=== PATIENT | male | born 1955 | race African-American/Black ===

== ENCOUNTER 2016-04-29 20:50 | Inpatient (IN) | payer OTHER ==
[2016-04-29] MEDS ORDERED: SODIUM CHLORIDE 0.9% 1,000 ML IV STA (21:40)
[2016-04-29] MEDS ORDERED: DEXAMETHASONE SOD PHOSPHATE 10 MG/ML 1 ML VIAL IV STA (21:40)
[2016-04-29] MEDS ORDERED: SODIUM CHLORIDE 0.9% 500 ML IV STA (21:40)
[2016-04-29] MEDS ORDERED: KETOROLAC 30 MG/ML 1 ML VIAL IVP STA (21:40)
[2016-04-29] MEDS ORDERED: METOCLOPRAMIDE 5 MG/ML 2 ML VIAL IVP STA (21:41)
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
[2016-04-29] MEDS ORDERED: LORazepam 2 MG/ML SYRINGE IV STA (22:17)
--- NOTE | 2016-04-29 22:39 | CT ---
EXAMINATION TYPE: CT brain wo con DATE OF EXAM: 04/29/2016 10:30 PM COMPARISON: 09/09/2014 HISTORY: Seizure and headaches. Hx of seizures. CT DLP: 959.7 mGycm Automated exposure control for dose reduction was used. FINDINGS: There is patchy hypodensity in the periventricular white matter. There is no mass effect or midline s hift. There is no sign of intracranial hemorrhage. The calvarium is intact. IMPRESSION: Chronic small vessel ischemia with cerebral atrophy. This has progressed compared to the old exam. No acute intracranial abnormality.
[2016-04-29 23:00] LABS: Anisocytosis Slight; CH 23.9; CHCM 28.9; HCT 44.6 % (39.0-53.0); HGB 12.7 gm/dL (13.0-17.5); Hypochromasia Marked; MCH 23.8 pg (25.0-35.0); MCHC 28.4 g/dL (31.0-37.0); MCV 83.6 fL (80.0-100.0); Mean Platelet Volume 8.8; RBC 5.33 m/uL (4.30-5.90); RDW 17.5 % (11.5-15.5); WBC (Perox) 10.56
[2016-04-29 23:03] LABS: Anion Gap 21 mmol/L; Blood Urea Nitrogen 16 mg/dL (9-20); Calcium 8.8 mg/dL (8.4-10.2); Carbon Dioxide 16 mmol/L (22-30); Chloride 106 mmol/L (98-107); Glucose 130 mg/dL (74-99); Non-African American GFR(MDRD) >60 (>60 ml/min/1.73 sqM); Potassium 4.1 mmol/L (3.5-5.1); Sodium 143 mmol/L (137-145)
[2016-04-29 23:31] LABS: Add Differential Manual Differential
[2016-04-29] MEDS ORDERED: NALOXONE 0.4 MG/ML 1 ML VIAL IV STA (23:42)
[2016-04-29 23:44] LABS: Manual Review Performed; Nucleated Red Blood Cells 2 /100 WBC (0-0); Target Cells Present; Total Cells Counted 200; WBC 10.7 k/uL (3.8-10.6)
[2016-04-29] MEDS ORDERED: IPRATROPIUM-ALBUTEROL 3 ML NEB INHALATION STA (23:45)
[2016-04-30 00:09] LABS: Creatine Kinase 186 U/L (55-170)
[2016-04-30] MEDS ORDERED: levETIRAcetam IV 1,000 MG in SALINE 1 100ML.BAG IVPB STA (00:19)
[2016-04-30] MEDS ORDERED: LORazepam 2 MG/ML SYRINGE IV STA (00:20)
[2016-04-30 00:22] LABS: Creatine Kinase MB 2.2 ng/mL (0.0-2.4); Troponin I <0.012 ng/mL (0.000-0.034)
[2016-04-30] MEDS ORDERED: SUCCINYLCHOLINE CHLORIDE VIAL 200 MG/10 ML VIAL IV STA (00:35)
[2016-04-30] MEDS ORDERED: ETOMIDATE 2 MG/ML 10 ML VIAL IVP STA (00:36)
[2016-04-30 00:40] LABS: ABG Base Excess -3.4 mmol/L; ABG HCO3 26 mmol/L (21-25); ABG PCO2 92 mmHg (35-45); ABG PH 7.08 (7.35-7.45); ABG PO2 126 mmHg (83-108); ABG TCO2 29 mmol/L (19-24)
[2016-04-30] MEDS ORDERED: PROPOFOL 500 MG in EMPTY BAG 1 BAG IV ONE (00:50)
[2016-04-30 01:21] LABS: ABG Base Excess -2.2 mmol/L; ABG HCO3 24 mmol/L (21-25); ABG PCO2 56 mmHg (35-45); ABG PH 7.25 (7.35-7.45); ABG PO2 100 mmHg (83-108); ABG TCO2 26 mmol/L (19-24)
--- NOTE | 2016-04-30 01:21 | XR ---
EXAMINATION TYPE: XR chest 1V portable DATE OF EXAM: 04/30/2016 12:59 AM COMPARISON: 09/11/2014 HISTORY: Check tube placement TECHNIQUE: Single frontal view of the chest is obtained. FINDINGS: Endotracheal tube appears in good position. There is blunting of left costophrenic angle a nd infiltrate and consolidation at the left lung base. There is pulmonary vascular congestion. Heart appears enlarged. There are chest leads. There is slight blunting of right costophrenic angle. IMPRESSION: Endotracheal tube is in good position. There is evidence of mild congestive heart failur e that is new compared to old exam. Left lower lobe pneumonia and pleural fluid.
[2016-04-30] MEDS ORDERED: PIPERACILLIN-TAZOBACTAM 3.375 GM in DEXTROSE/WATER 1 50ML.BAG IVPB STA (01:52)
[2016-04-30] MEDS ORDERED: IV VANCOMYCIN PER PHARMACY 1 EACH MISC MISCELLANE PRN (01:52)
[2016-04-30] MEDS ORDERED: VANCOMYCIN 1,000 MG in SODIUM CHLORIDE 0.9% 250 ML IVPB STA (01:52)
[2016-04-30] MEDS ORDERED: FUROSEMIDE 10 MG/ML 10 ML VIAL IV STA (01:53)
[2016-04-30] MEDS ORDERED: ACETAMINOPHEN IV (For NPO) 1,000 MG in SALINE 1 100ML.BAG IVPB PRN (01:55)
[2016-04-30] MEDS ORDERED: NALOXONE 0.4 MG/ML 1 ML VIAL IV PRN (01:55)
[2016-04-30] MEDS ORDERED: BISACODYL 10 MG SUPP RECTAL PRN (01:55)
[2016-04-30] MEDS ORDERED: LORazepam 2 MG/ML SYRINGE IV PRN (02:03)
[2016-04-30 03:51] LABS: Glucose,Whole Blood 96 mg/dL (75-99)
[2016-04-30 04:26] LABS: Appearance,Urine Clear (Clear); Bilirubin,Urine Negative (Negative); Glucose,Urine (UA) 2+ (Negative); Ketones,Urine Negative (Negative); Leukocyte Esterase,Urine Negative (Negative); Nitrite,Urine Negative (Negative); Protein,Urine Negative (Negative); Specific Gravity,Urine 1.005 (1.001-1.035); UA Billing (MACRO vs. MICRO) CHEM; Urobilinogen,Urine <2.0 mg/dL (<2.0)
[2016-04-30 04:52] LABS: ABG Base Excess -0.5 mmol/L; ABG HCO3 24 mmol/L (21-25); ABG PCO2 43 mmHg (35-45); ABG PH 7.37 (7.35-7.45); ABG PO2 223 mmHg (83-108); ABG TCO2 25 mmol/L (19-24)
[2016-04-30 04:53] LABS: ABG Oxygen Saturation 99.8 % (94-97)
[2016-04-30] MEDS: SODIUM CHLORIDE 0.9% 1,000 ML IV SCH (05:07)
[2016-04-30] MEDS: PROPOFOL 500 MG in EMPTY BAG 1 BAG IV SCH ×10 (05:07→22:27)
[2016-04-30 05:14] LABS: Anisocytosis Slight; Basophils # (A) 0.1 k/uL (0-0.2); Basophils % (A) 1 %; CH 23.6; Eosinophils # (A) 0.1 k/uL (0-0.7); Eosinophils % (A) 1 %; HDW 2.74; HGB 12.7 gm/dL (13.0-17.5); Hypochromasia Marked; Luc # (Auto) 0.16; Luc % (Auto) 1; Lymphocytes # (A) 0.9 k/uL (1.0-4.8); Lymphocytes % (A) 8 %; MCV 85.1 fL (80.0-100.0); Mean Platelet Volume 8.3; Monocytes # (A) 0.6 k/uL (0-1.0); Monocytes % (A) 5 %; Neutrophils # (A) 10.2 k/uL (1.3-7.7); Neutrophils % (A) 84 %; RBC 5.52 m/uL (4.30-5.90); RDW 17.5 % (11.5-15.5); WBC 12.1 k/uL (3.8-10.6); WBC (Perox) 11.52
[2016-04-30 05:22] LABS: Anion Gap 16 mmol/L; Blood Urea Nitrogen 18 mg/dL (9-20); Calcium 9.2 mg/dL (8.4-10.2); Carbon Dioxide 25 mmol/L (22-30); Chloride 104 mmol/L (98-107); Glucose 116 mg/dL (74-99); Magnesium 2.2 mg/dL (1.6-2.3); Non-African American GFR(MDRD) >60 (>60 ml/min/1.73 sqM); Phosphorous 4.3 mg/dL (2.5-4.5); Potassium 4.8 mmol/L (3.5-5.1); Sodium 145 mmol/L (137-145)
[2016-04-30 06:01] LABS: Large Platelets Present; Manual Review Performed; Polychromasia Present; Tear Drop Cells Present
--- NOTE | 2016-04-30 08:39 | XR ---
EXAMINATION TYPE: XR chest 1V portable DATE OF EXAM: 04/30/2016 6:39 AM Comparison: 04/30/2016 Clinical History: 60-year-old male CHF/Pneumonia Findings: Heart remains upper limits of normal in size. ET tube is satisfactory. NG tube courses below the diap hragm. Mild interstitial densities are similar with continued focal left basilar and retrocardiac opa city. Impression: 1. There may be similar mild CHF. 2. Continued small left pleural effusion with prominent adjacent left basilar and retrocardiac infilt rate.
[2016-04-30] MEDS: PIPERACILLIN-TAZOBACTAM 3.375 GM in DEXTROSE/WATER 1 50ML.BAG IVPB SCH ×3 (09:51→23:55)
[2016-04-30] MEDS: PANTOPRAZOLE 40 MG/10 ML VIAL IV SCH (09:51)
[2016-04-30] MEDS: FUROSEMIDE 10 MG/ML 4 ML VIAL IV SCH ×2 (09:51→20:26)
[2016-04-30] MEDS: CHLORHEXIDINE GLUCONATE 15 ML CUP MUCOUS MEM SCH ×2 (09:51→20:26)
[2016-04-30] MEDS: ENOXAPARIN 40 MG/0.4 ML SYRINGE SQ SCH (09:51)
[2016-04-30] MEDS: levETIRAcetam IV 1,000 MG in SALINE 1 100ML.BAG IVPB SCH ×2 (10:03→22:17)
[2016-04-30] MEDS: VANCOMYCIN 1,500 MG in SODIUM CHLORIDE 0.9% 250 ML IVPB SCH ×2 (14:13→23:55)
--- NOTE | 2016-04-30 14:47 | CONS ---
DATE OF CONSULTATION: 04/30/2016 REASON FOR CONSULTATION: Acute respiratory failure and left-sided pneumonia. HISTORY OF PRESENTING ILLNESS: Mr. Nitin oY is a 60-year-old male who was seen, evaluated and examined in the ICU earlier this morning. Data predominantly has been obtained from the chart as patient presented into the emergency department with issues associated with severe headache. It started one day prior to coming to the hospital. Patient has been having nausea and vomiting as well. With those problems, he was seen, evaluated, and examined in the hospital. Patient had a history of dizziness as well with history of seizures. Patient has been intermittently having seizures as well. Reportedly patient had multiple seizures in the last few days, in fact one in the hospital and then subsequently afterwards he was intubated. Review of the data revealed that patient was rehydrated in the ED and was placed on Toradol and Reglan. CT scan of the brain was performed. No acute changes were identified. Due to seizures, he did receive 2 mg of Ativan. It appears his seizure lasted about 3 minutes and then another seizure occurred, followed by a third seizure. Patient was given Ativan and Keppra. He did drop down his oxygen saturation and developed oral secretions. At that point, he was intubated for airway protection by the ED. Past medical history is significant for CVA, TIA, GERD, hypertension, degenerative joint disease and osteoarthritis, seizure disorder, history of chronic back pain, peptic ulcer disease, history of pneumonia, and syncope. PAST SURGICAL HISTORY: Significant for colonoscopy, right ankle open reduction internal fixation surgery, right shoulder surgery. FAMILY HISTORY AND SOCIAL HISTORY: Smokes 1-1/2 packs per day for about 24 years. No history of substance use or alcohol consumption, unable to obtain a better detail. Family with a strong history of diabetes on maternal side though. Medications at home include [place], Lexapro, Norvasc and Depakote, Norflex. Current medications while in the hospital include Tylenol as needed, Dulcolax, Peridex, Lovenox 40 mg daily, Lasix 40 mg IV q.12, levetiracetam 1 gm q.12, Ativan 1 mg q.30 minutes as needed, vanco and Zosyn, Narcan, Protonix 40 mg daily. Also on propofol drip as per protocol, IV fluids KVO. REVIEW OF SYSTEMS: Unable to obtain at length. On examination, most recent vitals include blood pressure is 140/90, respiratory rate in mid 20s, heart rate is 108, temperature is 99, saturation of 92%. Current vent setting includes assist control rate of 16, breathing 16, tidal volume of 600, 5 of PEEP and 50% oxygen. HEENT: Otherwise unremarkable. NECK: Supple without any lymphadenopathy, jugular venous distention or carotid bruit. LUNGS: Bilateral good air entry with some bronchial breath sound, especially on the left base. HEART: Regular rate and rhythm. S1 and S2 audible. Abdomen is soft. No rebound or rigidity. EXTREMITIES: +1 pedal pulses. NEUROLOGICAL EXAMINATION: Sedated with propofol drip. Laboratory data reviewed. The chest x-ray revealed left lower lobe infiltrate and small effusion cannot be excluded. White cell count is 12,100, hemoglobin of 12, hematocrit 47, platelet count of 441,000. Arterial blood gases pH 7.3, pCO2 of 43, pO2 of 223 on 80% oxygen, ( ) chemistry within normal limits. CO2 was 16, initially improved to 25. Urinalysis unremarkable, marijuana was positive in the drug screen. IMPRESSION: 1. Acute hypoxic respiratory failure related to aspiration pneumonia, likely mixed bacterial pneumonia. 2. Seizure disorder with recurrent seizure and status epilepticus, which is now stable and improved. Patient is on antiseizure medicine and appears to be well-controlled, Neuro has been consulted. 3. Hypertension, hypertensive cardiovascular disease PLAN AND RECOMMENDATIONS: As above. Continue supportive care. Follow clinical course closely. Broad-spectrum has been given. Will send the sputum for culture as well. Repeat labs and x-ray tomorrow, hold on any weaning at this point in time until patient is relatively more stable.
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
[2016-04-30] MEDS: MORPHINE SULFATE 4 MG/ML SYRINGE IV PRN ×2 (17:28→20:53)
[2016-04-30] MEDS: hydrALAZINE HCL 20 MG/ML 1 ML VIAL IVP PRN (17:57)
[2016-04-30] MEDS: VALPROATE SODIUM 250 MG in SODIUM CHLORIDE 0.9% 50 ML IVPB SCH (20:26)
[2016-05-01] MEDS: PROPOFOL 500 MG in EMPTY BAG 1 BAG IV SCH ×5 (02:31→09:33)
[2016-05-01] MEDS: VALPROATE SODIUM 250 MG in SODIUM CHLORIDE 0.9% 50 ML IVPB SCH ×2 (04:40→11:17)
[2016-05-01] MEDS: SODIUM CHLORIDE 0.9% 1,000 ML IV SCH (04:40)
[2016-05-01 05:02] LABS: ABG HCO3 25 mmol/L (21-25); ABG PCO2 38 mmHg (35-45); ABG PH 7.43 (7.35-7.45); ABG PO2 128 mmHg (83-108)
[2016-05-01 05:03] LABS: ABG Base Excess 0.7 mmol/L; ABG TCO2 26 mmol/L (19-24)
[2016-05-01 05:06] LABS: Anisocytosis Slight; Basophils # (A) 0.1 k/uL (0-0.2); Basophils % (A) 1 %; CH 23.8; CHCM 30.1; Eosinophils # (A) 0.2 k/uL (0-0.7); Eosinophils % (A) 2 %; HCT 39.6 % (39.0-53.0); HDW 2.68; HGB 11.9 gm/dL (13.0-17.5); Hypochromasia Moderate; Luc # (Auto) 0.32; Luc % (Auto) 3; Lymphocytes # (A) 1.6 k/uL (1.0-4.8); Lymphocytes % (A) 17 %; MCH 23.9 pg (25.0-35.0); MCHC 30.1 g/dL (31.0-37.0); Mean Platelet Volume 8.1; Microcytosis Slight; Monocytes # (A) 1.2 k/uL (0-1.0); Monocytes % (A) 12 %; Neutrophils # (A) 6.2 k/uL (1.3-7.7); Neutrophils % (A) 65 %; RBC 4.98 m/uL (4.30-5.90); RDW 17.5 % (11.5-15.5); WBC 9.4 k/uL (3.8-10.6); WBC (Perox) 10.03
[2016-05-01 05:19] LABS: MCV 79.5 fL (80.0-100.0)
[2016-05-01 05:22] LABS: Anion Gap 11 mmol/L; Calcium 8.4 mg/dL (8.4-10.2); Carbon Dioxide 27 mmol/L (22-30); Chloride 105 mmol/L (98-107); Glucose 92 mg/dL (74-99); Non-African American GFR(MDRD) 53 (>60 ml/min/1.73 sqM); Sodium 143 mmol/L (137-145)
[2016-05-01 05:25] LABS: Blood Urea Nitrogen 28 mg/dL (9-20); Magnesium 2.2 mg/dL (1.6-2.3); Potassium 4.2 mmol/L (3.5-5.1)
[2016-05-01] MEDS: levETIRAcetam IV 1,000 MG in SALINE 1 100ML.BAG IVPB SCH (07:56)
[2016-05-01] MEDS: PIPERACILLIN-TAZOBACTAM 3.375 GM in DEXTROSE/WATER 1 50ML.BAG IVPB SCH ×3 (07:56→23:09)
--- NOTE | 2016-05-01 08:58 | XR ---
EXAMINATION TYPE: XR chest 1V portable DATE OF EXAM: 05/01/2016 6:54 AM COMPARISON: Prior chest x-ray 30 April 2016 HISTORY: Intubated, pneumonia TECHNIQUE: Single frontal view of the chest is obtained. FINDINGS: Endotracheal tube, NG tube are overlying appropriate positions. No pneumothorax evident. P atchy basilar density somewhat improved on the right, persistent obscuration of the left hemidiaphrag m. Cardiac mediastinal silhouette, pulmonary vascularity and jesús not significantly changed. No evide nt pneumothorax. IMPRESSION: There is some improvement in aeration, persistent retrocardiac density, correlate for le ft lower lobe atelectasis versus pneumonia or edema. Additional follow-up recommended.
[2016-05-01] MEDS: FUROSEMIDE 10 MG/ML 4 ML VIAL IV SCH (09:08)
[2016-05-01] MEDS: CHLORHEXIDINE GLUCONATE 15 ML CUP MUCOUS MEM SCH (09:08)
[2016-05-01] MEDS: ENOXAPARIN 40 MG/0.4 ML SYRINGE SQ SCH (09:08)
[2016-05-01] MEDS: PANTOPRAZOLE 40 MG/10 ML VIAL IV SCH (09:08)
--- NOTE | 2016-05-01 09:33 | CONS ---
DATE OF CONSULTATION: 04/30/2016 CHIEF COMPLAINT: Seizure. HISTORY OF PRESENT ILLNESS: Mr. oY is a 60-year-old male who is being evaluated today on 04/30/16 by the neurology service per the request of Dr. Barbour for uncontrolled seizures. The patient was brought into [facility] Emergency Room after EMS was called because of his complaints of generalized weakness and a headache. While EMS was evaluating the patient, he had 3 generalized tonic-clonic seizures. The patient had respiratory distress and was intubated. He was started on IV Keppra. In the emergency room, he was felt to be having fluid overload and was started on IV Lasix. The patient was still restless and had to be sedated with propofol fall and he was admitted to the intensive care unit for further workup and management. A stat CT scan of the brain was done, which showed no acute abnormalities. There was generalized atrophy and small vessel ischemic changes. His chest x-ray showed evidence of left pleural effusion and left-sided infiltrate. He has been started on antibiotics. The patient remained sedated and intubated at the time of my evaluation. In reviewing the chart, he appears to have history of seizure disorder and is on Depakote 250 mg 3 times daily at home. It appears that the patient had not been compliant with his therapy and his Depakote level was undetectable according to the chart. His CBC showed mild leukocytosis at 12.1 and was otherwise normal. His urinalysis and basic metabolic profile was normal. His urine drug screen was positive for marijuana. He remains on Keppra IV at this time and no further seizure-like activities have been witnessed by the nursing staff. PAST MEDICAL HISTORY: Generalized tonic-clonic seizure disorder, arthritis, hypertension, peptic ulcer disease, gastroesophageal reflux disease, history of orthopedic surgeries. SOCIAL HISTORY: The patient smokes 1/2 pack of cigarettes daily. His alcohol and drug history is unknown. FAMILY HISTORY: Unknown. HOME MEDICATIONS: Reviewed in the chart. ALLERGIES: No known drug allergies. REVIEW OF SYSTEMS: Unable to obtain as the patient is intubated and sedated. PHYSICAL EXAM: Vital signs show a temperature of 98.5, pulse 69, respirations 15, blood pressure 158/85. GENERAL APPEARANCE: The patient is a well-developed male who is intubated and sedated and appears to be comfortable. HEENT: Normocephalic, atraumatic. No obvious facial asymmetry is seen. Endotracheal tube is intact. Neck is supple with no masses felt. CARDIOVASCULAR: Regular rate and rhythm. ABDOMEN: Nontender, nondistended. Extremities showed no edema or clubbing. NEUROLOGICAL EXAM: The patient is sedated but he is slightly arousable with sternal rub. He does move all 4 extremities spontaneously. He is not following commands at this time. No obvious facial asymmetry is seen. Plantar reflex showed downgoing toes bilaterally. Deep tendon reflexes were 2 to 3+ and symmetrical. No seizure-like activity is seen. IMPRESSION: 1. Uncontrolled seizures, generalized tonic-clonic type. 2. Altered mental status. 3. Respiratory failure. 4. Subtherapeutic Depakote levels. 5. Medication noncompliance. 6. Possible pneumonia and pleural effusion. RECOMMENDATIONS: The patient did have multiple witnessed seizures and he is currently on IV Keppra. He has not had any further seizures, but he remains intubated and sedated. Pulmonology is following the patient and their plan is to wean him off of the ventilator tomorrow. I will restart his home dose of Depakote 250 mg 3 times daily and I will give him this IV route. An EEG has been ordered. Continue seizure precautions and continue neuro checks. Continue antibiotic therapy for his infection. Prognosis is guarded. I will continue to follow with you. Further recommendations to follow. Thank you for allowing me to participate in the care of your patient. If you have any questions, please feel free to contact me.
[2016-05-01] MEDS ORDERED: VANCOMYCIN TROUGH DUE 1 EACH MISC MISCELLANE ONE (11:00)
[2016-05-01] MEDS: VANCOMYCIN 1,500 MG in SODIUM CHLORIDE 0.9% 250 ML IVPB SCH ×2 (11:17→23:09)
--- NOTE | 2016-05-01 12:27 | PN ---
Nitin Yo who is a 60-year-old male, was seen, evaluated, and examined. Patient has a large aspiration pneumonia, recurrent seizure for which he is kept on respirator. Patient remains intubated on full respirator support along with sedation with propofol. Patient had a seizure and seizure-like activity. Neurology is following this patient as well. Care plan discussed with the Primary Service as well. The last set of vitals include blood pressure is 100/60, respirations 16, pulse 60, temperature 98, saturation of 99% on current vent setting. HEENT: Unremarkable. NECK: Supple. LUNGS: Good air entry, a few bronchial breath sounds are present in the bases. HEART: Regular rate and rhythm, S1 and S2 audible. ABDOMEN: Soft. No rebound or rigidity. EXTREMITIES: +1 peripheral pulses. NEUROLOGICAL EXAMINATION: Otherwise, awake and alert. Medications reviewed as well. The sputum culture preliminary gram-positive cocci are seen. The blood cultures are no growth. Urine culture performed also pending at this point in time. Laboratory data reviewed. The arterial blood gas revealed pH of 7.43, pCO2 of 38, pO2 of 128, BUN and creatinine are 28 and 1.38, which is slightly up. The rest of the chemistry is within normal limits. White cell count is down to 9000, hemoglobin 11, hematocrit 39, platelet count 424,000. The last chest x-ray performed earlier today reviewed and compared with the prior x-ray, revealed improvement in aeration and retrocardiac density and left lower lobe pneumonia seen, which is overall stable. IMPRESSION: 1. Mixed bacterial gram-negative pneumonia, likely aspiration pneumonia. Patient remains on broad-spectrum antibiotics. Follow up on culture results and report. 2. Recurrent seizure. Patient is sedated with propofol drip. The rectum is being infused as well. No evidence of recurrent seizure; however, has been seen though. 3. Congestive heart failure, fluid overload. Patient is developing early renal failure stage II to III. Would recommend to discontinue the Lasix. Further recommendations pending. Plan of care as per clinical response of the patient. If he remains stable, possible initiating weaning in the next 24 to 48 hours.
[2016-05-01] MEDS: MORPHINE SULFATE 4 MG/ML SYRINGE IV PRN ×3 (13:07→22:30)
--- NOTE | 2016-05-01 17:32 | PN ---
DATE OF SERVICE: 05/01/2016 PRESENTING COMPLAINT: Seizures. INTERVAL HISTORY: This patient was admitted with uncontrolled seizure. Patient was extubated earlier today. Patient is awake but a little bit tired. The patient did state that he was out of his seizure medications at home. Patient is on nasal cannula. No further seizures. Review of systems done for constitutional, cardiovascular, GI, pulmonary; relevant findings as above. Current medications are reviewed that include IV Keppra, IV Zosyn, valproic acid. On examination, temperature 98.7, pulse 52, respiration 16, blood pressure 97/63, pulse ox 98%. GENERAL APPEARANCE: Lying in bed. Awake. Tired-appearing. EYES: Pupils equal. Conjunctivae normal. NECK: JVD not raised. Mass not palpable. RESPIRATORY: Effort normal. LUNGS: Slightly decreased breath sounds. CARDIOVASCULAR: First and second sounds normal. No edema. ABDOMEN: Soft, nontender. Liver and spleen not palpable. PSYCHIATRY: Alert and oriented x3. Mood and affect slightly tired-appearing, lethargic. INVESTIGATIONS: White count 9.4, hemoglobin 11.9. Potassium 4.2. BUN 28, creatinine 1.38. ASSESSMENT: 1. Status epilepticus in a patient with known tonic-clonic seizures who ran out of his Depakote. 2. Essential hypertension, uncontrolled on presentation. 3. Peptic ulcer disease. 4. Gastroesophageal reflux disease. 5. Possible aspiration pneumonia. Patient does have a congested cough. PLAN: Continue current medication and treatment plan. If patient is more awake, he can be moved out of the ICU. Continue antibiotics and follow.
[2016-05-01 19:28] LABS: Glucose,Whole Blood 106 mg/dL (75-99)
[2016-05-01] MEDS: levETIRAcetam 500 MG TAB PO SCH (20:24)
--- NOTE | 2016-05-01 22:10 | EEG ---
DATE OF SERVICE: 05/01/2016 REASON FOR TESTING: Seizures. CURRENT ANTIEPILEPTIC MEDICATIONS: Depakote and Keppra. DESCRIPTION OF THE PROCEDURE: This EEG was performed using a 21-channel digital electroencephalograph, following international 10-20 system. DESCRIPTION OF THE RECORDING: From the beginning of the tracing, and with the patient's eyes closed, the background rhythm was mostly consisting of 7 Hz theta frequency in the posterior occipital leads. No obvious asymmetry is seen. Photic stimulation was performed with a minimal driving response seen. No pathological waves were elicited. Frequent movement and muscle artifacts are seen. Hyperventilation was not performed. The patient remains awake throughout the tracing. No epileptiform discharges were seen. His EKG lead showed a regular rate and rhythm. INTERPRETATION: This awake EEG is abnormal due to the presence of generalized slowing of the background rhythm, mostly in the theta range. This is consistent with mild encephalopathy. No epileptiform discharges were seen. The absence of epileptiform discharges does not rule out the diagnosis of epilepsy; therefore clinical correlation is recommended.
[2016-05-01] MEDS: DIVALPROEX 250 MG TABLET.DR PO SCH (22:29)
[2016-05-02 02:40] LABS: Glucose,Whole Blood 91 mg/dL (75-99)
[2016-05-02 05:50] LABS: Anisocytosis Slight; CH 23.7; CHCM 29.4; HCT 42.8 % (39.0-53.0); HDW 2.58; HGB 12.6 gm/dL (13.0-17.5); Hypochromasia Marked; MCH 23.9 pg (25.0-35.0); MCHC 29.4 g/dL (31.0-37.0); MCV 81.2 fL (80.0-100.0); RBC 5.27 m/uL (4.30-5.90); RDW 17.1 % (11.5-15.5); WBC 10.8 k/uL (3.8-10.6); WBC (Perox) 10.96
[2016-05-02] MEDS: ACETAMINOPHEN TAB 325 MG TAB PO PRN ×2 (06:16→15:23)
[2016-05-02] MEDS: SODIUM CHLORIDE 0.9% 1,000 ML IV SCH (06:17)
[2016-05-02 06:27] LABS: Add Differential Manual Differential; Anion Gap 13 mmol/L; Blood Urea Nitrogen 27 mg/dL (9-20); Calcium 9.1 mg/dL (8.4-10.2); Carbon Dioxide 23 mmol/L (22-30); Chloride 106 mmol/L (98-107); Glucose 91 mg/dL (74-99); Magnesium 2.4 mg/dL (1.6-2.3); Non-African American GFR(MDRD) >60 (>60 ml/min/1.73 sqM); Phosphorous 4.2 mg/dL (2.5-4.5); Potassium 4.5 mmol/L (3.5-5.1); Sodium 142 mmol/L (137-145)
[2016-05-02 06:30] LABS: Manual Review Performed; Nucleated Red Blood Cells 0 /100 WBC (0-0); Total Cells Counted 100
[2016-05-02] MEDS: PIPERACILLIN-TAZOBACTAM 3.375 GM in DEXTROSE/WATER 1 50ML.BAG IVPB SCH ×2 (07:59→15:25)
--- NOTE | 2016-05-02 07:59 | XR ---
EXAMINATION TYPE: XR chest 1V portable DATE OF EXAM: 05/02/2016 6:21 AM COMPARISON: 05/01/2016 INDICATION: Pneumonia TECHNIQUE: Single frontal view of the chest is obtained. FINDINGS: The heart size is normal. The pulmonary vasculature is normal. Minimal resolving atelectasis is at the left base. 2 screws are within the right humeral head. EKG leads overlie the chest. IMPRESSION: 1. Resolving left basilar atelectasis.
[2016-05-02] MEDS: PANTOPRAZOLE 40 MG/10 ML VIAL IV SCH (08:19)
[2016-05-02] MEDS: ENOXAPARIN 40 MG/0.4 ML SYRINGE SQ SCH (08:20)
[2016-05-02] MEDS: DIVALPROEX 250 MG TABLET.DR PO SCH ×3 (08:20→21:02)
[2016-05-02] MEDS: levETIRAcetam 500 MG TAB PO SCH ×2 (08:20→21:02)
[2016-05-02] MEDS: MORPHINE SULFATE 4 MG/ML SYRINGE IV PRN ×3 (08:33→21:06)
--- NOTE | 2016-05-02 10:00 | PN ---
Nitin Yo who is a 60-year-old male admitted to hospital with aspiration pneumonia, recurrent seizures and respiratory failure, has been successfully weaned and extubated. Clinically doing well, awake and alert, breathing comfortably. No obvious distress present. Hemodynamic status is stable. Blood pressure 144/95, respiratory rate 20, heart rate 66, temperature 99, saturation 95% to 96%. HEENT: Unremarkable. NECK: Supple without any lymphadenopathy, jugular venous distention or carotid bruit. LUNGS: Bilateral good air entry is present with some bronchial breath sound at the left base. HEART: Regular rate and rhythm. ABDOMEN: Soft. NEUROLOGICAL EXAMINATION: Awake and alert. Last chest x-ray performed revealed left lower lobe infiltrate, continues to improve. IMPRESSION: 1. Left-sided pneumonia. 2. Acute hypoxic respiratory failure. 3. Recurrent seizures. 4. Severe chronic obstructive pulmonary disease. Plan and recommendation is as above. Continue supportive care, antibiotics, breathing treatments. Increase activity as tolerated.
[2016-05-02] MEDS: VANCOMYCIN 1,500 MG in SODIUM CHLORIDE 0.9% 250 ML IVPB SCH (13:19)
--- NOTE | 2016-05-02 17:18 | PN ---
DATE OF SERVICE: 05/01/2016 SUBJECTIVE: Mr. Yo is a 60-year-old -[place] male who is being evaluated today on 05/01/2016 for seizure disorder. As you recall, the patient had uncontrolled seizures and his Depakote level was found to be subtherapeutic on admission. The patient was sedated and intubated yesterday and he was started on IV Keppra and his home dose of Depakote was restarted. Today, the patient has been weaned off of sedation and he was extubated. At the time of my evaluation, he is sitting up in his bed and appears to be in no acute distress. He has not had any further breakthrough seizures. I did discuss with him his serum Depakote level and the patient does admit that he ran out of Depakote and did not refill the medication. He is not sure exactly when he discontinued Depakote. I did review his EEG, which showed no epileptiform discharges, but there was evidence of mild encephalopathy. He denies any headache at this time. He is still on antibiotics for his pneumonia. PAST MEDICAL HISTORY: Seizure disorder, arthritis, hypertension, peptic ulcer disease, gastroesophageal reflux disease. OBJECTIVE: Vital signs show a temperature of 98.7, pulse 73, respirations 23, blood pressure 117/80. GENERAL APPEARANCE: The patient is a well-developed -[place] male who appears to be in no acute distress. HEENT: Normocephalic, atraumatic. No facial asymmetry is seen. Neck is supple with no masses felt. CARDIOVASCULAR: Regular rate and rhythm. ABDOMEN: Nontender, nondistended. Extremities showed no edema or clubbing. NEUROLOGICAL: The patient is awake and oriented x3. Speech and language testing are normal. No lateralizing weakness is seen. Sensory exam was normal to light touch in all 4 extremities. No seizure-like activity is noticed. No facial asymmetry is noticed on cranial nerve testing. IMPRESSION: 1. Generalized tonic-clonic seizures. 2. Encephalopathy, likely infectious. 3. Subtherapeutic Depakote level. 4. Medication noncompliance. 5. Pneumonia. RECOMMENDATIONS: The patient has been weaned off of sedation and he was extubated early this morning. He is doing well from a pulmonary standpoint. He has not had any further seizures. I will keep him on Keppra 1000 mg b.i.d. and I will keep him on his home dose of Depakote at 250 mg t.i.d. I will switch his dosing to oral, since he is able to swallow. I did review his EEG, which showed evidence of mild encephalopathy, likely secondary to an infectious etiology. He will continue on antibiotic therapy and Pulmonology is following the patient. The patient was told that he is not to drive or operate any heavy machinery until he is seizure free for 6 months. The importance of medication compliance, especially with seizure medications, was discussed with the patient. Continue the rest of your current workup and management. I will continue to follow with you. Further recommendations to follow.
--- NOTE | 2016-05-02 17:49 | P.PN ---
Subjective Principal diagnosis: Patient is a 60-year-old -[place] male who is being followed by the neurology service for seizure disorder. As you recall, patient had uncontrolled seizures and was brought to [facility] for further evaluation. On admission, patient's Depakote level was found to be subtherapeutic. Patient states he had run out of his medication approximately 1 -2 weeks ago. Patient was started on IV Keppra in his home dose of Depakote was restarted as well. Patient is complaining of and dizziness. This is most likely related to him being on both Keppra and Depakote. Patient has not had any breakthrough seizures since admission. At the time of my evaluation, he is resting comfortably in bed and appears to be in no acute distress. As you recall, his EEG did not show any epileptiform discharges but there was evidence of mild encephalopathy. Objective - Vital Signs Vital signs: Vital Signs Temp 98.2 F 05/02/16 15:59 Pulse 88 05/02/16 15:59 Resp 14 05/02/16 15:59 BP 144/95 05/02/16 07:00 Pulse Ox 97 05/02/16 15:59 Intake & Output 05/01/16 05/02/16 05/02/16 18:59 06:59 18:59 Intake Total 498.515 520 300 Output Total 1970 1050 500 Balance -1471.485 -530 -200 Weight 81.3 kg 80.3 kg Intake: IV 140 280 300 Piperacillin-Tazobactam 3 50 .375 gm In Dextrose/Water 1 50ml.bag @ 12.5 mls/hr IVPB Q8HR KELLY Rx#: [id number] Sodium Chloride 0.9% 1, 140 280 000 ml @ 20 mls/hr IV . Q24H KELLY Rx#:[id number] Vancomycin 1,500 mg In 250 Sodium Chloride 0.9% 250 ml @ 125 mls/hr IVPB Q12H KELLY Rx#:[id number] Intake, IV Titration 238.515 Amount Piperacillin-Tazobactam 3 50 .375 gm In Dextrose/Water 1 50ml.bag @ 12.5 mls/hr IVPB Q8HR KELLY Rx#: [id number] Propofol 500 mg In Empty 88.515 Bag 1 bag @ Titrate IV . Q0M KELLY Rx#:[id number] levETIRAcetam IV 1,000 mg 100 In Saline 1 100ml.bag @ 400 mls/hr IVPB Q12HR KELLY Rx#:[id number] Oral 240 Tube Feeding 120 Output: Urine 1970 1050 500 Other: Voiding Method Indwelling Catheter Indwelling Catheter Toilet - Exam PHYSICAL EXAM: GENERAL APPEARANCE: Patient is a well-developed, -[place] male who appears to be in no acute distress. HEENT: Normocephalic, atraumatic, no facial asymmetry is seen. Neck is supple with no masses felt. CARDIOVASCULAR: Regular rate and rhythm. ABDOMEN: Nontender, nondistended. EXTREMITIES: Show no edema or clubbing. NEUROLOGICAL EXAM: Patient is awake, alert, and oriented 3. Speech and language are normal. Strength is full in all 4 extremities. No lateralizing weakness is noted. Sensory exam is normal to light touch in all 4 extremities. No tremors or seizure-like activity is seen. No facial asymmetry is noted on cranial nerve testing. - Labs CBC & Chem 7: 05/02/16 04:44 05/02/16 04:44 Labs: Abnormal Lab Results - Last 24 Hours (Table) 05/01/16 05/02/16 05/02/16 Range/Units 19:26 04:44 04:44 WBC 10.8 H (3.8-10.6) k/uL Hgb 12.6 L (13.0-17.5) gm/dL MCH 23.9 L (25.0-35.0) pg MCHC 29.4 L (31.0-37.0) g/dL RDW 17.1 H (11.5-15.5) % Plt Count 509 H (150-450) k/uL Neutrophils # (Manual) 8.1 H (1.3-7.7) k/uL Monocytes # (Manual) 1.1 H (0-1.0) k/uL BUN 27 H (9-20) mg/dL POC Glucose (mg/dL) 106 H (75-99) mg/dL Magnesium 2.4 H (1.6-2.3) mg/dL Microbiology - Last 24 Hours (Table) 04/30/16 11:29 Gram Stain - Final Sputum Sputum Culture - Final 04/30/16 04:46 Blood Culture - Preliminary Blood No Growth after 48 hours 04/30/16 04:15 Urine Culture - Final Urine,Catheterized Assessment and Plan Plan: Impression: 1. Generalized tonic-clonic seizures 2. Encephalopathy 3. Subtherapeutic Depakote level 4. Medication noncompliance 5. Pneumonia Recommendations: Patient has not had any further seizures. He does complain of headache and dizziness. This is likely related to being on both antiepileptic medications of Keppra and Depakote. I agree with weaning off Keppra and continuing him on his home dose of Depakote at 250 mg 3 times a day. Continue to wean Keppra. He may need to continue small dose of Keppra in the home setting for a week or so. Continue medical management for pneumonia. The patient was told that he is not to drive or operate any heavy machinery until he is seizure-free for 6 months. I did discuss with the patient and importance of compliance with his medication. Patient verbalized understanding. I will continue to follow with you on an as-needed basis. Patient is stable for discharge from a neurological standpoint. Feel free to call with any questions or concerns. I performed an examination of the patient and discussed the management with the CITY CONTROLLER. I have reviewed the CITY CONTROLLER notes and agree with the findings and plan of care.
--- NOTE | 2016-05-02 19:38 | PN ---
DATE OF SERVICE: 05/02/2016 PRESENTING COMPLAINT: Uncontrolled seizures. INTERVAL HISTORY: This is a patient who presented with status epilepticus, was extubated yesterday. Patient moved out to the medical floor. Patient states that he had gone to see his mother out of town and out of his Depakote at least for 7 days, otherwise was well controlled. Patient has been on Keppra. Patient states when he gets Keppra, he really feels dizzy, lightheaded, a little bit drowsy, but able to carry on a conversation. Minimal cough. Review of systems done for constitutional, cardiovascular, GI, pulmonary; relevant findings as above. Current medications are reviewed that include: 1. IV Keppra. 2. IV Zosyn and 3. Vancomycin. On examination, temperature 98.2, pulse 88, respirations 14, blood pressure 144/95, pulse ox 97% on room air. GENERAL: Lying in bed, tired-appearing, but more awake. EYES: Pupils equal. Conjunctivae normal. NECK: JVD not raised. Mass not palpable. RESPIRATORY: Effort normal. Lungs are slightly decreased breath sounds. CARDIOVASCULAR: First and second sounds normal. No edema. ABDOMEN: Soft, nontender. Liver and spleen and spleen not palpable. PSYCHIATRY: Alert and oriented x3. Mood and affect very tired-appearing. INVESTIGATIONS: White count 10.8, hemoglobin 12.6. Urine drug screen was positive for marijuana. ASSESSMENT: 1. Status epilepticus in a patient who has had known tonic-clonic seizures, having withdrawal from Depakote. 2. Dizziness, some metabolic encephalopathy from Keppra being added on. 3. Essential hypertension. 4. Peptic ulcer disease. 5. Gastroesophageal reflux disease. 6. Probably aspiration pneumonia responding to current antibiotics. PLAN: The patient is afebrile, chest x-ray looking better. Will discontinue the vancomycin, switch to oral Augmentin. Discussed with Dr. Anderson. Will cut back the dose of Keppra for now, may be able to taper it off down the road and as the patient already cut down on the Depakote, keeping the same dose. Patient's EEG did not show any seizure activity.
[2016-05-02] MEDS: AMOXIC-POT CLAV 875-125MG 1 EACH TAB PO SCH (21:02)
[2016-05-03] MEDS: hydrALAZINE HCL 20 MG/ML 1 ML VIAL IVP PRN (07:55)
[2016-05-03] MEDS: ENOXAPARIN 40 MG/0.4 ML SYRINGE SQ SCH (07:55)
[2016-05-03] MEDS: PANTOPRAZOLE 40 MG TABLET PO SCH (07:55)
[2016-05-03] MEDS: AMOXIC-POT CLAV 875-125MG 1 EACH TAB PO SCH ×2 (07:56→21:29)
[2016-05-03] MEDS: levETIRAcetam 500 MG TAB PO SCH (07:56)
[2016-05-03] MEDS: DIVALPROEX 250 MG TABLET.DR PO SCH ×3 (07:56→21:30)
[2016-05-03 08:47] LABS: Anion Gap 12 mmol/L; Blood Urea Nitrogen 19 mg/dL (9-20); Calcium 9.1 mg/dL (8.4-10.2); Carbon Dioxide 25 mmol/L (22-30); Chloride 105 mmol/L (98-107); Glucose 91 mg/dL (74-99); Magnesium 2.3 mg/dL (1.6-2.3); Non-African American GFR(MDRD) >60 (>60 ml/min/1.73 sqM); Phosphorous 3.1 mg/dL (2.5-4.5); Potassium 4.4 mmol/L (3.5-5.1); Sodium 142 mmol/L (137-145)
[2016-05-03 09:40] LABS: Anisocytosis Slight; Basophils # (A) 0.1 k/uL (0-0.2); Basophils % (A) 1 %; CH 23.8; Eosinophils # (A) 0.1 k/uL (0-0.7); Eosinophils % (A) 1 %; HDW 2.47; HGB 12.3 gm/dL (13.0-17.5); Hypochromasia Marked; Luc # (Auto) 0.33; Luc % (Auto) 4; Lymphocytes # (A) 1.9 k/uL (1.0-4.8); Lymphocytes % (A) 20 %; MCH 23.6 pg (25.0-35.0); MCHC 28.7 g/dL (31.0-37.0); MCV 82.5 fL (80.0-100.0); Mean Platelet Volume 7.4; Monocytes # (A) 0.9 k/uL (0-1.0); Monocytes % (A) 10 %; Neutrophils % (A) 64 %; RBC 5.22 m/uL (4.30-5.90); RDW 16.7 % (11.5-15.5); WBC 9.3 k/uL (3.8-10.6); WBC (Perox) 10.29
[2016-05-03] MEDS: MORPHINE SULFATE 4 MG/ML SYRINGE IV PRN ×2 (10:02→16:38)
[2016-05-03] MEDS: SODIUM CHLORIDE 0.9% 1,000 ML IV SCH (11:26)
[2016-05-03] MEDS: ACETAMINOPHEN TAB 325 MG TAB PO PRN ×2 (11:26→21:17)
[2016-05-03 12:17] VITALS: BMI 20.9
--- NOTE | 2016-05-03 17:31 | PN ---
DATE OF SERVICE: 05/03/2016 Mr. Nitin Yo is seen, evaluated, examined. Came into hospital with left-sided pneumonia and recurrent seizure. The patient has been doing well, awake, alert, breathing comfortably. No obvious distress present. Hemodynamically stable. Last set of vitals include blood pressure is 140/90, respirations 14, pulse 88, temperature 98, saturation 97%. HEENT: Unremarkable. NECK: Supple. LUNGS: Good air entry bilaterally. HEART: Regular rate and rhythm. S1 and S2 audible. ABDOMEN: Soft. No rebound or rigidity. EXTREMITIES: +1. NEUROLOGICAL EXAMINATION: Slightly somewhat somnolent, but arousable, opens eyes, follows simple commands. No obvious distress present. IMPRESSION: 1. Left lower lobe pneumonia, clinically and radiographically has improved. 2. Seizure disorder with status epilepticus. The patient has been medications being adjusted. 3. Altered mental encephalopathy, has improved significantly. 4. Uncontrolled hypertension relatively stable. 5. Prerenal azotemia. The patient is being monitored off of Lasix. Plan and recommendation: Continue antibiotics. Agree with switching to oral antibiotics. Continue Keppra. Will follow. Continue deep breathing and incentive spirometry.
[2016-05-03] MEDS: amLODIPine 10 MG TAB PO SCH (21:28)
[2016-05-03] MEDS: levETIRAcetam 250 MG TAB PO SCH (21:29)
--- NOTE | 2016-05-03 22:46 | PN ---
PRESENTING COMPLAINT: 05/03/2016 INTERVAL HISTORY: This patient was admitted with status epilepticus who was not taking his Depakote, doing much better. Earlier today when I saw the patient, he had been up to the bathroom. Nurse said he had no trouble walking. I did tell the patient to get up and walk in the hallway and subsequently he did well, doing better than that, tolerating his meals. Review of systems done for constitutional, cardiovascular, GI, pulmonary; relevant findings as above. Current medications are reviewed. The patient is on a cut-back dose of Depakote 500 mg twice a day. On examination, temperature 97.8, pulse 60, respirations 16, blood pressure 159/102, pulse ox 98% on room air. GENERAL APPEARANCE: Sitting up, comfortable. EYES: Pupils equal. Conjunctivae normal. NECK: JVD not raised. Mass not palpable. RESPIRATORY: Effort normal. LUNGS: Slightly decreased breath sounds. CARDIOVASCULAR: First and second sounds normal. No edema. ABDOMEN: Soft, nontender. Liver and spleen not palpable. PSYCHIATRY: Alert and oriented x3. Mood and affect normal. INVESTIGATIONS: White count 9.3, hemoglobin 12.3. Potassium 4.4. ASSESSMENT: 1. Status epilepticus in a patient who had known tonic-clonic seizures, presented with probably withdrawal from Depakote, doing better. 2. Dizziness and some metabolic encephalopathy from being on Keppra. 3. Essential hypertension. 4. Peptic ulcer disease. 5. Gastroesophageal reflux disease. 6. Probable aspiration pneumonia, responding to antibiotics. PLAN: Will cut back on the dose of Keppra to 15 mg twice a day. Patient already up and about in the hallway. Will adjust the blood pressure medication. There is no indication for Dilaudid right now. Will start the patient's amlodipine, discontinue the IV fluids.
[2016-05-04] MEDS: hydrALAZINE HCL 20 MG/ML 1 ML VIAL IVP PRN (07:33)
[2016-05-04] MEDS: PANTOPRAZOLE 40 MG TABLET PO SCH (07:33)
[2016-05-04 08:01] VITALS: BP 192/90; PULSE 66; RESP 17; TEMP 98.2
[2016-05-04] MEDS ORDERED: hydrALAZINE HCL 50 MG TAB PO SCH (09:00)
[2016-05-04] MEDS: ACETAMINOPHEN TAB 325 MG TAB PO PRN (09:33)
[2016-05-04] MEDS: AMOXIC-POT CLAV 875-125MG 1 EACH TAB PO SCH (09:35)
[2016-05-04] MEDS: amLODIPine 10 MG TAB PO SCH (09:35)
[2016-05-04] MEDS: levETIRAcetam 250 MG TAB PO SCH (09:38)
[2016-05-04] MEDS: ENOXAPARIN 40 MG/0.4 ML SYRINGE SQ SCH (09:38)
[2016-05-04] MEDS: DIVALPROEX 250 MG TABLET.DR PO SCH (09:38)
--- NOTE | 2016-05-04 09:54 | PN ---
Nitin Yo is a 60-year-old with respiratory failure. Clinically patient is doing well, awake and alert, breathing comfortably. No obvious distress is present. Has some intermittent confusion and agitation. Hemodynamic status is stable. Last set of vitals shows blood pressure is ( ), however, the blood pressure continued to have somewhat paroxysmal pattern. Last set of blood pressure was 151/108, respiratory rate 16, pulse 90, temperature 97. HEENT EXAMINATION: Otherwise unremarkable. NECK: Supple. LUNGS: Good air entry bilaterally. HEART: Regular rate and rhythm. ABDOMEN: Soft. NEUROLOGICAL EXAMINATION: Not much change. Current medicines include amlodipine 10 mg daily, Augmentin 875 two times a day, Dulcolax, Depakote, Lovenox, hydralazine 10 mg q.4 hourly; also on Keppra, Ativan, naloxone, Protonix. IMPRESSION: 1. Uncontrolled hypertension, hypertensive urgency. Patient has been on Norvasc and IV hydralazine. Will recommend to start p.o. hydralazine. 2. Other issues include seizures. Continue current medications. 3. Aspiration pneumonia left lower lobe. Clinically and radiographically improving. PLAN AND RECOMMENDATIONS: As above. Continue supportive care. Follow clinical course closely.
[2016-05-04 10:18] LABS: Anisocytosis Slight; Basophils # (A) 0.1 k/uL (0-0.2); Basophils % (A) 1 %; CH 23.8; CHCM 29.1; Eosinophils # (A) 0.3 k/uL (0-0.7); Eosinophils % (A) 3 %; HCT 49.4 % (39.0-53.0); HDW 2.52; HGB 14.1 gm/dL (13.0-17.5); Hypochromasia Marked; Luc # (Auto) 0.35; Luc % (Auto) 4; Lymphocytes # (A) 1.9 k/uL (1.0-4.8); Lymphocytes % (A) 19 %; MCH 23.4 pg (25.0-35.0); MCHC 28.5 g/dL (31.0-37.0); MCV 82.2 fL (80.0-100.0); Mean Platelet Volume 6.7; Monocytes # (A) 0.8 k/uL (0-1.0); Monocytes % (A) 9 %; Neutrophils # (A) 6.4 k/uL (1.3-7.7); Neutrophils % (A) 65 %; RBC 6.01 m/uL (4.30-5.90); RDW 16.8 % (11.5-15.5); WBC 9.9 k/uL (3.8-10.6); WBC (Perox) 10.49
[2016-05-04 10:27] LABS: Anion Gap 16 mmol/L; Carbon Dioxide 21 mmol/L (22-30); Chloride 107 mmol/L (98-107); Glucose 92 mg/dL (74-99); Non-African American GFR(MDRD) >60 (>60 ml/min/1.73 sqM); Sodium 144 mmol/L (137-145)
[2016-05-04 10:31] LABS: Blood Urea Nitrogen 15 mg/dL (9-20); Magnesium 2.1 mg/dL (1.6-2.3); Phosphorous 2.8 mg/dL (2.5-4.5); Potassium 4.8 mmol/L (3.5-5.1)
--- NOTE | 2016-05-05 14:00 | DS ---
DATE OF ADMISSION: 04/30/2016 DATE OF DISCHARGE: 05/04/2016 DATE LEFT AGAINST MEDICAL ADVICE: 05/04/2016 FINAL DIAGNOSIS(ES): 1. Status epilepticus from tonic-clonic seizures, patient not taking his Depakote. 2. Essential hypertension. 3. Peptic ulcer disease. 4. Gastroesophageal reflux disease. 5. Probably aspiration pneumonia. CONSULTATION: 1. Dr. Francisco Davies from pulmonary. 2. Dr. Anderson from neurology. HOSPITAL COURSE: This patient stopped taking his Depakote as he ran out of the same. Presented with tonic-clonic seizures and pneumonia. Patient is getting better. Patient ( ) was keeping scaled back. Plan was stop as an outpatient within a week of leaving. Early today, I saw the patient. The patient is doing better. On exam, lungs improved air entry. CARDIOVASCULAR: First and second seconds normal. I told the patient. I will with let the patient go. Patient was extreme hurry, hurry. Called the nurse. I did call the nurse back to say I would be down in half hour to discharge him. In the meantime patient left AGAINST MEDICAL ADVICE. I could not complete his paperwork.
== END 2016-05-04 15:39 | disposition left against medical advice (07) | DRG 100 ==
LOC: EC 20:50 → 6ICU 04-30 01:55 → 5MS5E 05-02 08:09
PROVIDERS: ADMIT Hospitalist; ATTEND Hospitalist
PROC: 0BH17EZ Insertion of Endotracheal Airway into Trachea, Via Natural or Artificial Opening (ICD-10-PCS; principal; 2016-04-30)
PROC: 5A1945Z Respiratory Ventilation, 24-96 Consecutive Hours (ICD-10-PCS; principal; 2016-04-30)
DX: G40.409 Other generalized epilepsy and epileptic syndromes, not intractable, without status epilepticus (principal); G93.41 Metabolic encephalopathy; J96.01 Acute respiratory failure with hypoxia; J69.0 Pneumonitis due to inhalation of food and vomit; I13.0 Hypertensive heart and chronic kidney disease with heart failure and stage 1 through stage 4 chronic kidney disease, or unspecified chronic kidney disease; J15.6 Pneumonia due to other Gram-negative bacteria; I50.9 Heart failure, unspecified; E87.2 Acidosis; J44.0 Chronic obstructive pulmonary disease with (acute) lower respiratory infection; Z91.128 Patient's intentional underdosing of medication regimen for other reason; T42.6X6A Underdosing of other antiepileptic and sedative-hypnotic drugs, initial encounter; F17.210 Nicotine dependence, cigarettes, uncomplicated; I16.0 Hypertensive urgency; K21.9 Gastro-esophageal reflux disease without esophagitis; K27.9 Peptic ulcer, site unspecified, unspecified as acute or chronic, without hemorrhage or perforation; M19.90 Unspecified osteoarthritis, unspecified site; N18.2 Chronic kidney disease, stage 2 (mild); Z79.899 Other long term (current) drug therapy; Z86.73 Personal history of transient ischemic attack (TIA), and cerebral infarction without residual deficits; Z87.01 Personal history of pneumonia (recurrent); Z91.14 Patient's other noncompliance with medication regimen
CPT/HCPCS: 31500; 36415; 36600; 51702; 70450; 71010; 80048; 80164; 80202; 80306; 81003; 82550; 82553; 82805; 83735; 83880; 84100; 84484; 85025; 87040; 87070; 87086; 87205; 93005; 94002; 94003; 94640; 95816; 96361; 96365; 96366; 96367; 96375; 96376; 99291

== ENCOUNTER 2016-05-10 19:50 | Observation (INO) | payer OTHER ==
[2016-05-10] MEDS ORDERED: SODIUM CHLORIDE 0.9% 1,000 ML IV ONE (20:00)
[2016-05-10] MEDS ORDERED: LORazepam 2 MG/ML SYRINGE IV STA (20:00)
[2016-05-10] MEDS ORDERED: VALPROATE SODIUM 1,500 MG in SODIUM CHLORIDE 0.9% 50 ML IVPB STA (20:00)
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
[2016-05-10 20:19] LABS: Appearance,Urine Clear (Clear); Bilirubin,Urine Negative (Negative); Glucose,Urine (UA) Negative (Negative); Ketones,Urine Negative (Negative); Leukocyte Esterase,Urine Negative (Negative); Nitrite,Urine Negative (Negative); Protein,Urine Negative (Negative); Specific Gravity,Urine 1.001 (1.001-1.035); UA Billing (MACRO vs. MICRO) CHEM; Urobilinogen,Urine <2.0 mg/dL (<2.0)
[2016-05-10 20:25] LABS: Anisocytosis Slight; Aty Lym Flag Slight; CH 23.9; Hypochromasia Marked
[2016-05-10 20:30] LABS: ALT 48 U/L (21-72); AST 29 U/L (17-59); Acetaminophen <10.0 ug/mL; Alkaline Phosphatase 97 U/L (38-126); Amylase 109 U/L (30-110); Anion Gap 14 mmol/L; Blood Urea Nitrogen 16 mg/dL (9-20); Calcium 8.8 mg/dL (8.4-10.2); Carbon Dioxide 24 mmol/L (22-30); Chloride 109 mmol/L (98-107); Glucose 96 mg/dL (74-99); Non-African American GFR(MDRD) >60 (>60 ml/min/1.73 sqM); Potassium 4.5 mmol/L (3.5-5.1); Sodium 147 mmol/L (137-145); Total Bilirubin 0.4 mg/dL (0.2-1.3); Total Protein 7.1 g/dL (6.3-8.2)
[2016-05-10 20:35] LABS: CHCM 29.9; HGB 12.3 gm/dL (13.0-17.5); MCH 23.1 pg (25.0-35.0); MCHC 28.7 g/dL (31.0-37.0); MCV 80.6 fL (80.0-100.0); Mean Platelet Volume 7.5; RBC 5.34 m/uL (4.30-5.90); RDW 17.2 % (11.5-15.5); WBC (Perox) 7.21
[2016-05-10 20:39] LABS: Alcohol 346 mg/dL
[2016-05-10 20:48] LABS: Add Differential Manual Differential
[2016-05-10 21:07] LABS: Nucleated Red Blood Cells 1 /100 WBC (0-0); Total Cells Counted 200
[2016-05-10 21:08] LABS: Manual Review Performed; WBC 7.3 k/uL (3.8-10.6)
[2016-05-10 21:09] LABS: Polychromasia Present; Target Cells Present
[2016-05-10 21:10] LABS: Ovalocytes Present
[2016-05-10 21:11] LABS: Howell-Jolly Bodies Present; Large Platelets Present
--- NOTE | 2016-05-10 21:15 | CT ---
EXAMINATION TYPE: CT brain wo con DATE OF EXAM: 05/10/2016 8:57 PM COMPARISON: April 29, 2016 HISTORY: Seizure today. CT DLP: 1153.00 mGycm Automated exposure control for dose reduction was used. FINDINGS: There is no acute intracranial hemorrhage, mass effect, or midline shift identified. The ventricles and sulci are within normal limits in size. The globes are intact and the visualized sinuses are gold ar. IMPRESSION: Stable appearance. No acute intracranial hemorrhage, mass effect, or midline shift is seen.
[2016-05-10] MEDS ORDERED: ONDANSETRON 4 MG/2 ML VIAL IVP PRN (22:33)
[2016-05-10] MEDS ORDERED: LORazepam 2 MG/ML SYRINGE IV PRN (22:33)
[2016-05-10] MEDS ORDERED: NALOXONE 0.4 MG/ML 1 ML VIAL IV PRN (22:33)
[2016-05-10 23:17] VITALS: RESP 20
[2016-05-11 08:15] VITALS: BP 173/99; PULSE 94; TEMP 98.6
[2016-05-11 08:43] LABS: Glucose,Whole Blood 83 mg/dL (75-99)
[2016-05-11] MEDS ORDERED: PANTOPRAZOLE 40 MG TABLET PO SCH (09:00)
[2016-05-11] MEDS ORDERED: MAGNESIUM OXIDE 400 MG TAB PO SCH (09:00)
[2016-05-11] MEDS ORDERED: DIVALPROEX 250 MG TABLET.DR PO SCH (09:00)
[2016-05-11] MEDS ORDERED: PREGABALIN 75 MG CAP PO SCH (09:00)
[2016-05-11] MEDS ORDERED: DULoxetine HCL 60 MG CAPSULE.DR PO SCH (09:00)
[2016-05-11] MEDS ORDERED: LISINOPRIL 10 MG TAB PO SCH (09:00)
--- NOTE | 2016-05-11 17:13 | HP ---
DATE OF ADMISSION: CHIEF COMPLAINT: Seizure disorder. HISTORY OF PRESENT ILLNESS: This 60-year-old gentleman with a past medical history of CVA/TIA, GERD, history of seizure disorder, syncope, history of EtOH, being followed by Dr. Dylon Garcia in the outpatient setting was admitted with complaints of multiple seizures. The patient apparently had a witnessed seizure. The patient also had significant history of EtOH, alcohol before and patient admitted for further evaluation and treatment. There is no history of fever, chills, rigors. No history of any chest pain, palpitation, hematochezia, melena. PAST MEDICAL HISTORY: History of CVA, GERD, hypertension, DJD, history of syncope, history of seizure. Medications prior to admission include: 1. Norvasc 10 mg q.h.s. 2. Lyrica 75 mg b.i.d. 3. Omeprazole 20 mg daily. 4. Magnesium oxide 400 mg daily. 5. Zestril 10 mg p.o. daily. 6. Motrin 800 mg q.8 p.r.n. 7. Depakote 250 mg t.i.d. 8. Cymbalta 60 mg b.i.d. 9. Ativan 1 mg daily p.r.n. ALLERGIES: None. FAMILY HISTORY: Unable to obtain. SOCIAL HISTORY: History of smoking on a regular basis. History of alcohol. REVIEW OF SYSTEMS: ENT: No diminished vision. No diminished hearing. CARDIOVASCULAR: No angina. RESPIRATORY: As mentioned earlier. GI: No nausea. : No dysuria. NERVOUS SYSTEM: No numbness or weakness. ALLERGY/IMMUNOLOGY: No asthma or hayfever. MUSCULOSKELETAL: As mentioned earlier. HEMATOLOGY/ONCOLOGY: No history of anemia. ENDOCRINE: No history of diabetes mellitus or hypothyroidism. CONSTITUTIONAL: As mentioned earlier.. DERMATOLOGY: Negative. RHEUMATOLOGY: Negative. PSYCHIATRY: As mentioned earlier. PHYSICAL EXAMINATION: The patient is alert and oriented x3. Pulse 94, blood pressure 173/99, respirations 20, temperature 98.6, pulse ox 95% on room air. HEENT: Conjunctivae normal. NECK: No jugular venous distention. CARDIOVASCULAR: S1 and S2, muffled. RESPIRATORY: Breath sounds diminished at the bases. A few scattered rhonchi and crackles. ABDOMEN: Soft, nontender. No mass palpable. LEGS: No edema, no swelling. NERVOUS SYSTEM: Higher functions as mentioned. Moves all 4 limbs. No focal motor or sensory deficits. LYMPHATICS: No lymphadenopathy of neck, axillae or groin. SKIN: No ulcer, rash or bleeding. Labs are at this time: WBC 7.3, hemoglobin 12.3. Sodium 147. Alcohol is 346. ASSESSMENT: 1. Generalized seizure disorder, tonic-clonic seizures. 2. History of EtOH and alcohol intoxication. 3. Hypertension. 4. Peptic ulcer disease. 5. Gastroesophageal reflux disease. 6. Increased lipase. 7. Anemia. 8. Increased platelets. 9. History of cerebrovascular accident, transient ischemic attack. 10. History of gastroesophageal reflux disease. 11. Hypertension. 12. History of degenerative joint disease. 13. History of syncope. 14. History of depression, not otherwise specified 15. History of continued nicotine dependence. RECOMMENDATIONS AND DISCUSSION: This 60-year-old gentleman presented with multiple complex medical issues, will monitor the patient closely. Continue the current medications, continue symptomatic treatment. I recommend neurology consultation and I would recommend continue the current medications, Ativan p.r.n. Resume the rest of the home medications. The importance of compliance was stressed and the exact level of compliance unknown at this time. 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 Further recommendations to follow. MTDD
[2016-05-11] MEDS ORDERED: amLODIPine 5 MG TAB PO SCH (21:00)
--- NOTE | 2016-05-21 21:56 | DS ---
DATE OF ADMISSION: 05/10/2016 DATE OF DISCHARGE: 05/11/2016 FINAL DIAGNOSES: 1. Generalized seizure disorder, possibly tonic-clonic seizures. 2. History of ethanol and alcoholic intoxication. 3. Hypertension. 4. Peptic ulcer disease. 5. Gastroesophageal reflux disease. 6. Increased lipase. 7. Anemia. 8. Increased platelets. 9. History of cerebrovascular accident, transient ischemic attack. 10. History of gastroesophageal reflux disease. 11. Hypertension. 12. History of degenerative joint disease. 13. History of syncope. 14. History of depression not otherwise specified. 15. History of continued ongoing nicotine dependence. DISCHARGE DISPOSITION: The patient left the hospital AGAINST MEDICAL ADVICE. HISTORY OF PRESENT ILLNESS: This 60-year-old gentleman with a past medical history of multiple medical problems, being followed by Dr. Dylon Garcia in the outpatient setting, was admitted with seizure disorder. The patient was monitored closely. Recommended neurology evaluation; however, the patient left the hospital AGAINST MEDICAL ADVICE. The prognosis remained extremely guarded throughout the hospitalization. Please refer to the previous consultations, dictations, progress notes and staff notes for further information.
== END 2016-05-11 14:45 | disposition left against medical advice (07) ==
LOC: EC 19:50 → SUPCPDRO 19:50 → 5MS5E 22:33
PROVIDERS: ADMIT Hospitalist; ATTEND Hospitalist
DX: G40.409 Other generalized epilepsy and epileptic syndromes, not intractable, without status epilepticus (principal); I10 Essential (primary) hypertension; F32.9 Major depressive disorder, single episode, unspecified; K21.9 Gastro-esophageal reflux disease without esophagitis; M19.90 Unspecified osteoarthritis, unspecified site; F10.129 Alcohol abuse with intoxication, unspecified; K27.9 Peptic ulcer, site unspecified, unspecified as acute or chronic, without hemorrhage or perforation; D64.9 Anemia, unspecified; Z86.73 Personal history of transient ischemic attack (TIA), and cerebral infarction without residual deficits; F17.200 Nicotine dependence, unspecified, uncomplicated; Z79.899 Other long term (current) drug therapy; Y90.8 Blood alcohol level of 240 mg/100 ml or more; D47.3 Essential (hemorrhagic) thrombocythemia
CPT/HCPCS: 96365; 96375; 99285; 36415; 80164; 80053; 82150; 83605; 83690; 83735; 85025; 81003; 80306; 83520; 80320; 70450; G0378 ×2; J2060; 93005

== ENCOUNTER 2016-05-16 01:19 | Inpatient (IN) | payer OTHER ==
[2016-05-16] MEDS ORDERED: LORazepam 2 MG/ML SYRINGE IV STA (01:26)
[2016-05-16] MEDS ORDERED: SODIUM CHLORIDE 0.9% 1,000 ML IV STA ×2 (01:26)
[2016-05-16 01:29] LABS: Glucose,Whole Blood 85 mg/dL (75-99)
[2016-05-16 01:36] LABS: Anisocytosis Slight; Basophils # (A) 0.1 k/uL (0-0.2); Basophils % (A) 1 %; CH 24.5; CHCM 31.1; Eosinophils # (A) 0.1 k/uL (0-0.7); Eosinophils % (A) 3 %; HCT 43.5 % (39.0-53.0); HDW 2.81; Hypochromasia Slight; Luc # (Auto) 0.15; Luc % (Auto) 3; Lymphocytes # (A) 1.8 k/uL (1.0-4.8); Lymphocytes % (A) 32 %; MCH 23.8 pg (25.0-35.0); MCHC 29.9 g/dL (31.0-37.0); MCV 79.5 fL (80.0-100.0); Mean Platelet Volume 7.8; Microcytosis Slight; Monocytes # (A) 0.3 k/uL (0-1.0); Monocytes % (A) 5 %; Neutrophils # (A) 3.1 k/uL (1.3-7.7); Neutrophils % (A) 56 %; RBC 5.47 m/uL (4.30-5.90); RDW 18.3 % (11.5-15.5); WBC 5.5 k/uL (3.8-10.6)
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
[2016-05-16 01:46] LABS: ALT 49 U/L (21-72); AST 52 U/L (17-59); Alkaline Phosphatase 103 U/L (38-126); Anion Gap 13 mmol/L; Blood Urea Nitrogen 10 mg/dL (9-20); Calcium 8.3 mg/dL (8.4-10.2); Carbon Dioxide 25 mmol/L (22-30); Chloride 112 mmol/L (98-107); Glucose 87 mg/dL (74-99); Non-African American GFR(MDRD) >60 (>60 ml/min/1.73 sqM); Potassium 4.1 mmol/L (3.5-5.1); Sodium 150 mmol/L (137-145); Total Bilirubin 0.6 mg/dL (0.2-1.3)
[2016-05-16 01:56] LABS: Alcohol 410 mg/dL
[2016-05-16] MEDS ORDERED: DIVALPROEX 500 MG TABLET.DR PO STA (02:40)
[2016-05-16] MEDS ORDERED: NALOXONE 0.4 MG/ML 1 ML VIAL IV PRN (02:41)
[2016-05-16] MEDS ORDERED: SODIUM CHLORIDE 0.9% 1,000 ML IV ONE (02:41)
[2016-05-16] MEDS ORDERED: LORazepam 2 MG/ML SYRINGE IV PRN ×2 (02:42)
[2016-05-16] MEDS ORDERED: SODIUM CHLORIDE 0.9% 1,000 ML with MVI, ADULT NO.4 WITH VIT K 10 ML, THIAMINE 100 MG, F... IV ONE ×4 (02:43)
[2016-05-16 03:26] VITALS: BMI 27.8
[2016-05-16] MEDS ORDERED: IPRATROPIUM-ALBUTEROL 3 ML NEB INHALATION PRN (08:23)
[2016-05-16] MEDS ORDERED: SODIUM CHLORIDE 0.9% 1,000 ML IV SCH (08:30)
--- NOTE | 2016-05-16 09:56 | HP ---
DATE OF ADMISSION: The patient is a 60-year-old with history of seizures, has not been taking his Depakote, came in with multiple seizures 7 to 8, witnessed by his roommate, tonic-clonic activity with loss of bladder incontinence with loss of consciousness and postictal confusion. Patient is an alcoholic, does drink every day. As per the patient, he drinks only 4 to 6 shots of vodka. Patient denied any fever oropharynx chills. Patient denied any abdominal pain. Patient denied any nausea or vomiting. Patient's blood alcohol level was 410 and patient is admitted for alcohol withdrawal and also seizures due to noncompliance of medications. Patient was given a loading dose of valproic acid. He is started back on valproic acid as he was already given valproic acid and will obtain a sleep and awake EEG, which valproic acid may interfere with the results of this testing and Neurology will be consulted and CT head of the head was not available unfortunately, will obtain a CT of the head without contrast. CT of the head was not obtained probable reason being that he already had a CT of the head that was done on May this month, which did not show any significant abnormality. At this time, the patient did not have a stroke, the suspicion of intracranial bleed is low. Patient's seizures are basically because noncompliance with his medications. I will leave the decision of CT of the head to Neurology. The other issues, the patient's breath sounds are rhonchus . Patient is complaining of cough, sore throat and sputum production. Patient probably has bronchitis for which I started him on doxycycline. I will obtain a chest x-ray. Patient is a smoker. REVIEW OF SYSTEMS: CONSTITUTIONAL: No fever, no malaise, no fatigue. HEENT: No recent visual problems or hearing problems. Denied any sore throat. CARDIOVASCULAR: No chest pain, orthopnea, PND, no palpitations, no syncope. RESPIRATORY: As described in HPI. GASTROINTESTINAL: No diarrhea, no nausea, no vomiting, no abdominal pain. Normoactive bowel sounds. NEUROLOGICAL: As described in HPI. HEMATOLOGICAL: Denies any bleeding or petechiae. GENITOURINARY: Denies any burning micturition, frequency, or urgency. MUSCULOSKELETAL/RHEUMATOLOGICAL: Denies any joint pain, swelling, or any muscle pain. ENDOCRINE: Denies any polyuria or polydipsia. The rest of the 14 point review of systems is negative. Home medications include: 1. Amlodipine. 2. Duloxetine. 3. Ibuprofen. 4. Lisinopril. 5. Magnesium oxide. 6. Omeprazole. 7. Pregabalin. 8. Depakote. 9. Lorazepam. ALLERGIES: No known drug allergies. PAST MEDICAL HISTORY: CVA/TIA, gastroesophageal reflux disease, hypertension, osteoarthritis, seizure disorder, orthopedic surgeries in the past and depression. SOCIAL HISTORY: The patient does smoke a half a pack per day. Alcohol abuse as mentioned above. Denied any drug. FAMILY HISTORY: Mother had cancer and diabetes mellitus. PHYSICAL EXAMINATION: VITAL SIGNS: Temperature 97.5, pulse of 91, respiratory rate 20, blood pressure 154/96, saturating at 98% on 2 L of O2 by nasal cannula. GENERAL: The patient is drowsy, easily arousable. Oriented times around . HEENT: Pupils are round and equally reacting to light. EOMI. No scleral icterus. No conjunctival pallor. Normocephalic, atraumatic. No pharyngeal erythema. No thyromegaly. CARDIOVASCULAR: S1 and S2 present. No murmurs, rubs, or gallops. LUNG EXAMINATION: Rhonchus breath sounds. No wheezing was appreciated. No crackles were appreciated. Fairly good air entry into bilateral lung estrella. ABDOMEN: Soft, nontender, nondistended, normoactive bowel sounds. No palpable organomegaly. MUSCULOSKELETAL: No joint swelling or deformity. EXTREMITIES: No cyanosis, clubbing, or pedal edema. NEUROLOGICAL: Gross neurological examination did not reveal any focal deficits. SKIN: No rashes. LABORATORY DATA: CBC and CMP are abnormal for elevated sodium of 150, because of which I will change his fluids to half normal saline. Patient's blood alcohol level is 410. Valproic acid level is less than 10. ASSESSMENT AND PLAN: 1. Seizures secondary to noncompliance of medication. Patient does have known history of seizures. Neurology will be consulted and patient will be on seizure precautions along with p.r.n. Ativan. Valproic acid at home dose will be started. 2. Alcohol abuse. Counseling was provided. 3. Alcohol withdrawal. Patient will be an Ativan, CIWA protocol, thiamine, multivitamin supplementation. 4. Gastroesophageal reflux disease. 5. Cerebrovascular accident and transient ischemic attacks in the past. 6. Osteoarthritis. 7. Hypertension. Regarding hypertension, I will hold off antihypertensives because his blood pressure is within normal limits in spite of not taking these medications. I am not sure whether patient is actually compliant with these medications or not. We will watch his vitals including blood pressure and decide on antihypertensive medications.
--- NOTE | 2016-05-16 10:49 | XR ---
EXAMINATION TYPE: XR chest 2V DATE OF EXAM: 05/16/2016 10:42 AM COMPARISON: 05/02/2016 INDICATION: Rule out pneumonia. Previous abnormal chest. No other history is provided TECHNIQUE: Frontal and lateral views of the chest are obtained. FINDINGS: The heart size is normal. The pulmonary vasculature is normal. The lungs are clear. Previous left basilar infiltrate has resolved. IMPRESSION: 1. No acute pulmonary process.
[2016-05-16] MEDS: DIVALPROEX 250 MG TABLET.DR PO SCH ×3 (11:13→20:05)
[2016-05-16] MEDS: DOXYCYCLINE 50 MG CAP PO SCH ×2 (11:14→20:07)
[2016-05-16] MEDS: MAGNESIUM OXIDE 400 MG TAB PO SCH (11:14)
[2016-05-16] MEDS: DULoxetine HCL 60 MG CAPSULE.DR PO SCH ×2 (11:14→20:06)
[2016-05-16] MEDS: PREGABALIN 75 MG CAP PO SCH ×2 (11:15→20:06)
[2016-05-16] MEDS: PANTOPRAZOLE 40 MG TABLET PO SCH (11:15)
[2016-05-16] MEDS: SODIUM CHLORIDE 0.45% 1,000 ML IV SCH (11:58)
[2016-05-16 14:34] LABS: Appearance,Urine Clear (Clear); Bilirubin,Urine Negative (Negative); Glucose,Urine (UA) Negative (Negative); Ketones,Urine 2+ (Negative); Leukocyte Esterase,Urine Negative (Negative); Nitrite,Urine Negative (Negative); Protein,Urine Negative (Negative); Specific Gravity,Urine 1.012 (1.001-1.035); UA Billing (MACRO vs. MICRO) CHEM; Urobilinogen,Urine <2.0 mg/dL (<2.0)
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
[2016-05-16] MEDS: THIAMINE 100 MG TAB PO SCH (18:39)
[2016-05-16] MEDS: LORazepam 2 MG/ML SYRINGE IV PRN (19:20)
--- NOTE | 2016-05-16 21:26 | EEG ---
DATE OF SERVICE: 05/16/2016 INDICATION FOR EXAMINATION: This patient is a 60-year-old male being evaluated for alcohol withdrawal seizures. AGE: 60 years. EEG FINDINGS: A routine 21-channel awake digital EEG recording was accomplished utilizing the 10-20 international system with bipolar and referential montages. The background activity in the most alert resting state consists of a low to medium amplitude, fairly well developed and well sustained 7-8 Hz activity over the posterior head regions. This posterior rhythm attenuates to eye opening. There is a small amount of low amplitude 18-20 Hz beta activity seen maximally over the anterior head regions. Muscle and movement artifact was observed on a few occasions during the tracing. Hyperventilation was not performed. Photic stimulation at flash frequencies of 2-30 Hz produced a good symmetrical occipital driving response. No epileptiform discharges were seen. IMPRESSION: This EEG is normal for the patient's age. The EEG failed to reveal any focal, lateralized or epileptiform abnormalities. Clinical correlation is recommended.
--- NOTE | 2016-05-16 22:25 | XR ---
EXAMINATION TYPE: XR Hip Limited RT DATE OF EXAM: 05/16/2016 6:04 PM COMPARISON: May 23, 2010 HISTORY: Right hip pain TECHNIQUE: Right hip AP portable view FINDINGS: There are degenerative hip changes seen, [id number] in degree and only mildly advance d since the prior study. These consist of subchondral sclerosis, marginal osteophytosis, and chondroc alcinosis. The bones and joints and soft tissues are otherwise unremarkable. IMPRESSION: MILD-MODERATE OSTEOARTHRITIS.
--- NOTE | 2016-05-16 22:28 | CT ---
EXAMINATION TYPE: CT brain wo con DATE OF EXAM: 05/16/2016 8:39 PM COMPARISON: May 10, 2016 CT head HISTORY: weakness CT DLP: 1054.2 mGycm Automated exposure control for dose reduction was used. FINDINGS: There is no acute intracranial hemorrhage, mass effect, or midline shift identified. The v entricles and sulci are within normal limits in size. The globes are intact and the visualized sinus es are clear. IMPRESSION: NO ACUTE PROCESS.
[2016-05-17] MEDS: LORazepam 2 MG/ML SYRINGE IV PRN ×4 (00:06→20:16)
[2016-05-17] MEDS: SODIUM CHLORIDE 0.45% 1,000 ML IV SCH ×3 (00:08→09:30)
[2016-05-17 07:42] LABS: ALT 50 U/L (21-72); AST 41 U/L (17-59); Alkaline Phosphatase 109 U/L (38-126); Anion Gap 11 mmol/L; Blood Urea Nitrogen 12 mg/dL (9-20); Calcium 8.7 mg/dL (8.4-10.2); Carbon Dioxide 23 mmol/L (22-30); Chloride 102 mmol/L (98-107); Glucose 88 mg/dL (74-99); Non-African American GFR(MDRD) >60 (>60 ml/min/1.73 sqM); Sodium 136 mmol/L (137-145); Total Bilirubin 1.2 mg/dL (0.2-1.3); Total Protein 6.8 g/dL (6.3-8.2)
[2016-05-17] MEDS: DOXYCYCLINE 50 MG CAP PO SCH ×2 (07:56→20:20)
[2016-05-17] MEDS: PREGABALIN 75 MG CAP PO SCH ×2 (07:56→20:20)
[2016-05-17] MEDS: THIAMINE 100 MG TAB PO SCH ×2 (07:56→16:34)
[2016-05-17] MEDS: DULoxetine HCL 60 MG CAPSULE.DR PO SCH ×2 (07:56→20:20)
[2016-05-17] MEDS: DIVALPROEX 250 MG TABLET.DR PO SCH (07:56)
[2016-05-17] MEDS: PANTOPRAZOLE 40 MG TABLET PO SCH (07:57)
[2016-05-17] MEDS: MAGNESIUM OXIDE 400 MG TAB PO SCH (07:57)
[2016-05-17 08:08] LABS: Anisocytosis Slight; CH 24.1; CHCM 29.8; HCT 41.8 % (39.0-53.0); HDW 2.52; HGB 12.2 gm/dL (13.0-17.5); Hypochromasia Marked; MCH 23.9 pg (25.0-35.0); MCHC 29.3 g/dL (31.0-37.0); MCV 81.6 fL (80.0-100.0); Mean Platelet Volume 7.2; RBC 5.12 m/uL (4.30-5.90); RDW 17.8 % (11.5-15.5); WBC 4.8 k/uL (3.8-10.6); WBC (Perox) 5.39
[2016-05-17] MEDS ORDERED: levETIRAcetam IV 1,000 MG in SALINE 1 100ML.BAG IVPB STA (09:51)
[2016-05-17] MEDS ORDERED: VALPROATE SODIUM 1,000 MG in SODIUM CHLORIDE 0.9% 50 ML IVPB STA (10:24)
[2016-05-17 10:47] LABS: Add Differential Manual Differential
[2016-05-17 10:49] LABS: Nucleated Red Blood Cells 0 /100 WBC (0-0); Target Cells Present; Total Cells Counted 100
[2016-05-17] MEDS: SODIUM CHLORIDE 0.9% 1,000 ML IV SCH (11:02)
--- NOTE | 2016-05-17 14:12 | PN ---
Patient is 60-year-old admitted for seizure secondary to noncompliance with medication that is Depakote. Patient's Depakote levels are still low. Patient does drink alcohol every day. He does not have any significant withdrawals but he is expected to have withdrawals because of that reason. I discussed with the patient. Patient is willing to quit alcohol. Because of that reason, I will go ahead and watch him one more day. Patient's Depakote levels are still low. Because of that reason, I am going to go ahead and give him another bolus dose of Depakote. I also increased the dose of Depakote 500 b.i.d. and if cleared by Neurology, patient will be discharged tomorrow. Patient's EEG was done, which is essentially within time, but by that time patient already received Depakote and Ativan at that time. REVIEW OF SYSTEMS: CARDIOVASCULAR: No chest pain, no orthopnea, no PND, no palpitations. PULMONARY: Denied any shortness of breath. No cough or hemoptysis. GASTROINTESTINAL: No diarrhea, nausea or vomiting. No abdominal pain. Normoactive bowel sounds. NEUROLOGIC: No headaches, no weakness, no numbness. Patient does not have many withdrawal symptoms. The patient has a low CIWA score. Please refer to nursing documentation for that. Medications were reviewed. PHYSICAL EXAMINATION: VITAL SIGNS: Temperature 97.1, pulse of 83, respiratory rate of 16, blood pressure is 176/116, saturating at 98% on room. GENERAL: The patient is alert and oriented x3, not in any acute distress. Well developed, well nourished. HEENT: Pupils are round and equally reacting to light. EOMI. No scleral icterus. No conjunctival pallor. Normocephalic, atraumatic. No pharyngeal erythema. No thyromegaly. CARDIOVASCULAR: S1 and S2 present. No murmurs, rubs, or gallops. PULMONARY: Chest is clear to auscultation, no wheezing or crackles. ABDOMEN: Soft, nontender, nondistended, normoactive bowel sounds. No palpable organomegaly. MUSCULOSKELETAL: No joint swelling or deformity. EXTREMITIES: No cyanosis, clubbing, or pedal edema. NEUROLOGICAL: Gross neurological examination did not reveal any focal deficits. SKIN: No rashes. LABORATORY DATA: CBC and CMP essentially within normal limits. ASSESSMENT AND PLAN: 1. Seizures secondary to noncompliance with medications. Patient will be re-started on medications and the rest of the management as mentioned above. The patient is receiving half normal saline, which will be switched. 2. Hyponatremia secondary to half normal saline he is receiving, which will be changed to normal saline. 3. Alcohol abuse. 4. Alcohol withdrawal. 5. Gastroesophageal reflux disease. 6. Cerebrovascular accident. 7. Osteoarthritis. 8. Hypertension. Regarding hypertension I will continue to hold off antihypertensives. PLAN: The rest of the plan as mentioned in the interval history.
[2016-05-17] MEDS: DIVALPROEX 500 MG TABLET.DR PO SCH (20:20)
[2016-05-17] MEDS ORDERED: levETIRAcetam 500 MG TAB PO SCH (21:00)
[2016-05-18] MEDS: SODIUM CHLORIDE 0.9% 1,000 ML IV SCH ×2 (00:40→08:02)
[2016-05-18 07:00] LABS: Mean Platelet Volume 7.3
[2016-05-18 07:21] VITALS: BP 171/113; PULSE 86; RESP 16; TEMP 97.9
[2016-05-18] MEDS: DIVALPROEX 500 MG TABLET.DR PO SCH (08:03)
[2016-05-18] MEDS: DOXYCYCLINE 50 MG CAP PO SCH (08:03)
[2016-05-18] MEDS: PREGABALIN 75 MG CAP PO SCH (08:04)
[2016-05-18] MEDS: PANTOPRAZOLE 40 MG TABLET PO SCH (08:04)
[2016-05-18] MEDS: MAGNESIUM OXIDE 400 MG TAB PO SCH (08:04)
[2016-05-18] MEDS: DULoxetine HCL 60 MG CAPSULE.DR PO SCH (08:04)
--- NOTE | 2016-05-18 21:56 | DS ---
DATE OF ADMISSION: 05/16/2016 DATE OF DISCHARGE: 05/18/2016 Patient is a 60-year-old admitted with alcohol intoxication for possible alcohol withdrawals and patient also had seizures secondary to noncompliance with Depakote. The patient's Depakote levels were therapeutic at this point of time. Patient will be discharged on 50 b.i.d. of Depakote. Patient did not have any significant withdrawals, only required Ativan last night for withdrawals because of which we will go ahead and discharge the patient on a few days of p.o. Ativan and patient agreed to quit alcohol. The patient was seen and examined on the day of discharge. Vital signs stable. PHYSICAL EXAMINATION: GENERAL: The patient is alert and oriented x3, not in any acute distress. Well developed, well nourished. HEENT: Pupils are round and equally reacting to light. EOMI. No scleral icterus. No conjunctival pallor. Normocephalic, atraumatic. No pharyngeal erythema. No thyromegaly. CARDIOVASCULAR: S1 and S2 present. No murmurs, rubs, or gallops. PULMONARY: Chest is clear to auscultation, no wheezing or crackles. ABDOMEN: Soft, nontender, nondistended, normoactive bowel sounds. No palpable organomegaly. MUSCULOSKELETAL: No joint swelling or deformity. EXTREMITIES: No cyanosis, clubbing, or pedal edema. NEUROLOGICAL: Gross neurological examination did not reveal any focal deficits. SKIN: No rashes. FINAL DIAGNOSIS(ES): 1. Seizures secondary to noncompliance with medications. 2. Hyponatremia resolved at this point of time secondary to IV fluids which were changed yesterday. 3. Alcohol abuse. 4. Alcohol withdrawal. 5. Gastroesophageal reflux disease. 6. Cerebrovascular accident. 7. Osteoarthritis. 8. Hypertension. Please refer to my depart summary for further details of discharge medication. Patient does not have any of his medications at home because of which I did fill in all the medications. Patient will follow with Dr. Jazzmine Garcia in 3 to 7 days. Patient has minimal bronchitis for which I am giving three more days of antibiotic. Spent greater than 35 minutes in total discharge process. DISCHARGE DIET: Cardiac. Activity as tolerated. Nicotine cessation and alcohol cessation counseling was provided.
== END 2016-05-18 10:55 | disposition home health service (06) | DRG 101 ==
LOC: EC 01:19 → 5ONC 02:40 → 5MS5E 17:35
PROVIDERS: ADMIT Hospitalist; ATTEND Hospitalist
DX: G40.909 Epilepsy, unspecified, not intractable, without status epilepticus (principal); E87.1 Hypo-osmolality and hyponatremia; I10 Essential (primary) hypertension; F10.239 Alcohol dependence with withdrawal, unspecified; J40 Bronchitis, not specified as acute or chronic; F32.9 Major depressive disorder, single episode, unspecified; J02.9 Acute pharyngitis, unspecified; K21.9 Gastro-esophageal reflux disease without esophagitis; Z91.14 Patient's other noncompliance with medication regimen; Y90.8 Blood alcohol level of 240 mg/100 ml or more; Z86.73 Personal history of transient ischemic attack (TIA), and cerebral infarction without residual deficits; M19.90 Unspecified osteoarthritis, unspecified site; F17.200 Nicotine dependence, unspecified, uncomplicated; Z87.11 Personal history of peptic ulcer disease; Z79.899 Other long term (current) drug therapy
CPT/HCPCS: 36415; 70450; 71020; 73501; 80053; 80164; 80177; 80306; 80320; 81003; 83735; 84450; 84460; 85025; 85049; 95819; 96361; 96374; 99285

== ENCOUNTER 2016-06-20 00:37 | Inpatient (IN) | payer OTHER ==
[2016-06-20] MEDS ORDERED: SODIUM CHLORIDE 0.9% 500 ML IV ONE (00:51)
[2016-06-20] MEDS ORDERED: METOCLOPRAMIDE 5 MG/ML 2 ML VIAL IVP STA (00:54)
[2016-06-20] MEDS ORDERED: SODIUM CHLORIDE 0.9% 1,000 ML IV STA (00:54)
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
[2016-06-20 01:21] LABS: Anisocytosis Slight; Basophils # (A) 0.1 k/uL (0-0.2); Basophils % (A) 1 %; CH 25.8; CHCM 31.4; Eosinophils # (A) 0.1 k/uL (0-0.7); Eosinophils % (A) 2 %; HDW 2.71; HGB 14.8 gm/dL (13.0-17.5); Hypochromasia Slight; Luc # (Auto) 0.25; Luc % (Auto) 4; Lymphocytes # (A) 1.1 k/uL (1.0-4.8); Lymphocytes % (A) 19 %; MCHC 30.2 g/dL (31.0-37.0); MCV 82.8 fL (80.0-100.0); Mean Platelet Volume 8.2; Microcytosis Slight; Monocytes # (A) 0.3 k/uL (0-1.0); Monocytes % (A) 5 %; Neutrophils # (A) 4.1 k/uL (1.3-7.7); Neutrophils % (A) 69 %; RBC 5.91 m/uL (4.30-5.90); RDW 18.2 % (11.5-15.5); WBC 5.8 k/uL (3.8-10.6); WBC (Perox) 5.66
[2016-06-20 01:32] LABS: ALT 188 U/L (21-72); AST 243 U/L (17-59); Alkaline Phosphatase 105 U/L (38-126); Amylase 161 U/L (30-110); Anion Gap 16 mmol/L; Blood Urea Nitrogen 15 mg/dL (9-20); Calcium 8.1 mg/dL (8.4-10.2); Carbon Dioxide 27 mmol/L (22-30); Chloride 103 mmol/L (98-107); Glucose 107 mg/dL (74-99); Non-African American GFR(MDRD) >60 (>60 ml/min/1.73 sqM); Sodium 146 mmol/L (137-145); Total Bilirubin 0.7 mg/dL (0.2-1.3); Total Protein 6.6 g/dL (6.3-8.2)
[2016-06-20 01:45] LABS: Potassium 3.1 mmol/L (3.5-5.1)
[2016-06-20 01:46] LABS: Alcohol 334 mg/dL
[2016-06-20] MEDS ORDERED: DIAZEPAM 5 MG/ML 2 ML SYRINGE IVP STA (01:54)
[2016-06-20] MEDS ORDERED: NALOXONE 0.4 MG/ML 1 ML VIAL IV PRN (02:30)
[2016-06-20] MEDS ORDERED: ONDANSETRON 4 MG/2 ML VIAL IVP PRN (02:30)
[2016-06-20] MEDS ORDERED: DIVALPROEX 500 MG TABLET.DR PO STA (02:32)
[2016-06-20] MEDS ORDERED: LORazepam 2 MG/ML SYRINGE IV PRN (02:38)
[2016-06-20] MEDS ORDERED: THIAMINE 100 MG/ML 2 ML VIAL IM STA (02:38)
--- NOTE | 2016-06-20 02:46 | XR ---
EXAM: XR Chest, 2 Views. CLINICAL HISTORY: Pain. TECHNIQUE: Frontal and lateral views of the chest. COMPARISON: CXR dated 05/16/2016. FINDINGS: Lungs: No focal consolidation. No evidence of pulmonary edema. Pleural space: No pleural effusion. No pneumothorax. Heart: Unremarkable. No cardiomegaly. Mediastinum: Unremarkable. Bones/joints: Unremarkable. IMPRESSION: No radiographic evidence of acute cardiopulmonary process.
--- NOTE | 2016-06-20 02:50 | XR ---
EXAM: XR KUB. CLINICAL HISTORY: Pain. TECHNIQUE: Frontal view of the lower chest, abdomen and pelvis. COMPARISON: No relevant prior studies available. FINDINGS: Lungs: Visualized lung bases appear unremarkable. Heart: Unremarkable. No cardiomegaly. Gastrointestinal tract: Nonspecific bowel gas pattern. No evidence of bowel obstruction. Bones/joints: Unremarkable. IMPRESSION: No evidence of bowel obstruction.
[2016-06-20] MEDS ORDERED: DIPH,PERTUS(ACELL)TETVAC-LF 0.5 ML VIAL IM ONE (02:57)
[2016-06-20] MEDS ORDERED: SODIUM CHLORIDE 0.9% 1,000 ML BAG ONE (03:12)
[2016-06-20] MEDS: 1: MVI, ADULT NO.4 WITH VIT K 10 ML, THIAMINE 100 MG, FOLIC ACID 1 MG in SODIUM CHLORIDE IV SCH ×12 (03:12→21:47)
[2016-06-20 03:45] LABS: Manual Review Performed
[2016-06-20 03:46] LABS: Target Cells Present
[2016-06-20 05:23] VITALS: BMI 28.1
[2016-06-20] MEDS ORDERED: DIAZEPAM 5 MG TAB PO PRN (07:59)
[2016-06-20] MEDS ORDERED: PANTOPRAZOLE 40 MG/10 ML VIAL IV SCH (09:00)
[2016-06-20] MEDS: DIVALPROEX 500 MG TABLET.DR PO SCH ×2 (09:15→21:58)
[2016-06-20] MEDS: METOPROLOL TARTRATE 25 MG TAB PO SCH ×2 (09:15→21:58)
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
[2016-06-20 12:50] LABS: Prothrombin Time 10.5 sec (9.0-12.0)
[2016-06-20 13:04] LABS: Hepatitis B Surface Ag Index 0.07
[2016-06-20 13:10] LABS: Hepatitis B Core IgM Index 0.05
[2016-06-20 13:21] LABS: Hepatitis C Virus IgG Index 0.02
[2016-06-20 13:24] LABS: Hepatitis C Virus IgG Ab Negative (Negative)
[2016-06-20] MEDS ORDERED: DIVALPROEX 500 MG TABLET.DR PO SCH (15:15)
[2016-06-20 15:51] LABS: Anisocytosis Slight; Basophils % (A) 1 %; CH 25.7; CHCM 30.7; Eosinophils # (A) 0.1 k/uL (0-0.7); Eosinophils % (A) 1 %; HCT 44.5 % (39.0-53.0); HDW 2.73; HGB 13.2 gm/dL (13.0-17.5); Hypochromasia Moderate; Luc # (Auto) 0.18; Luc % (Auto) 2; Lymphocytes # (A) 0.9 k/uL (1.0-4.8); Lymphocytes % (A) 12 %; MCH 24.9 pg (25.0-35.0); MCHC 29.5 g/dL (31.0-37.0); MCV 84.5 fL (80.0-100.0); Mean Platelet Volume 8.8; Monocytes # (A) 0.5 k/uL (0-1.0); Monocytes % (A) 6 %; Neutrophils # (A) 6.2 k/uL (1.3-7.7); Neutrophils % (A) 79 %; RBC 5.27 m/uL (4.30-5.90); RDW 18.1 % (11.5-15.5); WBC 7.9 k/uL (3.8-10.6); WBC (Perox) 7.83
[2016-06-20] MEDS: THIAMINE 100 MG TAB PO SCH (15:59)
[2016-06-20] MEDS: DIAZEPAM 5 MG TAB PO SCH ×2 (15:59→21:59)
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
[2016-06-20] MEDS: DULoxetine HCL 60 MG CAPSULE.DR PO SCH (21:58)
[2016-06-20] MEDS: PREGABALIN 75 MG CAP PO SCH (21:59)
[2016-06-20] MEDS: PANTOPRAZOLE 40 MG/10 ML VIAL IV SCH (21:59)
[2016-06-21 07:20] LABS: Anisocytosis Slight; Basophils % (A) 1 %; CH 25.1; Eosinophils % (A) 1 %; HCT 45.8 % (39.0-53.0); HDW 2.55; HGB 13.4 gm/dL (13.0-17.5); Hypochromasia Marked; Luc # (Auto) 0.21; Luc % (Auto) 3; Lymphocytes % (A) 13 %; MCH 24.5 pg (25.0-35.0); MCHC 29.1 g/dL (31.0-37.0); Mean Platelet Volume 7.8; Monocytes # (A) 0.4 k/uL (0-1.0); Monocytes % (A) 6 %; Neutrophils % (A) 78 %; RBC 5.46 m/uL (4.30-5.90); RDW 17.6 % (11.5-15.5); WBC 7.7 k/uL (3.8-10.6); WBC (Perox) 7.64
[2016-06-21] MEDS: LISINOPRIL 10 MG TAB PO SCH (07:34)
[2016-06-21] MEDS: DULoxetine HCL 60 MG CAPSULE.DR PO SCH ×2 (07:34→20:46)
[2016-06-21] MEDS: DIVALPROEX 500 MG TABLET.DR PO SCH ×2 (07:34→20:46)
[2016-06-21] MEDS: DIAZEPAM 5 MG TAB PO SCH ×3 (07:34→20:47)
[2016-06-21] MEDS: METOPROLOL TARTRATE 25 MG TAB PO SCH ×2 (07:34→20:46)
[2016-06-21] MEDS: PANTOPRAZOLE 40 MG/10 ML VIAL IV SCH ×2 (07:34→20:47)
[2016-06-21] MEDS: PREGABALIN 75 MG CAP PO SCH ×2 (07:39→20:47)
[2016-06-21] MEDS: ACETAMINOPHEN TAB 500 MG TAB PO PRN (07:40)
[2016-06-21] MEDS: THIAMINE 100 MG TAB PO SCH ×2 (11:45→14:55)
[2016-06-21] MEDS: 1: MVI, ADULT NO.4 WITH VIT K 10 ML, THIAMINE 100 MG, FOLIC ACID 1 MG in SODIUM CHLORIDE IV SCH ×12 (11:45→20:52)
[2016-06-21] MEDS ORDERED: SODIUM CHLORIDE 0.9% 1,000 ML BAG ONE (11:45)
[2016-06-21] MEDS: MAGNESIUM OXIDE 400 MG TAB PO SCH (11:45)
--- NOTE | 2016-06-21 14:14 | P.PN ---
Subjective Principal diagnosis: Hematemesis 60-year-old male EtOH abuse admitted with reports of hematemesis 1 week prior to admission with acute alcohol intoxication and alcohol hepatitis. No recurrence of hematemesis. He will been stable. Denies abdominal pain. Tolerating light diet. Objective - Vital Signs Vital signs: Vital Signs Temp 97.8 F 06/21/16 07:21 Pulse 67 06/21/16 11:01 Resp 16 06/21/16 08:00 BP 155/98 06/21/16 11:01 Pulse Ox 97 06/21/16 07:21 Intake & Output 06/20/16 06/21/16 06/21/16 18:59 06:59 18:59 Intake Total 1261.2 1258.333 300 Output Total 1000 1000 Balance 1261.2 258.333 -700 Weight 83.915 kg 83.915 kg Intake: IV 200 Sodium Chloride 0.9% 1, 200 000 ml @ 100 mls/hr IV . BY DURATION KELLY Rx#: [id number] Intake, IV Titration 1011.2 578.333 Amount Mvi, Adult No.4 with Vit 1011.2 K 10 ml Thiamine 100 mg Folic Acid 1 mg In Sodium Chloride 0.9% 1,000 ml @ 100 mls/hr IV .BY DURATION KELLY Rx#: [id number] Sodium Chloride 0.9% 1, 578.333 000 ml @ 100 mls/hr IV . BY DURATION KELLY Rx#: [id number] Oral 250 480 300 Output: Urine 1000 1000 Other: Voiding Method Urinal Urinal # Bowel Movements 1 1 - Exam General appearance: The patient is alert, oriented, in no acute distress. HET: Head is normocephalic and atraumatic. Pupils are equal and reactive. Oropharynx is clear without lesions. Neck: Supple without lymphadenopathy. Trachea midline. Heart: S1 S2. Regular rate and rhythm. Lungs: No crackles or wheezes are heard. Abdomen: Soft, nontender, nondistended with bowel sounds. No peritoneal signs. No palpable organomegaly or masses. Extremities: Normal skin color and turgor. No cyanosis, rash, ulceration, clubbing, or edema. Radial and pedal pulses are 2/4 bilaterally. Neurological: No focal deficits. Strength and sensation are grossly intact. - Labs CBC & Chem 7: 06/21/16 06:48 06/20/16 01:15 Labs: Abnormal Lab Results - Last 24 Hours (Table) 06/20/16 06/21/16 Range/Units 15:17 06:48 MCH 24.9 L 24.5 L (25.0-35.0) pg MCHC 29.5 L 29.1 L (31.0-37.0) g/dL RDW 18.1 H 17.6 H (11.5-15.5) % Lymphocytes # 0.9 L (1.0-4.8) k/uL Assessment and Plan (1) Hematemesis Narrative/Plan: Also peptic ulcer disease possible alcohol gastropathy gastritis esophagitis. Status: Acute (2) Acute alcoholic hepatitis Status: Acute (3) ETOH abuse Status: Acute (4) Acute alcohol intoxication Status: Acute Plan: 1. IV Protonix 40 mg every 12 hours. Hemoccult been stable. No further episodes of hematemesis. 2. Light diet as tolerated. 3. Alcohol abstinence strongly advised. 4. EGD contingent on clinical course, not planned at this time. Assessment and plan a care discussed with Dr. Ambrocio.
--- NOTE | 2016-06-21 18:54 | PN ---
DATE OF SERVICE: 06/21/2016 PRESENTING COMPLAINT: Seizure and vomiting blood. INTERVAL HISTORY: This patient has a history of tonic-clonic seizure and is not entirely compliant with medications. He did present with seizures. Also patient has significant amount of vomiting blood. Still having a lot of epigastric pain, which is clear liquid. GI is on the case. Does feel weak and tired. Patient is drinking vodka and beer and up until coming in. Review of systems done for constitutional, cardiovascular, GI, pulmonary; relevant findings as above. Current medications are reviewed that include Lyrica, Depakote and Valium. On examination, temperature 97.8, pulse 88, respirations 16, blood pressure 159/106, pulse ox 97% on room air. GENERAL APPEARANCE: Sitting at head of bed, tired appearing. EYES: Pupils equal. Conjunctivae pale. NECK: JVD not raised. Mass not palpable. RESPIRATORY: Effort normal. LUNGS: Diminished breath sounds. CARDIOVASCULAR: First and second sounds normal. No edema. ABDOMEN: Significant epigastric tenderness. No guarding or rigidity. Liver and spleen not palpable. PSYCHIATRY: Alert and oriented x3. Mood and affect tired appearing. INVESTIGATIONS: Hemoglobin 13.4. ASSESSMENT: 1. Acute gastrointestinal bleed in a patient who continues to drink vodka and beer, strongly suggestive of peptic ulcer disease/severe gastritis and esophagitis. 2. Acute alcohol intoxication on presentation. 3. Chronic alcohol dependence. 4. Breakthrough tonic-clonic seizure. The patient was not very compliant with his seizure medication. 5. Essential hypertension. 6. Gastroesophageal reflux disease. 7. Alcoholic hepatitis. 8. Mild pancreatitis present on admission secondary to alcoholism. PLAN: Continue current medication and treatment plan. Will follow with GI. GI is still contemplating EGD if abdominal pain persists or hemoglobin drops. It will be prudent to proceed with EGD.
[2016-06-22] MEDS: DIVALPROEX 500 MG TABLET.DR PO SCH ×2 (07:31→21:48)
[2016-06-22] MEDS: PANTOPRAZOLE 40 MG/10 ML VIAL IV SCH ×2 (07:31→21:48)
[2016-06-22] MEDS: DULoxetine HCL 60 MG CAPSULE.DR PO SCH ×2 (07:32→21:48)
[2016-06-22] MEDS: PREGABALIN 75 MG CAP PO SCH ×2 (07:32→21:48)
[2016-06-22] MEDS: METOPROLOL TARTRATE 25 MG TAB PO SCH ×2 (07:32→21:48)
[2016-06-22] MEDS: LISINOPRIL 10 MG TAB PO SCH (07:32)
[2016-06-22] MEDS: LORazepam 2 MG/ML SYRINGE IV PRN ×2 (07:36→09:42)
[2016-06-22] MEDS: DIAZEPAM 5 MG TAB PO SCH ×3 (07:37→21:48)
[2016-06-22 08:02] LABS: ALT 105 U/L (21-72); AST 85 U/L (17-59); Alkaline Phosphatase 84 U/L (38-126); Anion Gap 10 mmol/L; Blood Urea Nitrogen 5 mg/dL (9-20); Calcium 9.3 mg/dL (8.4-10.2); Carbon Dioxide 27 mmol/L (22-30); Chloride 99 mmol/L (98-107); Glucose 89 mg/dL (74-99); Non-African American GFR(MDRD) >60 (>60 ml/min/1.73 sqM); Potassium 3.7 mmol/L (3.5-5.1); Sodium 136 mmol/L (137-145); Total Bilirubin 1.4 mg/dL (0.2-1.3); Total Protein 6.5 g/dL (6.3-8.2)
[2016-06-22] MEDS: THIAMINE 100 MG TAB PO SCH ×2 (13:27→16:33)
[2016-06-22] MEDS: MAGNESIUM OXIDE 400 MG TAB PO SCH (13:27)
[2016-06-22] MEDS ORDERED: SODIUM CHLORIDE 0.9% 1,000 ML BAG ONE (13:28)
[2016-06-22] MEDS: 1: MVI, ADULT NO.4 WITH VIT K 10 ML, THIAMINE 100 MG, FOLIC ACID 1 MG in SODIUM CHLORIDE IV SCH ×8 (13:28→23:12)
[2016-06-23] MEDS: LORazepam 2 MG/ML SYRINGE IV PRN ×4 (00:38→10:32)
[2016-06-23 07:24] LABS: Anisocytosis Slight; Aty Lym Flag Slight; CH 24.9; CHCM 29.7; HCT 42.9 % (39.0-53.0); HDW 2.52; HGB 12.5 gm/dL (13.0-17.5); Hypochromasia Marked; MCH 24.7 pg (25.0-35.0); MCHC 29.2 g/dL (31.0-37.0); MCV 84.4 fL (80.0-100.0); Mean Platelet Volume 8.5; RBC 5.08 m/uL (4.30-5.90); RDW 17.4 % (11.5-15.5); WBC (Perox) 5.84
[2016-06-23 07:26] LABS: ALT 96 U/L (21-72); AST 91 U/L (17-59); Alkaline Phosphatase 82 U/L (38-126); Anion Gap 11 mmol/L; Blood Urea Nitrogen 4 mg/dL (9-20); Calcium 9.5 mg/dL (8.4-10.2); Carbon Dioxide 26 mmol/L (22-30); Chloride 104 mmol/L (98-107); Glucose 85 mg/dL (74-99); Non-African American GFR(MDRD) >60 (>60 ml/min/1.73 sqM); Potassium 3.3 mmol/L (3.5-5.1); Sodium 141 mmol/L (137-145); Total Protein 6.3 g/dL (6.3-8.2)
[2016-06-23] MEDS: METOPROLOL TARTRATE 25 MG TAB PO SCH ×2 (08:02→20:42)
[2016-06-23] MEDS: DIVALPROEX 500 MG TABLET.DR PO SCH ×2 (08:02→20:41)
[2016-06-23] MEDS: DULoxetine HCL 60 MG CAPSULE.DR PO SCH ×2 (08:02→20:41)
[2016-06-23] MEDS: LISINOPRIL 10 MG TAB PO SCH (08:02)
[2016-06-23] MEDS: PANTOPRAZOLE 40 MG/10 ML VIAL IV SCH ×2 (08:02→20:41)
[2016-06-23] MEDS: MAGNESIUM OXIDE 400 MG TAB PO SCH (08:02)
[2016-06-23] MEDS: DIAZEPAM 5 MG TAB PO SCH ×3 (08:02→20:41)
[2016-06-23] MEDS: PREGABALIN 75 MG CAP PO SCH ×2 (08:02→20:42)
[2016-06-23] MEDS: THIAMINE 100 MG TAB PO SCH ×2 (08:02→17:56)
[2016-06-23 08:51] LABS: Add Differential Manual Differential
[2016-06-23 08:52] LABS: Nucleated Red Blood Cells 1 /100 WBC (0-0); Total Cells Counted 100
[2016-06-23 08:53] LABS: Polychromasia Present; WBC 5.5 k/uL (3.8-10.6)
[2016-06-23] MEDS: 1: MVI, ADULT NO.4 WITH VIT K 10 ML, THIAMINE 100 MG, FOLIC ACID 1 MG in SODIUM CHLORIDE IV SCH ×8 (10:45→18:34)
[2016-06-23] MEDS ORDERED: SODIUM CHLORIDE 0.9% 1,000 ML BAG ONE (10:45)
--- NOTE | 2016-06-23 14:38 | PN ---
DATE OF SERVICE: 06/22/2016 INTERVAL HISTORY: Mr. Yo is a 60-year-old year-old male with a past medical history of alcohol abuse, hypertension, GERD, seizure disorder, coming into the hospital with a chief complaint of hematemesis and he also had a seizure. Patient had been drinking vodka and beer until he came into the hospital. Patient's hemoglobin has been stable and she has been consulted and following the patient. Patient's epigastric pain is improving currently and he is having delirium tremors and he is on Ativan. REVIEW OF SYSTEMS: CONSTITUTIONAL: Denies having any fevers, chills or rigors. CARDIOVASCULAR: No chest pain or palpitations. GI: Epigastric pain is resolving and nausea is still present, but he is able to tolerate p.o. with Zofran. : No dysuria or hematuria. LEAD SYSTEMS ENGINEER: Patient is having DTs as per nursing staff report. Patient's medications have been reviewed. He is on: 1. Tylenol. 2. Valium. 3. Depakote. 4. Cymbalta. 5. Zestril. 6. Ativan. 7. Magnesium oxide. 8. Metoprolol. 9. Narcan. 10. Zofran. 11. Protonix. 12. Thiamine. 13. Folic acid supplements. 14. Lyrica. On examination, patient's vital signs: Temperature is 97.8, heart rate of 63, respiratory rate 16, blood pressure 147/93, saturating 99% on room air. GENERAL: he is sitting up in the bed, appears to be no acute distress. EYES: Equal and reactive to light. Conjunctivae: No pallor. NECK: No JVD. Bilateral breath sounds positive. CARDIOVASCULAR: S1, S2 heard. ABDOMEN: Soft. Positive for tenderness in the epigastric region. No guarding or rigidity. LEAD SYSTEMS ENGINEER: Alert, awake, oriented x3. No focal deficits. Patient's labs: White count of 7.7, hemoglobin 13.4, platelets of 169. Sodium 136, potassium 3.7, chloride 99, bicarb 27, BUN 5, creatinine 0.68. ASSESSMENT: 1. Acute gastrointestinal bleed most likely secondary to alcohol abuse, can be suggestive of peptic ulcer disease, severe gastritis or esophagitis. Will continue with Protonix. 2. Acute alcoholic intoxication on presentation. 3. Chronic alcohol dependence. 4. Breakthrough tonic-clonic seizures, as he is noncompliant with his seizure medications. 5. Alcoholic hepatitis. 6. Hypertension. 7. Gastroesophageal reflux disease. 8. Mild pancreatitis at the time of admission. 9. Delirium tremens. PLAN: The plan is to continue the patient on current medication regimen and hemoglobin has been stable. Anticipate discharge in the next 24 to 48 hours. MTDD
[2016-06-24] MEDS: NICOTINE 21MG/24HR PATCH TRANSDERM SCH ×2 (01:04→08:53)
--- NOTE | 2016-06-24 08:29 | PN ---
DATE OF SERVICE: 06/23/2016 CHIEF COMPLAINT: Hematemesis. INTERVAL HISTORY: Mr. Yo is a 60-year-old male with a past medical history of alcohol abuse hypertension. GERD, seizure disorder, coming into the hospital with a chief complaint of hematemesis and also he had an episode of seizure. Patient had been drinking vodka and beer until he came into the hospital. The patient's hemoglobin has been stable since he has been here around 12. Patient had also alcoholic and alcohol intoxication when he was admitted to the hospital. He is having delirium tremens. As per the nursing staff report, patient was very agitated. This morning they had to give him 4 doses of Ativan to calm him down. Patient has a sitter at the bedside currently. He is aware that he is in the hospital, but clearly not oriented to time. REVIEW OF SYSTEMS: Review of systems could not be done as the patient is very confused and he keeps asking that he wants to go out and smoke and he keeps asking me that he wants to go home. Patient's medications have been reviewed. He is on Tylenol, Valium, Depakote, Cymbalta, Zestril, Ativan and Magnesium oxide, ( ) Narcan, nicotine patches, Zofran, Protonix, thiamine, folic acid supplements, Pregabalin, Vitamin B1. Patient's vitals: Temperature 97.2, heart rate 69, respiratory rate 16, blood pressure 133/72, saturating at 100% on room air. The patient is sitting up in a chair by his bed. He is drowsy. He just received a dose of Ativan. EYES: Pupils round and reactive to light. Conjunctivae no pallor. NECK: No JVD. LUNGS: Bilateral breath sounds are positive. CARDIOVASCULAR: S1, S2 heard. ABDOMEN: Soft. No tenderness in the epigastric region. No guarding or rigidity. 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 No focal deficits. Patient's labs: White count of 5.1, hemoglobin is 12.5, platelets of 241, sodium 141, potassium 3.3, chloride 104, bicarb 26, BUN 4, creatinine 0.80. AST 91, ALT is 96. ASSESSMENT AND PLAN: 1. Acute bleed, most likely secondary to alcohol abuse can be secondary to severe gastritis or esophagitis. We will continue with Protonix. GI on board and no plan of scoping currently as his hemoglobin has been stable. 2. Alcoholic acute alcohol intoxication at presentation. 3. Chronic alcohol dependence. 4. Seizure as he has been noncompliant with his seizure medications. 5. Acute delirium tremens. 6. Alcoholic hepatitis. 7. Hypertension. 8. Gastroesophageal reflux disease. 9. Mild pancreatitis. PLAN: The plan is to continue the patient on Ativan. We will put him on DT precautions and seizure precautions. Patient's hemoglobin has been stable. He is not bleeding actively. As the patient has active delirium tremens, he has a sitter at the bedside. Overall prognosis is guarded. Further recommendations to follow depending on the progress of the patient. MTDD
[2016-06-24] MEDS: DIVALPROEX 500 MG TABLET.DR PO SCH ×2 (08:53→20:24)
[2016-06-24] MEDS: PREGABALIN 75 MG CAP PO SCH ×2 (08:53→20:25)
[2016-06-24] MEDS: DULoxetine HCL 60 MG CAPSULE.DR PO SCH ×2 (08:53→20:24)
[2016-06-24] MEDS: DIAZEPAM 5 MG TAB PO SCH ×3 (08:53→20:25)
[2016-06-24] MEDS: LISINOPRIL 10 MG TAB PO SCH (08:54)
[2016-06-24] MEDS: THIAMINE 100 MG TAB PO SCH ×2 (08:54→18:21)
[2016-06-24] MEDS: MAGNESIUM OXIDE 400 MG TAB PO SCH (08:54)
[2016-06-24] MEDS: METOPROLOL TARTRATE 25 MG TAB PO SCH ×2 (08:54→20:25)
[2016-06-24] MEDS: LORazepam 2 MG/ML SYRINGE IV PRN (09:01)
[2016-06-24] MEDS: PANTOPRAZOLE 40 MG/10 ML VIAL IV SCH ×2 (10:38→20:25)
[2016-06-24] MEDS: 1: MVI, ADULT NO.4 WITH VIT K 10 ML, THIAMINE 100 MG, FOLIC ACID 1 MG in SODIUM CHLORIDE IV SCH ×4 (11:12)
[2016-06-24] MEDS ORDERED: SODIUM CHLORIDE 0.9% 1,000 ML BAG ONE (11:12)
[2016-06-25] MEDS: 1: MVI, ADULT NO.4 WITH VIT K 10 ML, THIAMINE 100 MG, FOLIC ACID 1 MG in SODIUM CHLORIDE IV SCH ×8 (03:54→08:12)
--- NOTE | 2016-06-25 07:01 | PN ---
DATE OF SERVICE: 06/24/2016 INTERVAL HISTORY: Mr. Yo is a 60-year-old male with a past medical history of alcohol abuse, hypertension, GERD, seizure disorder, admitted to the hospital with a chief complaint of hematemesis. He also had an episode of seizure. Patient has been drinking vodka and beer until he came into the hospital and was found to have alcohol intoxication. Later on, patient developed delirium tremens and so currently has a sitter at the bedside and he is on CIWA scale. As per the nursing staff report, patient is 7 to 8 on a CIWA scale and has been getting Ativan every 3 to 4 hours. REVIEW OF SYSTEMS: The review of systems could not be done as the patient just received a dose of Ativan and has been knocked out. Patient's medications have been reviewed. On examination, patient's vital signs; Temperature 97.7, heart rate is 61, respiratory rate 17, blood pressure 164/78, saturating at 97% on room air. Patient's physical exam, patient is drowsy, difficult to arouse as he just received a dose of Ativan. EYES: Pupils are round and reactive to light. HEAD: Atraumatic, normocephalic. CARDIOVASCULAR: S1 and S2 heard. Slightly tachycardic. LUNGS: Bilateral breath sounds are positive. GI: Abdomen is soft, nontender. Bowel sounds positive. No epigastric tenderness. 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 SKIN: No rashes. PATIENT'S LABS: White count of 5.5, hemoglobin 12.5, platelets 241. Sodium 141, potassium 3.3, chloride 104, bicarb 26, BUN 11, creatinine 0.80. ASSESSMENT AND PLAN: 1. Acute gastrointestinal bleed, most likely secondary to alcohol abuse can be secondary to severe gastritis or esophagitis. Continue with Protonix. GI on board and no plan of endoscopy as the patient's hemoglobin has been stable. 2. Delirium tremors. 3. Acute alcohol intoxication at the time of presentation. 4. Tonic clonic seizures. 5. Alcoholic hepatitis. 6. Hypertension. 7. Mild pancreatitis. 8. Gastroesophageal reflux disease. PLAN: The plan is to continue the patient on DT precautions. Hemoglobin has been stable. No signs of active bleeding. The patient has a sitter at the bedside. Further recommendations to follow depending on the progress of the patient.
[2016-06-25] MEDS: ACETAMINOPHEN TAB 500 MG TAB PO PRN (08:09)
[2016-06-25] MEDS: PANTOPRAZOLE 40 MG/10 ML VIAL IV SCH (08:10)
[2016-06-25] MEDS: NICOTINE 21MG/24HR PATCH TRANSDERM SCH (08:10)
[2016-06-25] MEDS: PREGABALIN 75 MG CAP PO SCH (08:10)
[2016-06-25] MEDS: METOPROLOL TARTRATE 25 MG TAB PO SCH (08:11)
[2016-06-25] MEDS: THIAMINE 100 MG TAB PO SCH (08:11)
[2016-06-25] MEDS: MAGNESIUM OXIDE 400 MG TAB PO SCH (08:11)
[2016-06-25] MEDS: DIVALPROEX 500 MG TABLET.DR PO SCH (08:11)
[2016-06-25] MEDS: LISINOPRIL 10 MG TAB PO SCH (08:11)
[2016-06-25] MEDS: DULoxetine HCL 60 MG CAPSULE.DR PO SCH (08:11)
[2016-06-25] MEDS ORDERED: SODIUM CHLORIDE 0.9% 1,000 ML BAG ONE (08:12)
[2016-06-25] MEDS: DIAZEPAM 5 MG TAB PO SCH (08:14)
[2016-06-25 14:20] VITALS: BP 159/92; PULSE 78; RESP 16; TEMP 98.5
--- NOTE | 2016-06-27 12:39 | DS ---
DATE OF ADMISSION: 06/20/2016 DATE OF DISCHARGE: 06/25/2016 FINAL DIAGNOSES: 1. Acute gastrointestinal bleed secondary to alcoholism likely causing severe gastritis and esophagitis, present on admission. 2. Acute alcohol intoxication, present on admission. 3. Chronic alcohol dependence. 4. Breakthrough tonic-clonic seizures, tonic-clonic type, as patient has not been very compliant with his medication. 5. Essential hypertension. 6. Gastroesophageal reflux disease. 7. Alcoholic hepatitis. 8. Mild pancreatitis, present on admission secondary to alcoholism. Consultation with Dr. Ambrocio from GI. HOSPITAL COURSE: This patient is drinking alcohol off and on presented with vomiting some blood, pain in the epigastrium. Also having some withdrawal for which he was given beta blockers, Valium to which he responded. Also given PPIs and seen by Dr. Adriel Vidales/Dr. Ambrocio from GI. ( ) not to do any intervention and follow clinically. By the time of discharge the patient is tolerating a diet, abdominal pain had resolved. Hemoglobin was 12.5%. Patient is counseled extensively against smoking and alcohol. DISCHARGE MEDICATIONS: 1. Cymbalta 60 mg p.o. b.i.d. 2. Depakote 500 mg p.o. b.i.d. 3. Zestril 10 mg p.o. daily. 4. Magnesium 400 mg p.o. daily. 5. Lyrica 75 mg p.o. b.i.d. 6. Valium short taper. 7. Depakote 500 mg p.o. b.i.d. 8. Nicotine patch. 9. Prilosec 20 mg a.c. b.i.d. 10. Thiamin 100 mg p.o. daily. Follow with Dr. Adriel Vidales on 07/03/2016. Follow with Dr. Jazzmine Garcia on 06/28/2016. On exam, LUNGS: Fair air entry. ABDOMEN: Soft, nontender. PSYCH: Alert and oriented x3. Mood and affect normal.
== END 2016-06-25 14:40 | disposition home or self-care (01) | DRG 377 ==
LOC: EC 00:37 → 3SUR 03:19
PROVIDERS: ADMIT Hospitalist; ATTEND Hospitalist
DX: K29.21 Alcoholic gastritis with bleeding (principal); K85.20 Alcohol induced acute pancreatitis without necrosis or infection; F10.221 Alcohol dependence with intoxication delirium; K70.10 Alcoholic hepatitis without ascites; K22.8 Other specified diseases of esophagus; K21.0 Gastro-esophageal reflux disease with esophagitis; G40.409 Other generalized epilepsy and epileptic syndromes, not intractable, without status epilepticus; I10 Essential (primary) hypertension; F17.210 Nicotine dependence, cigarettes, uncomplicated; M19.90 Unspecified osteoarthritis, unspecified site; F12.90 Cannabis use, unspecified, uncomplicated; F32.9 Major depressive disorder, single episode, unspecified; R06.6 Hiccough; Z79.899 Other long term (current) drug therapy; Z91.14 Patient's other noncompliance with medication regimen; Z87.11 Personal history of peptic ulcer disease; Y90.8 Blood alcohol level of 240 mg/100 ml or more
CPT/HCPCS: 36415; 71020; 74000; 80053; 80074; 80164; 80320; 82140; 82150; 83690; 85025; 85610; 93005; 94760; 96361; 96374; 96375; 99285

== ENCOUNTER 2016-11-27 11:50 | Emergency (ER) | payer OTHER ==
[2016-11-27] MEDS ORDERED: SODIUM CHLORIDE 0.9% 1,000 ML IV STA ×2 (12:02)
[2016-11-27] MEDS ORDERED: SODIUM CHLORIDE 0.9% 500 ML IV STA (12:02)
[2016-11-27] MEDS ORDERED: LORazepam 2 MG/ML SYRINGE IV STA (12:02)
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
[2016-11-27 12:47] LABS: Anisocytosis Slight; Basophils # (A) 0.1 k/uL (0-0.2); Basophils % (A) 1 %; CH 24.9; CHCM 30.4; Eosinophils # (A) 0.2 k/uL (0-0.7); Eosinophils % (A) 2 %; HCT 45.8 % (39.0-53.0); HGB 13.2 gm/dL (13.0-17.5); Hypochromasia Moderate; Luc # (Auto) 0.34; Luc % (Auto) 4; Lymphocytes # (A) 1.7 k/uL (1.0-4.8); Lymphocytes % (A) 19 %; MCH 23.8 pg (25.0-35.0); MCHC 28.9 g/dL (31.0-37.0); MCV 82.5 fL (80.0-100.0); Mean Platelet Volume 8.8; Monocytes # (A) 1.1 k/uL (0-1.0); Monocytes % (A) 12 %; Neutrophils # (A) 5.5 k/uL (1.3-7.7); Neutrophils % (A) 62 %; RBC 5.55 m/uL (4.30-5.90); RDW 16.9 % (11.5-15.5); WBC 8.9 k/uL (3.8-10.6); WBC (Perox) 8.77
[2016-11-27 13:08] LABS: ALT 36 U/L (21-72); AST 40 U/L (17-59); Alkaline Phosphatase 105 U/L (38-126); Anion Gap 13 mmol/L; Blood Urea Nitrogen 11 mg/dL (9-20); Calcium 10.1 mg/dL (8.4-10.2); Carbon Dioxide 23 mmol/L (22-30); Chloride 105 mmol/L (98-107); Glucose 96 mg/dL (74-99); Magnesium 1.6 mg/dL (1.6-2.3); Non-African American GFR(MDRD) >60 (>60 ml/min/1.73 sqM); Phosphorous 3.7 mg/dL (2.5-4.5); Potassium 4.6 mmol/L (3.5-5.1); Salicylate <1.0 mg/dL; Sodium 141 mmol/L (137-145); Total Bilirubin 0.6 mg/dL (0.2-1.3); Total Protein 7.6 g/dL (6.3-8.2)
[2016-11-27 13:09] LABS: Acetaminophen <10.0 ug/mL; Alcohol <10 mg/dL
[2016-11-27 15:17] VITALS: BP 178/101; PULSE 85; RESP 18; TEMP 98
== END 2016-11-27 15:17 | disposition home or self-care (01) ==
LOC: EC 11:50
DX: R56.9 Unspecified convulsions (principal); I10 Essential (primary) hypertension; F17.200 Nicotine dependence, unspecified, uncomplicated; Z79.899 Other long term (current) drug therapy
CPT/HCPCS: 36415; 93005; 80164; 80053; 83690; 83735; 84100; 85025; 83520 ×2; 80320; 99284; 96374; 96361 ×2; J2060

== ENCOUNTER 2017-02-05 13:41 | Observation (INO) | payer OTHER ==
[2017-02-05] MEDS ORDERED: SODIUM CHLORIDE 0.9% 1,000 ML IV ONE (14:21)
[2017-02-05] MEDS ORDERED: LORazepam 2 MG/ML INJ IV STA (14:21)
[2017-02-05] MEDS ORDERED: SODIUM CHLORIDE 0.9% 1,000 ML with MVI, ADULT NO.4 WITH VIT K 10 ML, THIAMINE 100 MG, F... IV ONE ×4 (14:23)
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
[2017-02-05 14:35] LABS: Anisocytosis Slight; Basophils # (A) 0.1 k/uL (0-0.2); Basophils % (A) 1 %; CH 22.3; CHCM 29.3; Eosinophils # (A) 0.2 k/uL (0-0.7); Eosinophils % (A) 2 %; HCT 47.5 % (39.0-53.0); HDW 3.01; HGB 13.6 gm/dL (13.0-17.5); Hypochromasia Marked; Luc # (Auto) 0.15; Luc % (Auto) 2; Lymphocytes # (A) 1.5 k/uL (1.0-4.8); Lymphocytes % (A) 19 %; MCH 21.9 pg (25.0-35.0); MCHC 28.6 g/dL (31.0-37.0); MCV 76.7 fL (80.0-100.0); Mean Platelet Volume 8.2; Microcytosis Slight; Monocytes # (A) 0.5 k/uL (0-1.0); Monocytes % (A) 7 %; Neutrophils # (A) 5.5 k/uL (1.3-7.7); Neutrophils % (A) 70 %; RBC 6.19 m/uL (4.30-5.90); RDW 19.2 % (11.5-15.5); WBC 7.9 k/uL (3.8-10.6); WBC (Perox) 7.69
[2017-02-05 14:45] LABS: Anion Gap 15 mmol/L; Calcium 10.1 mg/dL (8.4-10.2); Carbon Dioxide 23 mmol/L (22-30); Chloride 103 mmol/L (98-107); Glucose 112 mg/dL (74-99); Non-African American GFR(MDRD) >60 (>60 ml/min/1.73 sqM); Sodium 141 mmol/L (137-145); Total Bilirubin 1.4 mg/dL (0.2-1.3); Total Protein 8.7 g/dL (6.3-8.2)
[2017-02-05 14:46] LABS: AST 64 U/L (17-59); Blood Urea Nitrogen 11 mg/dL (9-20); Potassium 4.5 mmol/L (3.5-5.1)
[2017-02-05 14:47] LABS: ALT 50 U/L (21-72); Alkaline Phosphatase 120 U/L (38-126)
[2017-02-05 14:48] LABS: INR 1.1 (<1.2); Partial Thromboplastin Time 24.2 sec (22.0-30.0); Prothrombin Time 10.7 sec (9.0-12.0)
--- NOTE | 2017-02-05 15:59 | XR ---
EXAMINATION TYPE: XR chest 2V DATE OF EXAM: 02/05/2017 COMPARISON: Chest x-ray June 20, 2016. HISTORY: Altered mental status per order. History of hypertension. TECHNIQUE: Frontal and lateral views of the chest are obtained. FINDINGS: There is eventration anterior aspect right hemidiaphragm There is no focal air space opacit y, pleural effusion, or pneumothorax seen. The cardiac silhouette size is within normal limits. Bila teral hilar prominence could reflect product of underlying pulmonary artery hypertension. Surgical ch anges right humeral head level with 2 fixating screws is redemonstrated. IMPRESSION: No acute cardiopulmonary process. No significant change from prior.
[2017-02-05] MEDS ORDERED: 1: MVI, ADULT NO.4 WITH VIT K 10 ML, THIAMINE 100 MG, FOLIC ACID 1 MG in SODIUM CHLORIDE IV SCH ×4 (16:00)
[2017-02-05] MEDS ORDERED: THIAMINE 100 MG/ML 2 ML VIAL IM STA (16:11)
[2017-02-05] MEDS ORDERED: LORazepam 2 MG/ML INJ IV PRN ×2 (16:11)
[2017-02-05] MEDS ORDERED: hydrALAZINE HCL 20 MG/ML 1 ML VIAL IVP STA (16:24)
[2017-02-05] MEDS ORDERED: MAGNESIUM SULFATE-D5W PMX 1 GM in DEXTROSE/WATER 1 100ML.BAG IVPB ONE (17:13)
[2017-02-05] MEDS ORDERED: ONDANSETRON 4 MG/2 ML VIAL IVP PRN (18:33)
[2017-02-05] MEDS: LISINOPRIL 20 MG TAB PO SCH (20:24)
[2017-02-05] MEDS: DIVALPROEX 500 MG TABLET.DR PO SCH (20:24)
[2017-02-05] MEDS: 1: MVI, ADULT NO.4 WITH VIT K 10 ML, THIAMINE 100 MG, FOLIC ACID 1 MG in SODIUM CHLORIDE IV SCH ×4 (20:24)
[2017-02-05] MEDS: THIAMINE 100 MG TAB PO SCH (20:24)
[2017-02-05] MEDS: ACETAMINOPHEN TAB 325 MG TAB PO PRN (20:25)
[2017-02-05] MEDS: LORazepam 2 MG/ML INJ IV PRN (23:19)
[2017-02-06] MEDS: 1: MVI, ADULT NO.4 WITH VIT K 10 ML, THIAMINE 100 MG, FOLIC ACID 1 MG in SODIUM CHLORIDE IV SCH ×8 (06:06→16:28)
[2017-02-06] MEDS: LISINOPRIL 20 MG TAB PO SCH ×2 (07:52→21:10)
[2017-02-06] MEDS: ACETAMINOPHEN TAB 325 MG TAB PO PRN (07:53)
[2017-02-06] MEDS: DIVALPROEX 500 MG TABLET.DR PO SCH ×2 (07:53→21:10)
[2017-02-06] MEDS: LORazepam 2 MG/ML INJ IV PRN ×3 (08:35→22:52)
[2017-02-06] MEDS: THIAMINE 100 MG TAB PO SCH ×2 (12:38→16:28)
[2017-02-06 15:42] LABS: ALT 42 U/L (21-72); AST 36 U/L (17-59); Alkaline Phosphatase 90 U/L (38-126); Anion Gap 10 mmol/L; Blood Urea Nitrogen 13 mg/dL (9-20); Calcium 9.2 mg/dL (8.4-10.2); Carbon Dioxide 22 mmol/L (22-30); Chloride 108 mmol/L (98-107); Glucose 87 mg/dL (74-99); Magnesium 1.7 mg/dL (1.6-2.3); Non-African American GFR(MDRD) >60 (>60 ml/min/1.73 sqM); Phosphorus 3.7 mg/dL (2.5-4.5); Sodium 140 mmol/L (137-145); Total Protein 6.7 g/dL (6.3-8.2)
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
[2017-02-07] MEDS: 1: MVI, ADULT NO.4 WITH VIT K 10 ML, THIAMINE 100 MG, FOLIC ACID 1 MG in SODIUM CHLORIDE IV SCH ×12 (04:28→22:26)
[2017-02-07] MEDS: LISINOPRIL 20 MG TAB PO SCH ×2 (07:45→20:05)
[2017-02-07] MEDS: DIVALPROEX 500 MG TABLET.DR PO SCH ×2 (07:45→20:05)
[2017-02-07] MEDS: PANTOPRAZOLE 40 MG TABLET PO SCH (07:45)
[2017-02-07 08:57] LABS: Anion Gap 10 mmol/L; Blood Urea Nitrogen 10 mg/dL (9-20); Calcium 9.6 mg/dL (8.4-10.2); Carbon Dioxide 23 mmol/L (22-30); Chloride 109 mmol/L (98-107); Glucose 87 mg/dL (74-99); Magnesium 1.7 mg/dL (1.6-2.3); Non-African American GFR(MDRD) >60 (>60 ml/min/1.73 sqM); Phosphorus 4.5 mg/dL (2.5-4.5); Sodium 142 mmol/L (137-145)
[2017-02-07] MEDS ORDERED: cloNIDine HCL 0.1 MG TAB PO STA (10:50)
[2017-02-07] MEDS: ACETAMINOPHEN TAB 325 MG TAB PO PRN (11:02)
--- NOTE | 2017-02-07 11:15 | PN ---
PROGRESS NOTE DATE OF ADMISSION: 02/07/2017. HISTORY: The patient is a 61-year-old male who is seen lying in bed. He is awake and alert. Continues to complain of lightheadedness and feeling off balance with ambulation. The patient is afebrile. Blood pressure is elevated. Will contact the floor to address that immediately. PHYSICAL EXAM: VITAL SIGNS: Temp 97.6, heart rate 98, respiratory rate 16, blood pressure is documented at 166/120, room air O2 saturation is 97%. HEENT. Head is normocephalic, atraumatic. NECK: Supple. Trachea is midline. LUNGS: Decreased breath sounds. Prolonged expiratory phase. No rales or wheezes. HEART: S1, S2 heard. Slightly tachycardic. ABDOMEN: Soft. Bowel sounds are heard. EXTREMITIES: No edema. NEUROLOGIC: The patient is awake, alert, is feeling off balance and lightheaded. LABS: Sodium is 142, potassium 4.0, chloride 109, CO2 is 23, anion gap is 10, BUN is 10, creatinine is 1.0, glucose of 87, calcium is 9.6, phosphorus is 4.5, magnesium is 1.7. No new imaging to review. IMPRESSION: 1. Alcohol withdrawal with possible seizure. 2. Uncontrolled hypertension. 3. History of seizure disorder. 4. EtOH abuse. 5. Gastroesophageal reflux disease. 6. Osteoarthritis. 7. Possible obstructive sleep apnea syndrome. PLAN: Continue current medications which have been reviewed. Will adjust blood pressure medications. Neurology has been consulted. Await further recommendations per Neurology. Continue GI and DVT prophylaxis. Continue seizure precautions. We will follow patient closely, making further changes as necessary. MMODL / IJN: [id number] /
[2017-02-07] MEDS ORDERED: hydrALAZINE HCL 20 MG/ML 1 ML VIAL IVP STA (11:27)
[2017-02-07] MEDS: THIAMINE 100 MG TAB PO SCH ×2 (12:59→16:15)
[2017-02-07] MEDS: cloNIDine HCL 0.1 MG TAB PO SCH ×2 (15:18→21:55)
[2017-02-07] MEDS: hydrALAZINE HCL 20 MG/ML 1 ML VIAL IVP PRN (17:06)
[2017-02-07] MEDS: IBUPROFEN 600 MG TAB PO PRN (17:09)
[2017-02-07] MEDS: LORazepam 2 MG/ML INJ IV PRN (18:27)
[2017-02-07] MEDS ORDERED: cloNIDine HCL 0.1 MG TAB PO SCH (21:00)
[2017-02-08] MEDS: 1: MVI, ADULT NO.4 WITH VIT K 10 ML, THIAMINE 100 MG, FOLIC ACID 1 MG in SODIUM CHLORIDE IV SCH ×8 (08:00→17:40)
[2017-02-08] MEDS: MULTIVITAMINS, THERA 1 EACH TAB PO SCH (08:04)
[2017-02-08] MEDS: DIVALPROEX 500 MG TABLET.DR PO SCH ×2 (08:04→20:53)
[2017-02-08] MEDS: LORazepam 2 MG/ML INJ IV PRN (08:04)
[2017-02-08] MEDS: THIAMINE 100 MG TAB PO SCH ×2 (08:04→15:35)
[2017-02-08] MEDS: LISINOPRIL 20 MG TAB PO SCH ×2 (08:04→20:53)
[2017-02-08] MEDS: FOLIC ACID 1 MG TAB PO SCH (08:05)
[2017-02-08] MEDS: PANTOPRAZOLE 40 MG TABLET PO SCH (08:05)
[2017-02-08] MEDS: cloNIDine HCL 0.1 MG TAB PO SCH ×3 (08:05→20:53)
--- NOTE | 2017-02-08 13:49 | P.PN ---
Subjective Progress Note Date: 02/08/17 Principal diagnosis: Seizure Patient seen and examined. Patient states he is still having headaches. He occasionally gets dizzy. He remains hypertensive. He is aware we will adjust medications to improve his blood pressure. He denies seizures overnight. He states he is "a little shaky." Objective - Vital Signs Vital signs: Vital Signs Temp 96.9 F L 02/08/17 07:00 Pulse 73 02/08/17 07:00 Resp 16 02/08/17 07:00 BP 144/77 02/08/17 09:00 Pulse Ox 98 02/08/17 07:00 Intake & Output 02/07/17 02/08/17 02/08/17 18:59 06:59 18:59 Intake Total 300 Balance 300 Intake: Oral 300 Other: Voiding Method Urinal # Voids 2 1 - Exam Gen.: Patient is alert and oriented 3, no acute distress Cardiovascular: Regular rate and rhythm, S1/S2 Lungs: Clear to auscultation bilaterally no wheezes rales or rhonchi Abdomen: Soft nontender nondistended positive bowel sounds Extremities: No edema - Labs CBC & Chem 7: 02/05/17 14:16 02/07/17 07:21 Assessment and Plan Assessment: Alcohol withdrawal, possible seizure Uncontrolled hypertension History of seizure disorder Cephalgia Alcohol abuse GERD Osteoarthritis Suspected obstructive sleep apnea Hypomagnesemia Mild hyperammonemia Polysubstance abuse Maintain saturation greater than or equal to 90% Seizure precautions [facility] protocol Neurology evaluation Alcohol abstinence GI and DVT prophylaxis Antihypertensives - Catapres, Lisinopril, add Norvasc, Hydralazine IVP PRN Antiepileptics MV, thiamine, folate Continue to monitor Covering Dr. Scott
[2017-02-08] MEDS: amLODIPine 5 MG TAB PO SCH (15:35)
[2017-02-08] MEDS: HEPARIN SODIUM,PORCINE 5,000 UNIT/ML 1 ML VIAL SQ SCH ×2 (15:35→23:34)
[2017-02-08] MEDS: IBUPROFEN 600 MG TAB PO PRN (19:17)
[2017-02-08] MEDS: hydrALAZINE HCL 20 MG/ML 1 ML VIAL IVP PRN (23:34)
[2017-02-09] MEDS: 1: MVI, ADULT NO.4 WITH VIT K 10 ML, THIAMINE 100 MG, FOLIC ACID 1 MG in SODIUM CHLORIDE IV SCH ×8 (04:50→14:36)
[2017-02-09] MEDS: HEPARIN SODIUM,PORCINE 5,000 UNIT/ML 1 ML VIAL SQ SCH ×3 (07:58→23:43)
[2017-02-09] MEDS: amLODIPine 5 MG TAB PO SCH (07:58)
[2017-02-09] MEDS: MULTIVITAMINS, THERA 1 EACH TAB PO SCH (07:58)
[2017-02-09] MEDS: FOLIC ACID 1 MG TAB PO SCH (07:58)
[2017-02-09] MEDS: PANTOPRAZOLE 40 MG TABLET PO SCH (07:58)
[2017-02-09] MEDS: THIAMINE 100 MG TAB PO SCH ×2 (07:58→16:47)
[2017-02-09] MEDS: cloNIDine HCL 0.1 MG TAB PO SCH ×3 (07:59→21:42)
[2017-02-09] MEDS: DIVALPROEX 500 MG TABLET.DR PO SCH ×2 (07:59→21:43)
[2017-02-09] MEDS: LISINOPRIL 20 MG TAB PO SCH ×2 (07:59→21:42)
[2017-02-09 08:51] LABS: Anisocytosis Slight; CH 22.8; CHCM 28.7; HCT 41.7 % (39.0-53.0); HDW 2.77; Hypochromasia Marked; MCH 23.1 pg (25.0-35.0); MCHC 28.8 g/dL (31.0-37.0); Microcytosis Slight; RBC 5.22 m/uL (4.30-5.90); RDW 18.1 % (11.5-15.5); WBC 6.4 k/uL (3.8-10.6)
[2017-02-09 09:37] LABS: ALT 35 U/L (21-72); AST 24 U/L (17-59); Alkaline Phosphatase 77 U/L (38-126); Anion Gap 8 mmol/L; Blood Urea Nitrogen 13 mg/dL (9-20); Calcium 9.7 mg/dL (8.4-10.2); Carbon Dioxide 25 mmol/L (22-30); Chloride 108 mmol/L (98-107); Glucose 77 mg/dL (74-99); Magnesium 1.7 mg/dL (1.6-2.3); Non-African American GFR(MDRD) >60 (>60 ml/min/1.73 sqM); Phosphorus 3.9 mg/dL (2.5-4.5); Sodium 141 mmol/L (137-145); Total Bilirubin 0.6 mg/dL (0.2-1.3); Total Protein 6.7 g/dL (6.3-8.2)
[2017-02-09] MEDS: IBUPROFEN 600 MG TAB PO PRN ×2 (14:21→21:43)
--- NOTE | 2017-02-09 15:07 | P.PN ---
Subjective Progress Note Date: 02/09/17 Principal diagnosis: Alcohol withdrawal seizure Patient seen and examined. Patient has not had a seizure since admission. He is complaining of continued headaches. He is planning to be discharged to [place] soon. Objective - Vital Signs Vital signs: Vital Signs Temp 98.0 F 02/09/17 14:22 Pulse 72 02/09/17 14:22 Resp 18 02/09/17 14:22 BP 137/79 02/09/17 14:22 Pulse Ox 96 02/09/17 14:22 Intake & Output 02/08/17 02/09/17 02/09/17 19:59 06:59 18:59 Intake Total 800 Output Total Balance 800 Intake: Oral 800 Output: Urine Other: Voiding Method # Voids 1 # Bowel Movements - Exam Gen.: Patient is alert and oriented 3, no acute distress Cardiovascular: Regular rate and rhythm, S1/S2 Lungs: Clear to auscultation bilaterally no wheezes rales or rhonchi Abdomen: Soft nontender nondistended positive bowel sounds Extremities: No edema - Labs CBC & Chem 7: 02/09/17 08:34 02/09/17 08:34 Labs: Abnormal Lab Results - Last 24 Hours (Table) 02/09/17 02/09/17 Range/Units 08:34 08:34 Hgb 12.0 L (13.0-17.5) gm/dL MCH 23.1 L (25.0-35.0) pg MCHC 28.8 L (31.0-37.0) g/dL RDW 18.1 H (11.5-15.5) % Chloride 108 H (98-107) mmol/L Assessment and Plan Assessment: Alcohol withdrawal, possible seizure Uncontrolled hypertension History of seizure disorder Cephalgia Alcohol abuse GERD Osteoarthritis Suspected obstructive sleep apnea Hypomagnesemia Mild hyperammonemia Polysubstance abuse Maintain saturation greater than or equal to 90% Seizure precautions CIWA protocol Neurology evaluation pending Alcohol abstinence GI and DVT prophylaxis Antihypertensives - Catapres, Lisinopril, Increase Norvasc, Hydralazine IVP PRN Antiepileptics MV, thiamine, folate Continue to monitor Plan for discharge to [place] Covering Dr. Scott
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
[2017-02-09] MEDS: LORazepam 2 MG/ML INJ IV PRN (21:55)
[2017-02-10] MEDS: 1: MVI, ADULT NO.4 WITH VIT K 10 ML, THIAMINE 100 MG, FOLIC ACID 1 MG in SODIUM CHLORIDE IV SCH ×8 (06:34→10:39)
[2017-02-10] MEDS: HEPARIN SODIUM,PORCINE 5,000 UNIT/ML 1 ML VIAL SQ SCH (08:01)
[2017-02-10] MEDS: DIVALPROEX 500 MG TABLET.DR PO SCH (08:01)
[2017-02-10] MEDS: PANTOPRAZOLE 40 MG TABLET PO SCH (08:01)
[2017-02-10] MEDS: cloNIDine HCL 0.1 MG TAB PO SCH (08:01)
[2017-02-10] MEDS: LISINOPRIL 20 MG TAB PO SCH (08:01)
[2017-02-10] MEDS: IBUPROFEN 600 MG TAB PO PRN (08:04)
[2017-02-10 08:32] VITALS: PULSE 70; RESP 16; TEMP 96.6
[2017-02-10] MEDS ORDERED: amLODIPine 10 MG TAB PO SCH (09:00)
[2017-02-10] MEDS: hydrALAZINE HCL 20 MG/ML 1 ML VIAL IVP PRN (11:29)
[2017-02-10 12:09] VITALS: BP 172/91
[2017-02-10] MEDS: MULTIVITAMINS, THERA 1 EACH TAB PO SCH (12:10)
[2017-02-10] MEDS: FOLIC ACID 1 MG TAB PO SCH (12:10)
[2017-02-10] MEDS: THIAMINE 100 MG TAB PO SCH (12:10)
--- NOTE | 2017-02-10 17:00 | P.PN ---
Subjective Progress Note Date: 02/10/17 Patient is a pleasant 60-year-old -[place] male who is being followed by the neurology service for seizure disorder. Patient states he has history of alcohol abuse. He states he stopped drinking for 3 days and developed seizures. Patient states he was having seizures and tremors due to his alcohol withdrawal. Patient states this has happened to him before. Patient wishes to science often to [facility] for rehabilitation. Patient has not had any seizures since admission. Patient does admit he was not taking his Depakote as prescribed in the outpatient setting. Patient did have computed tomography scan of the brain within the last year which showed generalized atrophy and small vessel ischemic changes. At the time of my evaluation, patient's resting comfortably in bed and appears to be in no acute distress. Objective - Vital Signs Vital signs: Vital Signs Temp 96.6 F L 02/10/17 07:00 Pulse 70 02/10/17 07:00 Resp 16 02/10/17 07:00 BP 172/91 02/10/17 12:08 Pulse Ox 98 02/10/17 07:00 Intake & Output 02/09/17 02/10/17 02/10/17 18:59 06:59 18:59 Intake Total 800 Balance 800 Intake: Oral 800 Other: Voiding Method Urinal # Voids 3 2 - Exam PHYSICAL EXAM: GENERAL APPEARANCE: Patient is a well-developed, -[place] male who appears to be in no acute distress. HEENT: Normocephalic, atraumatic, no facial asymmetry is seen. Neck is supple with no masses felt. CARDIOVASCULAR: Regular rate and rhythm. ABDOMEN: Nontender, nondistended. EXTREMITIES: Show no edema or clubbing. NEUROLOGICAL EXAM: Patient is awake, alert, and oriented 3. Speech and then which are normal. Strength is full in all 4 extremities. Sensory exam is normal to light touch in all 4 extremities. No facial asymmetry is seen on cranial nerve testing. No tremors or seizure-like activity is noted. - Labs CBC & Chem 7: 02/09/17 08:34 02/09/17 08:34 Assessment and Plan Plan: Impression: 1. Alcohol withdrawal 2. Seizure disorder, generalized tonic-clonic type 3. Medication noncompliance 4. Alcohol dependence 5. Uncontrolled hypertension Recommendations: Patient admits he is not compliant with antiepileptic medication in the outpatient setting. Patient did have a witnessed seizure prior to coming in. He has not had any further seizures since admission. Continue home dose of Depakote 500 mg twice a day. Continue medical management for alcohol withdrawal. EEG was done and results are pending. Continue neurological checks. Continue seizure precautions. I recommend medication adjustment for improved blood pressure control. Patient is to follow up in our office following discharge. I did alcohol and drug counselor patient regarding alcohol cessation. Patient wishes to check into [facility] for inpatient rehabilitation for alcohol abuse. Barring any abnormality on the EEG, I will continue to follow with you on an as needed basis. Feel free to call with any questions or concerns. I performed an examination of the patient and discussed the management with the DESKTOP TECHNICIAN. I have reviewed the DESKTOP TECHNICIAN notes and agree with the findings and plan of care.
--- NOTE | 2017-02-10 18:24 | EEG ---
ELECTROENCEPHALOGRAM REPORT DATE OF SERVICE: 02/10/2017. REASON FOR TESTING: Seizure. CURRENT ANTIEPILEPTIC MEDICATIONS: Depakote and Trileptal. DESCRIPTION OF THE PROCEDURE: This EEG was performed using a 21 channel digital electroencephalograph, following international 10-20 system. DESCRIPTION OF THE RECORDING: From the beginning of the tracing, and with patient's eyes closed, the background rhythm was mostly consisting of 9 Hz alpha frequency in the posterior occipital leads. No obvious asymmetry was seen. Photic stimulation was performed with a good driving response seen. No pathological waves were elicited. Rare movement and muscle artifacts are seen. Hyperventilation was not performed. The patient remains awake throughout the tracing. No epileptiform discharges were seen. His EKG lead showed a regular rate and rhythm. INTERPRETATION: This awake EEG can be considered within normal limits. There is no asymmetry seen. No epileptiform discharges were noticed. The absence of epileptiform discharges does not rule out the diagnosis of epilepsy, therefore clinical correlation is recommended. MMMIKALL / IJN: [id number] /
--- NOTE | 2017-02-11 07:46 | DS ---
DISCHARGE SUMMARY DATE OF ADMISSION: 02/05/2017. DATE OF DISCHARGE: 02/10/2017. DISCHARGE DIAGNOSES: 1. Alcoholism. 2. Seizure disorder. 3. Noncompliance. 4. Chronic alcoholism. 5. Hypertension acceleration. HOME MEDICINES: Include: 1. Clonidine 0.1 mg t.i.d. 2. Norvasc 10 mg daily. 3. Depakote 500 t.i.d. Follow up in office in a couple of days. CONDITION: Stable. PROGNOSIS: Guarded. He has polysubstance abuse issues also, need to be followed up at [place] for alcohol rehab which he is given the number to call. The patient was stabilized to follow up on an outpatient basis. MMODL / IJN: [id number] /
== END 2017-02-10 17:38 | disposition home or self-care (01) ==
LOC: EC 13:41 → INTOOBSV 16:12 → 4MS4W 16:12
PROVIDERS: ADMIT Family Medicine; ATTEND Family Medicine
DX: F10.239 Alcohol dependence with withdrawal, unspecified (principal); M19.90 Unspecified osteoarthritis, unspecified site; K21.9 Gastro-esophageal reflux disease without esophagitis; I10 Essential (primary) hypertension; F32.9 Major depressive disorder, single episode, unspecified; G40.909 Epilepsy, unspecified, not intractable, without status epilepticus; F17.210 Nicotine dependence, cigarettes, uncomplicated; E83.42 Hypomagnesemia; E72.20 Disorder of urea cycle metabolism, unspecified; Z91.14 Patient's other noncompliance with medication regimen; Z86.73 Personal history of transient ischemic attack (TIA), and cerebral infarction without residual deficits; Z79.899 Other long term (current) drug therapy; Z87.11 Personal history of peptic ulcer disease
CPT/HCPCS: 96376 ×6; 96361 ×2; 96366 ×4; 96372 ×4; 96375 ×2; 82075; 96365; 96367; 99285; 36415; 94760; 95819; 97162; 97535; 97166; 80164; 80053 ×3; 80048; 82140; 83735 ×4; 84100 ×3; 85025; 85027; 85610; 85730; 80306; 71020; G0378 ×6; J2060 ×5; J0360 ×4; J1644 ×3; J3411 ×3; J2405; J3475

== ENCOUNTER 2017-04-15 10:27 | Emergency (ER) | payer OTHER ==
[2017-04-15 10:38] VITALS: BP 114/95; PULSE 72; RESP 16; TEMP 97.7
[2017-04-15] MEDS ORDERED: ORPHENADRINE 30 MG/ML 2 ML VIAL IM STA (12:13)
[2017-04-15] MEDS ORDERED: KETOROLAC 60 MG/2 ML VIAL IM STA (12:13)
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
== END 2017-04-15 12:45 | disposition home or self-care (01) ==
LOC: EC 10:27
DX: M62.830 Muscle spasm of back (principal); I10 Essential (primary) hypertension; F17.200 Nicotine dependence, unspecified, uncomplicated; Z86.73 Personal history of transient ischemic attack (TIA), and cerebral infarction without residual deficits; X50.0XXA Overexertion from strenuous movement or load, initial encounter
CPT/HCPCS: 99283; 96372 ×2; J2360; J1885

== ENCOUNTER 2017-05-17 17:33 | Inpatient (IN) | payer OTHER ==
[2017-05-17] MEDS ORDERED: RX INFO: IV CONTRAST WAS GIVEN 1 EACH MISC MISCELLANE PRN ×2 (17:41→19:14)
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
[2017-05-17 18:09] LABS: Glucose,Whole Blood 79 mg/dL (75-99)
--- NOTE | 2017-05-17 18:15 | CT ---
EXAMINATION TYPE: CT brain wo con for TPA DATE OF EXAM: 05/17/2017 COMPARISON: March 29, 2017. HISTORY: Left sided weakness CT DLP: 1280.7 mGycm Automated exposure control for dose reduction was used. FINDINGS: No acute hemorrhage or major vessel territorial infarct. No mass mass effect or midline shift. Mild c ortical atrophy and mild chronic white matter ischemic changes are noted. There is a cavum septum davis idum et [place]. IMPRESSION: NO ACUTE ABNORMALITY IS SEEN. Findings discussed over the phone with Dr. May by Dr. Alexandra at [id number] 05/17/2017
[2017-05-17 18:28] LABS: Anisocytosis Slight; Basophils # (A) 0.1 k/uL (0-0.2); Basophils % (A) 1 %; Eosinophils # (A) 0.3 k/uL (0-0.7); Eosinophils % (A) 4 %; HCT 45.3 % (39.0-53.0); HGB 12.6 gm/dL (13.0-17.5); Hypochromasia Marked; Lymphocytes # (A) 2.6 k/uL (1.0-4.8); Lymphocytes % (A) 30 %; MCH 20.4 pg (25.0-35.0); MCHC 27.8 g/dL (31.0-37.0); MCV 73.5 fL (80.0-100.0); Mean Platelet Volume 7.2; Microcytosis Moderate; Monocytes # (A) 0.6 k/uL (0-1.0); Monocytes % (A) 7 %; Neutrophils # (A) 4.7 k/uL (1.3-7.7); Neutrophils % (A) 55 %; Platelet Count 576 k/uL (150-450); RBC 6.17 m/uL (4.30-5.90); RDW 18.1 % (11.5-15.5); WBC 8.5 k/uL (3.8-10.6)
[2017-05-17 18:40] LABS: ALT 21 U/L (21-72); AST 42 U/L (17-59); Albumin 2.6 g/dL (3.5-5.0); Alcohol <10 mg/dL; Alkaline Phosphatase 39 U/L (38-126); Anion Gap 7 mmol/L; Blood Urea Nitrogen 13 mg/dL (9-20); Carbon Dioxide 22 mmol/L (22-30); Chloride 114 mmol/L (98-107); Glucose 57 mg/dL (74-99); Sodium 143 mmol/L (137-145); Total Bilirubin 0.9 mg/dL (0.2-1.3)
[2017-05-17 18:41] LABS: Potassium 4.4 mmol/L (3.5-5.1)
[2017-05-17 18:42] LABS: INR 1.2 (<1.2); Prothrombin Time 11.5 sec (9.0-12.0)
--- NOTE | 2017-05-17 18:43 | XR ---
EXAMINATION TYPE: XR chest 1V DATE OF EXAM: 05/17/2017 COMPARISON: March 31, 2017. HISTORY: Chest pain TECHNIQUE: Single frontal view of the chest is obtained. FINDINGS: Lung bases are not well evaluated. No focal airspace disease or pneumothorax is identified . The cardiac silhouette is within normal limits. IMPRESSION: No acute process.
--- NOTE | 2017-05-17 18:51 | CT ---
EXAMINATION TYPE: CT angio head neck DATE OF EXAM: 05/17/2017 HISTORY: Left sided weakness. COMPARISON: NONE CT DLP: 1280.7 mGycm. Automated Exposure Control for Dose Reduction was Utilized. TECHNIQUE: CTA scan of the neck is performed with IV Contrast, patient injected with 65 mL of Omnipa que 350, axial images are obtained, coronal and sagittal reformatted images are reviewed. Three-D rec onstructed images are created on an independent workstation and reviewed. Examination is suboptimal due to patient's condition. His head is tilted forward making evaluation of this examination difficult. FINDINGS: There is a common origin of the innominate artery and left common carotid artery. There is no signifi cant stenosis in either internal carotid artery. There is no definite occlusion dissection or aneurys mal dilatation identified. Intracranial venous structures are unremarkable as visualized. There is an anterior commuting artery. No definite hemorrhage evidence of hemorrhage or major vessel territorial infarct is identified. Visualized structures of the cervical spine demonstrate mild spondylosis. The lung apices are unremarkable. IMPRESSION: Suboptimal examination. No significant findings are identified.
[2017-05-17 18:54] LABS: Creatine Kinase 75 U/L (55-170)
[2017-05-17 18:54] LABS: Glucose,Whole Blood 83 mg/dL (75-99)
[2017-05-17 19:06] LABS: Creatine Kinase MB 0.9 ng/mL (0.0-2.4); Troponin I <0.012 ng/mL (0.000-0.034)
[2017-05-17] MEDS ORDERED: ASPIRIN 325 MG TAB PO STA (19:12)
--- NOTE | 2017-05-17 21:09 | CT ---
EXAMINATION TYPE: CT angio head neck DATE OF EXAM: 05/17/2017 HISTORY: Seizure, left sided weakness. COMPARISON: CT angiography obtained earlier on the same day. CT DLP: 394.9 mGycm. Automated Exposure Control for Dose Reduction was Utilized. TECHNIQUE: CTA scan of the neck is performed with IV Contrast, patient injected with 65 mL of Omnipa que 350, axial images are obtained, coronal and sagittal reformatted images are reviewed. Three-D rec onstructed images are created on an independent workstation and reviewed. FINDINGS: There is common origin of the innominate and left common carotid artery. There is no narrowing identi fied in the internal carotid artery. There is no significant stenosis aneurysmal formation dissection or occlusion identified. [place] appears unremarkable. Intracranial venous structures are unremarkable. No definite hemorrhage is identified on this subopti mal examination. Visualized structures of cervical spine demonstrate mild spondylosis which is unchanged. Lung apices are unremarkable. There is minimal mucosal thickening noted in the right maxillary sinus. Impression: No significant findings.
[2017-05-17] MEDS ORDERED: LORazepam 2 MG/ML INJ IV STA (21:33)
[2017-05-17 22:44] VITALS: BMI 26.6
[2017-05-17] MEDS: SODIUM CHLORIDE 0.9% 1,000 ML IV SCH (23:46)
[2017-05-17] MEDS: LISINOPRIL 20 MG TAB PO SCH (23:47)
[2017-05-17] MEDS: DIVALPROEX 500 MG TABLET.DR PO SCH (23:47)
[2017-05-17] MEDS: OLANZapine 10 MG TAB PO SCH (23:47)
[2017-05-17] MEDS: ACETAMINOPHEN TAB 325 MG TAB PO PRN (23:47)
[2017-05-18 03:14] LABS: Cholesterol 90 mg/dL (<200); HDL Cholesterol 20 mg/dL (40-60); LDL Cholesterol,Calculated 46 mg/dL (0-99); Triglycerides 118 mg/dL (<150)
[2017-05-18] MEDS: SODIUM CHLORIDE 0.9% 1,000 ML IV SCH ×2 (06:35→08:45)
[2017-05-18] MEDS: LISINOPRIL 20 MG TAB PO SCH ×2 (08:44→22:27)
[2017-05-18] MEDS: ASPIRIN 325 MG TAB PO SCH (08:44)
[2017-05-18] MEDS: OLANZapine 10 MG TAB PO SCH ×2 (08:44→22:27)
[2017-05-18] MEDS: DIVALPROEX 500 MG TABLET.DR PO SCH ×2 (08:44→22:27)
[2017-05-18] MEDS: CYCLOBENZAPRINE 10 MG TAB PO SCH ×3 (08:44→22:27)
[2017-05-18] MEDS: HYDROCHLOROTHIAZIDE 12.5 MG CAP PO SCH (08:44)
[2017-05-18 12:03] LABS: Glucose,Whole Blood 75 mg/dL (75-99)
[2017-05-18] MEDS ORDERED: VALPROATE SODIUM 1,000 MG in SODIUM CHLORIDE 0.9% 50 ML IVPB ONE (12:59)
[2017-05-18] MEDS: ACETAMINOPHEN TAB 325 MG TAB PO PRN (15:22)
--- NOTE | 2017-05-18 15:30 | HP ---
HISTORY AND PHYSICAL Nitin Yo is the 61-year-old male who presented to the ED at [facility]. He became quite shaky while he was shoveling. He had a mild right-sided headache. He did not notice any weakness and subsequently he thought he had a seizure. He does have a history of drinking, but has not been drinking alcohol for the last 4 or 5 months. He has a known history of seizure disorder. PAST MEDICAL HISTORY: Positive for CVA, seizure disorder, hypertension, gastroesophageal reflux disease, back pain, TIA, peptic ulcer, right ankle ORIF. SOCIAL HISTORY: Patient is a current everyday smoker. He used to drink alcohol quite heavily. Quit about 5 months ago. Smokes marijuana. FAMILY HISTORY: Positive for diabetes mellitus in his mother. MEDICATIONS: Prior to admission were: Zyprexa, Prinivil, HydroDIURIL, Depakote, and Flexeril. PHYSICAL EXAMINATION: He was lying in bed. His blood pressure is 148/94, respiratory rate 16, pulse rate 60, temperature 98.7, O2 saturation on room is 98%. He was sleepy but arousable. HEENT is unremarkable. Chest is clear. Cardiovascular system reveals an S1, S2. Abdomen is soft. There is no pedal edema. CT angiogram of the head showed no evidence of any CVA. Neurological examination: The patient had good cough and gag. No focal deficits by my exam; however, in the ER, he had weakness of his left upper extremity at 3/5. LABS: Reveal a white count 8.5, hemoglobin of 12.6, PT/INR of 1.2. Sodium 143, potassium 4.4, chloride 114, bicarb 22, LDL of 46, HDL of 20, glucose of 57. IMPRESSION: At this time, 1. Possible cerebrovascular accident. 2. Metabolic encephalopathy. 3. Hypoglycemia. 4. Possible cerebrovascular accident versus transient ischemic attack. The patient apparently had refused tPA in the ER. Would keep him on GI and DVT prophylaxis. Treat his seizures with Ativan. Continue him on his antiseizure medications. Continue aspirin which had been started in the ER. Keep his blood pressure under control. Have him seen by Neurology. His prognosis at this time is fair. MMODL / IJN: [id number] /
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
[2017-05-18] MEDS: FAMOTIDINE 20 MG TAB PO SCH (22:28)
[2017-05-18] MEDS: HEPARIN SODIUM,PORCINE 5,000 UNIT/ML 1 ML VIAL SQ SCH (22:28)
[2017-05-19] MEDS: SODIUM CHLORIDE 0.9% 1,000 ML IV SCH ×3 (05:20→21:57)
[2017-05-19 08:47] LABS: Glucose,Whole Blood 100 mg/dL (75-99)
[2017-05-19] MEDS: DIVALPROEX 500 MG TABLET.DR PO SCH ×3 (08:54→20:50)
[2017-05-19] MEDS: HYDROCHLOROTHIAZIDE 12.5 MG CAP PO SCH (08:54)
[2017-05-19] MEDS: CYCLOBENZAPRINE 10 MG TAB PO SCH ×3 (08:54→20:50)
[2017-05-19] MEDS: ASPIRIN 325 MG TAB PO SCH (08:54)
[2017-05-19] MEDS: LISINOPRIL 20 MG TAB PO SCH ×2 (08:54→20:50)
[2017-05-19] MEDS: FAMOTIDINE 20 MG TAB PO SCH ×2 (08:54→20:50)
[2017-05-19] MEDS: OLANZapine 10 MG TAB PO SCH ×2 (08:55→20:50)
[2017-05-19] MEDS: HEPARIN SODIUM,PORCINE 5,000 UNIT/ML 1 ML VIAL SQ SCH ×2 (08:55→20:49)
[2017-05-19] MEDS ORDERED: VALPROATE SODIUM 1,000 MG in SODIUM CHLORIDE 0.9% 50 ML IVPB ONE (09:18)
--- NOTE | 2017-05-19 10:28 | ECHOF ---
Referral Reason:Thrombus MEASUREMENTS -------- HEIGHT: 175.3 cm WEIGHT: 78.9 kg BP: RVIDd: 3.3 cm (< 3.3) IVSd: 1.5 cm (0.6 - 1.1) LVIDd: 5.3 cm (3.9 - 5.3) LVPWd: 1.1 cm (0.6 - 1.1) IVSs: 1.9 cm LVIDs: 3.5 cm LVPWs: 1.5 cm LA Diam: 4.3 cm (2.7 - 3.8) LAESV Index (A-L): 55.08 ml/m Ao Diam: 3.4 cm (2.0 - 3.7) AV Cusp: 2.1 cm (1.5 - 2.6) LA Diam: 4.4 cm (2.7 - 3.8) MV EXCURSION: 18.395 mm (> 18.000) MV EF SLOPE: 135 mm/s (70 - 150) EPSS: 0.5 cm RAP: 5.00 mmHg RVSP: 33.57 mmHg FINDINGS -------- Sinus rhythm. This was a technically adequate study. The left ventricular size is normal. There is moderate concentric left ventricular hypertrophy. O verall left ventricular systolic function is normal with, an EF between 55 - 60 %. The right ventricle is normal in size. LA is severely dilated >40 ml/m2 The right atrial size is normal. The aortic valve is trileaflet, and appears structurally normal. No aortic stenosis or regurgitation. The mitral valve is normal. Mild mitral regurgitation is present. Mild tricuspid regurgitation present. There is no evidence of pulmonary hypertension. The right v entricular systolic pressure, as measured by Doppler, is 33.57mmHg. Trace/mild (physiologic) pulmonic regurgitation. The aortic root size is normal. There is no pericardial effusion. CONCLUSIONS -------- 1. Sinus rhythm. 2. This was a technically adequate study. 3. The left ventricular size is normal. 4. There is moderate concentric left ventricular hypertrophy. 5. Overall left ventricular systolic function is normal with, an EF between 55 - 60 %. 6. LA is severely dilated >40 ml/m2 7. The aortic valve is trileaflet, and appears structurally normal. No aortic stenosis or regurgitati on. 8. Mild mitral regurgitation is present. 9. Mild tricuspid regurgitation present. 10. There is no evidence of pulmonary hypertension. 11. Trace/mild (physiologic) pulmonic regurgitation. 12. The aortic root size is normal. 13. There is no pericardial effusion. MOTEL CLERK: Adri Harris RDCS
--- NOTE | 2017-05-19 12:44 | MR ---
EXAMINATION TYPE: MR brain wo con DATE OF EXAM: 05/19/2017 7:36 AM COMPARISON: NONE HISTORY: Patient with seizure disorder and weakness FINDINGS: The ventricles, basal cisterns and sulci overlying the cerebral convexities are moderately enlarged. There is evidence of moderate confluence periventricular white matter ischemic demyelination. Remote deep white matter insults are also noted. No acute edema is seen on diffusion weighted imaging. There is no evidence for midline shift or mass effect. Acute intracranial hemorrhage or extra-axial collection is not evident. The paranasal sinuses and mastoid air cells are well-aerated. IMPRESSION: Age-related atrophic and chronic small vessel ischemic change. No acute intracranial process at this time.
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
--- NOTE | 2017-05-19 16:51 | EEG ---
ELECTROENCEPHALOGRAM REPORT DATE OF EE05/19/2017. REFERRING PHYSICIAN: Dr. Scott. CONSULTING INTERPRETING PHYSICIAN: Dr. Karen Brice ELECTROENCEPHALOGRAPHIC EXAMINATION REPORT: INDICATION FOR EXAMINATION: This patient is a 61-year-old male, admitted with breakthrough seizures. Patient with subtherapeutic Depakote level on admission. AGE: 61. EEG FINDINGS: A routine 21 channel awake digital EEG recording was accomplished utilizing the 10-20 international system with bipolar and referential montages. The background activity in the most alert resting state consists of a low to medium amplitude, poorly developed and poorly sustained 6 Hz activity over the posterior head regions. This posterior rhythm attenuates to eye opening. There was an excessive amount of muscle and movement artifacts seen throughout the tracing. Hyperventilation was not performed. Photic stimulation at flash frequencies of 2-30 Hz produced a minimal occipital driving response. The main finding on this tracing is occasional sharp wave localized over the right temporal lobe. No other epileptiform discharges were seen. IMPRESSION: This EEG is moderately abnormal in a diffuse fashion due to slowing of the EEG background. The EEG failed to reveal any focal, lateralized, or epileptiform abnormalities. Clinical correlation is recommended. MMODL / IJN: [id number] /
--- NOTE | 2017-05-19 17:41 | P.PN ---
Subjective Progress Note Date: 05/19/17 This patient is a 61-year-old male who was admitted to hospital with possible seizure versus stroke. Patient admitted with weakness on his left side and known history of underlying seizure disorder. He has been taking Depakote on a regular basis for management of his underlying seizure disorder. Apparently he ran out of several pills and came into the hospital after having a possible seizure at home after shoveling some snow. He was seen in the ER and was recommended to be treated with TPA but he refuses. He was admitted to hospital for further evaluation. His Depakote level on admission was subtherapeutic. His repeat Depakote level this morning is still subtherapeutic at 32.1. We have given him another bolus of IV Depacon and have increase his maintenance dose of Depakote to 1000 mg twice a day. Patient was sent for MRI of the brain this morning which came back with age-related atrophy and chronic small vessel ischemic changes. No acute intracranial process was noted. We've gone over the results of the MRI with the patient. No evidence to indicate stroke. His left-sided weakness was possibly a mild Sundeep's paralysis following a seizure. Patient underwent routine EEG today which was reviewed and is moderately slow. Occasional sharp wave noted over the right temporal region. We are recommending the patient will need to continue on Depakote for long-term seizure management. We have ordered a repeat Depakote level tomorrow morning. If his Depakote level is therapeutic he may be considered for discharge home. Patient otherwise seems to be coming along fairly well. Patient was seen by Dr. Mccarthy today and we will await his further recommendations. He has had no further seizure events since hospitalization. His overall prognosis at this time remains guarded. Objective - Vital Signs Vital signs: Vital Signs Temp 97.8 F 05/19/17 08:00 Pulse 92 05/19/17 12:00 Resp 17 05/19/17 12:00 BP 165/98 05/19/17 12:00 Pulse Ox 98 05/19/17 12:00 Intake & Output 05/18/17 05/19/17 05/19/17 18:59 06:59 18:59 Intake Total 480 480 360 Output Total 700 400 Balance -220 480 -40 Weight 88.7 kg Intake: Oral 480 480 360 Output: Urine 700 400 Other: Voiding Method Toilet Toilet Diaper Diaper Incontinent Incontinent # Voids 1 1 - Exam Physical examination: PHYSICAL EXAMINATION: Patient is resting comfortably in bed. VITAL SIGNS: Blood pressure is [165/98]. Heart rate is [92]. Respiration is [17] . Temperature is [97.8]. HEENT: Head is atraumatic, neck is supple, there were no carotid bruits. CHEST: Lungs are clear to auscultation and percussion. CARDIAC: S1, S2 normal rate and rhythm. There is no murmur. ABDOMEN: Soft and nontender. Bowel sounds are present. EXTREMITIES: There is no pedal edema. Peripheral pulses are present. Neurological examination: Patient has a nonfocal neurological examination today. Patient does not demonstrate any focal weakness on examination today. - Labs CBC & Chem 7: 05/17/17 18:15 05/17/17 18:15 Labs: Abnormal Lab Results - Last 24 Hours (Table) 05/19/17 Range/Units 08:45 POC Glucose (mg/dL) 100 H (75-99) mg/dL Assessment and Plan (1) Generalized tonic-clonic seizure Current Visit: Yes Status: Acute Code(s): G40.409 - OTH GENERALIZED EPILEPSY , NOT INTRACTABLE, W/O STAT EPI SNOMED Code(s): 92258399 (2) Seizure secondary to subtherapeutic anticonvulsant medication Current Visit: Yes Status: Acute Code(s): R56.9 - UNSPECIFIED CONVULSIONS; Z79.899 - OTHER [facility] (CURRENT) DRUG THERAPY SNOMED Code(s): 96160817 (3) CVA (cerebral vascular accident) Current Visit: Yes Status: Acute Code(s): I63.9 - CEREBRAL INFARCTION, UNSPECIFIED SNOMED Code(s): 465915772 (4) Alcohol withdrawal Current Visit: No Status: Acute Code(s): F10.239 - ALCOHOL DEPENDENCE WITH WITHDRAWAL, UNSPECIFIED SNOMED Code(s): 995399716 Plan: This patient is a 61-year-old male who was initially admitted to hospital with possible seizure versus stroke. He was brought into the emergency room where he was evaluated for possible TPA. Patient had some mild left-sided weakness. Patient refused TPA due to possible side effects. He was admitted to Hospital. Patient was sent for MRI of the brain today for further evaluation of stroke. MRI failed to reveal any evidence of acute stroke. There was age-related atrophy and chronic small vessel ischemic changes noted. Patient underwent routine EEG today which is reviewed and reveals moderate slowing. His Depakote level was subtherapeutic today at 32.1. We have given an IV bolus Depacon and have increased his maintenance dose of Depakote 2000 mg by mouth twice a day. We will get a repeat Depakote level tomorrow morning. He is being evaluated by Dr. Hooks for possible inpatient rehab. We will await his further recommendations. This patient's overall prognosis at this time remains guarded.
[2017-05-19] MEDS: LORazepam 2 MG/ML INJ IV PRN (18:22)
[2017-05-19] MEDS ORDERED: HALOPERIDOL LACTATE 5 MG/ML 1 ML VIAL IM ONE (21:37)
[2017-05-20] MEDS: SODIUM CHLORIDE 0.9% 1,000 ML IV SCH ×3 (04:50→22:22)
--- NOTE | 2017-05-20 06:46 | PN ---
PROGRESS NOTE SUBJECTIVE: This is a white male who was admitted with seizure disorder, possible CVA. The patient has continued to do well, walking up and down the aguirre. Peeing on the floor, says he is looking for the emergency exit. He will be restrained and get psychiatric consult. Haldol shot will be given. CARDIOVASCULAR: S1, S2. Lungs clear. Psych appears confused. Given strange comments. ASSESSMENT: Seizure disorder, postictal state. Possible psychotic break. Haldol will be given and restraints were given. Psych consult will be given. Please see further orders. MMODL / IJN: [id number] /
[2017-05-20] MEDS: ACETAMINOPHEN TAB 325 MG TAB PO PRN (08:36)
[2017-05-20] MEDS: LISINOPRIL 20 MG TAB PO SCH ×2 (08:38→20:16)
[2017-05-20] MEDS: FAMOTIDINE 20 MG TAB PO SCH ×2 (08:38→20:16)
[2017-05-20] MEDS: HEPARIN SODIUM,PORCINE 5,000 UNIT/ML 1 ML VIAL SQ SCH ×2 (08:38→20:16)
[2017-05-20] MEDS: OLANZapine 10 MG TAB PO SCH ×2 (08:38→20:16)
[2017-05-20] MEDS: HYDROCHLOROTHIAZIDE 12.5 MG CAP PO SCH (08:38)
[2017-05-20] MEDS: CYCLOBENZAPRINE 10 MG TAB PO SCH ×3 (08:38→20:16)
[2017-05-20] MEDS: DIVALPROEX 500 MG TABLET.DR PO SCH ×2 (08:38→20:46)
[2017-05-20] MEDS: ASPIRIN 325 MG TAB PO SCH (08:38)
--- NOTE | 2017-05-20 16:41 | P.PN ---
Subjective Progress Note Date: 05/20/17 This patient is a 61-year-old male who was admitted to hospital with possible seizure versus stroke. Patient admitted with weakness on his left side and known history of underlying seizure disorder. He has been taking Depakote on a regular basis for management of his underlying seizure disorder. Apparently he ran out of several pills and came into the hospital after having a possible seizure at home after shoveling some snow. He was seen in the ER and was recommended to be treated with TPA but he refuses. He was admitted to hospital for further evaluation. His Depakote level on admission was subtherapeutic. We have given him another bolus of IV Depacon and have increase his maintenance dose of Depakote to 1000 mg twice a day. Patient was sent for MRI of the brain this morning which came back with age-related atrophy and chronic small vessel ischemic changes. No acute intracranial process was noted. We've gone over the results of the MRI with the patient. No evidence to indicate stroke. His left-sided weakness was possibly a mild Sundeep's paralysis following a seizure. Patient underwent routine EEG today which was reviewed and is moderately slow. Occasional sharp wave noted over the right temporal region. We are recommending the patient will need to continue on Depakote for long-term seizure management. We have ordered a repeat Depakote level which was done this morning. His Depakote level did come back therapeutic today at 63.5. Patient otherwise seems to be coming along fairly well. Patient was seen by Dr. Mccarthy and we will await his further recommendations. The patient apparently was agitated yesterday evening and was given Haldol due to the excessive agitation. Psychiatry is now been consulted. We will await their further recommendations. Patient is also pending consideration for subacute rehab once he is medically stable. We will continue his current dose of Depakote. He has had no further seizure events since hospitalization. His overall prognosis at this time remains guarded. Objective - Vital Signs Vital signs: Vital Signs Temp 97.3 F L 05/20/17 08:00 Pulse 59 L 05/20/17 11:40 Resp 14 05/20/17 11:40 BP 144/85 05/20/17 11:40 Pulse Ox 100 05/20/17 11:40 Intake & Output 05/19/17 05/20/17 05/20/17 18:59 06:59 18:59 Intake Total 540 240 Output Total 400 Balance 140 240 Weight 88.7 kg 82.5 kg Intake: Intake, IV Titration 0 Amount Sodium Chloride 0.9% 1, 0 000 ml @ 100 mls/hr IV . Q10H [facility] Rx#:[id number] Oral 540 240 Output: Urine 400 Other: Voiding Method Toilet # Voids 1 1 2 - Exam Physical examination: PHYSICAL EXAMINATION: Patient is resting comfortably in bed. VITAL SIGNS: Blood pressure is [144/85]. Heart rate is [59]. Respiration is [14] . Temperature is [97.3]. HEENT: Head is atraumatic, neck is supple, there were no carotid bruits. CHEST: Lungs are clear to auscultation and percussion. CARDIAC: S1, S2 normal rate and rhythm. There is no murmur. ABDOMEN: Soft and nontender. Bowel sounds are present. EXTREMITIES: There is no pedal edema. Peripheral pulses are present. Neurological examination: Patient has a nonfocal neurological examination today. Patient does not demonstrate any focal weakness on examination today. He is more awake and alert today and is following simple commands. - Labs CBC & Chem 7: 18 18:15 0218 18:15 Assessment and Plan (1) Generalized tonic-clonic seizure Current Visit: Yes Status: Acute Code(s): G40.409 - OTH GENERALIZED EPILEPSY , NOT INTRACTABLE, W/O STAT EPI SNOMED Code(s): 27850784 (2) Seizure secondary to subtherapeutic anticonvulsant medication Current Visit: Yes Status: Acute Code(s): R56.9 - UNSPECIFIED CONVULSIONS; Z79.899 - OTHER [employer] (CURRENT) DRUG THERAPY SNOMED Code(s): 36491419 (3) CVA (cerebral vascular accident) Current Visit: Yes Status: Acute Code(s): I63.9 - CEREBRAL INFARCTION, UNSPECIFIED SNOMED Code(s): 146153147 (4) Alcohol withdrawal Current Visit: No Status: Acute Code(s): F10.239 - ALCOHOL DEPENDENCE WITH WITHDRAWAL, UNSPECIFIED SNOMED Code(s): 646890742 Plan: This patient is a 61-year-old male was initially admitted with episode of seizure and possible stroke. Patient was found on admission to have subtherapeutic Depakote level. His repeat Depakote level today is therapeutic at 63.5. He became slightly agitated yesterday and required a dose of Haldol. Psychiatry has been consulted. We are still awaiting further recommendations from Dr. Mccarthy for inpatient rehab. We will await further recommendations from psychiatry. His Depakote level is therapeutic today and we will continue to monitor this condition closely. Patient would be stable for transfer to subacute rehab if this is planned for discharge. His overall prognosis at this time remains guarded.
--- NOTE | 2017-05-20 19:41 | P.CN ---
Psychiatric Consult - . Consult date: 05/20/17 Consult:: 05/20/17 19:30 Identification: Patient is a 61-year-old male who came to the emergency room reporting that he was feeling shaky after shoveling and complained of some weakness on his left side. Reason for Consult: Consultation was requested because the patient was wandering , trying to leave and grabbing at things that weren't there. History of Present Illness: Patient was interviewed in his room and no family members were present patient was a poor historian. Patient stated that he didn' t feel good and asked why he came to the emergency room. Patient states that he tried to leave last night because something told him he had to leave but he was unable to elaborate on this. Patient states that at times he is confused and could not tell me why he was taking Zyprexa 10 mg twice a day. Patient stated that he been on Zyprexa for 3 years. Patient states that he is not feeling confused but then said he was at times and feels that he is "locked up and can't go nowhere". Patient states that he is being treated for seizure disorder and states that he is on Depakote. Further history was difficult to obtain from this patient. Patient was seen in psychiatric consultation in March 2017 when he was admitted, at that time the patient was admitted with alcohol withdrawal with questionable delirium tremens. He was started on Zyprexa at that time which was increased to a total dose of 10 mg twice a day and he was sent to [facility] for rehab which the patient was able to state he did attend and was discharged there on April 16. Patient hasn't not followed up with any AA meetings since his discharge from [facility]. Per the patient he has used alcohol heavily for a number of years, he told me that he has been sober for 8 months, but per the record this is not accurate. He reported his intake was 8 beers a day as well as a half gallon of liquor and even drinking that much for one year. Per the prior consultation the patient had been drinking for a number of years. Patient was unable to tell me why he was on Zyprexa or who has been prescribing it. Patient initially stated that he had been treated for schizophrenia but there is no evidence of this history in the consultation in March and the patient was not confused at that time and a much more accurate historian. Today there are many discrepancies between what he is telling me and what was told to the consultants in March. Past Psychiatric History: Patient states that he was released from [facility] on April 16 and states that he was at [facility] 8 years ago as well as having been treated in [place] is unclear to me if he was ever admitted for psychiatric reasons or if these were all related to alcohol Past Medical/Surgical History: Patient has a history of seizure disorder, CVA, hypertension, GERD and peptic ulcer Family History: Unable to obtain Social History: Patient was an inaccurate historian told me that he had never been and has no children this is in contrast to his saying that he was and his had recently in March 2017 when he was seen. Patient states he is living with his [id number]-[id number]-law. 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 He states he obtained his GED. Substance Use History: Patient states he began using alcohol at 24 years of age and stated for a year he was drinking 8 beers a day and a half gallon of liquor he states this is his most recent intake and states he had been sober for the last 8 months however this appears to be in conflict with his having been seen in March 2017 for alcohol withdrawal. Patient reports he does not use drugs and has not in the past Legal History: Patient states that he was charged with home invasion and 1999 and spent 6 months [facility] Mental status: Appearance/Attitude: Patient was sleeping when I entered the room , he was easily aroused, made no eye contact and was cooperative, however he appeared to remain drowsy Behavior: Patient did not exhibit any psychomotor agitation or retardation Speech/Language: Patient's speech was slow, he was not spontaneous only responding to my questions and he spoke in a soft voice and was coherent Thought Process: Patient is a poor historian, he responded to questions mostly with he wasn't sure or couldn't tell me what was going on and some of the information they did give me is in conflict with the information that he provided in March. Patient did not exhibit flight of ideas or loose associations Thought Content: Patient stated that he has seen things in the past and at times felt that people were following him but he could not tell me when this occurred and states that he is confused at times and finally was locked up here. Patient states that last evening something told him he had to leave and that is why he got up to try to leave. Patient denied any auditory hallucinations currently and states that he is not having any paranoid ideation currently. Suicidal/Homicidal Ideation: Patient denies any current suicidal or homicidal ideation and states that he had a suicide attempt 8 years ago Sensorium/Cognition: Patient is alert and oriented to person, place and date but is a poor historian Mood/Affect: Patient's mood was euthymic and his affect was blunted Insight/Judgment: Patient's insight and judgment are impaired Assessment: Patient was a poor historian and when reviewing consultation that was performed in March 2017 when the patient was assessed for alcohol withdrawal with possible delirium tremens he was begun on Zyprexa at that time and was titrated to a dose of 10 mg twice a day which she has apparently continued to take. Patient is confused regarding why he is on the medication is unable to tell me and stated that something told him he had to leave last night. Patient states that he is confused and feels that he is being locked up and can't go anywhere. Patient is oriented to person place and time but his history was in conflict with wetted been discussed in March during that consultation. Patient is not having any evidence of withdrawal as his vital signs are stable and it is unclear to me if the confusion is related to his alcohol use or not. Diagnosis: Delirium mixed etiology, alcohol use disorder moderate severity Plan: I would continue the Zyprexa 10 mg twice a day, we will continue to evaluate patient while he was in the hospital and see if his confusion improves. Patient on discharge again needs to maintain sobriety as well as be compliant with medication and follow-up. We'll evaluate patient's interest in referrals for rehab at the time of discharge. 05/20/17 19:40
[2017-05-20] MEDS ORDERED: MELATONIN 5 MG TABLET PO PRN (21:19)
--- NOTE | 2017-05-21 01:37 | CONS ---
CONSULTATION SUBJECTIVE: 61-year-old white male admitted with a CVA and seizure disorder. He apparently was going to sign out AMA and started urinating on the floor last night. He was kept overnight, had a sitter at the bedside. Psychiatry saw the patient, and he was with psych medications, seizure medications are being re-evaluated with Neurology. Will get him home as soon as he is cleared by Neurology and Psychiatry. PHYSICAL EXAMINATION: Cardiovascular S1-S2. Lungs clear. GI soft. Psych appears lethargic. Gives appropriate answers. Does not remember anything about the last night. He was urinating on the floor. He is on Zyprexa 10 mg b.i.d., melatonin for sleep and Depakote 1000 b.i.d. For further orders, please see chart. MMODL / IJN: [id number] /
[2017-05-21] MEDS: OLANZapine 10 MG TAB PO SCH (08:09)
[2017-05-21] MEDS: FAMOTIDINE 20 MG TAB PO SCH (08:10)
[2017-05-21] MEDS: LISINOPRIL 20 MG TAB PO SCH (08:10)
[2017-05-21] MEDS: ASPIRIN 325 MG TAB PO SCH (08:10)
[2017-05-21] MEDS: HEPARIN SODIUM,PORCINE 5,000 UNIT/ML 1 ML VIAL SQ SCH (08:10)
[2017-05-21] MEDS: DIVALPROEX 500 MG TABLET.DR PO SCH (08:10)
[2017-05-21] MEDS: CYCLOBENZAPRINE 10 MG TAB PO SCH (08:10)
[2017-05-21] MEDS: HYDROCHLOROTHIAZIDE 12.5 MG CAP PO SCH (08:15)
[2017-05-21 08:25] VITALS: RESP 16
[2017-05-21] MEDS: LORazepam 2 MG/ML INJ IV PRN (09:01)
[2017-05-21] MEDS: ACETAMINOPHEN TAB 325 MG TAB PO PRN (09:03)
[2017-05-21 11:32] VITALS: PULSE 79; TEMP 97
[2017-05-21 11:54] VITALS: BP 170/98
[2017-05-21] MEDS: SODIUM CHLORIDE 0.9% 1,000 ML IV SCH (13:35)
--- NOTE | 2017-05-21 15:45 | P.PN ---
Progress Note - Text Progress Note Date: 05/21/17 Interval History: Patient is a 61-year-old male who was seen yesterday in consultation is requested to return to see the patient as he was wanting to leave the hospital. I spoke with the patient and he was dressed in hospital gown and had his jacket on and stated that he wanted to leave. Patient was agreeable to sit down and speak with me and he stated that he was doing fine and had not had a seizure since he was in the hospital and wanted to leave. Patient could not explain to me what happened several nights ago when he became agitated and tried to leave. Patient states that he lives with his re-[id number] -law and she has a caregiver. Patient and I discussed the fact that he was unable to give me a very accurate history last evening when I saw him and he stated that he is thinking cleared this morning. Patient reported that he was not having any suicidal ideation and states that he has not had any alcohol since he was discharged from [facility]. Patient states that he was not taking his Depakote prior to admission because he ran out and was unable to get it refilled. Patient states that he has no intent to return to using alcohol and felt that his time at [facility] was beneficial. Mental Status: Appearance/Attitude: Patient was dressed in hospital gown with his jacket over top of them. He was eventually agreeable to sit and speak with me and made intermittent eye contact and was cooperative. Behavior: Patient did not display any psychomotor agitation or retardation. Speech/Language: Patient responded to my questions, his speech was of normal volume and rhythm and he was coherent. Thought Process: Patient was goal-directed, no evidence of loose associations or flight of ideas. Thought Content: Patient denied any auditory or visual hallucinations and no delusions or paranoid ideation were elicited. Patient was able to give a much clearer history this morning and he stated that he had run out of his Depakote prior to admission as well as he had not used any alcohol since his discharge from [facility]. Patient confirmed that he does live with his rj-[id number]-hf- law and she has a caregiver. Patient reported that he has not had a seizure since he's been in the hospital and he feels he is ready to leave. Suicidal/Homicidal Ideation: Patient denied any current suicidal or homicidal ideation. Sensorium/Cognition: Patient was alert and oriented to person, place, and time and his recent and remote memory were grossly intact. Mood/Affect: Patient's mood was cooperative and his affect was appropriate Insight/Judgment: Patient's insight and judgment are fair. Assessment: I spoke with the patient who agreed to speak with me and sat down and was a much more accurate historian today. Patient confirmed that he attended [facility] and has not used any alcohol since his discharge but he ran out of his Depakote prior to admission and was unable to get it refilled. Patient states he is eager to return home and doesn't need to be in the hospital any longer as he has not had a seizure and is back on his medication. Patient did not express any psychotic symptomatology, he denied any suicidal ideation currently and states he is not feeling depressed. The patient was oriented 3 and was not confused. Plan: Patient should continue on Zyprexa 10 mg twice a day, he agreed to remain and be discharged in the appropriate fashion and stated that he had no intent to return to using alcohol and I encouraged him to remain sober. Social work was present and I discussed the above with them and see no need for the patient to be appointed a public guardian. Patient is not expressing any depressive symptomatology, is no evidence of a psychotic process and the patient denied any current suicidal or homicidal ideation.
== END 2017-05-21 14:42 | disposition home or self-care (01) | DRG 101 ==
LOC: EC 17:33 → 6SEL 19:13
PROVIDERS: ADMIT Family Medicine; ATTEND Family Medicine
DX: G40.409 Other generalized epilepsy and epileptic syndromes, not intractable, without status epilepticus (principal); G83.84 Todd's paralysis (postepileptic); E16.2 Hypoglycemia, unspecified; F10.239 Alcohol dependence with withdrawal, unspecified; F12.90 Cannabis use, unspecified, uncomplicated; F17.210 Nicotine dependence, cigarettes, uncomplicated; I10 Essential (primary) hypertension; K21.9 Gastro-esophageal reflux disease without esophagitis; Z79.899 Other long term (current) drug therapy; Z82.49 Family history of ischemic heart disease and other diseases of the circulatory system; Z83.3 Family history of diabetes mellitus; Z86.73 Personal history of transient ischemic attack (TIA), and cerebral infarction without residual deficits; Z87.11 Personal history of peptic ulcer disease
CPT/HCPCS: 36415; 70450; 70496; 70498; 70551; 71045; 80053; 80061; 80164; 80320; 82330; 82550; 82553; 84484; 85025; 85610; 85730; 93005; 93306; 94760; 95819; 96374; 99285

== ENCOUNTER 2017-06-08 10:56 | Emergency (ER) | payer OTHER ==
[2017-06-08] MEDS ORDERED: cloNIDine HCL 0.2 MG TAB PO STA (11:54)
[2017-06-08] MEDS ORDERED: ACETAMINOPHEN TAB 500 MG TAB PO STA (11:56)
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
[2017-06-08 12:19] VITALS: BP 178/98; PULSE 78; RESP 16; TEMP 97.8
== END 2017-06-08 12:17 | disposition home or self-care (01) ==
LOC: EC 10:56
DX: G40.909 Epilepsy, unspecified, not intractable, without status epilepticus (principal); I10 Essential (primary) hypertension; Z76.0 Encounter for issue of repeat prescription; F17.200 Nicotine dependence, unspecified, uncomplicated; Z79.899 Other long term (current) drug therapy
CPT/HCPCS: 99282

== ENCOUNTER 2017-06-18 06:54 | Emergency (ER) | payer OTHER ==
[2017-06-18 07:01] VITALS: TEMP 98.3
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
[2017-06-18 07:28] LABS: Anisocytosis Slight; Basophils # (A) 0.1 k/uL (0-0.2); Basophils % (A) 1 %; Eosinophils # (A) 0.3 k/uL (0-0.7); Eosinophils % (A) 4 %; HCT 42.9 % (39.0-53.0); Hypochromasia Marked; Lymphocytes # (A) 2.3 k/uL (1.0-4.8); Lymphocytes % (A) 27 %; MCH 21.2 pg (25.0-35.0); MCHC 30.5 g/dL (31.0-37.0); MCV 69.5 fL (80.0-100.0); Mean Platelet Volume 7.1; Microcytosis Marked; Monocytes # (A) 0.7 k/uL (0-1.0); Monocytes % (A) 8 %; Neutrophils # (A) 4.9 k/uL (1.3-7.7); Neutrophils % (A) 57 %; Platelet Count 468 k/uL (150-450); RBC 6.16 m/uL (4.30-5.90); RDW 17.5 % (11.5-15.5); WBC 8.5 k/uL (3.8-10.6)
[2017-06-18 07:33] VITALS: BP 142/98; PULSE 59; RESP 18
[2017-06-18 07:45] LABS: ALT 11 U/L (21-72); AST 55 U/L (17-59); Albumin 3.6 g/dL (3.5-5.0); Alcohol <10 mg/dL; Alkaline Phosphatase 76 U/L (38-126); Anion Gap 9 mmol/L; Blood Urea Nitrogen 18 mg/dL (9-20); Calcium 8.9 mg/dL (8.4-10.2); Carbon Dioxide 25 mmol/L (22-30); Chloride 109 mmol/L (98-107); Glucose 84 mg/dL (74-99); Sodium 143 mmol/L (137-145); Total Bilirubin 1.3 mg/dL (0.2-1.3); Total Protein 6.8 g/dL (6.3-8.2)
--- NOTE | 2017-06-18 07:45 | CT ---
EXAMINATION TYPE: CT brain srinathine wo con DATE OF EXAM: 06/18/2017 COMPARISON: Brain 05/17/2017 HISTORY: 61-year-old male with pain after Seizure, fall. CT DLP: 1082.0 mGycm Automated exposure control for dose reduction was used. Technique: Examination of the head was done in axial plane without intravenous contrast. Coronal and sagittal reconstructions performed. CT of the cervical spine was obtained in axial plane without intravenous injection of contrast mater ial. Coronal and sagittal reformatted images were obtained from the axial views for evaluation of f ractures, spinal alignment and canal. FINDINGS: Head: There is no evidence of acute intracranial hemorrhage, acute ischemic changes, mass, mass-effect, or extra-axial fluid collection. There is no effacement of cerebral sulci or basal subarachnoid cister ns. There is no hydrocephalus. There is no midline shift. Mcknight-white matter distinction is preserv ed. There is mild generalized supratentorial volume loss and moderate patchy and confluent white matter h ypodensities. Moderate to severe mucosal thickening throughout the maxillary sinuses and ethmoid air cells and mild within the frontal sinuses. The small air-fluid levels in the maxillary sinuses. Mastoid air cells w ell pneumatized. Orbits and globes appear intact. Cervical spine: Suggestion of a couple large calculi involving the right submandibular gland measuring 8 mm and 10 mm . No craniocervical junction abnormality, predental space widening, or prevertebral soft tissue swellin g. Normal alignment of the cervical spine. No acute fracture. However, there is moderate multilevel disc/endplate degenerative change with multilevel small disc os teophyte complexes. Sclerotic changes along the endplates on a degenerative basis. Multilevel facet a nd uncovertebral joint degenerative changes present as well. Suspected moderate narrowing of the spinal canal at various levels as C3-C4 and C5-C6. Assessment of the spinal canal below C5 is limited due to artifact from the patient's shoulders. Vertebral moderate bilateral neural foraminal stenoses, more moderate or severe on both sides at C7-T 1. The great vessels along the superior mediastinum appear very tortuous. Sagittal and coronal reformatted images confirm above findings. COMBINED IMPRESSION: 1. No acute intracranial abnormality seen. Similar mild atrophy and moderate changes of chronic small vessel ischemic disease. 2. Moderate to advanced multilevel spondylotic change. No acute fracture or malalignment of the cervi serena spine. 3. Moderate to severe chronic ethmoid and maxillary sinus disease. Correlate for superimposed acute m axillary sinusitis. 4. Incidental right submandibular gland sialolithiasis measuring up to 1 cm.
[2017-06-18 07:49] LABS: Potassium 5.6 mmol/L (3.5-5.1)
--- NOTE | 2017-06-18 08:16 | XR ---
EXAMINATION TYPE: XR chest 1V DATE OF EXAM: 06/18/2017 COMPARISON: 05/17/2017 INDICATION: Pain TECHNIQUE: Single frontal view of the chest is obtained. FINDINGS: The heart size is normal. The pulmonary vasculature is normal. Some mild subsegmental atelectasis at the left diaphragm is improving. IMPRESSION: 1. Improving left basilar atelectasis.
--- NOTE | 2017-06-18 08:17 | XR ---
EXAMINATION TYPE: XR pelvis AP view DATE OF EXAM: 06/18/2017 COMPARISON: NONE HISTORY: Pain seizure stroke TECHNIQUE: AP pelvis FINDINGS: Femoral heads articulate with the acetabulum. Mild joint space narrowing is present. Symphy sis pubis and sacroiliac joints are normal. Normal bowel gas is present. IMPRESSION: 1. Mild osteoarthritic degenerative change bilateral hips.
[2017-06-18 08:50] LABS: Valproic Acid (Depakene) 39.9 ug/mL
[2017-06-18] MEDS ORDERED: DIVALPROEX 500 MG TABLET.DR PO STA (08:57)
[2017-06-18 09:05] LABS: Appearance,Urine Clear (Clear); Bilirubin,Urine Negative (Negative); Blood,Urine Negative (Negative); Color,Urine Yellow; Glucose,Urine (UA) Negative (Negative); Ketones,Urine Negative (Negative); Leukocyte Esterase,Urine Negative (Negative); Nitrite,Urine Negative (Negative); PH, Urine 6.5 (5.0-8.0); Protein,Urine Trace (Negative); Specific Gravity,Urine 1.019 (1.001-1.035)
[2017-06-18 09:14] LABS: Amphetamine Screen,Urine Not Detected (NotDetected); Barbiturate Screen,Urine Not Detected (NotDetected); Benzodiazepines Screen,Urine Not Detected (NotDetected); Cocaine Screen,Urine Not Detected (NotDetected); Methadone Screen, Urine Not Detected (NotDetected); Opiate Screen,Urine Not Detected (NotDetected); Oxycodone Screen, Urine Not Detected (NotDetected); Phencyclidine Screen,Urine Not Detected (NotDetected); Tricyclic Antidepressant,Urine Not Detected (NotDetected); Urn Cannabinoid Scrn Not Detected (NotDetected)
== END 2017-06-18 09:27 | disposition home or self-care (01) ==
LOC: EC 06:54
DX: G40.909 Epilepsy, unspecified, not intractable, without status epilepticus (principal); M54.2 Cervicalgia; R51 Headache; I10 Essential (primary) hypertension; F32.9 Major depressive disorder, single episode, unspecified; F17.200 Nicotine dependence, unspecified, uncomplicated; Z86.73 Personal history of transient ischemic attack (TIA), and cerebral infarction without residual deficits; Z79.899 Other long term (current) drug therapy; W01.198A Fall on same level from slipping, tripping and stumbling with subsequent striking against other object, initial encounter
CPT/HCPCS: 36415; 70450; 71045; 72125; 72170; 80053; 80164; 80306; 80320; 81003; 85025; 93005; 99285

== ENCOUNTER 2017-06-27 04:41 | Emergency (ER) | payer OTHER ==
[2017-06-27] MEDS ORDERED: KETOROLAC 30 MG/ML 1 ML VIAL IVP STA (05:15)
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
[2017-06-27] MEDS ORDERED: LORazepam 1 MG TAB PO STA (05:25)
[2017-06-27 05:58] LABS: Anisocytosis Slight; Basophils # (A) 0.1 k/uL (0-0.2); Basophils % (A) 1 %; Eosinophils # (A) 0.2 k/uL (0-0.7); Eosinophils % (A) 2 %; HCT 47.7 % (39.0-53.0); HGB 14.2 gm/dL (13.0-17.5); Hypochromasia Marked; Lymphocytes # (A) 1.9 k/uL (1.0-4.8); Lymphocytes % (A) 22 %; MCH 20.7 pg (25.0-35.0); MCHC 29.9 g/dL (31.0-37.0); MCV 69.5 fL (80.0-100.0); Mean Platelet Volume 7.4; Microcytosis Marked; Monocytes # (A) 0.7 k/uL (0-1.0); Monocytes % (A) 8 %; Neutrophils # (A) 5.6 k/uL (1.3-7.7); Neutrophils % (A) 63 %; Platelet Count 559 k/uL (150-450); RBC 6.87 m/uL (4.30-5.90); RDW 17.8 % (11.5-15.5); WBC 8.8 k/uL (3.8-10.6)
[2017-06-27 06:00] LABS: ALT 13 U/L (21-72); AST 23 U/L (17-59); Albumin 4.1 g/dL (3.5-5.0); Alkaline Phosphatase 87 U/L (38-126); Anion Gap 11 mmol/L; Blood Urea Nitrogen 23 mg/dL (9-20); Calcium 9.7 mg/dL (8.4-10.2); Carbon Dioxide 24 mmol/L (22-30); Chloride 109 mmol/L (98-107); Glucose 93 mg/dL (74-99); Potassium 4.6 mmol/L (3.5-5.1); Sodium 144 mmol/L (137-145); Total Bilirubin 0.5 mg/dL (0.2-1.3); Total Protein 7.2 g/dL (6.3-8.2)
[2017-06-27 06:05] LABS: Valproic Acid (Depakene) 42.2 ug/mL
--- NOTE | 2017-06-27 06:35 | CT ---
EXAM: CT Head Without Intravenous Contrast. CLINICAL HISTORY: ITS.REASON CT Reason: Pain TECHNIQUE: Axial computed tomography images of the head/brain without intravenous contrast. CTDI is 12.5 mGy and DLP is 120 mGy-cm. This CT exam was performed using one or more of the following dose reduction techniques: automated exposure control, adjustment of the mA and/or kV according to patient size, and/or use of iterative reconstruction technique. COMPARISON: 03/29/2017 FINDINGS: Brain: Mild to moderate generalized cerebral volume loss. Areas of decreased attenuation are again seen within the periventricular deep white matter, likely chronic microvascular ischemic change. No significant interval change from prior study. No hemorrhage. Ventricles: Unremarkable. No ventriculomegaly. Bones: No acute fracture. Sinuses: Unremarkable as visualized. No acute sinusitis. Mastoid air cells: Unremarkable as visualized. No mastoid effusion. IMPRESSION: No acute intracranial abnormality.
[2017-06-27 06:39] LABS: Large Platelets Present
[2017-06-27 06:40] LABS: Target Cells Present
[2017-06-27 06:41] LABS: RBC Fragments Present
[2017-06-27 06:43] LABS: Polychromasia Present
[2017-06-27] MEDS ORDERED: DIVALPROEX ER 500 MG TAB.ER.24H PO STA (06:48)
[2017-06-27 07:38] VITALS: BP 174/91; PULSE 76; RESP 17; TEMP 97.2
== END 2017-06-27 07:40 | disposition home or self-care (01) ==
LOC: EC 04:41
DX: G40.909 Epilepsy, unspecified, not intractable, without status epilepticus (principal); I10 Essential (primary) hypertension; F32.9 Major depressive disorder, single episode, unspecified; F17.200 Nicotine dependence, unspecified, uncomplicated; Z79.899 Other long term (current) drug therapy
CPT/HCPCS: 36415; 93005; 80164; 80053; 85025; 70450; 99285; 96374; J1885

== ENCOUNTER → 2017-09-04 | Outpatient (CLI) | payer OTHER ==
--- NOTE | 2017-09-04 14:30 | XR ---
EXAMINATION TYPE: XR foot complete bilateral DATE OF EXAM: 09/04/2017 COMPARISON: NONE HISTORY: Right foot pain, left foot pain TECHNIQUE: Bilateral feet are examined in 3 projections each. FINDINGS: Right foot: There is loss of the first metatarsal phalangeal joint space. Distal interphalangeal join t space narrowing appears to be present. No acute fractures are evident. Plantar calcaneal heel spur is present. Left foot: There is loss of the first metatarsal phalangeal joint space. Distal interphalangeal joint space narrowing appears to be present. No acute fractures are evident IMPRESSION: 1. Bilateral first metatarsophalangeal joint space narrowing and degenerative change. 2. Right foot plantar calcaneal heel spur.
[2017-09-04 14:54] LABS: ALT 20 U/L (21-72); AST 27 U/L (17-59); Albumin 3.7 g/dL (3.5-5.0); Alkaline Phosphatase 67 U/L (38-126); Anion Gap 13 mmol/L; Blood Urea Nitrogen 17 mg/dL (9-20); Calcium 8.9 mg/dL (8.4-10.2); Carbon Dioxide 22 mmol/L (22-30); Chloride 111 mmol/L (98-107); Glucose 78 mg/dL (74-99); Potassium 4.5 mmol/L (3.5-5.1); Sodium 146 mmol/L (137-145); Total Bilirubin 0.6 mg/dL (0.2-1.3); Total Protein 6.4 g/dL (6.3-8.2)
[2017-09-04 14:55] LABS: Anisocytosis Moderate; Basophils % (A) 1 %; Eosinophils # (A) 0.3 k/uL (0-0.7); Eosinophils % (A) 4 %; HCT 42.7 % (39.0-53.0); HGB 12.4 gm/dL (13.0-17.5); Hypochromasia Marked; Lymphocytes # (A) 2.4 k/uL (1.0-4.8); Lymphocytes % (A) 37 %; MCH 22.2 pg (25.0-35.0); MCHC 29.1 g/dL (31.0-37.0); MCV 76.4 fL (80.0-100.0); Mean Platelet Volume 7.4; Microcytosis Moderate; Monocytes # (A) 0.4 k/uL (0-1.0); Monocytes % (A) 7 %; Neutrophils # (A) 3.2 k/uL (1.3-7.7); Neutrophils % (A) 49 %; Platelet Count 463 k/uL (150-450); RBC 5.58 m/uL (4.30-5.90); RDW 20.1 % (11.5-15.5); WBC 6.5 k/uL (3.8-10.6)
[2017-09-04 15:19] LABS: Large Platelets Present
[2017-09-04 15:20] LABS: Poikilocytosis (M) Present; Polychromasia Present
[2017-09-04 19:36] LABS: Iron Saturation 17.28 (15.00-50.00)
[2017-09-04 19:44] LABS: Vitamin D 25 Hydroxy 44.3 ng/mL (30.0-100.0)
== END | disposition home or self-care (01) ==
LOC: RADXRMAIN 13:52
PROVIDERS: ATTEND Physician Assistant Medical
DX: M77.31 Calcaneal spur, right foot (principal); M25.872 Other specified joint disorders, left ankle and foot; M25.871 Other specified joint disorders, right ankle and foot; F10.20 Alcohol dependence, uncomplicated; E55.9 Vitamin D deficiency, unspecified; Z79.899 Other long term (current) drug therapy
CPT/HCPCS: 80053; 82306; 82728; 83540; 83550; 85025

== ENCOUNTER 2018-01-24 09:11 | Emergency (ER) | payer OTHER ==
[2018-01-24] MEDS ORDERED: SODIUM CHLORIDE 0.9% 500 ML 500 ML IV STA (09:13)
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
[2018-01-24 09:27] VITALS: RESP 18; TEMP 97.9
[2018-01-24 09:47] LABS: Anisocytosis Slight; Basophils % (A) 1 %; Eosinophils # (A) 0.2 k/uL (0-0.7); Eosinophils % (A) 4 %; HCT 46.8 % (39.0-53.0); HGB 14.1 gm/dL (13.0-17.5); Hypochromasia Moderate; Lymphocytes # (A) 1.9 k/uL (1.0-4.8); Lymphocytes % (A) 32 %; MCH 22.9 pg (25.0-35.0); MCV 76.1 fL (80.0-100.0); Mean Platelet Volume 7.2; Microcytosis Slight; Monocytes # (A) 0.5 k/uL (0-1.0); Monocytes % (A) 8 %; Neutrophils # (A) 3.3 k/uL (1.3-7.7); Neutrophils % (A) 54 %; Platelet Count 514 k/uL (150-450); RBC 6.15 m/uL (4.30-5.90); RDW 16.8 % (11.5-15.5)
[2018-01-24 09:57] LABS: Appearance,Urine Clear (Clear); Bilirubin,Urine Negative (Negative); Blood,Urine Negative (Negative); Color,Urine Yellow; Glucose,Urine (UA) Negative (Negative); Ketones,Urine Negative (Negative); Leukocyte Esterase,Urine Negative (Negative); Nitrite,Urine Negative (Negative); Protein,Urine Negative (Negative); Specific Gravity,Urine 1.013 (1.001-1.035)
[2018-01-24 10:04] LABS: ALT 13 U/L (21-72); AST 17 U/L (17-59); Albumin 3.8 g/dL (3.5-5.0); Alcohol <10 mg/dL; Alkaline Phosphatase 56 U/L (38-126); Anion Gap 7 mmol/L; Blood Urea Nitrogen 24 mg/dL (9-20); Calcium 9.5 mg/dL (8.4-10.2); Carbon Dioxide 26 mmol/L (22-30); Chloride 110 mmol/L (98-107); Glucose 73 mg/dL (74-99); Potassium 4.4 mmol/L (3.5-5.1); Sodium 143 mmol/L (137-145); Total Bilirubin 0.8 mg/dL (0.2-1.3); Total Protein 6.5 g/dL (6.3-8.2)
[2018-01-24 10:14] LABS: Amphetamine Screen,Urine Not Detected (NotDetected); Barbiturate Screen,Urine Not Detected (NotDetected); Benzodiazepines Screen,Urine Not Detected (NotDetected); Cocaine Screen,Urine Not Detected (NotDetected); Methadone Screen, Urine Not Detected (NotDetected); Opiate Screen,Urine Not Detected (NotDetected); Oxycodone Screen, Urine Not Detected (NotDetected); Phencyclidine Screen,Urine Not Detected (NotDetected); Tricyclic Antidepressant,Urine Not Detected (NotDetected); Urn Cannabinoid Scrn Detected (NotDetected)
[2018-01-24 10:35] LABS: Valproic Acid (Depakene) 51.8 ug/mL
[2018-01-24 11:15] VITALS: BP 153/89; PULSE 61
== END 2018-01-24 11:15 | disposition home or self-care (01) ==
LOC: EC 09:11
DX: G40.909 Epilepsy, unspecified, not intractable, without status epilepticus (principal); F41.9 Anxiety disorder, unspecified; F32.9 Major depressive disorder, single episode, unspecified; M19.90 Unspecified osteoarthritis, unspecified site; I10 Essential (primary) hypertension; F17.200 Nicotine dependence, unspecified, uncomplicated; Z79.82 Long term (current) use of aspirin; Z79.899 Other long term (current) drug therapy; Z86.73 Personal history of transient ischemic attack (TIA), and cerebral infarction without residual deficits
CPT/HCPCS: 36415; 93005; 80164; 80053; 85025; 81003; 80306; 99284; 96360; G0480; 80320

== ENCOUNTER 2019-11-13 16:28 | Emergency (ER) | payer OTHER ==
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
[2019-11-13] MEDS ORDERED: LORazepam 2 MG/ML INJ IV STA (17:31)
[2019-11-13 17:51] LABS: African American GFR (CKD) >90 (>60 ml/min/1.73 sqM); Anion Gap 11 mmol/L; Blood Urea Nitrogen 10 mg/dL (9-20); Calcium 9.2 mg/dL (8.4-10.2); Carbon Dioxide 21 mmol/L (22-30); Chloride 104 mmol/L (98-107); Glucose 93 mg/dL (74-99); Non-African American GFR(CKD) 88 (>60 ml/min/1.73 sqM); Potassium 4.8 mmol/L (3.5-5.1); Sodium 136 mmol/L (137-145)
[2019-11-13 18:07] LABS: Anisocytosis Slight; Basophils % (A) 1 %; Eosinophils # (A) 0.1 k/uL (0-0.7); Eosinophils % (A) 2 %; HGB 13.5 gm/dL (13.0-17.5); Hypochromasia Moderate; Lymphocytes % (A) 20 %; MCH 24.9 pg (25.0-35.0); MCHC 30.1 g/dL (31.0-37.0); MCV 82.5 fL (80.0-100.0); Mean Platelet Volume 8.6; Microcytosis Slight; Monocytes # (A) 0.4 k/uL (0-1.0); Monocytes % (A) 8 %; Neutrophils # (A) 3.6 k/uL (1.3-7.7); Neutrophils % (A) 69 %; Platelet Count 319 k/uL (150-450); RBC 5.45 m/uL (4.30-5.90); RDW 18.6 % (11.5-15.5); WBC 5.2 k/uL (3.8-10.6)
--- NOTE | 2019-11-13 18:19 | CT ---
EXAMINATION TYPE: CT brain vicky wo con DATE OF EXAM: 11/13/2019 COMPARISON: 06/18/2017 HISTORY: Posterior head injury. Headache. Neck pain CT DLP: 1446.2 mGycm Automated exposure control for dose reduction was used. There is cerebral cortical atrophy. There is enlargement of the ventricles. There is no mass effect n or midline shift. There is no sign of intracranial hemorrhage. The calvarium is intact. Skull base is intact. Cervical vertebra have normal alignment. There is narrowing of disc spaces at C3-C4 C4-5 and C7-T1. T here is spurring of the endplates. There is no evidence of fracture. Facet joints are intact. IMPRESSION: Spondylotic changes in the cervical spine without change compared to old exam. There is narrowing of the spinal canal at C3-4 unchanged. Cerebral atrophy. Chronic small vessel ischemia. Hydrocephalus. No significant change compared to old exam.
[2019-11-13] MEDS ORDERED: ONDANSETRON 4 MG ODT STARTER PACK 2 TAB BTL PO STA (18:51)
[2019-11-13 19:16] VITALS: BP 143/106; PULSE 74; RESP 18; TEMP 98.4
== END 2019-11-13 19:16 | disposition home or self-care (01) ==
LOC: EC 16:28
DX: G40.909 Epilepsy, unspecified, not intractable, without status epilepticus (principal); S01.91XA Laceration without foreign body of unspecified part of head, initial encounter; E87.2 Acidosis; R79.89 Other specified abnormal findings of blood chemistry; I10 Essential (primary) hypertension; F41.9 Anxiety disorder, unspecified; F32.9 Major depressive disorder, single episode, unspecified; F17.200 Nicotine dependence, unspecified, uncomplicated; M19.90 Unspecified osteoarthritis, unspecified site; Z79.82 Long term (current) use of aspirin; Z79.899 Other long term (current) drug therapy; W18.39XA Other fall on same level, initial encounter; Y93.01 Activity, walking, marching and hiking; Y92.002 Bathroom of unspecified non-institutional (private) residence as the place of occurrence of the external cause
CPT/HCPCS: 36415; 93005; 80164; 80048; 85025; 72125; 70450; 99285; 96374; 12002; J2060; S0119

== ENCOUNTER 2019-12-02 17:52 | Inpatient (IN) | payer OTHER ==
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
[2019-12-02 18:33] LABS: Anisocytosis Slight; Basophils # (A) 0.1 k/uL (0-0.2); Basophils % (A) 1 %; Eosinophils # (A) 0.2 k/uL (0-0.7); Eosinophils % (A) 3 %; HCT 43.2 % (39.0-53.0); HGB 12.9 gm/dL (13.0-17.5); Hypochromasia Moderate; Lymphocytes # (A) 1.3 k/uL (1.0-4.8); Lymphocytes % (A) 22 %; MCH 24.5 pg (25.0-35.0); MCHC 29.8 g/dL (31.0-37.0); MCV 82.3 fL (80.0-100.0); Mean Platelet Volume 7.4; Monocytes # (A) 0.5 k/uL (0-1.0); Monocytes % (A) 8 %; Neutrophils # (A) 3.8 k/uL (1.3-7.7); Neutrophils % (A) 64 %; Platelet Count 465 k/uL (150-450); RBC 5.25 m/uL (4.30-5.90)
[2019-12-02] MEDS ORDERED: LORazepam 2 MG/ML INJ IV STA (18:34)
[2019-12-02] MEDS ORDERED: levETIRAcetam IV 1,000 MG in SALINE 1 100ML.BAG IVPB STA (18:34)
[2019-12-02 18:43] LABS: African American GFR (CKD) >90 (>60 ml/min/1.73 sqM); Anion Gap 7 mmol/L; Blood Urea Nitrogen 17 mg/dL (9-20); Calcium 9.1 mg/dL (8.4-10.2); Carbon Dioxide 22 mmol/L (22-30); Chloride 106 mmol/L (98-107); Glucose 75 mg/dL (74-99); Magnesium 1.8 mg/dL (1.6-2.3); Non-African American GFR(CKD) 81 (>60 ml/min/1.73 sqM); Potassium 4.2 mmol/L (3.5-5.1); Sodium 135 mmol/L (137-145)
--- NOTE | 2019-12-02 18:56 | CT ---
EXAMINATION: CT brain wo con for TPA DATE AND TIME: 12/02/2019 6:44 PM CLINICAL INDICATION: PHH; fall TECHNIQUE: Standard departmental protocol.; DLP 1140.8 COMPARISON: CT 11/13/2019 FINDINGS: The calvarium is intact. There is no intracranial hemorrhage. There is no intracranial mass or mass effect. No definite new intra-axial or extra-axial attenuation defect. The previously seen low-attenuation wi thin the bilateral baez radiata and centrum semiovale is unchanged. The ventricular system prominence is more conspicuous than the sulcal/basal cisterns' prominence. Thi s is a nonspecific finding which can correlate with a clinical diagnosis of normal pressure hydroceph alus. This pattern is stable. The paranasal sinuses, middle ear cavities, and mastoid sinus air cells are clear. The orbits are unremarkable. IMPRESSION: 1. NO ACUTE CT PROCESS. 2. Nonspecific ventricular-cistern pattern.
[2019-12-02 19:00] LABS: Valproic Acid (Depakene) 119.3 ug/mL
--- NOTE | 2019-12-02 19:21 | CT ---
EXAMINATION TYPE: CT angio head neck with contrast and with 3-D reconstruction renderings DATE OF EXAM: 12/02/2019 HISTORY: Fall, seizure and left sided weakness. COMPARISON: 05/17/2017 CT DLP: 496.4 mGycm. Automated Exposure Control for Dose Reduction was Utilized. TECHNIQUE: CTA scan of the neck is performed with IV Contrast, patient injected with 65ml mL of Isov ue 370, axial images are obtained, coronal and sagittal reformatted images are reviewed. Three-D ulises nstructed images are created on an independent workstation and reviewed. FINDINGS: HEAD CTA: The intra-axial and extra-axial contrast-enhancement pattern is unremarkable. The anterior and posterior arterial circulation is patent; there are no filling defects or hemodynamically signif icant stenoses. The dural venous sinuses are unremarkable. CAROTID/VERTEBRAL VASCULAR STRUCTURES: The origins of the great vasculature at the aortic arch are wi juventino patent. The right and left carotid carotid systems are widely patent without hemodynamic signifi cant stenoses or dissection. There is moderately prominent tortuosity to the right ICA and left ICA. The right and left vertebral artery systems are widely patent without clinically significant stenoses or dissection. OTHER (NECK): No acute lung apices, soft tissue, or skeletal findings. IMPRESSION: No acute process.
[2019-12-02 19:22] LABS: ALT 13 U/L (4-49); AST 39 U/L (17-59); Albumin 3.9 g/dL (3.5-5.0); Alkaline Phosphatase 84 U/L (38-126); Total Bilirubin 0.6 mg/dL (0.2-1.3); Total Protein 6.5 g/dL (6.3-8.2)
[2019-12-02] MEDS ORDERED: ASPIRIN 81 MG PO STA (19:36)
[2019-12-02] MEDS ORDERED: NALOXONE 0.4 MG/ML 1 ML VIAL IV PRN (19:41)
[2019-12-02] MEDS: SODIUM CHLORIDE 0.9% 1,000 ML IV SCH (20:32)
[2019-12-02] MEDS ORDERED: LORazepam 2 MG/ML INJ IV PRN (23:09)
[2019-12-03] MEDS ORDERED: ASPIRIN 81 MG PO SCH (13:30)
[2019-12-03] MEDS: DIVALPROEX ER 250 MG TAB.ER.24H PO SCH ×5 (13:43→22:23)
[2019-12-03] MEDS: levETIRAcetam 500 MG TAB PO SCH ×2 (13:43→21:00)
[2019-12-03] MEDS ORDERED: DIVALPROEX ER 500 MG TAB.ER.24H PO SCH (13:45)
--- NOTE | 2019-12-03 15:00 | EEG ---
ELECTROENCEPHALOGRAM REPORT DATE OF SERVICE: 12/03/2019 PREAMBLE: This is a 63-year-old male with history of seizure disorder, came with possible seizure and some left-sided numbness. This study is performed to evaluate for any epileptiform activity. EEG FINDINGS: This is a 21 channel routine EEG recording in a patient utilizing 10-20 international system with referential and bipolar montages. The background consists of well developed, well regulated, moderate voltage activity in 9-10 hertz alpha, seen better in the left hemispheric region. The background seems to be reactive to eye opening and closing. There is continuous rhythmic and semi arrhythmic polymorphic delta and theta activity seen in the right hemispheric region, maximal right temporal. Some right temporal sharp appearing waves were seen sporadically. Mild drowsiness was seen but deeper stages of sleep were not seen. IMPRESSION: This is an abnormal EEG due to the presence of focal slowing and a few sharp appearing waves involving the right hemispheric region, maximal right temporal. This is suggestive of focal cortical neural dysfunction with underlying cortical irritability and tendency for seizures. No electrographic seizures were recorded. MMODL / IJN: [id number] /
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
--- NOTE | 2019-12-03 16:14 | MR ---
EXAMINATION TYPE: MR brain wo con DATE OF EXAM: 12/03/2019 COMPARISON: 05/19/2017 HISTORY: Left-sided numbness, visual field deficit, seizure CONTRAST: Performed utilizing 0 mL intravenous Gadavist gadolinium contrast. TECHNIQUE: Multiplanar, multiecho imaging on a 3.0 Sasha magnet is performed through the brain. Stud y is performed within 24 hours of arrival to the hospital. Motion artifact limits the T2 axial images . The craniovertebral junction is normal. The pituitary is normal. Diffusion-weighted imaging is performed. No abnormal hyperintensity is present to suggest an acute i ntracranial infarct or acute ischemic change. Periventricular white matter hyperintensity is present, likely on the basis of chronic white matter i schemic changes. Ventricles and sulci are prominent for the patient age. Ventricles and greater prominence than the bryan lci. No temporal horn dilatation is evident. There is a patent cavum septum pellucidum and cavum verg ae, normal variants. IMPRESSIONS: 1. Atrophy with periventricular white matter ischemic changes. 2. No acute intracranial process.
[2019-12-03] MEDS: ACETAMINOPHEN TAB 325 MG TAB PO PRN (16:40)
[2019-12-03] MEDS ORDERED: hydrOXYzine pamoate 25 MG CAP PO PRN (20:26)
[2019-12-03] MEDS ORDERED: DIVALPROEX 500 MG TABLET.DR PO SCH (21:00)
[2019-12-03] MEDS ORDERED: VALPROIC ACID 750 MG PO SCH (21:00)
[2019-12-03] MEDS: DIVALPROEX ER 500 MG TAB.ER.24H PO SCH ×2 (21:00→22:07)
[2019-12-03] MEDS: traZODone HCL 100 MG TAB PO PRN (22:06)
[2019-12-03] MEDS: SERTRALINE 100 MG TAB PO SCH (22:08)
--- NOTE | 2019-12-03 22:08 | CT ---
EXAMINATION TYPE: CT cervical spine wo con DATE OF EXAM: 12/03/2019 COMPARISON: 11/13/2019 HISTORY: Cervical neuritis. CT DLP: 496.4 mGycm Automated exposure control for dose reduction was used. There is intravascular contrast from the CT angiogram of the neck. Images were obtained from the skull base to T1 vertebra. The cervical vertebra show some straightenin g. There is mild disc space narrowing throughout the cervical spine with spurring of the endplates. F acet joints are intact. The skull base is intact. There is normal aeration of the mastoid sinuses. Th ere is no significant arthropathy of the facet joints. No pathologic enhancement is seen. IMPRESSION: Multilevel spondylotic changes with some straightening of the vertebra similar to old exam. No fractu re. There is multilevel uncovertebral spurring and disc bulging with resultant spinal stenosis. Canal measures 6.5 mm at C3-4. No significant change compared to old exam. Uncovertebral spurring is more severe at C3-4 on the left side.
--- NOTE | 2019-12-03 22:20 | HP ---
HISTORY AND PHYSICAL This patient is a 63-year-old white male with seizure for 23 years. He says he gets picked on at the prison. He was found in the bathroom; possibly had a seizure. Called 911. He says he is having too much stress at the half-way, which triggers the seizures. He says someone picks on him there. His left arm was contracted. He has difficulty moving his left arm. Left-sided weakness started at 11 a.m. MRI is negative for stroke or seizure. He is tender over his cervical spine. I suspect he has cervical radiculopathy of the left arm. CT of the head and neck are negative. Ejection fraction on echo is normal. MRI is normal. PAST MEDICAL HISTORY: CVA TIA, GERD, hypertension, osteoarthritis, seizure disorder, syncope, back pain, orthopedic surgery, right ankle ORIF surgery. PSYCH HISTORY: Anxiety, depression. SOCIAL HISTORY: Current everyday smoker and marijuana. FAMILY HISTORY: Mother with diabetes mellitus. HOME MEDICINES: 1. Zoloft 150 daily. 2. Vitamin D3 5000 units daily. 3. Iron sulfate 325 daily. 4. Naprosyn 500 mg daily. 5. Lisinopril 40 mg daily. 6. Trazodone 200 mg daily. 7. Aspirin 325 daily. 8. Depakene 750 b.i.d. 9. Norvasc 10 mg daily. 10.Vistaril 25 mg t.i.d. ALLERGIES: NO KNOWN DRUG ALLERGIES. PHYSICAL EXAMINATION: Temperature 97.7, respiratory rate 18, pulse 54, blood pressure 120s over 70s, O2 98. CARDIOVASCULAR: S1, S2. LUNGS: Clear. GI: Soft. HEMATOLOGY: Negative Homans. Cranial nerves are intact. he is talking normally. Vital signs appear to be stable. White count 6, hemoglobin is 12.9, sodium 135, potassium 4.2, BUN 17, creatinine 1.0. Hemoglobin 12.9, platelets 465. ASSESSMENT: 1. Seizure disorder, breakthrough seizure. He is on Depakote. 2. Left-sided numbness. 3. Homonymous hemianopsia. Rule out CVA, but I think he is postictal with his cervical radiculopathy with his left arm. 4. From history of a possible cerebrovascular accident. 5. Abnormal CT scan and possible hydrocephalus. 6. Hypertension. PLAN: Do a cervical spine CT scan. Continue on aspirin. EEG was reviewed. Focal cortical neuronal dysfunction, underlying cortical irritability, tendency for seizures. Suspect cervical radiculopathy. Alter seizure medications. 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 Possibly discharge him back to the rehab center tomorrow. If his cervical spine will have to be worked up and do physical therapy on the the left side of his arm. MMODL / IJN: [id number] /
[2019-12-04] MEDS: levETIRAcetam 500 MG TAB PO SCH ×3 (05:39→22:39)
[2019-12-04] MEDS: DIVALPROEX ER 250 MG TAB.ER.24H PO SCH ×2 (08:56→23:33)
[2019-12-04] MEDS: DIVALPROEX ER 500 MG TAB.ER.24H PO SCH ×2 (08:56→22:40)
[2019-12-04] MEDS: FERROUS SULFATE 325 MG TAB PO SCH (08:56)
[2019-12-04] MEDS: amLODIPine 10 MG TAB PO SCH (08:56)
[2019-12-04] MEDS: CHOLECALCIFEROL 1,000 UNIT TAB PO SCH (08:56)
[2019-12-04] MEDS: ASPIRIN 325 MG TAB PO SCH (08:56)
[2019-12-04] MEDS: lisinopriL 20 MG TAB PO SCH (08:56)
[2019-12-04] MEDS: SODIUM CHLORIDE 0.9% 1,000 ML IV SCH ×2 (08:59→23:05)
[2019-12-04] MEDS: NAPROXEN 250 MG TAB PO PRN (09:07)
[2019-12-04] MEDS: ACETAMINOPHEN TAB 325 MG TAB PO PRN ×2 (11:26→19:26)
--- NOTE | 2019-12-04 12:05 | PN ---
PROGRESS NOTE A 63-year-old male. CT scan of the neck shows cervical stenosis and neuropathy, now down to C3, C4 going down and making his left arm numb. MRI is negative for any strokes. He will possibly be set up with outpatient epidural shot in his cervical spine. He is cleared by Neurology. Trying to get his seizure medicine figured out. Right now, they have him on Keppra 500 q.12 and Depakote 750 b.i.d. Cardiovascular S1-S2. Lungs clear. GI soft. He is sitting up in bed, acting appropriately. ASSESSMENT: 1. Acute on chronic seizure disorder. 2. Breakthrough seizures. 3. Cervical neuropathy, making his left arm weak. CT scan shows this. Possibly give an epidural injection in the spine on Friday if he is going to be here. Wait for Neurology to regulate his seizure medicines prior to discharge. Please see further orders. MMODL / IJN: [id number] /
[2019-12-04 12:21] LABS: African American GFR (CKD) >90 (>60 ml/min/1.73 sqM); Anion Gap 8 mmol/L; Blood Urea Nitrogen 19 mg/dL (9-20); Calcium 9.4 mg/dL (8.4-10.2); Carbon Dioxide 21 mmol/L (22-30); Chloride 107 mmol/L (98-107); Glucose 78 mg/dL (74-99); Non-African American GFR(CKD) 85 (>60 ml/min/1.73 sqM); Potassium 4.2 mmol/L (3.5-5.1); Sodium 136 mmol/L (137-145)
[2019-12-04 13:55] LABS: Hemoglobin A1C 4.8 % (4.0-6.0)
[2019-12-04] MEDS: SERTRALINE 100 MG TAB PO SCH (22:40)
[2019-12-04] MEDS: traZODone HCL 100 MG TAB PO PRN (22:41)
[2019-12-04] MEDS: GABAPENTIN 100 MG CAP PO SCH (23:04)
[2019-12-05] MEDS: lisinopriL 20 MG TAB PO SCH (09:10)
[2019-12-05] MEDS: DIVALPROEX ER 500 MG TAB.ER.24H PO SCH ×2 (09:10→21:08)
[2019-12-05] MEDS: amLODIPine 10 MG TAB PO SCH (09:10)
[2019-12-05] MEDS: FERROUS SULFATE 325 MG TAB PO SCH (09:10)
[2019-12-05] MEDS: levETIRAcetam 500 MG TAB PO SCH ×2 (09:10→21:01)
[2019-12-05] MEDS: ASPIRIN 325 MG TAB PO SCH (09:10)
[2019-12-05] MEDS: GABAPENTIN 100 MG CAP PO SCH ×3 (09:10→21:02)
[2019-12-05] MEDS: CHOLECALCIFEROL 1,000 UNIT TAB PO SCH (09:10)
[2019-12-05] MEDS: DIVALPROEX ER 250 MG TAB.ER.24H PO SCH ×2 (09:11→21:08)
[2019-12-05] MEDS: ACETAMINOPHEN TAB 325 MG TAB PO PRN (09:16)
[2019-12-05] MEDS: NAPROXEN 250 MG TAB PO PRN (13:08)
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
[2019-12-05] MEDS: DOCUSATE 100 MG CAP PO SCH ×2 (15:42→21:11)
[2019-12-05] MEDS ORDERED: MAGNESIUM HYDROXIDE 2,400 MG/10 ML CUP PO PRN (15:44)
[2019-12-05] MEDS: traZODone HCL 100 MG TAB PO PRN (21:00)
[2019-12-05] MEDS ORDERED: DOCUSATE 100 MG CAP PO SCH (21:00)
[2019-12-05] MEDS: SERTRALINE 100 MG TAB PO SCH (21:01)
[2019-12-05] MEDS: SODIUM CHLORIDE 0.9% 1,000 ML IV SCH (21:03)
--- NOTE | 2019-12-06 03:42 | PN ---
PROGRESS NOTE A 63-year-old male who is getting an epidural shot tomorrow for cervical epidural. Will start him on Neurontin for left arm neuritis. Seizures were taken care of per Neurology. CAT scan of his neck was reviewed with him. He wants a new place to live. He is unstable going home to his normal place. Cardiology seen him for ventricular tachycardia and we got an anesthesia consult for an epidural tomorrow with further recommendations from Cardiology prior to getting his epidural shot of the cervical spine tomorrow. Thyroid is normal. Please see further orders. MMODL / IJN: [id number] /
[2019-12-06] MEDS: lisinopriL 20 MG TAB PO SCH (09:45)
[2019-12-06] MEDS: ASPIRIN 81 MG PO SCH (09:45)
[2019-12-06] MEDS: amLODIPine 10 MG TAB PO SCH (09:45)
[2019-12-06] MEDS: CHOLECALCIFEROL 1,000 UNIT TAB PO SCH (09:45)
[2019-12-06] MEDS: levETIRAcetam 500 MG TAB PO SCH ×2 (09:45→20:28)
[2019-12-06] MEDS: FERROUS SULFATE 325 MG TAB PO SCH (09:45)
[2019-12-06] MEDS: GABAPENTIN 100 MG CAP PO SCH ×3 (09:46→21:31)
[2019-12-06] MEDS: DIVALPROEX ER 250 MG TAB.ER.24H PO SCH ×2 (09:46→20:26)
[2019-12-06] MEDS: DIVALPROEX ER 500 MG TAB.ER.24H PO SCH ×2 (09:46→20:27)
[2019-12-06] MEDS: DOCUSATE 100 MG CAP PO SCH ×2 (09:46→20:27)
--- NOTE | 2019-12-06 11:50 | ECHOF ---
Referral Reason:vt MEASUREMENTS -------- HEIGHT: 175.3 cm WEIGHT: 81.6 kg BP: 150/83 IVSd: 1.3 cm (0.6 - 1.1) LVIDd: 4.6 cm (3.9 - 5.3) LVPWd: 1.0 cm (0.6 - 1.1) EDV(Teich): 96 ml IVSs: 1.8 cm LVIDs: 2.9 cm LVPWs: 1.5 cm %IVS Thck: 42 % ESV(Teich): 31 ml EF(Teich): 67 % %FS: 37 % SV(Teich): 65 ml LA Diam: 3.3 cm (2.7 - 3.8) RVIDd: 3.4 cm (< 3.3) LALs A4C: 5.5 cm LAAs A4C: 21.8 cm LAESV A-L A4C: 73 ml LAESV MOD A4C: 70 ml LALs A2C: 6.2 cm LAAs A2C: 23.1 cm LAESV A-L A2C: 73 ml LAESV MOD A2C: 70 ml LAESV(A-L): 78 ml LAESV Index (A-L): 39.16 ml/m HR_2Ch_Q: 54 bpm HR_4Ch_Q: 58 bpm LVVED_2Ch_Q: 91 ml LVVED_4Ch_Q: 134 ml LVVED_BiP_Q: 111 ml LVVES_2Ch_Q: 32 ml LVVES_4Ch_Q: 60 ml LVVES_BiP_Q: 43 ml LVEF_2Ch_Q: 64 % LVEF_4Ch_Q: 55 % LVEF_BiP_Q: 61 % LVSV_2Ch_Q: 58 ml LVSV_4Ch_Q: 73 ml LVSV_BiP_Q: 68 ml LVCO_2Ch_Q: 3.1 l/min LVCO_4Ch_Q: 4.2 l/min LVCO_BiP_Q: 3.7 l/min LVLs_2Ch_Q: 6.2 cm LVLs_4Ch_Q: 6.7 cm LVLd_2Ch_Q: 8.1 cm LVLd_4Ch_Q: 8.3 cm Ao Diam: 4.0 cm (2.0 - 3.7) AV Cusp: 2.7 cm (1.5 - 2.6) EPSS: 0.8 cm MV E Rick: 0.93 m/s MV DecT: 176 ms MV Dec [place]: 5.3 m/s MV A Rick: 0.68 m/s MV E/A Ratio: 1.37 MV PHT: 51 ms AV Vmax: 1.19 m/s AV maxP.65 mmHg TR Vmax: 2.65 m/s TR maxP.03 mmHg RAP: 5.00 mmHg RVSP: 33.03 mmHg MV EF SLOPE: 83.48 mm/s (70 - 150) MV EXCURSION: 13.97 mm (> 18.000) FINDINGS -------- Sinus rhythm. This was a technically good study. The left ventricular size is normal. There is mild concentric left ventricular hypertrophy. Overa ll left ventricular systolic function is low-normal with, an EF between 50 - 55 %. The right ventricle is mildly enlarged. LA is moderately dilated 34-39 ml/m2 The right atrium is normal in size. The right atrium is mildly enlarged. Interatrial and interventricular septum intact. The aortic valve is trileaflet and appears structurally normal. There is trace to mild mitral regurgitation. Mild tricuspid regurgitation present. Right ventricular systolic pressure is normal at < 35 mmHg. Trace/mild (physiologic) pulmonic regurgitation. The aortic root is dilated measuring 4.0cm. Normal inferior vena cava with normal inspiratory collapse consistent with estimated right atrial pre ssure of 5 mmHg. There is no pericardial effusion. CONCLUSIONS -------- 1. The left ventricular size is normal. 2. There is mild concentric left ventricular hypertrophy. 3. The right ventricle is mildly enlarged. 4. LA is moderately dilated 34-39 ml/m2 5. The aortic valve is trileaflet and appears structurally normal. 6. There is trace to mild mitral regurgitation. 7. Mild tricuspid regurgitation present. 8. The aortic root is dilated measuring 4.0cm. 9. Normal inferior vena cava with normal inspiratory collapse consistent with estimated right atrial pressure of 5 mmHg. 10. There is no pericardial effusion. MEDICAL IMAGING DIRECTOR: Lauren Solorzano RD
--- NOTE | 2019-12-06 14:46 | P.PN ---
Subjective Progress Note Date: 12/06/19 This is a 63-year-old gentleman admitted with seizure disorder, wide-complex idioventricular rhythm, hypertension and multiple other medical issues. Evaluated by both cardiology and nephrology with recommendations noted and appreciated. Remains off of beta blockers. Echo completed this morning reporting low normal LV function, EF between 50-55%, mild tricuspid regurgitation, dilated aortic root 4 cm. no seizure activity. Interventional radiology consulted for cervical epidural. Objective - Vital Signs Vital signs: Vital Signs Temp 97.5 F L 12/06/19 11:35 Pulse 99 12/06/19 11:35 Resp 18 12/06/19 11:35 BP 134/81 12/06/19 11:35 Pulse Ox 99 12/06/19 11:35 Intake & Output 12/05/19 12/06/19 12/06/19 18:59 06:59 18:59 Intake Total 600 Output Total 600 Balance 600 -600 Intake: Oral 600 Output: Urine 600 Other: Voiding Method Urinal Urinal Diaper Diaper Incontinent Incontinent # Voids 1 1 # Bowel Movements 1 - Exam PHYSICAL EXAM: VITAL SIGNS: As above GENERAL: Sitting up in bed, no acute distress HEENT: Conjunctivae normal. eyes normal. NECK: No JVD. No thyroid enlargement. No LNs CARDIOVASCULAR: S1, S2 regular.. No murmur RESPIRATION: Breath sounds diminished in the bases. No rhonchi or crackles. No bronchial breathing. ABDOMEN: Soft, nontender . No guarding. no masses palpable. Bowel sounds h eard. LEGS: No edema. no swelling. No calf tenderness PSYCHIATRY: Alert and oriented X3, mood and affect normal. NERVOUS SYSTEM: Cranial N 2-12 grossly normal. Moves all 4 limbs. No focal deficits. Strength and sensation grossly intact.. Skin: Warm and dry, no rash - Labs CBC & Chem 7: 12/02/19 18:19 12/04/19 06:21 Assessment and Plan Assessment: Seizure disorder, possible breakthrough focal seizures. History of right posterior parietal CVA .MRI reported no acute stroke, with no definitive evidence of normal pressure hydrocephalus as per neurology review. Wide-complex idioventricular rhythm Dilated aortic root 4 cm Hypertension Chronic nicotine dependence Plan: Continue on current medication regime, monitoring and symptomatic treatment. Interventional radiology consult in place regarding cervical epidural. Social work assisting with discharge planning for subacute rehab. coronavirus testing pending. The impression and plan of care has been dictated as directed. : I performed a history and examination of this patient, discussed the same with the dictator. I agree with the dictator's note ,documented as a scribe. Any additional findings or plans will be noted.
[2019-12-06] MEDS: ACETAMINOPHEN TAB 325 MG TAB PO PRN ×2 (14:53→20:27)
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
[2019-12-06] MEDS: SERTRALINE 100 MG TAB PO SCH (20:26)
[2019-12-06] MEDS: traZODone HCL 100 MG TAB PO PRN (20:28)
[2019-12-06] MEDS: SODIUM CHLORIDE 0.9% 1,000 ML IV SCH (20:30)
[2019-12-07] MEDS: DIVALPROEX ER 500 MG TAB.ER.24H PO SCH ×2 (07:51→22:22)
[2019-12-07] MEDS: CHOLECALCIFEROL 1,000 UNIT TAB PO SCH (07:51)
[2019-12-07] MEDS: ASPIRIN 81 MG PO SCH (07:51)
[2019-12-07] MEDS: amLODIPine 10 MG TAB PO SCH (07:51)
[2019-12-07] MEDS: levETIRAcetam 500 MG TAB PO SCH ×2 (07:52→22:22)
[2019-12-07] MEDS: lisinopriL 20 MG TAB PO SCH (07:52)
[2019-12-07] MEDS: GABAPENTIN 100 MG CAP PO SCH ×3 (07:52→22:23)
[2019-12-07] MEDS: FERROUS SULFATE 325 MG TAB PO SCH (07:52)
[2019-12-07] MEDS: DOCUSATE 100 MG CAP PO SCH ×2 (07:52→22:23)
[2019-12-07] MEDS: DIVALPROEX ER 250 MG TAB.ER.24H PO SCH ×2 (07:56→22:22)
[2019-12-07] MEDS: ACETAMINOPHEN TAB 325 MG TAB PO PRN ×2 (10:12→16:53)
[2019-12-07 13:29] VITALS: RESP 16
--- NOTE | 2019-12-07 13:58 | P.PN ---
Subjective Progress Note Date: 12/07/19 This is a 63-year-old gentleman admitted with seizure disorder, wide-complex idioventricular rhythm, hypertension and multiple other medical issues. Evaluated by both cardiology and nephrology with recommendations noted and appreciated. Remains off of beta blockers. Echo completed this morning reporting low normal LV function, EF between 50-55%, mild tricuspid regurgitation, dilated aortic root 4 cm. no seizure activity. Interventional radiology consulted for cervical epidural. 12/07/2019 evaluated by pain management recommending epidural outpatient. Authorization in progress for her subacute rehab-[facility]. No overnight events. No further seizure activity. Denies chest pain, palpitations or shortness of breath. Denies lightheadedness, dizziness or focal deficits. Objective - Vital Signs Vital signs: Vital Signs Temp 97.6 F 12/07/19 05:00 Pulse 53 L 12/07/19 05:00 Resp 18 12/07/19 05:00 BP 123/78 12/07/19 05:00 Pulse Ox 99 12/07/19 05:00 Intake & Output 12/06/19 12/07/19 12/07/19 18:59 06:59 18:59 Intake Total 880 Output Total 700 Balance -700 880 Intake: Oral 880 Output: Urine 700 Other: Voiding Method Urinal Diaper Incontinent # Voids 1 # Bowel Movements 1 1 - Exam PHYSICAL EXAM: VITAL SIGNS: As above GENERAL: Sitting up in bed, no acute distress HEENT: Conjunctivae normal. eyes normal. NECK: No JVD. No thyroid enlargement. No LNs CARDIOVASCULAR: S1, S2 regular.No murmur RESPIRATION: Breath sounds diminished in the bases. No rhonchi or crackles. ABDOMEN: Soft, nontender . No guarding. no masses palpable. Bowel sounds heard. LEGS: No edema. No calf tenderness PSYCHIATRY: Alert and oriented X3, mood and affect normal. NERVOUS SYSTEM: Cranial N 2-12 grossly normal. Moves all 4 limbs. No focal deficits. Strength and sensation grossly intact.. Skin: Warm and dry, no rash - Labs CBC & Chem 7: 12/02/19 18:19 12/04/19 06:21 Assessment and Plan Assessment: Seizure disorder, possible breakthrough focal seizures. History of right posterior parietal CVA .MRI reported no acute stroke, with no definitive evidence of normal pressure hydrocephalus as per neurology review. Wide-complex idioventricular rhythm Dilated aortic root 4 cm Hypertension Chronic nicotine dependence Plan: Continue on current medication regime, monitoring and symptomatic treatment. Social work assisting with discharge planning for subacute rehab. Authorization pending. coronavirus testing reported as negative on 12/05. Smoking cessation reinforced. Nicotine patch added to med regimen. The impression and plan of care has been dictated as directed. : I performed a history and examination of this patient, discussed the same with the dictator. I agree with the dictator's note ,documented as a scribe. Any additional findings or plans will be noted.
[2019-12-07] MEDS: NICOTINE 21MG/24HR PATCH TRANSDERM SCH (16:53)
[2019-12-07] MEDS: SODIUM CHLORIDE 0.9% 1,000 ML IV SCH (19:58)
[2019-12-07] MEDS: SERTRALINE 100 MG TAB PO SCH (22:22)
[2019-12-07] MEDS: traZODone HCL 100 MG TAB PO PRN (22:23)
[2019-12-08 03:55] VITALS: TEMP 97.4
[2019-12-08 07:55] LABS: African American GFR (CKD) >90 (>60 ml/min/1.73 sqM); Anion Gap 6 mmol/L; Blood Urea Nitrogen 18 mg/dL (9-20); Calcium 9.5 mg/dL (8.4-10.2); Carbon Dioxide 28 mmol/L (22-30); Chloride 104 mmol/L (98-107); Glucose 73 mg/dL (74-99); Non-African American GFR(CKD) 87 (>60 ml/min/1.73 sqM); Potassium 4.7 mmol/L (3.5-5.1); Sodium 138 mmol/L (137-145)
[2019-12-08 08:01] LABS: HCT 46.8 % (39.0-53.0); HGB 13.6 gm/dL (13.0-17.5); MCH 24.4 pg (25.0-35.0); MCHC 29.1 g/dL (31.0-37.0); MCV 83.6 fL (80.0-100.0); WBC 5.3 k/uL (3.8-10.6)
[2019-12-08 08:02] LABS: Anisocytosis Slight; Basophils # (A) 0.1 k/uL (0-0.2); Basophils % (A) 1 %; Eosinophils # (A) 0.1 k/uL (0-0.7); Eosinophils % (A) 2 %; Hypochromasia Marked; Lymphocytes # (A) 1.5 k/uL (1.0-4.8); Lymphocytes % (A) 28 %; Mean Platelet Volume 8.8; Monocytes # (A) 0.5 k/uL (0-1.0); Monocytes % (A) 9 %; Neutrophils # (A) 3.1 k/uL (1.3-7.7); Neutrophils % (A) 58 %; Platelet Count 391 k/uL (150-450); RDW 16.6 % (11.5-15.5)
[2019-12-08] MEDS ORDERED: ACETAMINOPHEN TAB 325 MG TAB ONE (08:16)
[2019-12-08] MEDS: ACETAMINOPHEN TAB 325 MG TAB PO PRN (08:18)
[2019-12-08] MEDS: FERROUS SULFATE 325 MG TAB PO SCH (08:59)
[2019-12-08] MEDS: DIVALPROEX ER 500 MG TAB.ER.24H PO SCH (08:59)
[2019-12-08] MEDS: amLODIPine 10 MG TAB PO SCH (08:59)
[2019-12-08] MEDS: levETIRAcetam 500 MG TAB PO SCH (08:59)
[2019-12-08] MEDS: DOCUSATE 100 MG CAP PO SCH (08:59)
[2019-12-08] MEDS: ASPIRIN 81 MG PO SCH (08:59)
[2019-12-08] MEDS: CHOLECALCIFEROL 1,000 UNIT TAB PO SCH (08:59)
[2019-12-08] MEDS: GABAPENTIN 100 MG CAP PO SCH (08:59)
[2019-12-08] MEDS: DIVALPROEX ER 250 MG TAB.ER.24H PO SCH (08:59)
[2019-12-08] MEDS: lisinopriL 20 MG TAB PO SCH (09:00)
[2019-12-08] MEDS: NICOTINE 21MG/24HR PATCH TRANSDERM SCH (09:00)
[2019-12-08 11:56] VITALS: BP 113/75; PULSE 63
--- NOTE | 2019-12-08 13:43 | P.DS ---
Providers Date of admission: 12/02/19 19:41 Expected date of discharge: 12/08/19 Attending physician: Cristóbal Scott Consults: 12/02/19 18:36 Consult Physician Routine Consulting Provider: Maurizio Stroud Consult Reason/Comments: seizure vs. stroke Do you want consulting provider notified?: Yes 12/04/19 12:04 Consult Physician Routine Consulting Provider: Khang Aguirre Consult Reason/Comments: 20 beat run of VTach Do you want consulting provider notified?: Yes 12/06/19 07:00 Consult to Anesthesia Routine Consulting Provider: Anesthesia,Services Consult Reason/Comments: Epidural neck shot Primary care physician: [facility] Hospital Course: Final Diagnoses: Seizure disorder, possible breakthrough focal seizures. History of right posterior parietal CVA .MRI reported no acute stroke, with no definitive evidence of normal pressure hydrocephalus as per neurology review. Wide-complex idioventricular rhythm Dilated aortic root 4 cm Hypertension Chronic nicotine dependence Hospital course:This is a 63-year-old gentleman admitted with seizure disorder, wide-complex idioventricular rhythm, hypertension and multiple other medical issues. Evaluated by both cardiology and nephrology with recommendations noted and appreciated. Remains off of beta blockers. Echo completed this morning reporting low normal LV function, EF between 50-55%, mild tricuspid regurgitation, dilated aortic root 4 cm. no seizure activity. Interventional radiology consulted for cervical epidural. 12/07/2019 evaluated by pain management recommending epidural outpatient. A uthorization in progress for her subacute rehab-[facility]. No overnight events. No further seizure activity. Denies chest pain, palpitations or shortness of breath. Denies lightheadedness, dizziness or focal deficits. Significant clinical improvement. Cleared by all consults for discharge. Patient is being discharged to [facility] subacute rehab in a stable condition with guarded prognosis today. The impression and plan of care has been dictated as directed. : I performed a history and examination of this patient, discussed the same with the dictator. I agree with the dictator's note ,documented as a scribe. Any additional findings or plans will be noted. Patient Condition at Discharge: Stable Plan - Discharge Summary Discharge Rx Participant: No New Discharge Prescriptions: New Aspirin 81 mg PO DAILY chew Docusate [Colace] 100 mg PO BID cap Divalproex ER [Depakote ER] 250 mg PO BID tab.er.24h Divalproex ER [Depakote ER] 500 mg PO BID tab.er.24h Nicotine 21Mg/24Hr Patch [Habitrol] 1 patch TRANSDERM DAILY patch levETIRAcetam [Keppra] 500 mg PO Q12HR tab Gabapentin [Neurontin] 100 mg PO TID #9 cap Acetaminophen Tab [Tylenol] 650 mg PO Q6HR PRN tab PRN Reason: Fever And/ Or Pain Continue Sertraline [Zoloft] 150 mg PO HS traZODone HCL [Desyrel] 200 mg PO HS PRN PRN Reason: sleep Cholecalciferol [Vitamin D3 (25 Mcg = 1000 Iu)] 5,000 unit PO DAILY Naproxen 500 mg PO DAILY PRN PRN Reason: Pain lisinopriL 40 mg PO DAILY Ferrous Sulfate [Iron (65 MG Elemental)] 325 mg PO DAILY amLODIPine [Norvasc] 10 mg PO DAILY hydrOXYzine pamoate [Vistaril] 25 mg PO TID PRN PRN Reason: Anxiety Discontinued Aspirin 325 mg PO DAILY Valproic Acid [Depakene] 750 mg PO BID Discharge Medication List Sertraline [Zoloft] 150 mg PO HS 06/18/17 [History] Cholecalciferol [Vitamin D3 (25 Mcg = 1000 Iu)] 5,000 unit PO DAILY 12/10/17 [History] Ferrous Sulfate [Iron (65 MG Elemental)] 325 mg PO DAILY 12/10/17 [History] Naproxen 500 mg PO DAILY PRN 12/10/17 [History] lisinopriL 40 mg PO DAILY 12/10/17 [History] traZODone HCL [Desyrel] 200 mg PO HS PRN 12/10/17 [History] amLODIPine [Norvasc] 10 mg PO DAILY 12/02/19 [History] hydrOXYzine pamoate [Vistaril] 25 mg PO TID PRN 12/02/19 [History] Acetaminophen Tab [Tylenol] 650 mg PO Q6HR PRN tab 12/08/19 [Rx] Aspirin 81 mg PO DAILY chew 12/08/19 [Rx] Divalproex ER [Depakote ER] 250 mg PO BID tab.er.24h 12/08/19 [Rx] Divalproex ER [Depakote ER] 500 mg PO BID tab.er.24h 12/08/19 [Rx] Docusate [Colace] 100 mg PO BID cap 12/08/19 [Rx] Gabapentin [Neurontin] 100 mg PO TID #9 cap 12/08/19 [Rx] Nicotine 21Mg/24Hr Patch [Habitrol] 1 patch TRANSDERM DAILY patch 12/08/19 [Rx] levETIRAcetam [Keppra] 500 mg PO Q12HR tab 12/08/19 [Rx] Follow up Appointment(s)/Referral(s): Cristóbal Scott MD [Primary Care Provider] - 1-2 days Activity/Diet/Wound Care/Special Instructions: [facility] CBC,BMP in 3 days
== END 2019-12-08 15:29 | DRG 101 ==
LOC: EC 17:52 → 5NMEDONC 19:41 → 6NMEDSUR 12-08 06:55
PROVIDERS: ADMIT Family Medicine; ATTEND Family Medicine
DX: G40.89 Other seizures (principal); I44.2 Atrioventricular block, complete; I10 Essential (primary) hypertension; K21.9 Gastro-esophageal reflux disease without esophagitis; F32.9 Major depressive disorder, single episode, unspecified; F41.9 Anxiety disorder, unspecified; F17.200 Nicotine dependence, unspecified, uncomplicated; R20.0 Anesthesia of skin; R53.1 Weakness; H53.469 Homonymous bilateral field defects, unspecified side; M47.812 Spondylosis without myelopathy or radiculopathy, cervical region; Z20.828 Contact with and (suspected) exposure to other viral communicable diseases; M48.02 Spinal stenosis, cervical region; I77.819 Aortic ectasia, unspecified site; I08.1 Rheumatic disorders of both mitral and tricuspid valves; M54.12 Radiculopathy, cervical region; I44.4 Left anterior fascicular block; M19.90 Unspecified osteoarthritis, unspecified site; Z86.73 Personal history of transient ischemic attack (TIA), and cerebral infarction without residual deficits; Z83.3 Family history of diabetes mellitus; Z87.11 Personal history of peptic ulcer disease; Z98.890 Other specified postprocedural states; Z79.82 Long term (current) use of aspirin; Z79.899 Other long term (current) drug therapy
CPT/HCPCS: 36415; 70450; 70496; 70498; 70551; 72125; 80048; 80053; 80164; 83036; 83735; 84443; 85025; 93005; 93306; 95816; 96374; 96375; 99285

== ENCOUNTER → 2020-04-03 | Outpatient (CLI) | payer OTHER ==
--- NOTE | 2020-04-03 14:24 | XR ---
EXAMINATION TYPE: XR lumbar spine 3 views DATE OF EXAM: 04/03/2020 Comparison: 07/14/2015 Clinical History: 64-year-old male increased chronic back pain. M54.5 M25.551 M25.552 Findings: 5 lumbar type vertebral bodies. Moderate degenerative disc disease mid to lower lumbar spine with dis c space narrowing and endplate spondylosis. Hypertrophic facet arthropathy mid to lower lumbar spine as well. Vertebral body heights are preserved and alignment is maintained. The changes have progresse d from 2016. Impression: Moderate degenerative disc disease and hypertrophic facet arthropathy mid to lower lumbar spine, prog ressed from 2016. No vertebral compression collapse or malalignment.
--- NOTE | 2020-04-03 14:26 | XR ---
EXAMINATION TYPE: XR Hip Bilateral Complete DATE OF EXAM: 04/03/2020 COMPARISON: NONE HISTORY: 64-year-old male M54.5, M25.551, M25.552 TECHNIQUE: 2 views each side FINDINGS: Moderate axial joint space narrowing left hip with prominent subchondral sclerosis and cystic change. Collar osteophytes of the femoral head neck junction. Similar but more mild degenerative change at the right hip. No acute fracture, subluxation, dislocation. IMPRESSION: Moderate left and [id number] right hip OA. No acute osseous abnormality seen.
== END | disposition home or self-care (01) ==
LOC: RADXRMAIN 11:52
PROVIDERS: ATTEND Internal Medicine
DX: M51.36 Other intervertebral disc degeneration, lumbar region (principal); M47.816 Spondylosis without myelopathy or radiculopathy, lumbar region; M16.11 Unilateral primary osteoarthritis, right hip; M25.551 Pain in right hip; M25.552 Pain in left hip
CPT/HCPCS: 72100; 73521

== ENCOUNTER → 2020-04-28 | Outpatient (CLI) | payer OTHER | END | disposition home or self-care (01) | LOC: LABWHC1 12:13 | PROVIDERS: ATTEND Psychiatry & Neurology Neurology | DX: R56.9 Unspecified convulsions (principal) | CPT/HCPCS: 36415; 80164 ==

== ENCOUNTER 2020-07-03 11:51 | Observation (INO) | payer OTHER ==
[2020-07-03] MEDS ORDERED: FAMOTIDINE 20 MG/2 ML VIAL IV STA (12:15)
[2020-07-03] MEDS ORDERED: ONDANSETRON 4 MG/2 ML VIAL IVP STA (12:15)
[2020-07-03] MEDS ORDERED: SODIUM CHLORIDE 0.9% 1,000 ML IV STA (12:15)
[2020-07-03] MEDS ORDERED: LORazepam 2 MG/ML INJ IV STA ×2 (12:15→13:55)
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
[2020-07-03 13:16] LABS: Anisocytosis Slight; Basophils # (A) 0.1 k/uL (0-0.2); Basophils % (A) 1 %; Eosinophils # (A) 0.1 k/uL (0-0.7); Eosinophils % (A) 1 %; HCT 51.4 % (39.0-53.0); HGB 15.2 gm/dL (13.0-17.5); Hypochromasia Marked; Lymphocytes % (A) 16 %; MCH 22.9 pg (25.0-35.0); MCHC 29.6 g/dL (31.0-37.0); MCV 77.1 fL (80.0-100.0); Microcytosis Slight; Monocytes # (A) 0.3 k/uL (0-1.0); Monocytes % (A) 5 %; Neutrophils # (A) 4.8 k/uL (1.3-7.7); Neutrophils % (A) 75 %; Platelet Count 351 k/uL (150-450); RBC 6.67 m/uL (4.30-5.90); WBC 6.4 k/uL (3.8-10.6)
[2020-07-03 13:21] LABS: ALT 25 U/L (4-49); AST 45 U/L (17-59); African American GFR (CKD) >90 (>60 ml/min/1.73 sqM); Alcohol <10 mg/dL; Alkaline Phosphatase 138 U/L (38-126); Anion Gap 15 mmol/L; Blood Urea Nitrogen 20 mg/dL (9-20); Calcium 9.8 mg/dL (8.4-10.2); Carbon Dioxide 25 mmol/L (22-30); Chloride 101 mmol/L (98-107); Glucose 101 mg/dL (74-99); Magnesium 1.8 mg/dL (1.6-2.3); Non-African American GFR(CKD) 80 (>60 ml/min/1.73 sqM); Potassium 4.8 mmol/L (3.5-5.1); Sodium 141 mmol/L (137-145); Total Bilirubin 0.9 mg/dL (0.2-1.3); Total Protein 8.5 g/dL (6.3-8.2)
[2020-07-03 13:25] LABS: Valproic Acid (Depakene) 12.2 ug/mL
[2020-07-03] MEDS ORDERED: levETIRAcetam 500 MG TAB PO STA (13:25)
[2020-07-03 13:32] LABS: Poikilocytosis (M) Present; Polychromasia Present; Target Cells Present
[2020-07-03] MEDS ORDERED: DIVALPROEX 500 MG TABLET.DR PO STA (13:40)
[2020-07-03] MEDS ORDERED: lisinopriL 20 MG TAB PO STA (13:56)
[2020-07-03] MEDS ORDERED: amLODIPine 10 MG TAB PO STA (13:56)
[2020-07-03] MEDS ORDERED: LORazepam 1 MG TAB PO STA (14:14)
[2020-07-03] MEDS ORDERED: ONDANSETRON 4 MG/2 ML VIAL IVP PRN (15:01)
[2020-07-03] MEDS ORDERED: NALOXONE 0.4 MG/ML 1 ML VIAL IV PRN (15:01)
--- NOTE | 2020-07-03 15:01 | ED ---
Medical Decision Making - Medical Decision Making Patient is having persistent vomiting and no longer feels comfortable with discharge. Dr. roque has been paged for admission covering for hospital call. - Lab Data Result diagrams: 07/03/20 12:37 07/03/20 12:37 Lab Results 07/03/20 07/03/20 Range/Units 12:37 12:37 WBC 6.4 (3.8-10.6) k/uL RBC 6.67 H (4.30-5.90) m/uL Hgb 15.2 (13.0-17.5) gm/dL Hct 51.4 (39.0-53.0) % MCV 77.1 L (80.0-100.0) fL MCH 22.9 L (25.0-35.0) pg MCHC 29.6 L (31.0-37.0) g/dL RDW 19.0 H (11.5-15.5) % Plt Count 351 (150-450) k/uL MPV 7.0 Neutrophils % 75 % Lymphocytes % 16 % Monocytes % 5 % Eosinophils % 1 % Basophils % 1 % Neutrophils # 4.8 (1.3-7.7) k/uL Lymphocytes # 1.0 (1.0-4.8) k/uL Monocytes # 0.3 (0-1.0) k/uL Eosinophils # 0.1 (0-0.7) k/uL Basophils # 0.1 (0-0.2) k/uL Manual Slide Review Performed Polychromasia Present Hypochromasia Marked Poikilocytosis (manual Present Anisocytosis Slight Microcytosis Slight Target Cells Present Sodium 141 (137-145) mmol/L Potassium 4.8 (3.5-5.1) mmol/L Chloride 101 (98-107) mmol/L Carbon Dioxide 25 (22-30) mmol/L Anion Gap 15 mmol/L BUN 20 (9-20) mg/dL Creatinine 1.00 (0.66-1.25) mg/dL Est GFR (CKD-EPI)AfAm >90 (>60 ml/min/1.73 sqM) Est GFR (CKD-EPI)NonAf 80 (>60 ml/min/1.73 sqM) Glucose 101 H (74-99) mg/dL Calcium 9.8 (8.4-10.2) mg/dL Magnesium 1.8 (1.6-2.3) mg/dL Total Bilirubin 0.9 (0.2-1.3) mg/dL AST 45 (17-59) U/L ALT 25 (4-49) U/L Alkaline Phosphatase 138 H (38-126) U/L Total Protein 8.5 H (6.3-8.2) g/dL Albumin 5.0 (3.5-5.0) g/dL Valproic Acid 12.2 ug/mL Serum Alcohol <10 mg/dL Disposition Clinical Impression: Epileptic seizure, generalized, Hypertension, Alcohol withdrawal Disposition: ADMITTED IP TO THIS [facility] Condition: Stable Instructions (If sedation given, give patient instructions): Recurrent Seizures in Adults (ED) Additional Instructions: Please do follow-up with primary care physician in the next day or 2 for recheck. Have primary care physician recheck Depakote level. Please take your morning Depakote dose when you get home and yor evening dose tonight as regular. Return for seizures, weakness or confusion, fevers, intractable vomiting, worsening symptoms or other concerns. Is patient prescribed a controlled substance at d/c from ED?: No Referrals: Balaji George MD [REFERRING] - 1-2 days Decision Time: 15:01
[2020-07-03] MEDS ORDERED: THIAMINE 100 MG/ML 2 ML VIAL IM STA ×2 (15:02→16:06)
[2020-07-03] MEDS ORDERED: LORazepam 2 MG/ML INJ IV PRN ×4 (15:02)
[2020-07-03] MEDS ORDERED: SODIUM CHLORIDE 0.9% 1,000 ML IV SCH (15:15)
[2020-07-03] MEDS: hydrALAZINE HCL 20 MG/ML 1 ML VIAL IVP PRN ×3 (16:02→22:31)
[2020-07-03] MEDS ORDERED: ACETAMINOPHEN TAB 325 MG TAB PO PRN (16:40)
[2020-07-03] MEDS ORDERED: cloNIDine HCL 0.1 MG TAB PO PRN (18:31)
[2020-07-03] MEDS: cloNIDine HCL 0.1 MG TAB PO SCH ×2 (18:37→21:03)
[2020-07-03] MEDS: THIAMINE 100 MG TAB PO SCH (18:37)
[2020-07-03] MEDS ORDERED: CYCLOBENZAPRINE 5 MG TAB PO PRN (19:11)
[2020-07-03] MEDS ORDERED: hydrOXYzine pamoate 25 MG CAP PO PRN (19:11)
[2020-07-03] MEDS ORDERED: NAPROXEN 250 MG TAB PO PRN (19:11)
[2020-07-03] MEDS ORDERED: HYDROmorphone 0.5 MG/0.5 ML SYRINGE IVP PRN (19:14)
[2020-07-03] MEDS ORDERED: TEMAZEPAM 15 MG CAP PO PRN (19:14)
[2020-07-03] MEDS ORDERED: HYDROcodone/APAP 5-325MG 1 EACH TAB PO PRN (19:14)
--- NOTE | 2020-07-03 20:24 | CT ---
EXAMINATION TYPE: CT brain wo con DATE OF EXAM: 07/03/2020 COMPARISON: 12/02/2019 HISTORY: seizure CT DLP: 1076.4 mGycm Automated exposure control for dose reduction was used. Images were obtained of the brain without contrast. There is diffuse cerebral atrophy. There is patchy hypodensity in the periventricular white matter. T here is asymmetric enlargement of the right lateral ventricle. There is no midline shift. There is no sign of intracranial hemorrhage. The calvarium is intact. IMPRESSION: Cerebral atrophy. Chronic small vessel ischemia. Hydrocephalus. No change compared to old exam.
--- NOTE | 2020-07-03 20:36 | HP ---
HISTORY AND PHYSICAL DATE OF SERVICE: 07/03/2020 CHIEF COMPLAINTS: Seizure disorder, hypertension. HISTORY OF PRESENT ILLNESS: This 64-year-old gentleman with a past medical history of CVA, TIA, history of hypertension, history of DJD, seizure disorder, being followed by Dr. Tirado and Dr. George in the outpatient setting, apparently had an episode of breakthrough seizures. The patient had a previous seizure also. The patient also had some vomiting. The patient was found to be tachycardic and also had elevated hypertension and hypertensive urgency. The patient was having seizures apparently a couple of times a month, according to the patient. The patient was taken to [facility] and was admitted for further evaluation. Alcohol withdrawal has been suspected, but patient refuses history of any alcohol intake at this time. There is no history of any fever, rigors or chills at this time. PAST MEDICAL HISTORY: History of CVA, TIA, history of GERD, hypertension, DJD, history of seizure disorder, syncope. HOME MEDICATIONS: Desyrel, lisinopril, Vistaril, Norvasc, Depakene, Zoloft, Naprosyn, iron, Depakote ER, Flexeril, vitamin D3, aspirin. Doses are reviewed. ALLERGIES: NONE. FAMILY HISTORY: Unknown. SOCIAL HISTORY: History of smoking. No history of alcohol per chart and per patient's history. REVIEW OF SYSTEMS: ENT: Diminished hearing. Diminished vision. CARDIOVASCULAR SYSTEM: No angina, palpitations. RESPIRATORY SYSTEM: No cough, hemoptysis. GI: No nausea, vomiting, diarrhea. : No dysuria or retention. NERVOUS SYSTEM: As mentioned earlier. ALLERGY/IMMUNOLOGY: No asthma, hayfever. MUSCULOSKELETAL: As mentioned earlier. HEMATOLOGY/ONCOLOGY: No history of anemia. ENDOCRINE: No history of diabetes, hypothyroidism. CONSTITUTIONAL: As mentioned earlier. DERMATOLOGY: Negative. RHEUMATOLOGY: Negative. PSYCHIATRY: As mentioned earlier. PHYSICAL EXAMINATION: Patient is alert, oriented x3. The pulse is 112, blood pressure 175/114, respiration 18, temperature 98 degrees, pulse ox 97% on room air. HEENT: Conjunctivae normal. Oral mucosa moist. NECK: No jugular venous distention. No carotid bruit. No lymph node enlargement. CARDIOVASCULAR SYSTEM: S1, S2 muffled. No S3. No S4. RESPIRATORY SYSTEM: Breath sounds diminished at the bases. No rhonchi. No crackles. ABDOMEN: Soft, non-tender. No mass palpable. LEGS: No edema. No swelling. NERVOUS SYSTEM: Higher functions as mentioned earlier. Moves all 4 limbs. No focal motor or sensory deficit. LYMPHATICS: No lymph node palpable in neck, axillae or groin. SKIN: No ulcer, rash, bleeding. JOINTS: No active deforming arthropathy. LABS: WBC 6.5, hemoglobin 15.2, and MCV 77.1. Glucose 101. Alkaline phosphatase 138. Total protein is 8.5. COVID-19 is negative. ASSESSMENT: 1. Acute seizure disorder with breakthrough seizures. 2. Change in mental status, metabolic encephalopathy. 3. Hypertensive urgency and accelerated hypertension. 4. History of cerebrovascular accident, transient ischemic attack. 5. Gastroesophageal reflux disease. 6. Hypertension. 7. History of degenerative joint disease. 8. Seizure disorder. 9. History of syncope. 10.History of wide complex idioventricular rhythm. 11.History of anxiety, depression. 12.History of nicotine dependence. 13.History of tetrahydrocannabinol. 14.FULL CODE. RECOMMENDATIONS AND DISCUSSION: In this 64-year-old gentleman who presented with multiple complex medical issues, we will monitor the patient closely, continue the current medications, continue symptomatic treatment. Otherwise, at this time the patient has significantly elevated high blood pressure. I will initiate clonidine and offer clonidine p.r.n. also. Full neurovascular workup and neurology consultation also will be ordered. Resume the home medications. [facility] protocol empirically, even though patient refuses history of alcohol. Drug screen. Prognosis guarded. Further recommendations to follow. A copy of this dictation is being forwarded to Dr. George, who is the primary physician. MMODL / IJN: [id number] /
[2020-07-03] MEDS: traZODone HCL 100 MG TAB PO SCH (21:03)
[2020-07-03] MEDS: DIVALPROEX ER 250 MG TAB.ER.24H PO SCH (21:03)
[2020-07-03] MEDS: SERTRALINE 50 MG TAB PO SCH (21:03)
[2020-07-03] MEDS: HEPARIN SODIUM,PORCINE 5,000 UNIT/ML 1 ML VIAL SQ SCH (21:03)
[2020-07-03] MEDS: DIVALPROEX ER 500 MG TAB.ER.24H PO SCH (21:03)
[2020-07-04 05:49] LABS: Amphetamine Screen,Urine Not Detected (NotDetected); Barbiturate Screen,Urine Not Detected (NotDetected); Benzodiazepines Screen,Urine Detected (NotDetected); Cocaine Screen,Urine Not Detected (NotDetected); Methadone Screen, Urine Not Detected (NotDetected); Opiate Screen,Urine Not Detected (NotDetected); Oxycodone Screen, Urine Not Detected (NotDetected); Phencyclidine Screen,Urine Not Detected (NotDetected); Tricyclic Antidepressant,Urine Not Detected (NotDetected); Urn Cannabinoid Scrn Detected (NotDetected)
[2020-07-04 06:08] LABS: Appearance,Urine Clear (Clear); Bilirubin,Urine Negative (Negative); Blood,Urine Negative (Negative); Color,Urine Yellow; Glucose,Urine (UA) Negative (Negative); Ketones,Urine 1+ (Negative); Leukocyte Esterase,Urine Negative (Negative); Nitrite,Urine Negative (Negative); PH, Urine 6.5 (5.0-8.0); Protein,Urine Trace (Negative); Specific Gravity,Urine 1.023 (1.001-1.035)
[2020-07-04] MEDS: THIAMINE 100 MG TAB PO SCH ×2 (06:32→16:56)
[2020-07-04 08:25] LABS: Anisocytosis Slight; Basophils # (A) 0.1 k/uL (0-0.2); Basophils % (A) 1 %; Eosinophils # (A) 0.1 k/uL (0-0.7); Eosinophils % (A) 1 %; HCT 43.4 % (39.0-53.0); HGB 13.7 gm/dL (13.0-17.5); Hypochromasia Slight; Lymphocytes # (A) 1.3 k/uL (1.0-4.8); Lymphocytes % (A) 19 %; MCH 23.6 pg (25.0-35.0); MCHC 31.6 g/dL (31.0-37.0); MCV 74.8 fL (80.0-100.0); Mean Platelet Volume 8.6; Microcytosis Moderate; Monocytes # (A) 0.5 k/uL (0-1.0); Monocytes % (A) 8 %; Neutrophils # (A) 4.7 k/uL (1.3-7.7); Neutrophils % (A) 71 %; Platelet Count 338 k/uL (150-450); RBC 5.81 m/uL (4.30-5.90); RDW 18.9 % (11.5-15.5); WBC 6.7 k/uL (3.8-10.6)
[2020-07-04 08:34] LABS: Calcium 9.5 mg/dL (8.4-10.2); Potassium 4.6 mmol/L (3.5-5.1)
[2020-07-04] MEDS ORDERED: VALPROIC ACID ORAL SOLN 250 MG/5 ML CUP PO SCH (09:00)
[2020-07-04] MEDS: FERROUS SULFATE 325 MG TAB PO SCH (09:01)
[2020-07-04] MEDS: ASPIRIN 325 MG TAB PO SCH (09:01)
[2020-07-04] MEDS: DIVALPROEX ER 500 MG TAB.ER.24H PO SCH ×2 (09:02→19:37)
[2020-07-04] MEDS: amLODIPine 10 MG TAB PO SCH (09:02)
[2020-07-04] MEDS: cloNIDine HCL 0.1 MG TAB PO SCH ×3 (09:02→19:38)
[2020-07-04] MEDS: CHOLECALCIFEROL 25 MCG (1000 IU) TABLET PO SCH (09:02)
[2020-07-04] MEDS: lisinopriL 20 MG TAB PO SCH (09:02)
[2020-07-04] MEDS: MULTIVITAMINS, THERA 1 EACH TAB PO SCH (09:02)
[2020-07-04] MEDS: HEPARIN SODIUM,PORCINE 5,000 UNIT/ML 1 ML VIAL SQ SCH ×2 (09:03→19:37)
[2020-07-04] MEDS: DIVALPROEX ER 250 MG TAB.ER.24H PO SCH ×2 (09:03→19:37)
[2020-07-04] MEDS: PANTOPRAZOLE 40 MG/10 ML VIAL IV SCH (09:03)
[2020-07-04] MEDS: hydrALAZINE HCL 20 MG/ML 1 ML VIAL IVP PRN (09:11)
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
[2020-07-04] MEDS: FOLIC ACID 1 MG TAB PO SCH (12:37)
--- NOTE | 2020-07-04 15:12 | PN ---
PROGRESS NOTE DATE OF SERVICE: 07/04/2020. This 64-year-old gentleman admitted with seizure disorder, hypertension, being closely monitored. No chest pain. No palpitations. No fever. Medications adjusted. Neurology has seen the patient. PHYSICAL EXAMINATION: Alert and oriented x3. Pulse is 120, blood pressure 170/102, respiration 22, temperature 97.9, pulse ox 97% on room air. HEENT: Conjunctivae normal. NECK: No jugular venous distention. CARDIOVASCULAR: S1, S2 muffled. RESPIRATORY: Breath sounds diminished at the bases. No rhonchi, no crackles. ABDOMEN: Soft, nontender. LEGS: No edema, no swelling. NERVOUS SYSTEM: No focal deficits. LABS: WBC 6.7, hemoglobin 13.7. Sodium 136. UA noted. Drug screen is positive for benzodiazepines and THC. Alcohol less than 10. ASSESSMENT: 1. Acute seizure disorder with breakthrough seizures. 2. Change in mental status, acute metabolic encephalopathy. 3. Hypertensive urgency and accelerated hypertension. 4. History of cerebrovascular accident, transient ischemic attack. 5. Gastroesophageal reflux disease. 6. Hypertension. 7. History of degenerative joint disease. 8. History of seizure disorder. 9. History of syncope. 10.History of wide complex idioventricular rhythm. 11.History of anxiety, depression. 12.History of nicotine dependence. 13.History of THC. 14.FULL CODE. RECOMMENDATIONS AND DISCUSSION: Recommend to continue the current medications, continue symptomatic treatment. Continue with Depakote and also add hydralazine to the current regimen. Continue to monitor. Further recommendations to follow. MMODL / IJN: [id number] /
[2020-07-04] MEDS: hydrALAZINE HCL 50 MG TAB PO SCH ×2 (16:56→19:38)
[2020-07-04] MEDS ORDERED: CALCIUM CARBONATE 500 MG CHEWABLE PO PRN (18:41)
[2020-07-04] MEDS: traZODone HCL 100 MG TAB PO SCH (19:37)
[2020-07-04] MEDS: SERTRALINE 50 MG TAB PO SCH (19:37)
[2020-07-04] MEDS ORDERED: ATORVASTATIN 20 MG TAB PO SCH (21:00)
[2020-07-05 00:20] VITALS: RESP 16
[2020-07-05 04:17] VITALS: PULSE 102; TEMP 98.1
[2020-07-05] MEDS: THIAMINE 100 MG TAB PO SCH (06:18)
[2020-07-05 07:47] LABS: Anisocytosis Slight; Basophils % (A) 0 %; Eosinophils # (A) 0.1 k/uL (0-0.7); Eosinophils % (A) 1 %; HCT 43.1 % (39.0-53.0); HGB 13.5 gm/dL (13.0-17.5); Hypochromasia Slight; Lymphocytes # (A) 1.4 k/uL (1.0-4.8); Lymphocytes % (A) 22 %; MCH 23.2 pg (25.0-35.0); MCHC 31.2 g/dL (31.0-37.0); MCV 74.4 fL (80.0-100.0); Mean Platelet Volume 8.9; Microcytosis Moderate; Monocytes # (A) 0.5 k/uL (0-1.0); Monocytes % (A) 8 %; Neutrophils # (A) 4.1 k/uL (1.3-7.7); Neutrophils % (A) 65 %; Platelet Count 292 k/uL (150-450); RBC 5.79 m/uL (4.30-5.90); RDW 18.7 % (11.5-15.5); WBC 6.2 k/uL (3.8-10.6)
[2020-07-05 07:58] LABS: Calcium 9.7 mg/dL (8.4-10.2); Potassium 4.3 mmol/L (3.5-5.1)
[2020-07-05 09:13] LABS: Valproic Acid (Depakene) 74.1 ug/mL
[2020-07-05] MEDS: ASPIRIN 325 MG TAB PO SCH (09:35)
[2020-07-05] MEDS: PANTOPRAZOLE 40 MG/10 ML VIAL IV SCH (09:35)
[2020-07-05] MEDS: HEPARIN SODIUM,PORCINE 5,000 UNIT/ML 1 ML VIAL SQ SCH (09:35)
[2020-07-05] MEDS: CHOLECALCIFEROL 25 MCG (1000 IU) TABLET PO SCH (09:35)
[2020-07-05] MEDS: amLODIPine 10 MG TAB PO SCH (09:35)
[2020-07-05] MEDS: hydrALAZINE HCL 50 MG TAB PO SCH (09:36)
[2020-07-05] MEDS: DIVALPROEX ER 250 MG TAB.ER.24H PO SCH (09:36)
[2020-07-05] MEDS: lisinopriL 20 MG TAB PO SCH (09:36)
[2020-07-05] MEDS: DIVALPROEX ER 500 MG TAB.ER.24H PO SCH (09:36)
[2020-07-05] MEDS: FERROUS SULFATE 325 MG TAB PO SCH (09:36)
[2020-07-05] MEDS: cloNIDine HCL 0.1 MG TAB PO SCH (09:36)
--- NOTE | 2020-07-05 09:50 | P.PN ---
Subjective Progress Note Date: 07/05/20 The patient was seen at bedside and stated that he is doing better today compared the today's initial presentation. Denies any further seizures. Denies of any new neurological complaints. Per the patient nurse the patient has not had any further seizures since being in the hospital. Objective - Vital Signs Vital signs: Vital Signs Temp 98.1 F 07/05/20 04:00 Pulse 102 H 07/05/20 04:00 Resp 16 07/05/20 04:00 BP 125/83 07/05/20 04:00 Pulse Ox 95 07/05/20 04:00 Intake & Output 07/04/20 07/05/20 07/05/20 18:59 06:59 18:59 Intake Total 960 540 Balance 960 540 Weight 80.3 kg Intake: Oral 960 540 Other: Voiding Method Urinal Urinal # Voids 2 1 - Exam GENERAL: The patient is lying in bed and is not in acute distress. NEUROLOGICAL: Higher mental function: The patient is awake, alert, oriented to self, place and time. Patient is following commands. No aphasia and no neglect. Cranial nerves: The pupils are round, equal and reactive to light and accommodation. Visual estrella left homonymous hemianposia to confrontation. Extraocular movement is intact no nystagmus is noted. Facial sensation is normal to touch throughout. The facial strength is normal throughout. Hearing is normal bilaterally to hand rub. Tongue is midline and moved [id number] without any difficulty. No dysarthria is noted. Shoulder shrug is normal bilaterally. Motor: Gait is deferred. The strength is 5 over 5 throughout. Normal tone and bulk. Cerebellum: Normal finger to nose bilaterally. Sensation: Sensation is normal to touch throughout. Reflexes (right/left): 2+ throughout. Plantars are downgoing bilaterally. - Labs CBC & Chem 7: 07/05/20 06:54 07/05/20 06:54 Labs: Abnormal Lab Results - Last 24 Hours (Table) 07/04/20 07/04/20 07/05/20 Range/Units 07:21 07:21 06:54 MCV 74.8 L 74.4 L (80.0-100.0) fL MCH 23.6 L 23.2 L (25.0-35.0) pg RDW 18.9 H 18.7 H (11.5-15.5) % Sodium 136 L (137-145) mmol/L Glucose 108 H (74-99) mg/dL 07/05/20 Range/Units 06:54 MCV (80.0-100.0) fL MCH (25.0-35.0) pg RDW (11.5-15.5) % Sodium 135 L (137-145) mmol/L Glucose (74-99) mg/dL Assessment and Plan Assessment: This is a 64-year-old gentleman with history of epilepsy that presented with breakthrough seizure. Breakthrough seizure with subtherapeutic Depakote level and seems due to persistent vomiting and medication non compliance. 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 * If patient continues to have seizure with drastic fluctuation of levels, I feels Keppra would be another alternative down the line. * I will get Depakote total and free levels today: It total depakote is 74.1 (which is therapeutic). * Continue aspirin 325 daily and Lipitor 20mg qhs for secondary stroke prophylaxis. * There is no need for an EEG since the patient is known to have history of seizures and had multiple EEG's in our system. * We'll defer the management of hypertension and the rest of medical management to the primary team. * Upon discharge the patient needs to follow-up with a neurologist within 1-2 weeks (He follows-up with Dr. Tirado). * Because of the seizure patient, cannot drive untill he is seizure free for 6 month per [place] DMV. He is to avoid swimining unassisted, climb heights or use heavy machinery. * There is no further neurological workup needed at this time. The plan was discussed with the patient as well as the patient's nurse. Toby Paulino M.D. Neuro-hospitalist Time with Patient: Less than 30
[2020-07-05] MEDS: MULTIVITAMINS, THERA 1 EACH TAB PO SCH (10:08)
[2020-07-05 11:21] VITALS: BP 138/81
[2020-07-05] MEDS: FOLIC ACID 1 MG TAB PO SCH (12:17)
--- NOTE | 2020-07-06 10:10 | DS ---
DISCHARGE SUMMARY DATE OF SERVICE: 07/05/2020 FINAL DIAGNOSES: 1. Acute seizure disorder with breakthrough seizures. 2. Change in mental status, acute metabolic encephalopathy. 3. Hypertensive urgency with accelerated hypertension. 4. History of cerebrovascular accident, transient ischemic attack. 5. Gastroesophageal reflux disease. 6. Hypertension. 7. History of degenerative joint disease. 8. History of seizure disorder. 9. History of syncope. 10.History of wide complex idioventricular rhythm. 11.History of anxiety, depression. 12.History of nicotine dependence. 13.History of THC. 14.FULL CODE. DISCHARGE DISPOSITION: The patient will be discharged in stable condition with guarded prognosis. HISTORY OF PRESENT ILLNESS: This 64-year-old gentleman admitted with acute seizure disorder, change in mental status, multiple other medical issues, treated symptomatically. Medications adjusted. Neurology saw the patient, recommended outpatient followup. On exam, vitals are stable. CARDIOVASCULAR: S1, S2 muffled. ABDOMEN: Soft. NERVOUS SYSTEM: No focal deficits. DISCHARGE ADVICE: 1. Diet is cardiac. 2. Activity limited until followup. 3. Follow up with Dr. George in 1-2 days. 4. Follow up with Neurology as recommended. Medications are: 1. Desyrel 200 mg p.o. at bedtime. 2. Ecotrin 325 mg p.o. daily. 3. Flexeril 5 mg t.i.d. p.r.n. 4. Iron sulfate daily. 5. Lisinopril 40 mg daily. 6. Naprosyn p.r.n. 7. Norvasc 10 mg daily. 8. Vitamin D3, 125 mcg. 9. Zoloft 150 mg at bedtime. 10.Hydralazine 100 mg p.o. t.i.d. 11.Catapres 0 1 0.1 p.o. t.i.d. 12.Folic acid 1 mg daily. 13.Lipitor 10 mg at bedtime. 14.Multivitamins one p.o. daily. 15.Thiamine 100 mg p.o. daily. 16.Depakote 750 p.o. b.i.d. MMODL / HORACION: [id number] /
== END 2020-07-05 13:58 | disposition home or self-care (01) ==
LOC: EC 11:51 → INTOOBSV 15:01 → 5NMEDONC 15:01 → 3SCARD 17:32 → UNDODISIN 07-05 13:58
PROVIDERS: ADMIT Internal Medicine; ATTEND Internal Medicine
DX: G40.409 Other generalized epilepsy and epileptic syndromes, not intractable, without status epilepticus (principal); G93.41 Metabolic encephalopathy; I16.0 Hypertensive urgency; K21.9 Gastro-esophageal reflux disease without esophagitis; M19.90 Unspecified osteoarthritis, unspecified site; I10 Essential (primary) hypertension; I45.2 Bifascicular block; I69.931 Monoplegia of upper limb following unspecified cerebrovascular disease affecting right dominant side; H53.462 Homonymous bilateral field defects, left side; F17.200 Nicotine dependence, unspecified, uncomplicated; G91.9 Hydrocephalus, unspecified; I67.82 Cerebral ischemia; H26.9 Unspecified cataract; H40.9 Unspecified glaucoma; G89.29 Other chronic pain; M54.5 Low back pain; F41.9 Anxiety disorder, unspecified; F32.9 Major depressive disorder, single episode, unspecified; Z91.14 Patient's other noncompliance with medication regimen; Z20.822 Contact with and (suspected) exposure to COVID-19; Z79.82 Long term (current) use of aspirin; Z79.899 Other long term (current) drug therapy; Z87.11 Personal history of peptic ulcer disease; Z87.81 Personal history of (healed) traumatic fracture; Z98.890 Other specified postprocedural states; Z86.79 Personal history of other diseases of the circulatory system; Z83.3 Family history of diabetes mellitus
CPT/HCPCS: 96376 ×4; 96361 ×3; 96372 ×4; 96375 ×2; 96374; 99285; 36415; 93005; 80164 ×2; 80165; 80053; 80048 ×2; 80177; 83735; 85025 ×3; 85610; 81003; 80306; 87635; 70450; G0378 ×4; G0480; J2060; J0360 ×2; J1644 ×3; J3411; J2405; C9113 ×2; 80320

== ENCOUNTER 2021-04-24 12:22 | Emergency (ER) | payer OTHER ==
[2021-04-24 12:57] VITALS: RESP 18
[2021-04-24] MEDS ORDERED: SODIUM CHLORIDE 0.9% 1,000 ML IV ONE ×2 (13:16→14:29)
[2021-04-24] MEDS ORDERED: ONDANSETRON 4 MG/2 ML VIAL IVP STA (13:16)
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
[2021-04-24 13:57] LABS: Anisocytosis Slight; Basophils # (A) 0.1 k/uL (0-0.2); Basophils % (A) 1 %; Eosinophils # (A) 0.1 k/uL (0-0.7); Eosinophils % (A) 1 %; HCT 45.9 % (39.0-53.0); HGB 13.5 gm/dL (13.0-17.5); Hypochromasia Moderate; Lymphocytes % (A) 13 %; MCH 22.9 pg (25.0-35.0); MCHC 29.5 g/dL (31.0-37.0); MCV 77.6 fL (80.0-100.0); Microcytosis Slight; Monocytes # (A) 0.6 k/uL (0-1.0); Monocytes % (A) 8 %; Neutrophils # (A) 5.7 k/uL (1.3-7.7); Neutrophils % (A) 74 %; Platelet Count 535 k/uL (150-450); RBC 5.91 m/uL (4.30-5.90); RDW 17.9 % (11.5-15.5); WBC 7.7 k/uL (3.8-10.6)
--- NOTE | 2021-04-24 14:01 | XR ---
EXAMINATION TYPE: XR chest 2V DATE OF EXAM: 04/24/2021 COMPARISON: Chest x-ray December 15, 2017 HISTORY: Difficulty in breathing. Sore throat and fatigue. TECHNIQUE: Frontal and lateral views of the chest are obtained. FINDINGS: There is mild chronic parenchymal changes redemonstrated without suspicious new focal air space opacity, pleural effusion, or pneumothorax seen. The cardiac silhouette size remains within no rmal limits. The osseous structures are intact. IMPRESSION: No new acute pulmonary process.
[2021-04-24 14:06] LABS: Albumin 4.7 g/dL (3.5-5.0); Calcium 9.1 mg/dL (8.4-10.2); Potassium 4.2 mmol/L (3.5-5.1); Total Bilirubin 1.1 mg/dL (0.2-1.3); Total Protein 8.5 g/dL (6.3-8.2)
[2021-04-24 14:11] LABS: Valproic Acid (Depakene) 65.7 ug/mL
[2021-04-24] MEDS ORDERED: ONDANSETRON 4 MG ODT STARTER PACK 2 TAB BTL PO STA (14:32)
[2021-04-24 14:51] LABS: Poikilocytosis (M) Present; Tear Drop Cells Present
[2021-04-24 15:48] VITALS: BP 132/78; PULSE 80; TEMP 98
== END 2021-04-24 15:47 | disposition home or self-care (01) ==
LOC: EC 12:22
DX: U07.1 COVID-19 (principal); E86.0 Dehydration; N28.9 Disorder of kidney and ureter, unspecified; I10 Essential (primary) hypertension; G40.909 Epilepsy, unspecified, not intractable, without status epilepticus; M19.90 Unspecified osteoarthritis, unspecified site; F32.A Depression, unspecified; F41.9 Anxiety disorder, unspecified; F17.200 Nicotine dependence, unspecified, uncomplicated; Z79.1 Long term (current) use of non-steroidal anti-inflammatories (NSAID); Z79.899 Other long term (current) drug therapy
CPT/HCPCS: 36415; 80164; 80053; 85025; 87635; 71046; 99285; 96374; J2405; S0119

== ENCOUNTER 2022-09-09 09:41 | Inpatient (IN) | payer OTHER ==
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
[2022-09-09 12:46] LABS: Anisocytosis Slight; HCT 39.4 % (39.0-53.0); HGB 11.7 gm/dL (13.0-17.5); Hypochromasia Marked; MCH 22.3 pg (25.0-35.0); MCHC 29.7 g/dL (31.0-37.0); MCV 75.2 fL (80.0-100.0); Mean Platelet Volume 7.3; Microcytosis Moderate; Platelet Count 243 k/uL (150-450); RBC 5.25 m/uL (4.30-5.90); RDW 18.9 % (11.5-15.5)
[2022-09-09 12:49] LABS: ALT 17 U/L (4-49); AST 46 U/L (17-59); African American GFR (CKD) >90 (>60 ml/min/1.73 sqM); Albumin 4.1 g/dL (3.5-5.0); Alkaline Phosphatase 57 U/L (38-126); Anion Gap 3 mmol/L; Blood Urea Nitrogen 27 mg/dL (9-20); Calcium 8.7 mg/dL (8.4-10.2); Carbon Dioxide 30 mmol/L (22-30); Chloride 104 mmol/L (98-107); Glucose 83 mg/dL (74-99); Magnesium 1.8 mg/dL (1.6-2.3); Non-African American GFR(CKD) 90 (>60 ml/min/1.73 sqM); Sodium 137 mmol/L (137-145); Total Protein 6.7 g/dL (6.3-8.2)
[2022-09-09 12:57] LABS: INR 1.1 (<1.2); Partial Thromboplastin Time 28.9 sec (22.0-30.0); Prothrombin Time 11.4 sec (9.0-12.0)
[2022-09-09 13:16] LABS: Valproic Acid (Depakene) 53.7 ug/mL
[2022-09-09 13:23] LABS: Band Neutrophils % 2 %; Eosinophils # (M) 0.06 k/uL (0-0.7); Lymphocytes # (M) 1.04 k/uL (1.0-4.8); Metamyelocytes # (M) 0.06 k/uL (0); Metamyelocytes % 1 %; Neutrophils % (M) 68 %; Nucleated Red Blood Cells 2 /100 WBC (0-0); Total Cells Counted 200; WBC 5.8 k/uL (3.8-10.6)
[2022-09-09 13:25] LABS: Poikilocytosis (M) Present
--- NOTE | 2022-09-09 13:41 | CT ---
EXAMINATION TYPE: CT brain wo con CT DLP: 1202.4 mGycm, Automated exposure control for dose reduction was used. DATE OF EXAM: 09/09/2022 1:21 PM COMPARISON: Prior CT Brain from 07/03/2020, 12/02/2019. CLINICAL INDICATION:Male, 66 years old with history of seizure, left hand numbness, Seizure, LT side weakness TECHNIQUE: Brain: Multiple axial CT images of the brain were obtained without IV contrast. Coronal and sagittal reformats reviewed. FINDINGS: Brain: Extra-axial spaces: No abnormal extra-axial fluid collections. Ventricular system: There is diffuse dilatation of the ventricular system with more prominent involve ment of the right lateral posterior horn and temporal horn again. This is slightly more than expected for a level atrophy. Cerebral parenchyma: Cerebral atrophy. No acute intraparenchymal hemorrhage or mass effect. The miller -white junction is well differentiated. Scattered hypoattenuating areas are seen within the white mat ter. Cerebellum: Unremarkable. Mass effect: No evidence of midline shift. Intracranial vasculature: unremarkable Soft tissues: Dermal calcifications noted. Calvarium/osseous structures: No depressed skull fracture. Paranasal sinuses and mastoid air cells: Mild scattered paranasal sinus disease. Mucous retention cys t suggested within the right maxillary sinus measuring up to 1.2 cm. Visualized orbits: Bilateral aphakia IMPRESSION: 1. No acute intracranial process. 2. Nonspecific white matter changes, likely secondary to chronic small vessel ischemic disease. 3. Stable nonspecific ventricular cistern pattern. Correlate for normal pressure hydrocephalus.
[2022-09-09] MEDS ORDERED: ASPIRIN 81 MG PO STA (14:03)
[2022-09-09] MEDS ORDERED: NALOXONE 0.4 MG/ML 1 ML VIAL IV PRN (14:11)
[2022-09-09] MEDS ORDERED: NON FORMULARY DRUG (Tadalafil [Cialis] 10 MG Tablet) PO PRN (15:23)
[2022-09-09] MEDS: SODIUM CHLORIDE 0.9% 1,000 ML IV SCH (15:33)
[2022-09-09] MEDS: hydrOXYzine pamoate 25 MG CAP PO SCH ×2 (15:42→21:33)
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
[2022-09-09] MEDS: CYCLOBENZAPRINE 10 MG TAB PO PRN (16:15)
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
[2022-09-09] MEDS ORDERED: ONDANSETRON 4 MG/2 ML VIAL IVP PRN (19:01)
[2022-09-09] MEDS: ACETAMINOPHEN TAB 325 MG TAB PO PRN (19:05)
--- NOTE | 2022-09-09 19:24 | CT ---
EXAMINATION TYPE: CT cervical spine wo con CT DLP: 375.7 mGycm, Automated exposure control for dose reduction was used. DATE OF EXAM: 09/09/2022 6:40 PM COMPARISON: 12/02/2019,. CLINICAL INDICATION:Male, 66 years old with history of left neck pain; PHH, left side neck TECHNIQUE: Axial CT images from the skull base to the inferior aspect of T2 we obtained without intra venous contrast. Coronal and sagittal reformatted images were also reviewed. Contrast used: mL of (if blank None) Oral contrast used: (if blank None) FINDINGS: Fracture: None. Osseous structures: Multilevel degenerative disc disease changes with endplate spurring and disc oste ophyte complex's. Somewhat diffuse sclerosis of the vertebrae within the neck. Vertebral alignment: Straightening of the cervical spine. Spinal canal/Neural Foramina: Disc osteophyte complexes at C3-C4 and C7-T1 with at least mild spinal canal stenosis. Facet joint uncovertebral joint arthropathy scattered throughout the cervical spine w ith varying degrees of neural foraminal stenosis. Worse at C3-C4 bilaterally with at least moderate t o severe and C7-T1. Neck soft tissues: Prevertebral soft tissues are within normal limits. Other: The airway is patent. Mild centrilobular emphysema changes. IMPRESSION: 1. No evidence of cervical spine fracture. 2. Moderate multilevel degenerative disc disease.
--- NOTE | 2022-09-09 19:36 | US ---
EXAMINATION TYPE: US carotid duplex BILAT DATE OF EXAM: 09/09/2022 COMPARISON: CT head neck Angio 12/02/2019 CLINICAL INDICATION: Male, 66 years old with history of stroke; hx of stroke TECHNIQUE: Carotid duplex ultrasound examination. Indirect Doppler criteria was utilized. FINDINGS: EXAM MEASUREMENTS: RIGHT: Peak Systolic Velocity (PSV) cm/sec ----- Right CCA: 22.7 ----- Right ICA: 65.3 ----- Right ECA: 46.2 ICA/CCA ratio: 2.9 RIGHT: End Diastole cm/sec ----- Right CCA: 5.6 ----- Right ICA: 25.2 ----- Right ECA: 6.0 LEFT: Peak Systolic Velocity (PSV) cm/sec ----- Left CCA: 27.8 ----- Left ICA: 69.8 ----- Left ECA: 52.8 ICA/CCA ratio: 2.5 LEFT: End Diastole cm/sec ----- Left CCA: 7.8 ----- Left ICA: 19.7 ----- Left ECA: 6.5 VERTEBRALS (direction of flow): Right Vertebral: Antegrade Left Vertebral: Antegrade Rhythm: Normal FITTER TACKER NOTES: No significant stenosis seen IMPRESSION: Less than 50% stenosis of the bilateral carotid bifurcations. There is slow flow noted with elevated ratios, when comparing to prior CT this is felt to be secondary to patient's normal anatomy. Criteria for Assigning % of Stenosis / Diameter reduction (Estimation based on the indirect measurements of the internal carotid artery velocities (ICA PSV). 1. Normal (no stenosis)=ICA PSV < 125 cm/s: ratio < 2.0: ICA EDV<40 cm/s. 2. Less than 50% stenosis=ICA PSV < 125 cm/s: ratio < 2.0: ICA EDV<40 cm/s. 3. 50 to 69% stenosis=ICA PSV of 125 to 230 cm/s: ration 2.0 ? 4.0: ICA EDV 40-100 cm/s. 4. Greater than 70% stenosis to near occlusion= ICA PSV > 230 cm/s: ratio > 4.0: ICA EDV > 100 cm/s. 5. Near occlusion= ICA PSV velocities may be low or undetectable: variable ratio and ICA EDV. 6. Total occlusion=unable to detect flow.
[2022-09-09] MEDS: ATORVASTATIN 80 MG TAB PO SCH (19:45)
[2022-09-09] MEDS: HEPARIN SODIUM,PORCINE/PF 5,000 UNIT/0.5 ML SYRINGE SQ SCH (19:46)
[2022-09-09] MEDS: HYDROcodone/APAP 5-325MG 1 EACH TAB PO SCH (19:46)
[2022-09-09] MEDS: DIVALPROEX ER 500 MG TAB.ER.24H PO SCH (19:46)
[2022-09-09] MEDS: traZODone HCL 100 MG TAB PO SCH (19:47)
[2022-09-09] MEDS: SERTRALINE 50 MG TAB PO SCH (19:47)
[2022-09-09] MEDS ORDERED: SERTRALINE 100 MG TAB PO SCH (21:00)
[2022-09-09] MEDS ORDERED: DIVALPROEX ER 250 MG TAB.ER.24H PO SCH (21:00)
[2022-09-09] MEDS ORDERED: DIVALPROEX 250 MG TABLET.DR PO SCH (21:00)
[2022-09-10] MEDS: ACETAMINOPHEN TAB 325 MG TAB PO PRN (05:09)
[2022-09-10] MEDS: HYDROcodone/APAP 5-325MG 1 EACH TAB PO SCH ×2 (09:12→20:34)
[2022-09-10] MEDS: ASPIRIN 81 MG PO SCH (09:12)
[2022-09-10] MEDS: hydrOXYzine pamoate 25 MG CAP PO SCH ×3 (09:12→20:32)
[2022-09-10] MEDS: MULTIVITAMINS, THERA 1 EACH TAB PO SCH (09:12)
[2022-09-10] MEDS: HEPARIN SODIUM,PORCINE/PF 5,000 UNIT/0.5 ML SYRINGE SQ SCH ×2 (09:13→20:32)
[2022-09-10] MEDS: FLUTICASONE 50MCG/SPRAY NASAL 16GM EA NOSTRIL SCH (09:13)
[2022-09-10] MEDS: DIVALPROEX ER 500 MG TAB.ER.24H PO SCH ×2 (09:13→20:33)
[2022-09-10] MEDS: FOLIC ACID 1 MG TAB PO SCH (09:13)
[2022-09-10] MEDS: amLODIPine 10 MG TAB PO SCH (09:13)
[2022-09-10] MEDS: hydroCHLOROthiazide 25 MG TAB PO SCH (09:13)
[2022-09-10] MEDS: CHOLECALCIFEROL 25 MCG (1000 IU) TABLET PO SCH (09:13)
[2022-09-10] MEDS: FERROUS SULFATE 325 MG TAB PO SCH (09:13)
--- NOTE | 2022-09-10 10:48 | CA ---
Transthoracic Echo Report Name: Nitin Yo Age: 66 Gender: M : 1955 Exam Date: 09/10/2022 08:21 Exam Location: [place] [facility] Ht (in): 69 Wt (lb): 175 Ordering Physician: Kait Mccurdy MD Attending/Referring Phys: Corporate Recruiter Davis Cruz Procedure CPT: Indications: stroke Cardiac Hx: Technical Quality: Fair Contrast 1: Total Dose (mL): Contrast 2: Total Dose (mL): MEASUREMENTS (Male / Female) Normal Values 2D ECHO LV Diastolic Diameter PLAX 4.7 cm 4.2 - 5.9 / 3.9 - 5.3 cm LV Systolic Diameter PLAX 3.2 cm IVS Diastolic Thickness 1.2 cm 0.6 - 1.0 / 0.6 - 0.9 cm LVPW Diastolic Thickness 1.0 cm 0.6 - 1.0 / 0.6 - 0.9 cm LV Relative Wall Thickness 0.5 RV Internal Dim ED PLAX 3.1 cm LVOT Diameter 2.2 cm Aortic Root Diameter 3.5 cm LA Systolic Diameter LX 2.8 cm 3.0 - 4.0 / 2.7 - 3.8 cm LV Diastolic Volume MOD BP 46.0 cm??? 67 - 155 / 56 - 104 cm??? LV Systolic Volume MOD BP 19.7 cm??? 22 - 58 / 19 - 49 cm??? LV Ejection Fraction MOD BP 57.1 % >= 55 % LV Diastolic Volume MOD 4C 49.9 cm??? LV Systolic Volume MOD 4C 16.7 cm??? LV Ejection Fraction MOD 4C 66.6 % LV Diastolic Length 4C 5.9 cm LV Systolic Length 4C 5.0 cm LV Diastolic Volume MOD 2C 41.8 cm??? LV Systolic Volume MOD 2C 18.6 cm??? LV Ejection Fraction MOD 2C 55.5 % LV Diastolic Length 2C 6.0 cm LV Systolic Length 2C 4.9 cm LA Volume 58.6 cm??? 18 - 58 / 22 - 52 cm??? DOPPLER AV Peak Velocity 112.2 cm/s AV Peak Gradient 5.0 mmHg LVOT Peak Velocity 113.7 cm/s LVOT Peak Gradient 5.2 mmHg AV Area Cont Eq pk 3.9 cm??? MV Peak Velocity 88.8 cm/s MV Peak Gradient 3.2 mmHg MV Mean Velocity 40.2 cm/s MV Mean Gradient 0.8 mmHg MV Velocity Time Integral 32.4 cm MR Peak Velocity 344.6 cm/s MR Peak Gradient 47.5 mmHg Mitral E Point Velocity 64.3 cm/s Mitral A Point Velocity 77.2 cm/s Mitral E to A Ratio 0.8 MV Deceleration Time 181.7 ms MV E' Velocity 5.5 cm/s Mitral E to MV E' Ratio 11.7 TR Peak Velocity 232.9 cm/s TR Peak Gradient 21.7 mmHg Right Ventricular Systolic Press 26.7 mmHg PV Peak Velocity 74.3 cm/s PV Peak Gradient 2.2 mmHg FINDINGS Left Ventricle Left ventricular ejection fraction is estimated at 60-65 %. Ventricular septal hypertrophy. Right Ventricle Normal right ventricular size. Right Atrium Normal right atrial size. Left Atrium Normal left atrial size. LA volume Index= 30ml/m2 Mitral Valve Structurally normal mitral valve. Mild MR. Aortic Valve Trileaflet aortic valve. No aortic valve stenosis or regurgitation. Tricuspid Valve Structurally normal tricuspid valve. Mild TR. Pulmonic Valve Pulmonic valve not well visualized. No pulmonic regurgitation. Pericardium Normal pericardium. Aorta Normal size aortic root and proximal ascending aorta. CONCLUSIONS Normal LV systolic function Previewed by: Dr. Ten Lopez MD (Electronically Signed) Final Date: 10 September 2022 10:47
[2022-09-10 11:24] LABS: African American GFR (CKD) >90 (>60 ml/min/1.73 sqM); Anion Gap 8 mmol/L; Blood Urea Nitrogen 22 mg/dL (9-20); Calcium 8.6 mg/dL (8.4-10.2); Carbon Dioxide 25 mmol/L (22-30); Chloride 104 mmol/L (98-107); Glucose 100 mg/dL (74-99); Magnesium 1.7 mg/dL (1.6-2.3); Non-African American GFR(CKD) >90 (>60 ml/min/1.73 sqM); Potassium 3.4 mmol/L (3.5-5.1); Sodium 137 mmol/L (137-145)
[2022-09-10 11:50] LABS: Anisocytosis Slight; HCT 40.6 % (39.0-53.0); HGB 12.1 gm/dL (13.0-17.5); Hypochromasia Marked; MCH 22.5 pg (25.0-35.0); MCHC 29.9 g/dL (31.0-37.0); MCV 75.4 fL (80.0-100.0); Mean Platelet Volume 7.6; Microcytosis Moderate; Platelet Count 244 k/uL (150-450); RBC 5.38 m/uL (4.30-5.90); RDW 18.8 % (11.5-15.5)
[2022-09-10 13:56] LABS: Band Neutrophils % 1 %; Eosinophils # (M) 0.06 k/uL (0-0.7); Lymphocytes # (M) 1.05 k/uL (1.0-4.8); Monocytes # (M) 0.56 k/uL (0-1.0); Neutrophils % (M) 73 %; Nucleated Red Blood Cells 4 /100 WBC (0-0); Total Cells Counted 200; WBC 6.2 k/uL (3.8-10.6)
[2022-09-10 13:57] LABS: Polychromasia Present; Tear Drop Cells Present
[2022-09-10 13:59] LABS: Poikilocytosis (M) Present; RBC Fragments Present
[2022-09-10 14:00] LABS: Large Platelets Present
--- NOTE | 2022-09-10 14:25 | P.PN ---
Subjective Progress Note Date: 09/10/22 66-year-old man with medical history of stroke, seizure disorder, hypertension, hyperlipidemia presented for evaluation of left-sided paresthesia. In the emergency room, patient was afebrile, 145/99, heart rate 82, 100% on room air. CBC demonstrated anemia down to 11.7, microcytic in nature with an MCV of 75. Basic metabolic panel showed elevation of BUN to 27, otherwise unremarkable. Liver function tests are unremarkable. Coags are unremarkable. Valproic acid level was 53.7. EKG shows sinus bradycardia with left axis deviation and short IA interval. Brain computed tomography scan showed no acute intercranial process, did show nonspecific white matter changes consistent with chronic small vessel ischemic disease. Case was discussed with emergency room physician decision was made to admit the patient to observation for CVA rule out. Carotid Doppler showed less than 50% stenosis of the bilateral carotid bifurcations. CT C-spine showed moderate DJD. Echocardiogram showed normal LV systolic function. Neurology was consulted and recommended MRI brain and EEG which is pending at the time of this note. Patient was seen and examined. No acute events overnight. Patient reports migr indira headache. Reports persistent left-sided weakness. He is able to ambulate with the aid of a walker. General: non toxic, no distress, appears at stated age Derm: warm, dry Head: atraumatic, normocephalic, symmetric Eyes: EOMI, no lid lag, anicteric sclera Mouth: no lip lesion, mucus membranes moist Cardiovascular: S1S2 reg, no murmur Lungs: CTA bilateral, no rhonchi, no rales , no accessory muscle use Ext: no gross muscle atrophy, no edema, no contractures Neuro: no focal neuro deficits except DOUGLAS and LLE 3/5 strength along with decresed sensation to touch Psych: Alert, oriented, appropriate affect Left-sided paresthesia Microcytic anemia Hypokalemia History of CVA Seizure disorder Hypertension Hyperlipidemia CBC shows hemoglobin of 12.1 with MCV of 75.4. RDW is 18.8. BMP shows potassium of 3.4 and BUN of 22 with glucose 100. Lipid panel, B12 and folic acid is pending. TSH is within normal limits. Iron studies ordered to evaluate microcytic anemia. EEG and MRI brain is still pending. Neurology on board. Anticipated discharge after workup is complete. Objective - Vital Signs Vital signs: Vital Signs Temp 98.3 F 06/06/23 08:00 Pulse 61 09/10/22 08:00 Resp 18 09/10/22 08:00 BP 151/92 09/10/22 08:00 Pulse Ox 99 09/10/22 08:00 FiO2 Intake & Output 09/09/22 09/10/22 09/10/22 18:59 06:59 18:59 Output Total 150 Balance -150 Weight 79.379 kg Output: Urine 150 Other: Voiding Method Toilet Toilet Urinal Urinal # Voids 1 1 - Labs CBC & Chem 7: 09/10/22 11:00 09/10/22 11:00 Labs: Abnormal Lab Results - Last 24 Hours (Table) 09/10/22 09/10/22 Range/Units 11:00 11:00 Hgb 12.1 L (13.0-17.5) gm/dL MCV 75.4 L (80.0-100.0) fL MCH 22.5 L (25.0-35.0) pg MCHC 29.9 L (31.0-37.0) g/dL RDW 18.8 H (11.5-15.5) % Nucleated RBCs 4 H (0-0) /100 WBC Potassium 3.4 L (3.5-5.1) mmol/L BUN 22 H (9-20) mg/dL Glucose 100 H (74-99) mg/dL
[2022-09-10] MEDS ORDERED: POTASSIUM CHLORIDE ER 20 MEQ TAB.ER PO STA (14:26)
[2022-09-10] MEDS ORDERED: LORazepam 2 MG/ML INJ IV PRN (14:31)
--- NOTE | 2022-09-10 16:02 | EEG ---
ELECTROENCEPHALOGRAM REPORT CLINICAL HISTORY: This is a 66-year-old gentleman with history of seizure, who presented because of breakthrough seizure. The video EEG is obtained to evaluate for seizure epileptiform activity. RELEVANT MEDICATION: Depakote. EEG TYPE: A routine 21-channel EEG is performed with video using the 10/20 electrode placement system. DESCRIPTION: Wakefulness is obtained. The background consists of [id number] voltage of 8.5 9 hertz activity that is well modulated and sustained. There is no physiological stage 2 sleep architecture. There is no focal slowing. INTERICTAL AND ICTAL: There are rare sharp and slow waves over the right temporal region. Also, there is a [id number] voltage of 2.5 to 3.5 rhythmic delta activity over the right temporoparietal and some central region that is rhythmic lasting between 30 to 40 seconds and during the recording, it happened around 13.29 of the recording of the study and again it lasted between 30 and 40 seconds. Clinically, the patient had his eyes closed and no jerking of any extremity noted. This episode seems seizure. ACTIVATION PROCEDURE: Photic stimulation and hyperventilation are not performed. CLINICAL INTERPRETATION: This is an abnormal routine EEG. There rare episodes of rhythmic delta activity over the right temporal/parietal and some central region lasting between 30 to 40 seconds, seem likely suspicious for a seizure. There is right temporal discharges, which increased the risk for seizure. Otherwise, the background is normal and there is no focal slowing. Recommend a prolonged EEG. Clinical correlation is recommended. BILL / TIKA: [id number] / [id number]
--- NOTE | 2022-09-10 16:30 | P.PN ---
Subjective Progress Note Date: 09/10/22 The patient is seen at beside and continues to have numbness over the left side. Objective - Vital Signs Vital signs: Vital Signs Temp 98.3 F 09/10/22 08:00 Pulse 61 09/10/22 08:00 Resp 18 09/10/22 14:00 BP 151/92 09/10/22 08:00 Pulse Ox 99 09/10/22 08:00 FiO2 Intake & Output 09/09/22 09/10/22 09/10/22 18:59 06:59 18:59 Output Total 150 Balance -150 Weight 79.379 kg Output: Urine 150 Other: Voiding Method Toilet Toilet Urinal Urinal # Voids 1 1 - Exam GENERAL: The patient is lying in bed and is not in acute distress. NEUROLOGICAL: Higher mental function: The patient is awake, alert, oriented to self, place and time. Continues somewhat slow responding and following commands. No aphasia and no neglect. Cranial nerves: The pupils are round, equal and reactive to light. Visual estrella are full to confrontation throughout. Extraocular movement is intact no nystagmus is noted. Facial sensation is normal to touch throughout. The facial strength is normal throughout. Tongue is midline and moved [id number] without any difficulty. No dysarthria is noted. Shoulder shrug is normal bilaterally. Motor: The strength is 5 over 5 throughout. Normal tone and bulk. Cerebellum: Had difficulty performing task Sensation: Decrease to touch over the left side (stated new). Reflexes (right/left): 1+ throughout. Plantars are mute bilaterally. Some of the workup in this hospital visit consisted of: BUN is 27 which is just around the borderline periodic otherwise rest of cancer panel is unremarkable. White blood cell is within normal limits. Valproic acid is 53.7 and normal supposed to be between 50-120 TSH: 0.840 CT of the head is reported as no acute intracranial process. Nonspecific white matter changes, likely secondary to chronic small vessel ischemic disease. Septal nonspecific ventricular cistern pattern correlate for normal pressure hydrocephalus. Personally reviewed the CT and I do not appreciate any acute subacute ischemia. There is no bleed. The patient continues to have ex vacuo over the right posterior region over the parietal occipital. CT cervical spine reported as no evidence for cervical spine fracture. Moderate multilevel degenerative disc disease. 2D echo was reported as normal left ventricle systolic function. Carotid duplex was reported as less than 50% stenosis of bilateral carotid bifurcation. There is slow flow noted with elevated ratio when comparing to prior CT that is felt that the patient is a patient normal anatomy - Labs CBC & Chem 7: 09/10/22 11:00 09/10/22 11:00 Labs: Abnormal Lab Results - Last 24 Hours (Table) 09/10/22 09/10/22 Range/Units 11:00 11:00 Hgb 12.1 L (13.0-17.5) gm/dL MCV 75.4 L (80.0-100.0) fL MCH 22.5 L (25.0-35.0) pg MCHC 29.9 L (31.0-37.0) g/dL RDW 18.8 H (11.5-15.5) % Nucleated RBCs 4 H (0-0) /100 WBC Potassium 3.4 L (3.5-5.1) mmol/L BUN 22 H (9-20) mg/dL Glucose 100 H (74-99) mg/dL Assessment and Plan Assessment: Breakthrough seizure (patient stated that she had slight shaking of all extremities lasted for half hour without any loss of consciousness and had a brief urinary incontinence. The episode was not witnessed). Left sided numbness possibly due to post-ictal state. Cannot rule out stroke or left cervical radiculopathy. Left neck pain but no significant stenosis. History of epilepsy History of stroke and patient has prominence over the right occipital horn of the lateral ventricle likely from ex vacuo from previous posterior parietal stroke Left Homonymous hemianopsia due to old stroke Hypertension Plan: Routine EEG: As abnormal. The rhythmic delta activity over the right tem poroparietal some central region lasting between 30 and 40 seconds seems suspicious of likely a seizure episode. There is right temporal discharges which increased risk for seizure. Otherwise the background is normal and there is no focal slowing. Recommend prolonged EEG. Therefore I ordered to a half hour EEG which would likely be done tomorrow. I increased Depakote from 750mg bid to 1000mg bid (especially since his levels are boderline normal) on 09/09/22. Also because of EEG study likely a seizure episode I will start also Keppra 500mg bid and will monitor for any side-effect. Pending MRI Brain, lipid panel, B12, folate level Continues home dose ASA 81mg daily and Lipitor 80mg qhs. Q4 hour neuro checks On cardiac monitoring. Consulted PT and OT On seizure precaution and pads. His CT cervical did not show any significant stenosis. Recommend EMG with NCS as outpatient. Will defer the rest of management to primary team. For DVT prophylaxis: On subq heparin 5000U every 12 hours. Recommend he follows-up with neurologist as outpatient within 1-2 weeks. He used to follow-up with Dr. Tirado but no longer follows-up so recommend following- up with someone. The plan is discussed with patient and primary team. Time with Patient: Less than 30
[2022-09-10] MEDS: levETIRAcetam 500 MG TAB PO SCH ×2 (17:33→20:35)
[2022-09-10 17:55] LABS: % Iron Saturation 22.26
[2022-09-10 20:16] LABS: Chol/HDL Ratio 3.14 Ratio; LDL Cholesterol,Calculated 67.7 mg/dL
[2022-09-10] MEDS: CYCLOBENZAPRINE 10 MG TAB PO PRN (20:33)
[2022-09-10] MEDS: traZODone HCL 100 MG TAB PO SCH (20:33)
[2022-09-10] MEDS: SERTRALINE 50 MG TAB PO SCH (20:33)
[2022-09-10] MEDS: ATORVASTATIN 80 MG TAB PO SCH (20:34)
[2022-09-11] MEDS: FLUTICASONE 50MCG/SPRAY NASAL 16GM EA NOSTRIL SCH (08:58)
[2022-09-11] MEDS: SODIUM CHLORIDE 0.9% 1,000 ML IV SCH (08:58)
[2022-09-11] MEDS: levETIRAcetam 500 MG TAB PO SCH ×3 (09:02→21:24)
[2022-09-11] MEDS: hydrOXYzine pamoate 25 MG CAP PO SCH ×4 (09:02→21:23)
[2022-09-11] MEDS: amLODIPine 10 MG TAB PO SCH (09:02)
[2022-09-11] MEDS: ASPIRIN 81 MG PO SCH (09:02)
[2022-09-11] MEDS: hydroCHLOROthiazide 25 MG TAB PO SCH (09:02)
[2022-09-11] MEDS: DIVALPROEX ER 500 MG TAB.ER.24H PO SCH ×3 (09:02→21:24)
[2022-09-11] MEDS: CHOLECALCIFEROL 25 MCG (1000 IU) TABLET PO SCH (09:02)
[2022-09-11] MEDS: FERROUS SULFATE 325 MG TAB PO SCH (09:02)
[2022-09-11] MEDS: MULTIVITAMINS, THERA 1 EACH TAB PO SCH (09:02)
[2022-09-11] MEDS: HEPARIN SODIUM,PORCINE/PF 5,000 UNIT/0.5 ML SYRINGE SQ SCH ×2 (09:03→21:25)
[2022-09-11] MEDS: FOLIC ACID 1 MG TAB PO SCH (09:03)
[2022-09-11] MEDS: HYDROcodone/APAP 5-325MG 1 EACH TAB PO SCH ×3 (09:03→21:25)
--- NOTE | 2022-09-11 09:49 | P.PN ---
Subjective Progress Note Date: 09/11/22 No new complaints today. Had additional seizure episode, had keppra added and valproic acid uptitrated. Pending MRI Gen: in no apparent distress, resting comfortably in bed Eyes: PERRL, no scleral injection or icterus HENT: normocephalic, atraumatic, good hearing acuity, moist mucous membranes Neck: no tracheal deviation, full range of motion Resp: good air exchange, breathing comfortably with no accessory muscle use, no tactile fremitus CVS: good distal perfusion x 4, no pitting edema GI: soft, NTTP, ND, no hepatosplenomegaly : no suprapubic tenderness, no CVAT, kate catheter not present MSK: no clubbing, no cyanosis, no noted contractures of extremities Skin: no noted rashes, petechiae; temperature of skin is appropriate Neuro: Left-sided pronator drift, left-sided 3+ out of 5 lower extremity weakness, left-sided numbness to soft touch Psych: cooperative, euthymic mood, insight and judgment intact Hospital Course: 66-year-old man with medical history of stroke, seizure disorder, hypertension, hyperlipidemia presented for evaluation of left-sided paresthesia. In the emergency room, patient was afebrile, 145/99, heart rate 82, 100% on room air. CBC demonstrated anemia down to 11.7, microcytic in nature with an MCV of 75. Basic metabolic panel showed elevation of BUN to 27, otherwise unremarkable. Liver function tests are unremarkable. Coags are unremarkable. Valproic acid level was 53.7. EKG shows sinus bradycardia with left axis deviation and short [place] interval. Brain computed tomography scan showed no acute intercranial process, did show nonspecific white matter changes consistent with chronic small vessel ischemic disease. Case was discussed with emergency room physician decision was made to admit the patient to observation for CVA rule out. Assessment: Left-sided paresthesia History of CVA Seizure disorder Hypertension Hyperlipidemia Plan: Pt is afebrile, 138/94, HR 80, 99% on room air Pending MRI, 2.5hr EEG Start aspirin 81 mg daily, atorvastatin 80 mg at bedtime; these are decreased from 325 mg daily and increased from 10 mg daily from home doses, respectively MRI of the brain without contrast is pending Keppra 500mg BID Depakote 1000mg BID 2.5 hr EEG is pending Patient is full code Objective - Vital Signs Vital signs: Vital Signs Temp 97.8 F 09/10/22 20:00 Pulse 80 09/10/22 20:00 Resp 18 09/11/22 04:00 BP 138/94 09/11/22 04:00 Pulse Ox 99 09/11/22 04:00 FiO2 Intake & Output 09/10/22 09/11/22 09/11/22 18:59 06:59 18:59 Intake Total 1020 Output Total 675 225 Balance -675 795 Intake: Oral 1020 Output: Urine 675 225 Other: Voiding Method Toilet Urinal # Voids 1 1 - Labs CBC & Chem 7: 09/10/22 11:00 09/10/22 11:00 Labs: Abnormal Lab Results - Last 24 Hours (Table) 09/10/22 09/10/22 09/10/22 Range/Units 11:00 11:00 11:00 Hgb 12.1 L (13.0-17.5) gm/dL MCV 75.4 L (80.0-100.0) fL MCH 22.5 L (25.0-35.0) pg MCHC 29.9 L (31.0-37.0) g/dL RDW 18.8 H (11.5-15.5) % Nucleated RBCs 4 H (0-0) /100 WBC Potassium 3.4 L (3.5-5.1) mmol/L BUN 22 H (9-20) mg/dL Glucose 100 H (74-99) mg/dL Iron 61 L UG/DL Transferrin 196.0 L mg/dL Ferritin 335.0 H ng/mL Folate ng/mL 09/10/22 Range/Units 11:00 Hgb (13.0-17.5) gm/dL MCV (80.0-100.0) fL MCH (25.0-35.0) pg MCHC (31.0-37.0) g/dL RDW (11.5-15.5) % Nucleated RBCs (0-0) /100 WBC Potassium (3.5-5.1) mmol/L BUN (9-20) mg/dL Glucose (74-99) mg/dL Iron UG/DL Transferrin mg/dL Ferritin ng/mL Folate 36.70 H ng/mL
--- NOTE | 2022-09-11 13:04 | P.PN ---
Subjective Progress Note Date: 09/11/22 The patient is seen at bedside and feels about the same. Objective - Vital Signs Vital signs: Vital Signs Temp 97.9 F 09/11/22 08:00 Pulse 60 09/11/22 08:00 Resp 18 09/11/22 08:00 BP 136/82 09/11/22 08:00 Pulse Ox 100 09/11/22 08:00 FiO2 Intake & Output 09/10/22 09/11/22 09/11/22 18:59 06:59 18:59 Intake Total 1020 Output Total 675 225 Balance -675 795 Intake: Oral 1020 Output: Urine 675 225 Other: Voiding Method Toilet Urinal # Voids 1 1 - Exam GENERAL: The patient is lying in bed and is not in acute distress. NEUROLOGICAL: Higher mental function: The patient is awake, alert, oriented to self, place and time. Continues somewhat slow responding and following commands. No aphasia and no neglect. Cranial nerves: The pupils are round, equal and reactive to light. Visual estrella are full to confrontation throughout. Extraocular movement is intact no nystagmus is noted. Facial sensation is normal to touch throughout. The facial strength is normal throughout. Tongue is midline and moved [id number] without any difficulty. No dysarthria is noted. Shoulder shrug is normal bilaterally. Motor: The strength is 5 over 5 throughout. Normal tone and bulk. Cerebellum: Had difficulty performing task Sensation: Decrease to touch over the left side (stated new). Reflexes (right/left): 1+ throughout. Plantars are mute bilaterally. Some of the workup in this hospital visit consisted of: BUN is 27 which is just around the borderline periodic otherwise rest of cancer panel is unremarkable. White blood cell is within normal limits. Valproic acid is 53.7 and normal supposed to be between 50-120 TSH: 0.840 Vitamin B12: 491 Folate: 36.70 Lipid panel: TG 108, cholestrol 131, LDL 67 and HDL 41. HbA1c: 5.0 CT of the head is reported as no acute intracranial process. Nonspecific white matter changes, likely secondary to chronic small vessel ischemic disease. Septal nonspecific ventricular cistern pattern correlate for normal pressure hydrocephalus. Personally reviewed the CT and I do not appreciate any acute subacute ischemia. There is no bleed. The patient continues to have ex vacuo over the right posterior region over the parietal occipital. CT cervical spine reported as no evidence for cervical spine fracture. Moderate multilevel degenerative disc disease. 2D echo was reported as normal left ventricle systolic function. Carotid duplex was reported as less than 50% stenosis of bilateral carotid bifurcation. There is slow flow noted with elevated ratio when comparing to prior CT that is felt that the patient is a patient normal anatomy Routine EEG on 09/10/22: Is abnormal. The rare episodes of rhythmic delta activity over the right temporal/parietal and some central region lasting between 30-40 seconds seems likely suspicious for a seizure. There is right temporal discharges which increased risk for seizure. Otherwise the background is normal and there is no focal slowing. Recommend a prolonged EEG - Labs CBC & Chem 7: 09/10/22 11:00 09/10/22 11:00 Labs: Abnormal Lab Results - Last 24 Hours (Table) 09/10/22 09/10/22 09/10/22 Range/Units 11:00 11:00 11:00 Nucleated RBCs 4 H (0-0) /100 WBC Iron 61 L UG/DL Transferrin 196.0 L mg/dL Ferritin 335.0 H ng/mL Folate 36.70 H ng/mL Assessment and Plan Assessment: Breakthrough seizure (patient stated that she had slight shaking of all extrem ities lasted for half hour without any loss of consciousness and had a brief urinary incontinence. The episode was not witnessed). On EEG has rare rhythmic delta activity over the right temporal/parietal and some central lasting for 30- 40 seconds seems likely suspicious for seizure. Left sided numbness possibly due to post-ictal state. Cannot rule out stroke or left cervical radiculopathy. Left neck pain but no significant stenosis. History of epilepsy History of stroke and patient has prominence over the right occipital horn of the lateral ventricle likely from ex vacuo from previous posterior parietal stroke Left Homonymous hemianopsia due to old stroke Hypertension Plan: Routine EEG on 09/10/22: As abnormal. The rhythmic delta activity over the right temporoparietal some central region lasting between 30 and 40 seconds seems likely suspicious a seizure. There is right temporal discharges which increased risk for seizure. Otherwise the background is normal and there is no focal slowing. Recommend prolonged EEG. Pending 2.5 hour EEG today. I increased Depakote from 750mg bid to 1000mg bid (especially since his levels are boderline normal) on 09/09/22. Also because of EEG study likely a seizure episode I started him on Keppra 500mg bid on 09/10/22. Will monitor for any side-effect. Pending MRI Brain. Continues home dose ASA 81mg daily and Lipitor 80mg qhs. Q4 hour neuro checks On cardiac monitoring. Consulted PT and OT On seizure precaution and pads. His CT cervical did not show any significant stenosis. Recommend EMG with NCS as outpatient. Will defer the rest of management to primary team. For DVT prophylaxis: On subq heparin 5000U every 12 hours. Recommend he follows-up with neurologist as outpatient within 1-2 weeks. He u sed to follow-up with Dr. Tirado but no longer follows-up so recommend following- up with someone. UPDATE: Patient had 1.5 hour EEG and was notified by reading epileptologist (Dr. Perez) that patient had total of 2 seizures lasting less a minutes stemming from the right hemisphere (episode lasted 35second and second was 45-55 seconds). As result, I will give 1mg Ativan, will load him with Keppra 1500mg once. I will increase his keppra from 500mg bid to 1000mg bid and will continue Depakote ER 1000mg bid. Will get a repeat prolonged EEG tomorrow (2.5 hours). Ordered Depakote level. Dr. Stroud will start neurology service tomorrow A.M. Time with Patient: Less than 30
--- NOTE | 2022-09-11 13:06 | MR ---
EXAMINATION TYPE: MR brain wo con DATE OF EXAM: 09/11/2022 COMPARISON: Prior MRI brain December 03, 2019. CT brain from 1 day earlier. HISTORY: Left hand numbness, left side weakness, seizure hx. TECHNIQUE: Multiplanar, multisequence imaging of the brain and brainstem is performed without IV cont rast. FINDINGS: Current exam is suboptimal as is degraded by patient motion. Diffusion weighted images demonstrate no evidence of a recent infarct or other diffusion abnormality. There is moderate ventricular and sulcal prominence with degree of ventricular prominence out of prop ortion to degree of sulcal effacement. 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 There are focal an d confluent areas of T2 hyperintensity seen throughout the deep and periventricular white matter bila terally. Midline structures demonstrate normal morphology. Thinning of the corpus callosum is redemonstrated. The craniocervical junction appears within normal limits. Normal vascular flow voids are present. [place] ateral aphakia is redemonstrated. Visualized paranasal sinuses are clear. IMPRESSION: 1. No MRI evidence for a recent infarct. 2. There is moderate diffuse cerebral atrophy and mild to moderate generalized hydrocephalus redemons trated. There is moderate to severe chronic small vessel ischemic change redemonstrated. No significa nt change from 2020 MRI.
[2022-09-11] MEDS ORDERED: LORazepam 2 MG/ML INJ IV STA (16:32)
[2022-09-11] MEDS ORDERED: levETIRAcetam IV 500 MG/5 ML VIAL IVP STA (16:35)
[2022-09-11] MEDS: SERTRALINE 50 MG TAB PO SCH (21:24)
[2022-09-11] MEDS: traZODone HCL 100 MG TAB PO SCH (21:24)
[2022-09-11] MEDS: ATORVASTATIN 80 MG TAB PO SCH (21:24)
--- NOTE | 2022-09-11 22:43 | EEG ---
ELECTROENCEPHALOGRAM REPORT ELECTROENCEPHALOGRAM (EEG) REPORT: TECHNIQUE: A routine 18-channel EEG was performed with video using the 10/20 international electrode placement system. HISTORY: The patient originally admitted for left upper extremity weakness and numbness. Per notes, the patient had a seizure lasting 30 minutes? CURRENT MEDICATIONS: 1. Tylenol. 2. Norvasc. 3. Aspirin. 4. Lipitor. 5. Depakote. 6. Folic acid. 7. Hydrochlorothiazide. 8. Keppra. 9. Multivitamin. 10.Zofran. 11.Zoloft. STUDY DURATION: 90 minutes. FINDINGS: BACKGROUND: Background frequencies were seen in the 8 to 9 hertz range. ACTIVATION: Hyperventilation: Not performed. Photic stimulation: No driving seen. Sleep: Stages I and II sleep noted. ABNORMALITIES: 1. Frequent runs of rhythmic 2 to 3 hertz delta range slowing were seen over the right frontotemporal region. These ones lasted on average 10 to 20 seconds. Examples include 10:05:20, 10:14:35, 10:40:06, 10:58:16, 11:03:06, 11:08:58. 2. The above can be considered ictal fragments, and the information below #3. 3. On 2 occasions, the runs mentioned above had greater evolution including 2 hertz sharp and slow waves and with volume conduction to the right frontal central regions, more diffuse right hemisphere expressed. These 2 occasions can be considered partial seizures. There were no definitive clinical symptoms. The 1st of these begins at 10:30:20 ending at 10:30:55. The ictal climax has 2-3 hertz sharp and slow wave activity, primarily of the right frontotemporal region. The end of the event has 2-3 hertz delta range slowing. 4. The 2nd event begins at 10:53:08 and ending at 10:54:05. IMPRESSION: Abnormal EEG. Two partial seizures were recorded of right frontotemporal onset consisting of rhythmic 2-3 hertz delta range slowing over the right frontotemporal region evolving 2-3 hertz sharp and slow wave activity over the same region with spread over greater portion of the right hemisphere. Numerous rhythmic runs of 2-3 hertz slowing and sharply contoured slowing were seen over the right frontotemporal region, given their duration in the context of the 2 larger events, these can be considered ictal fragments. The focal delta range slowing seen over the right frontotemporal region is not epileptiform in nature. These findings indicate moderate focal cerebral dysfunction involving the corresponding region. CONCLUSION: These findings indicate moderate focal cerebral dysfunction along the right frontotemporal region and the presence of an epileptiform focus involving the corresponding region, these findings can be seen with the presence of a structural abnormality of epileptiform origin involving the corresponding region. These findings were called to the consulting neurologist at 3:30 p.m. on 09/11/2022. MMODL / IJN: [id number] /
[2022-09-12] MEDS: hydrOXYzine pamoate 25 MG CAP PO SCH ×3 (08:37→20:31)
[2022-09-12] MEDS: HYDROcodone/APAP 5-325MG 1 EACH TAB PO SCH ×2 (08:37→20:31)
[2022-09-12] MEDS: ASPIRIN 81 MG PO SCH (08:37)
[2022-09-12] MEDS: HEPARIN SODIUM,PORCINE/PF 5,000 UNIT/0.5 ML SYRINGE SQ SCH ×2 (08:37→19:31)
[2022-09-12] MEDS: DIVALPROEX ER 500 MG TAB.ER.24H PO SCH ×2 (08:38→20:31)
[2022-09-12] MEDS: FOLIC ACID 1 MG TAB PO SCH (08:38)
[2022-09-12] MEDS: CHOLECALCIFEROL 25 MCG (1000 IU) TABLET PO SCH (08:38)
[2022-09-12] MEDS: FLUTICASONE 50MCG/SPRAY NASAL 16GM EA NOSTRIL SCH (08:38)
[2022-09-12] MEDS: levETIRAcetam 500 MG TAB PO SCH (08:38)
[2022-09-12] MEDS: hydroCHLOROthiazide 25 MG TAB PO SCH (08:38)
[2022-09-12] MEDS: amLODIPine 10 MG TAB PO SCH (08:38)
[2022-09-12] MEDS: FERROUS SULFATE 325 MG TAB PO SCH (08:38)
[2022-09-12] MEDS: MULTIVITAMINS, THERA 1 EACH TAB PO SCH (08:38)
--- NOTE | 2022-09-12 15:44 | EEG ---
ELECTROENCEPHALOGRAM REPORT ELECTROENCEPHALOGRAM (EEG) REPORT: TECHNIQUE: This is a report from a prolonged 2-1/2-hour inpatient digital video EEG performed using the 10/20 International Electrode Placement System. HISTORY: The patient admitted with left-sided paresthesia. Also, he has a history of epilepsy. CURRENT MEDICATIONS: 1. Tylenol. 2. Norvasc. 3. Aspirin. 4. Lipitor. 5. Multivitamin. 6. Folic acid. 7. Hydrochlorothiazide. 8. [place]. 9. Vistaril. 10.Zofran. 11.Zoloft. 12.Desyrel. 13.Keppra. 14.Depakote. 15.Ativan. FINDINGS: RECORDING START TIME: 09/12/2022 at 09:55 a.m. RECORDING END TIME: 09/12/2022 at 12:34 p.m. EVENTS: During this 2-1/2-hour video EEG recording, numerous ictal fragments described as a rhythmic buildup over 20 to 30 seconds were recorded, only a partial listing is given for ease of reporting purposes. These are considered ictal fragments bearing in mind that in some cases, a 10-second evolution could be considered a seizure. The events listed as seizures are those of longer duration, possibly in the 40- to 50- second evolution. Each of these events consisted of a buildup of 2 to 3 Hz sharp and slow wave activity over the right parietal and posterior temporal region, this appears more posterior than yesterday's recording with spread to the right central region. Near the end of the event, frequencies slowed to more 2 to 3 Hz slowing with left sharp waves. Examples of ictal fragments, lasting 20 to 30 seconds include but are not limited to 10:03:10, 10:07:09, 10:19:02, 10:41:19, and 11:02:17. Examples of longer duration events, which will be noted here as seizures include 09:58:57, 10:25:55, 10:34:16, 12:00:12, and 12:32:10. BACKGROUND: The background activity consists of 8 to 9 Hz rhythmic waveforms, more sustained in the left posterior quadrants compared to the right. ACTIVATION: 1. Hyperventilation: Not performed. 2. Photic stimulation: Not performed as the patient indicated that he had a headache. SLEEP: Drowsy. ABNORMALITIES: Frequent runs of rhythmic 2 to 3 Hz sharp wave activity were seen over the right posterior temporal and right parietal region as described above. These consisted of epileptiform sharp waves. IMPRESSION: Abnormal 2-1/2-hour video EEG, numerous partial electrographic seizures were recorded as well as numerous ictal fragments, some of which by virtue of duration can also be considered electrographic seizures. These findings indicate the presence of an epileptiform focus involving the right posterior temporal and parietal region. These findings can be seen with the presence of a structural abnormality involving the corresponding region. These findings were called to the consulting neurologist at 01:13 p.m., on 09/12/2022. MMMIKALL / HORACION: [id number] /
--- NOTE | 2022-09-12 17:15 | P.PN ---
Subjective Progress Note Date: 09/12/22 No new complaints today. Currently on keppra and valproic acid. Patient agreeable for transfer to [facility]. Gen: in no apparent distress, resting comfortably in bed Eyes: PERRL, no scleral injection or icterus HENT: normocephalic, atraumatic Resp: good air exchange, breathing comfortably with no accessory muscle use, CTA BL CVS: good distal perfusion x 4, no pitting edema, Normal S1 S2 MSK: no clubbing, no cyanosis, no noted contractures of extremities Skin: no noted rashes, petechiae; temperature of skin is appropriate Neuro: Left-sided pronator drift, left-sided 3+ out of 5 lower extremity weakness, left-sided numbness to soft touch Psych: cooperative, euthymic mood, insight and judgment intact Hospital Course: 66-year-old man with medical history of stroke, seizure disorder, hypertension, hyperlipidemia presented for evaluation of left-sided paresthesia. In the emergency room, patient was afebrile, 145/99, heart rate 82, 100% on room air. CBC demonstrated anemia down to 11.7, microcytic in nature with an MCV of 75. Basic metabolic panel showed elevation of BUN to 27, otherwise unremarkable. Liver function tests are unremarkable. Coags are unremarkable. Valproic acid level was 53.7. EKG shows sinus bradycardia with left axis deviation and short [place] interval. Brain computed tomography scan showed no acute intercranial process, did show nonspecific white matter changes consistent with chronic small vessel ischemic disease. Case was discussed with emergency room physician decision was made to admit the patient to observation for CVA rule out. Assessment: Left-sided paresthesia History of CVA Seizure disorder Hypertension Hyperlipidemia Plan: MRI brain shows no recent infarct. EEG 09/11 shows numerous partial seizures. Dr. Stroud recommends transfer to higher level of care for continuous EEG monitoring. Called Devin Osborne around 3:15PM. Patient accepted by Dr. Todd. Awaiting call back for bed availability. Continue aspirin 81 mg daily, atorvastatin 80 mg at bedtime; these are decreased from 325 mg daily and increased from 10 mg daily from home doses, respectively. Keppra 500mg BID Depakote 1000mg BID Patient is full code Objective - Vital Signs Vital signs: Vital Signs Temp 98.3 F 09/12/22 08:00 Pulse 100 09/12/22 08:00 Resp 18 09/12/22 14:00 BP 120/84 09/12/22 12:00 Pulse Ox 98 09/12/22 12:00 FiO2 Intake & Output 09/11/22 09/12/22 09/12/22 18:59 06:59 18:59 Intake Total 1020 240 Output Total 325 Balance 695 240 Intake: Oral 1020 240 Output: Urine 325 Other: Voiding Method Toilet Urinal # Voids 1 - Labs CBC & Chem 7: 09/10/22 11:00 09/10/22 11:00
--- NOTE | 2022-09-12 19:39 | P.PN ---
Subjective Progress Note Date: 09/12/22 Patient initially seen by Dr. Toby Paulino. Please refer to his note for details. I am seeing patient for the first time. Patient is a 66-year-old right-handed male with history of seizures for the last 6-7 years, who presented with breakthrough seizure and numbness left side on 09/09/2022. Patient states that he started with a head cold the day prior on 09/08/2022 along with headache. He thinks he had a seizure trial lawyer at 4 AM on 09/09/2022. He had another seizure couple hours later and then he came to, it was 8 AM. He came to the hospital at around 9:40 AM. Patient has persistently abnormal EEG. On EEG patient was having seizures stemming from right temporal parietal mostly temporal. Patient's dose of Depakote was increased from 750 mg twice a day to 1 g twice a day. Also started on Keppra currently on 1 g twice a day. MRI of the brain was negative for any acute stroke. Patient states that he has been having headaches since then, currently rating headache 10/10 pointing to the bifrontal region. He has nausea, but better with medication. No vomiting. He is very sensitive to light and noise. His neck feels painful pointing to both sides when moving it. He says that every time he coughs, his head hurts, particularly since yesterday. Patient's girlfriend was also present, who has not noticed any clinical seizures since she has been present since afternoon today. Some of the workup in this hospital visit consisted of: BUN is 27 which is just around the borderline periodic otherwise rest of cancer panel is unremarkable. White blood cell is within normal limits. Valproic acid is 53.7 and normal supposed to be between 50-120 TSH: 0.840 Vitamin B12: 491 Folate: 36.70 Lipid panel: TG 108, cholestrol 131, LDL 67 and HDL 41. HbA1c: 5.0 CT of the head is reported as no acute intracranial process. Nonspecific white matter changes, likely secondary to chronic small vessel ischemic disease. Septal nonspecific ventricular cistern pattern correlate for normal pressure hydrocephalus. Personally reviewed the CT and I do not appreciate any acute subacute ischemia. There is no bleed. The patient continues to have ex vacuo over the right posterior region over the parietal occipital. CT cervical spine reported as no evidence for cervical spine fracture. Moderate multilevel degenerative disc disease. 2D echo was reported as normal left ventricle systolic function. Carotid duplex was reported as less than 50% stenosis of bilateral carotid bifurcation. There is slow flow noted with elevated ratio when comparing to prior CT that is felt that the patient is a patient normal anatomy Routine EEG on 09/10/22: Is abnormal. The rare episodes of rhythmic delta activity over the right temporal/parietal and some central region lasting between 30-40 seconds seems likely suspicious for a seizure. There is right temporal discharges which increased risk for seizure. Otherwise the background is normal and there is no focal slowing. Recommend a prolonged EEG Objective - Vital Signs Vital signs: Vital Signs Temp 98.3 F 09/12/22 08:00 Pulse 100 09/12/22 08:00 Resp 18 09/12/22 14:00 BP 120/84 09/12/22 12:00 Pulse Ox 98 09/12/22 12:00 FiO2 Intake & Output 09/11/22 09/12/22 09/12/22 18:59 06:59 18:59 Intake Total 1020 358 Output Total 325 Balance 695 358 Intake: Oral 1020 358 Output: Urine 325 Other: Voiding Method Toilet Urinal # Voids 1 - Exam Patient is slightly encephalopathic, slow mentation. He is otherwise alert and awake, knows it is September 2022 and that he is in [facility]. Speech and language functions are normal. No aphasia or dysarthria. Cranial nerves significant for left visual field homonymous hemianopia. Face is symmetric. On muscle strength testing, there is left pronator drift. The strength is normal in arms and legs. Sensory to touch is slightly neglects on the left side with double simultaneous stimulation. No ataxia for [id number] testing. - Labs CBC & Chem 7: 09/10/22 11:00 09/10/22 11:00 Assessment and Plan Assessment: Breakthrough seizure in a patient who has history of seizures for last 6-7 year s. Patient has presented with recurrent multiple electrographic seizures noted on EEG. Patient also has new onset headache. Rule out encephalitis. Breakthrough seizure (patient stated that she had slight shaking of all extremities lasted for half hour without any loss of consciousness and had a brief urinary incontinence. The episode was not witnessed). On EEG has rare rhythmic delta activity over the right temporal/parietal and some central lasting for 30-40 seconds seems likely suspicious for seizure. Left sided numbness possibly due to post-ictal state. Cannot rule out stroke or left cervical radiculopathy. Left neck pain but no significant stenosis. 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 The rhythmic delta activity over the right temporoparietal some central region lasting between 30 and 40 seconds seems likely suspicious a seizure. There is right temporal discharges which increased risk for seizure. Otherwise the background is normal and there is no focal slowing. Recommend prolonged EEG. Prolonged 1.5 hour EEG yesterday on 09/11/2022 revealed 2 partial seizures recorded of right frontotemporal onset consisting of rhythmic 2-3 Hz delta range slowing over the right frontotemporal region evolving to 3 Hz sharp and slow wave activity over the same region with spread over greater portion of the right hemisphere. Numerous rhythmic runs of 2-3 Hz slowing and sharply contorted slowing were seen over the right frontotemporal region, given the duration in the context of the 2 larger events, these can be considered ictal fragments. These findings indicate moderate focal cerebral dysfunction along the right fron totemporal region in the presence of an epileptiform focus involving the corresponding region, these findings can be seen with the presence of a structural abnormality of epileptiform origin involving the corresponding region. Another prolonged 2.5 hour EEG today on 09/12/2022, revealed abnormal 2.5 hour video EEG, which revealed numerous partial electrographic seizures were recorded as well as numerous ictal fragments, some of which by virtue of duration can also be considered electrographic seizures. These findings indicate the presence of an epileptiform focus involving the right posterior temporal and parietal region. These findings can be seen with the presence of a structural abnormality involving the corresponding region. MRI of the brain without contrast 09/11/2022 revealed no acute recent infarct. There is moderate diffuse cerebral atrophy and [id number] generalized hydrocephalus redemonstrated. There is moderate to severe chronic small vessel ischemic change redemonstrated. No change from 2020 MRI. I personally reviewed MRI, agree with the findings. Recommend patient transfer to higher level of care for continuous EEG monitoring. I would recommend lumbar puncture to rule out any encephalitis. Start patient on acyclovir 10 mg/kg IV every 8 hours empirically until encephalitis ruled out. I discussed with patient and his significant other, and both agreed for LP. Hold night dose of heparin. Dr. Paulino has increased Depakote from 750mg bid to 1000mg bid (especially since his levels are boderline normal) on 09/09/22. Also on Keppra 1 g twice a day. I will also add Vimpat 200 mg loading dose followed by 100 mg twice a day to control the seizures. Depakote level today is therapeutic 57.3. Continues home dose ASA 81mg daily and Lipitor 80mg qhs. Q4 hour neuro checks On cardiac monitoring. Consulted PT and OT On seizure precaution and pads. His CT cervical did not show any significant stenosis. Recommend EMG with [facility] as outpatient. Will defer the rest of management to primary team. For DVT prophylaxis: On subq heparin 5000U every 12 hours. Hold heparin tonight anticipation for lumbar puncture. Discussed with primary team, recommended to transfer to higher level of care at 2:07 PM. Time with Patient: Greater than 30
[2022-09-12 19:48] VITALS: BP 137/71; PULSE 81; RESP 16; TEMP 97.8
[2022-09-12] MEDS ORDERED: ACYCLOVIR SODIUM 800 MG in SODIUM CHLORIDE 0.9% 250 ML IVPB SCH (20:00)
[2022-09-12] MEDS: SERTRALINE 50 MG TAB PO SCH (20:31)
[2022-09-12] MEDS: ATORVASTATIN 80 MG TAB PO SCH (20:31)
[2022-09-12] MEDS: traZODone HCL 100 MG TAB PO SCH (20:31)
[2022-09-12] MEDS ORDERED: Lacosamide IV (ages 17+ yrs) 200 MG/20 ML ML IVP SCH (21:00)
[2022-09-12] MEDS ORDERED: levETIRAcetam 500 MG TAB PO SCH (21:00)
[2022-09-12] MEDS: SODIUM CHLORIDE 0.9% 1,000 ML IV SCH (21:48)
== END 2022-09-12 23:56 | disposition short-term general hospital (02) | DRG 100 ==
LOC: EC 09:41 → 3SCARD 14:12 → INTOOBSV 14:12 → OBSVTOIN 14:12 → 3SCARD 14:42 → INTOOBSV 09-12 18:47 → OBSVTOIN 09-12 18:47 → UNDODISIN 09-12 23:56 → UNDODISOB 09-12 23:56
PROVIDERS: ADMIT Internal Medicine; ATTEND Internal Medicine
DX: G40.909 Epilepsy, unspecified, not intractable, without status epilepticus (principal); G04.90 Encephalitis and encephalomyelitis, unspecified; I67.89 Other cerebrovascular disease; G91.2 (Idiopathic) normal pressure hydrocephalus; M19.90 Unspecified osteoarthritis, unspecified site; I10 Essential (primary) hypertension; D50.9 Iron deficiency anemia, unspecified; E78.5 Hyperlipidemia, unspecified; G83.84 Todd's paralysis (postepileptic); E87.6 Hypokalemia; F17.200 Nicotine dependence, unspecified, uncomplicated; F32.A Depression, unspecified; F41.9 Anxiety disorder, unspecified; M54.12 Radiculopathy, cervical region; I65.23 Occlusion and stenosis of bilateral carotid arteries; H53.462 Homonymous bilateral field defects, left side; R53.1 Weakness; G43.909 Migraine, unspecified, not intractable, without status migrainosus; K21.9 Gastro-esophageal reflux disease without esophagitis; H40.9 Unspecified glaucoma; R00.1 Bradycardia, unspecified; Z20.822 Contact with and (suspected) exposure to COVID-19; G89.29 Other chronic pain; M54.50 Low back pain, unspecified; Z86.73 Personal history of transient ischemic attack (TIA), and cerebral infarction without residual deficits; Z79.899 Other long term (current) drug therapy; Z79.82 Long term (current) use of aspirin
CPT/HCPCS: 36415; 70450; 70551; 72125; 80048; 80053; 80061; 80164; 80165; 82607; 82728; 82746; 83036; 83540; 83550; 83735; 84443; 85025; 85610; 85730; 87635; 93005; 93306; 93880; 95700; 95713; 95813; 95816; 99285

== ENCOUNTER 2022-10-27 00:40 | Observation (INO) | payer OTHER ==
[2022-10-27] MEDS ORDERED: SODIUM CHLORIDE 0.9% 500 ML 500 ML IV STA (00:41)
[2022-10-27 00:51] LABS: Glucose,Whole Blood 133 mg/dL (70-110)
[2022-10-27] MEDS ORDERED: levETIRAcetam IV 500 MG/5 ML VIAL IVP STA (00:55)
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
[2022-10-27 01:16] LABS: ALT 15 U/L (4-49); AST 36 U/L (17-59); African American GFR (CKD) >90 (>60 ml/min/1.73 sqM); Albumin 4.3 g/dL (3.5-5.0); Alcohol <10 mg/dL; Alkaline Phosphatase 56 U/L (38-126); Anion Gap 10 mmol/L; Blood Urea Nitrogen 23 mg/dL (9-20); Calcium 8.7 mg/dL (8.4-10.2); Carbon Dioxide 23 mmol/L (22-30); Chloride 102 mmol/L (98-107); Glucose 124 mg/dL (74-99); Magnesium 1.8 mg/dL (1.6-2.3); Non-African American GFR(CKD) 86 (>60 ml/min/1.73 sqM); Sodium 135 mmol/L (137-145); Total Bilirubin 0.8 mg/dL (0.2-1.3); Total Protein 7.1 g/dL (6.3-8.2)
--- NOTE | 2022-10-27 01:28 | CT ---
EXAM: CT Head Without Intravenous Contrast CLINICAL HISTORY: ITS.REASON CT Reason: seizure activity TECHNIQUE: Axial computed tomography images of the head/brain without intravenous contrast. CTDI is 49.1 mGy and DLP is 1066 mGy-cm. This CT exam was performed using one or more of the following dose reduction techniques: automated exposure control, adjustment of the mA and/or kV according to patient size, and/or use of iterative reconstruction technique. COMPARISON: 09/09/2022 FINDINGS: Brain: Moderate periventricular white matter changes, likely related to microangiopathy. No hemorrhage. Ventricles: Unremarkable. No ventriculomegaly. Bones/joints: Unremarkable. No acute fracture. Soft tissues: Unremarkable. Sinuses: Small mucus retention cysts within the right maxillary sinus. Mastoid air cells: Unremarkable as visualized. No mastoid effusion. Other findings: Stable prominence of the right occipital horn. IMPRESSION: No acute findings in the head/brain.
[2022-10-27 01:41] LABS: Anisocytosis Slight; HCT 39.6 % (39.0-53.0); HGB 10.8 gm/dL (13.0-17.5); Hypochromasia Moderate; MCH 20.4 pg (25.0-35.0); MCHC 27.4 g/dL (31.0-37.0); MCV 74.6 fL (80.0-100.0); Mean Platelet Volume 9.2; Microcytosis Moderate; Platelet Count 363 k/uL (150-450); RBC 5.32 m/uL (4.30-5.90); RDW 18.7 % (11.5-15.5)
[2022-10-27 02:27] LABS: Appearance,Urine Clear (Clear); Bilirubin,Urine Negative (Negative); Blood,Urine Negative (Negative); Color,Urine Light Yellow; Glucose,Urine (UA) Negative (Negative); Ketones,Urine Negative (Negative); Leukocyte Esterase,Urine Negative (Negative); Nitrite,Urine Negative (Negative); PH, Urine 6.5 (5.0-8.0); Protein,Urine Negative (Negative); Specific Gravity,Urine 1.014 (1.001-1.035); Urobilinogen,Urine <2.0 mg/dL (<2.0)
[2022-10-27] MEDS ORDERED: NALOXONE 0.4 MG/ML 1 ML VIAL IV PRN (02:39)
[2022-10-27] MEDS ORDERED: ACETAMINOPHEN TAB 325 MG TAB PO PRN (02:39)
[2022-10-27] MEDS ORDERED: LORazepam 2 MG/ML INJ IV PRN (02:40)
[2022-10-27] MEDS: SODIUM CHLORIDE 0.9% 1,000 ML IV SCH ×2 (02:47→16:41)
[2022-10-27 02:51] LABS: Amphetamine Screen,Urine Not Detected (NotDetected); Barbiturate Screen,Urine Not Detected (NotDetected); Benzodiazepines Screen,Urine Not Detected (NotDetected); Cocaine Screen,Urine Not Detected (NotDetected); Methadone Screen, Urine Not Detected (NotDetected); Opiate Screen,Urine Detected (NotDetected); Oxycodone Screen, Urine Not Detected (NotDetected); Phencyclidine Screen,Urine Not Detected (NotDetected); Tricyclic Antidepressant,Urine Not Detected (NotDetected); Urn Cannabinoid Scrn Not Detected (NotDetected)
[2022-10-27 03:33] LABS: Eosinophils # (M) 0.07 k/uL (0-0.7); Lymphocytes # (M) 2.34 k/uL (1.0-4.8); Metamyelocytes # (M) 0.07 k/uL (0); Metamyelocytes % 1 %; Monocytes # (M) 0.46 k/uL (0-1.0); Neutrophils # (M) 3.64 k/uL (1.3-7.7); Neutrophils % (M) 56 %; Nucleated Red Blood Cells 2 /100 WBC (0-0); Total Cells Counted 200; WBC 6.5 k/uL (3.8-10.6)
[2022-10-27 03:37] LABS: RBC Fragments Present
[2022-10-27 03:38] LABS: Ovalocytes Present; Tear Drop Cells Present
[2022-10-27 03:39] LABS: Polychromasia Present
[2022-10-27 03:40] LABS: Large Platelets Present
[2022-10-27] MEDS ORDERED: SODIUM CHLORIDE 0.9% 1,000 ML IV ONE (03:59)
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
[2022-10-27] MEDS: amLODIPine 10 MG TAB PO SCH (08:28)
[2022-10-27] MEDS ORDERED: LACOSAMIDE 50 MG TABLET PO SCH (09:00)
[2022-10-27] MEDS ORDERED: levETIRAcetam 500 MG TAB PO SCH (09:00)
[2022-10-27] MEDS ORDERED: DIVALPROEX 500 MG TABLET.DR PO SCH ×2 (09:00)
[2022-10-27 09:10] LABS: C Reactive Protein <0.5 mg/dL (<1.0)
[2022-10-27 09:11] LABS: Valproic Acid (Depakene) 69.3 ug/mL
[2022-10-27] MEDS: THIAMINE 100 MG TAB PO SCH (11:38)
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
[2022-10-27] MEDS ORDERED: LACTULOSE 20 GM/30 ML CUP PO PRN (18:19)
[2022-10-27] MEDS: LACOSAMIDE 150 MG TABLET PO SCH (20:26)
[2022-10-27] MEDS: DIVALPROEX 250 MG TABLET.DR PO SCH (20:27)
[2022-10-27] MEDS: levETIRAcetam 500 MG TAB PO SCH (21:18)
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
[2022-10-28] MEDS: SODIUM CHLORIDE 0.9% 1,000 ML IV SCH (06:41)
[2022-10-28 07:51] VITALS: BP 126/79; PULSE 58; RESP 16; TEMP 97.8
[2022-10-28] MEDS: DIVALPROEX 250 MG TABLET.DR PO SCH ×2 (08:35→17:03)
[2022-10-28] MEDS: THIAMINE 100 MG TAB PO SCH (08:36)
[2022-10-28] MEDS: amLODIPine 10 MG TAB PO SCH (08:36)
[2022-10-28] MEDS: levETIRAcetam 500 MG TAB PO SCH (08:36)
[2022-10-28] MEDS: LACOSAMIDE 150 MG TABLET PO SCH (09:37)
--- NOTE | 2022-10-29 00:40 | EEG ---
ELECTROENCEPHALOGRAM REPORT PREAMBLE: This is a 66-year-old male with seizure disorder. The patient came with breakthrough seizure. CURRENT MEDICATIONS: 1. Depakote. 2. Keppra. 3. Vimpat. EEG FINDINGS: This is a 21-channel digital EEG recorded with video component, utilizing 10/20 international system with referential and bipolar montages. Background consists of well-developed, moderately well regulated, mixed frequencies of alpha and some theta activity seen in bihemispheric region. Background seems to be minimally reactive to eye opening or closing. There is focal slowing near constant, involving the right temporal region. Focal sharp waves were also seen involving the right temporal region. No electrographic seizure was recorded. Photic stimulation showed no response. Different stages of sleep was not seen. IMPRESSION: This is an abnormal EEG due to: 1. Background slowing, suggestive of [id number] encephalopathy. 2. Focal slowing and focal epileptiform activity over the right temporal region, suggestive of focal cortical neuronal dysfunction, with underlying cortical irritability and tendency for seizures. No electrographic seizure was recorded. MMODL / IJN: [id number] / MAMADOU
--- NOTE | 2022-10-29 09:56 | P.PN ---
Subjective Progress Note Date: 10/28/22 Patient was initially seen by Dr. Toby Paulino. Please refer to his note for details. Patient is a 66-year-old male who has multiple seizures on long-term EEG on prior admission in September 2022 and he was transferred to [facility]. He came back for breakthrough seizures and patient stated that he missed medication. Patient is not a good historian. Dr. Paulino has reviewed records from [facility]. Records from [facility] and seems that the patient had long-term EEG shows right frontal focal electrographic seizure without clinical manifestation over the right posterior quadrant max at C4/P4/02 lasting between 10-40 seconds on 09/13/2022. No seizure activity on long-term after increased dosage. MRI of the brain with contrast showed right lateral ventricle dilation most likely hydrocephalus Ex vacuo. Patient was discharged with Depakote 750 mg 3 times a day, Vimpat 300 mg twice a day and Keppra 2000 mg twice a day. Objective - Vital Signs Vital signs: Vital Signs Temp 97.8 F 10/28/22 07:00 Pulse 58 L 10/28/22 08:00 Resp 16 10/28/22 08:00 BP 126/79 10/28/22 07:00 Pulse Ox 100 10/28/22 07:00 FiO2 21 10/27/22 08:30 Intake & Output 10/27/22 10/28/22 10/28/22 18:59 06:59 18:59 Intake Total 30 118 Output Total 600 Balance -570 118 Weight 77.11 kg Intake: Oral 30 118 Output: Urine 600 Other: # Voids 1 2 # Bowel Movements 1 1 - Exam Patient is alert and awake, sitting on the side of the bed. He wants to go home as soon as possible. No seizures reported in the hospital. Patient knows it is [facility] and is in [place] in [place]. He knows it is October and the year is and that name of the current president Mr. Harrington. Speech and language functions appears normal. Cranial nerves significant for left homonymous hemianopia Metal Bumper is fairly normal. - Labs CBC & Chem 7: 10/27/22 00:53 10/27/22 00:53 Assessment and Plan Assessment: This is a 66 year-old gentleman with history of seizure who was in our facility in beginning of September 2022 and had recurrent seizure and was in status epilepticus and there was concern for ruling out encephalitis and ended up being transferred for continuous EEG who presents today because of suspected seizures and was in post-ictal state per ED and he notified them he thinks he missed his medication Likely Break thru seizure: Stated he missed a day of his medications Hypotherrmia: Rule out underlying infection History of seizure and patient has multiple seizures on prolonged EEG/status epilepticus on begining 09/2022 in which he had numerous partial electrographic seizures with epileptiform focus involving the right posterior temporal parietal region. History of stroke (has ex-vacou over the right occipital horn of lateral ventricle). 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 Depakote level is therapeutic 69.3. Patient to resume his seizure medications that he was discharged from [facility] including Depakote 750 mg 3 times a day, Vimpat 300 mg twice a day and Keppra 2000 mg twice a day. Routine EEG performed today revealed background slowing of mild to moderate degree, suggestive of encephalopathy. Also showed focal slowing and focal sharp waves over the right temporal region, suggestive of focal cortical neuronal dysfunction, with underlying cortical irritability and tendency for seizures. No electrographic seizure was recorded. This focal abnormality noted on the current EEG is chronic in nature, also seen in multiple previous EEGs. Seizure precaution and pads. ESR 2, CRP <0.5, initial ammonia level 154, which is down to 22 now. Need to closely follow ammonia level. If continues to stay high, then need to gradually wean of Depakote. Started on thiamine 100mg daily. ID on board for hypothermia. Current temperature normal. No signs of sepsis. Patient has MRI Brain last month and CT seems stable. The patient had a vitamin B12, folate, TSH on last visit and I don't feel there is a need to obtain them again. Neurologically clear for discharge. Patient needs to follow-up with the felipe rologist in 1-2 weeks.
--- NOTE | 2022-10-30 14:41 | P.DS ---
Providers Date of admission: 10/27/22 02:39 Expected date of discharge: 10/28/22 Attending physician: Kevin Skinner MD Consults: 10/27/22 02:39 Consult Physician Routine Consulting Provider: Toby Paulino Consult Reason/Comments: seizure Do you want consulting provider notified?: Yes 10/27/22 11:34 Consult Physician Routine Consulting Provider: Carey Villanueva Consult Reason/Comments: Hypothermia, rule out infection Do you want consulting provider notified?: Yes Primary care physician: Stated None Hospital Course: Final diagnosis Seizures, breakthrough with prolonged postictal Hyperammonemia, possibly secondary to Depakote, normalized History of seizures with recent extensive workup at [facility] Acute metabolic encephalopathy, most likely secondary to seizures, improved History of CVA/TIA GERD Hypertension Bilateral glaucoma History of anxiety/depression Continued ongoing nicotine dependence Previous alcohol use Previous THC use Discharge disposition Patient is being discharged in a stable condition with guarded prognosis to home. Patient will follow-up with [facility]rios the outpatient setting upon discharge. Patient is to follow-up with his neurologist as scheduled. Patient should have labs and ammonia levels checked in the next few days and may use lactulose as needed for elevated ammonia level. Total time taken is greater than 35 minutes. Hospital course This is a 66-year-old male who was recently admitted with prolonged postictal. Status post breakthrough seizures being closely monitored. Neurology evaluated the patient and underwent EEG which shows mild to moderate encephalopathy with focal slowing and focal epileptiform activity noted over the right temporal region suggestive of focal cortical neuronal dysfunction no electro graphic seizure was recorded on EEG. Patient is to continue on Depakote, Keppra, and Vimpat with close outpatient follow-up with his neurologist. Patient recently underwent extensive neurological workup at [facility] and has outpatient appointments that he has not followed up with as of yet. Patient instructed to follow-up with primary care provider this week. Patient has been cleared by consultations for discharge today. Please refer to neurology note for further HPI. Currently no reports of chest pain, shortness of breath, or palpitations. Patient is afebrile. No reports of nausea or vomiting and patient is tolerating diet. Patient will be discharged home today. Physical exam: Gen: This is a 66-year-old male who is awake, alert and oriented 3, thin built, elderly appearing HEENT: Head is atraumatic, normocephalic. Pupils equal, round. Sclerae is anicteric. NECK: Supple. No JVD. No lymphadenopathy. No thyromegaly. LUNGS: Clear to auscultation. No wheezes or rhonchi. No intercostal retractions. HEART: Regular rate and rhythm. No murmur. ABDOMEN: Soft. Bowel sounds are present. No masses. No tenderness. EXTREMITIES: No pedal edema. No calf tenderness. NEUROLOGICAL: Patient is awake, alert and oriented x3. Cranial nerves 2 through 12 are grossly intact. Please refer to medication reconciliation sheet for a list of medications. The impression and plan of care has been dictated by Valeria Ambriz, Nurse Practitioner as directed. Dr. Krissy MD I have performed a history and examination and MDM of this patient, discussed the same with the dictator, and agree with the dictator's assessment and plan as written ,documented as a scribe. Based on total visit time, I have performed more than 50% of the visit. Patient Condition at Discharge: Stable Plan - Discharge Summary Discharge Rx Participant: Yes New Discharge Prescriptions: New Lactulose [Cephulac] 20 gm PO TID PRN #360 ml PRN Reason: elevated ammonia level Thiamine [Vitamin B-1] 100 mg PO DAILY #30 tab Divalproex [Depakote] 750 mg PO TID 30 Days #180 tab Acetaminophen Tab [Tylenol] 650 mg PO Q6HR PRN tab PRN Reason: Mild Pain Or Fever > 100.5 Continue Sertraline [Zoloft] 100 mg PO HS traZODone HCL [Desyrel] 200 mg PO HS Ferrous Sulfate [Iron (65 MG Elemental)] 325 mg PO DAILY amLODIPine [Norvasc] 10 mg PO DAILY hydrOXYzine pamoate [Vistaril] 25 mg PO TID Aspirin EC [Ecotrin] 325 mg PO DAILY Multivitamins, Thera [Multivitamin (formulary)] 1 tab PO DAILY #30 tablet hydroCHLOROthiazide [Hydrodiuril] 25 mg PO DAILY Fluticasone Nasal [place] [Flonase Nasal [place]] 1 spray EA NOSTRIL DAILY Cyclobenzaprine [Flexeril] 10 mg PO TID PRN PRN Reason: Pain Colchicine 0.6 mg PO DAILY Atorvastatin [Lipitor] 10 mg PO HS Atorvastatin [Lipitor] 20 mg PO HS levETIRAcetam [Keppra] 2,000 mg PO DAILY Cholecalciferol (Vitamin D3) [Vitamin D3 (5000 Iu)] 125 mcg PO DAILY Sertraline [Zoloft] 50 mg PO HS HYDROcodone/APAP 5-325MG [[place] 5-325] 1 tab PO BID Folic Acid 0.8 mg PO DAILY tadalafiL [Cialis] 10 mg PO DAILY PRN PRN Reason: E.D. Lacosamide [Vimpat] 300 mg PO BID Discontinued Divalproex [Depakote] 250 mg PO BID Divalproex [Depakote] 500 mg PO BID Discharge Medication List Sertraline [Zoloft] 100 mg PO HS 06/18/17 [History] Ferrous Sulfate [Iron (65 MG Elemental)] 325 mg PO DAILY 12/10/17 [History] traZODone HCL [Desyrel] 200 mg PO HS 12/10/17 [History] amLODIPine [Norvasc] 10 mg PO DAILY 12/02/19 [History] hydrOXYzine pamoate [Vistaril] 25 mg PO TID 12/02/19 [History] Aspirin EC [Ecotrin] 325 mg PO DAILY 07/03/20 [History] Cholecalciferol (Vitamin D3) [Vitamin D3 (5000 Iu)] 125 mcg PO DAILY 07/03/20 [History] Multivitamins, Thera [Multivitamin (formulary)] 1 tab PO DAILY #30 tablet 07/05/20 [Rx] Atorvastatin [Lipitor] 10 mg PO HS 09/09/22 [History] Atorvastatin [Lipitor] 20 mg PO HS 09/09/22 [History] Colchicine 0.6 mg PO DAILY 09/09/22 [History] Cyclobenzaprine [Flexeril] 10 mg PO TID PRN 09/09/22 [History] Fluticasone Nasal [place] [Flonase Nasal [place]] 1 spray EA NOSTRIL DAILY 09/09/22 [History] Folic Acid 0.8 mg PO DAILY 09/09/22 [History] HYDROcodone/APAP 5-325MG [[place] 5-325] 1 tab PO BID 09/09/22 [History] Sertraline [Zoloft] 50 mg PO HS 09/09/22 [History] hydroCHLOROthiazide [Hydrodiuril] 25 mg PO DAILY 09/09/22 [History] tadalafiL [Cialis] 10 mg PO DAILY PRN 09/09/22 [History] Lacosamide [Vimpat] 300 mg PO BID 10/27/22 [History] levETIRAcetam [Keppra] 2,000 mg PO DAILY 10/27/22 [History] Acetaminophen Tab [Tylenol] 650 mg PO Q6HR PRN tab 10/28/22 [Rx] Divalproex [Depakote] 750 mg PO TID 30 Days #180 tab 10/28/22 [Rx] Lactulose [Cephulac] 20 gm PO TID PRN #360 ml 10/28/22 [Rx] Thiamine [Vitamin B-1] 100 mg PO DAILY #30 tab 10/28/22 [Rx] Ambulatory/Diagnostic Orders: Basic Metabolic Panel [LAB.AMB] Time Frame: 3 Days, Location: None Selected Patient Instructions/Handouts: Seizure/Epilepsy Discharge Instructions & Follow-Up Activity/Diet/Wound Care/Special Instructions: Patient follows with [email or web address] activity limited until follow up follow up follow up with neurology this week continue taking meds as prescribed repeat labs in 2-3 days Discharge Disposition: HOME SELF-CARE
== END 2022-10-28 17:08 | disposition home or self-care (01) ==
LOC: EC 00:40 → 6NMEDSUR 02:39
PROVIDERS: ADMIT Internal Medicine; ATTEND Internal Medicine
DX: G40.409 Other generalized epilepsy and epileptic syndromes, not intractable, without status epilepticus (principal); G93.41 Metabolic encephalopathy; G91.9 Hydrocephalus, unspecified; T42.6X6A Underdosing of other antiepileptic and sedative-hypnotic drugs, initial encounter; Z91.148 Patient's other noncompliance with medication regimen for other reason; I10 Essential (primary) hypertension; I69.951 Hemiplegia and hemiparesis following unspecified cerebrovascular disease affecting right dominant side; T68.XXXA Hypothermia, initial encounter; H53.462 Homonymous bilateral field defects, left side; K21.9 Gastro-esophageal reflux disease without esophagitis; E72.20 Disorder of urea cycle metabolism, unspecified; H40.9 Unspecified glaucoma; M19.90 Unspecified osteoarthritis, unspecified site; G89.29 Other chronic pain; M54.50 Low back pain, unspecified; H26.9 Unspecified cataract; R78.1 Finding of opiate drug in blood; F32.A Depression, unspecified; F41.9 Anxiety disorder, unspecified; F17.200 Nicotine dependence, unspecified, uncomplicated; Z79.82 Long term (current) use of aspirin; Z79.899 Other long term (current) drug therapy; Z98.42 Cataract extraction status, left eye; Z98.890 Other specified postprocedural states; Z83.3 Family history of diabetes mellitus
CPT/HCPCS: 96361; 96374; 99285; 36415; 94760; 95816; 93005; 80164; 80165; 80053; 85652; 80177; 82140 ×2; 83735; 85025; 86140; 81003; 80306; 80320; 80235; 70450; G0378 ×2; J1953

== ENCOUNTER 2022-12-11 20:38 | Emergency (ER) | payer OTHER ==
[2022-12-11 20:50] LABS: Glucose,Whole Blood 137 mg/dL (70-110)
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
[2022-12-11] MEDS ORDERED: SODIUM CHLORIDE 0.9% 500 ML 500 ML IV STA ×2 (21:08→23:10)
[2022-12-11 21:39] LABS: ALT 11 U/L (4-49); African American GFR (CKD) 63 (>60 ml/min/1.73 sqM); Anion Gap 7 mmol/L; Blood Urea Nitrogen 33 mg/dL (9-20); Calcium 8.7 mg/dL (8.4-10.2); Carbon Dioxide 25 mmol/L (22-30); Chloride 108 mmol/L (98-107); Glucose 118 mg/dL (74-99); Non-African American GFR(CKD) 54 (>60 ml/min/1.73 sqM); Sodium 140 mmol/L (137-145); Total Bilirubin 0.7 mg/dL (0.2-1.3)
[2022-12-11 21:44] LABS: AST 35 U/L (17-59); Alkaline Phosphatase 42 U/L (38-126); Magnesium 1.8 mg/dL (1.6-2.3); Potassium 4.6 mmol/L (3.5-5.1); Total Protein 6.7 g/dL (6.3-8.2)
[2022-12-11 22:57] LABS: Anisocytosis Slight; HCT 34.2 % (39.0-53.0); HGB 10.3 gm/dL (13.0-17.5); Hypochromasia Marked; MCH 22.2 pg (25.0-35.0); MCHC 30.2 g/dL (31.0-37.0); MCV 73.5 fL (80.0-100.0); Mean Platelet Volume 7.1; Microcytosis Moderate; Platelet Count 438 k/uL (150-450); RBC 4.66 m/uL (4.30-5.90); RDW 19.1 % (11.5-15.5)
[2022-12-11 23:20] LABS: Band Neutrophils % 9 %; Lymphocytes # (M) 1.21 k/uL (1.0-4.8); Monocytes # (M) 0.17 k/uL (0-1.0); Myelocytes # (M) 0.17 k/uL (0); Myelocytes % 3 %; Neutrophils % (M) 64 %; Nucleated Red Blood Cells 1 /100 WBC (0-0); Total Cells Counted 200; WBC 5.5 k/uL (3.8-10.6)
[2022-12-11 23:21] LABS: Anisocytosis (M) Present; Crenated RBC Present; Hypochromasia (M) Present; Mixed Population RBC Present; Ovalocytes Present; Poikilocytosis (M) Present; RBC Fragments Present; Tear Drop Cells Present
[2022-12-12 02:18] VITALS: BP 108/76; PULSE 70; RESP 18; TEMP 98.5
== END 2022-12-12 02:27 | disposition home or self-care (01) ==
LOC: EC 20:38
DX: G40.409 Other generalized epilepsy and epileptic syndromes, not intractable, without status epilepticus (principal); I10 Essential (primary) hypertension; M19.90 Unspecified osteoarthritis, unspecified site; F41.9 Anxiety disorder, unspecified; F32.A Depression, unspecified; F17.200 Nicotine dependence, unspecified, uncomplicated; Z79.1 Long term (current) use of non-steroidal anti-inflammatories (NSAID); Z86.73 Personal history of transient ischemic attack (TIA), and cerebral infarction without residual deficits; Z79.899 Other long term (current) drug therapy; Z79.82 Long term (current) use of aspirin
CPT/HCPCS: 36415; 80053; 80177; 83735; 85025; 93005; 96360; 96361; 99285

== ENCOUNTER 2023-01-01 20:19 | Emergency (ER) | payer OTHER ==
[2023-01-01] MEDS ORDERED: SODIUM CHLORIDE 0.9% 500 ML 500 ML IV STA (20:47)
[2023-01-01 21:47] LABS: Anisocytosis Slight; Basophils % (A) 1 %; Eosinophils # (A) 0.1 k/uL (0-0.7); Eosinophils % (A) 2 %; HCT 38.6 % (39.0-53.0); HGB 11.7 gm/dL (13.0-17.5); Hypochromasia Marked; Lymphocytes # (A) 1.6 k/uL (1.0-4.8); Lymphocytes % (A) 27 %; MCH 22.3 pg (25.0-35.0); MCHC 30.3 g/dL (31.0-37.0); MCV 73.5 fL (80.0-100.0); Mean Platelet Volume 7.5; Microcytosis Moderate; Monocytes # (A) 0.4 k/uL (0-1.0); Monocytes % (A) 6 %; Neutrophils # (A) 3.7 k/uL (1.3-7.7); Neutrophils % (A) 63 %; Platelet Count 387 k/uL (150-450); RBC 5.25 m/uL (4.30-5.90); RDW 19.4 % (11.5-15.5); WBC 5.9 k/uL (3.8-10.6)
[2023-01-01 21:54] VITALS: TEMP 98.9
[2023-01-01 22:11] LABS: ALT 12 U/L (4-49); AST 26 U/L (17-59); African American GFR (CKD) 85 (>60 ml/min/1.73 sqM); Albumin 3.8 g/dL (3.5-5.0); Alcohol <10 mg/dL; Alkaline Phosphatase 57 U/L (38-126); Anion Gap 9 mmol/L; Blood Urea Nitrogen 31 mg/dL (9-20); Carbon Dioxide 26 mmol/L (22-30); Chloride 107 mmol/L (98-107); Glucose 103 mg/dL (74-99); Magnesium 2.2 mg/dL (1.6-2.3); Non-African American GFR(CKD) 73 (>60 ml/min/1.73 sqM); Sodium 142 mmol/L (137-145); Total Bilirubin 0.4 mg/dL (0.2-1.3); Total Protein 6.4 g/dL (6.3-8.2)
[2023-01-01 22:46] LABS: Ovalocytes Present; Polychromasia Present; RBC Fragments Present; Tear Drop Cells Present
[2023-01-01 22:47] LABS: Large Platelets Present
[2023-01-01 23:03] LABS: Appearance,Urine Clear (Clear); Bilirubin,Urine Negative (Negative); Blood,Urine Negative (Negative); Color,Urine Yellow; Glucose,Urine (UA) Negative (Negative); Ketones,Urine Negative (Negative); Leukocyte Esterase,Urine Negative (Negative); Nitrite,Urine Negative (Negative); PH, Urine 5.5 (5.0-8.0); Protein,Urine Negative (Negative); Specific Gravity,Urine 1.025 (1.001-1.035)
[2023-01-01 23:12] LABS: Amphetamine Screen,Urine Not Detected (NotDetected); Barbiturate Screen,Urine Not Detected (NotDetected); Benzodiazepines Screen,Urine Not Detected (NotDetected); Cocaine Screen,Urine Not Detected (NotDetected); Methadone Screen, Urine Not Detected (NotDetected); Opiate Screen,Urine Not Detected (NotDetected); Oxycodone Screen, Urine Not Detected (NotDetected); Phencyclidine Screen,Urine Not Detected (NotDetected); Tricyclic Antidepressant,Urine Not Detected (NotDetected); Urn Cannabinoid Scrn Not Detected (NotDetected)
[2023-01-01 23:33] VITALS: BP 119/79; PULSE 54; RESP 16
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
== END 2023-01-01 23:55 | disposition home or self-care (01) ==
LOC: EC 20:19
DX: G40.909 Epilepsy, unspecified, not intractable, without status epilepticus (principal); I10 Essential (primary) hypertension; F41.9 Anxiety disorder, unspecified; F32.A Depression, unspecified; F17.200 Nicotine dependence, unspecified, uncomplicated; M19.90 Unspecified osteoarthritis, unspecified site; Z79.82 Long term (current) use of aspirin; Z79.899 Other long term (current) drug therapy
CPT/HCPCS: 36415; 80053; 80164; 80177; 80306; 80320; 81003; 83735; 85025; 93005; 99285

== ENCOUNTER 2023-01-06 09:20 | Emergency (ER) | payer OTHER ==
[2023-01-06] MEDS ORDERED: SODIUM CHLORIDE 0.9% 500 ML 500 ML IV ONE (09:41)
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
[2023-01-06 10:17] LABS: ALT 11 U/L (4-49); AST 32 U/L (17-59); Acetaminophen <10.0 ug/mL; African American GFR (CKD) 82 (>60 ml/min/1.73 sqM); Albumin 4.1 g/dL (3.5-5.0); Alcohol <10 mg/dL; Alkaline Phosphatase 57 U/L (38-126); Anion Gap 10 mmol/L; Blood Urea Nitrogen 21 mg/dL (9-20); Calcium 9.2 mg/dL (8.4-10.2); Carbon Dioxide 26 mmol/L (22-30); Chloride 107 mmol/L (98-107); Glucose 78 mg/dL (74-99); Non-African American GFR(CKD) 71 (>60 ml/min/1.73 sqM); Salicylate 2.5 mg/dL; Sodium 143 mmol/L (137-145); Total Bilirubin 0.6 mg/dL (0.2-1.3)
[2023-01-06 10:22] LABS: Potassium 4.4 mmol/L (3.5-5.1)
[2023-01-06 10:33] LABS: Appearance,Urine Clear (Clear); Bilirubin,Urine Negative (Negative); Blood,Urine Negative (Negative); Color,Urine Yellow; Glucose,Urine (UA) Negative (Negative); Ketones,Urine Negative (Negative); Leukocyte Esterase,Urine Negative (Negative); Nitrite,Urine Negative (Negative); PH, Urine 7.5 (5.0-8.0); Protein,Urine Trace (Negative); Specific Gravity,Urine 1.023 (1.001-1.035); Urobilinogen,Urine <2.0 mg/dL (<2.0)
[2023-01-06 10:52] LABS: Amphetamine Screen,Urine Not Detected (NotDetected); Barbiturate Screen,Urine Not Detected (NotDetected); Benzodiazepines Screen,Urine Not Detected (NotDetected); Cocaine Screen,Urine Not Detected (NotDetected); Methadone Screen, Urine Not Detected (NotDetected); Opiate Screen,Urine Not Detected (NotDetected); Oxycodone Screen, Urine Not Detected (NotDetected); Phencyclidine Screen,Urine Not Detected (NotDetected); Tricyclic Antidepressant,Urine Not Detected (NotDetected); Urn Cannabinoid Scrn Not Detected (NotDetected)
--- NOTE | 2023-01-06 11:07 | CT ---
EXAMINATION TYPE: CT brain wo con CT DLP: 1165 mGycm, Automated exposure control for dose reduction was used. DATE OF EXAM: 01/06/2023 11:01 AM COMPARISON: Prior CT Brain from 12/31/2022 . CLINICAL INDICATION:Male, 67 years old with history of Altered mental status, Altered mental status. TECHNIQUE: Brain: Multiple axial CT images of the brain were obtained without IV contrast. Coronal and sagittal reformats reviewed. FINDINGS: Brain: Extra-axial spaces: No abnormal extra-axial fluid collections. Ventricular system: There is stable diffuse dilatation of the ventricular system with more prominent involvement of the right lateral posterior horn and temporal horn again. This is slightly more than e xpected for level atrophy again. Cerebral parenchyma: Cerebral atrophy. No acute intraparenchymal hemorrhage or mass effect. The miller -white junction is well differentiated. Scattered hypoattenuating areas are seen within the white mat ter. Cerebellum: Unremarkable. Mass effect: No evidence of midline shift. Intracranial vasculature: unremarkable Soft tissues: Normal. Calvarium/osseous structures: No depressed skull fracture. Paranasal sinuses and mastoid air cells: Mucous retention cyst again suggested within the right maxil anibal sinus. Visualized orbits: Bilateral aphakia IMPRESSION: 1. No acute intracranial process. 2. Nonspecific white matter changes, likely secondary to chronic small vessel ischemic disease. 3. Stable nonspecific ventricular cistern pattern. Correlate for normal pressure hydrocephalus.
[2023-01-06 12:31] LABS: Anisocytosis Slight; Basophils % (A) 0 %; Eosinophils # (A) 0.1 k/uL (0-0.7); Eosinophils % (A) 2 %; HGB 12.3 gm/dL (13.0-17.5); Hypochromasia Marked; Lymphocytes # (A) 1.4 k/uL (1.0-4.8); Lymphocytes % (A) 26 %; MCH 21.8 pg (25.0-35.0); MCHC 28.6 g/dL (31.0-37.0); Mean Platelet Volume 7.3; Microcytosis Moderate; Monocytes # (A) 0.4 k/uL (0-1.0); Monocytes % (A) 7 %; Neutrophils # (A) 3.5 k/uL (1.3-7.7); Neutrophils % (A) 63 %; Platelet Count 407 k/uL (150-450); RBC 5.66 m/uL (4.30-5.90); RDW 18.9 % (11.5-15.5); WBC 5.6 k/uL (3.8-10.6)
[2023-01-06 13:28] LABS: RBC Fragments Present; Tear Drop Cells Present
[2023-01-06 13:29] LABS: Polychromasia Present
[2023-01-06 15:19] LABS: INR 1.2 (<1.2); Partial Thromboplastin Time 33.6 sec (22.0-30.0); Prothrombin Time 12.5 sec (9.0-12.0)
[2023-01-06 15:47] VITALS: BP 125/85; PULSE 88; RESP 16; TEMP 97.6
== END 2023-01-06 16:31 | disposition home or self-care (01) ==
LOC: EC 09:20
DX: R41.82 Altered mental status, unspecified (principal); G40.909 Epilepsy, unspecified, not intractable, without status epilepticus; I10 Essential (primary) hypertension; M19.90 Unspecified osteoarthritis, unspecified site; Z86.73 Personal history of transient ischemic attack (TIA), and cerebral infarction without residual deficits; F32.A Depression, unspecified; F41.9 Anxiety disorder, unspecified; F17.200 Nicotine dependence, unspecified, uncomplicated; Z79.82 Long term (current) use of aspirin; Z79.899 Other long term (current) drug therapy
CPT/HCPCS: 36415; 70450; 80053; 80143; 80179; 80306; 80320; 81003; 84484; 85025; 85610; 85730; 93005; 96360; 96361; 99285

== ENCOUNTER 2023-01-14 13:33 | Emergency (ER) | payer OTHER ==
[2023-01-14] MEDS ORDERED: RX INFO: IV CONTRAST WAS GIVEN 1 EACH MISC MISCELLANE PRN (14:04)
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
[2023-01-14] MEDS ORDERED: HYDROmorphone 0.5 MG/0.5 ML SYRINGE IVP STA (14:19)
[2023-01-14 14:51] LABS: Anisocytosis Slight; Basophils % (A) 0 %; Eosinophils # (A) 0.1 k/uL (0-0.7); Eosinophils % (A) 1 %; HCT 38.6 % (39.0-53.0); HGB 11.7 gm/dL (13.0-17.5); Hypochromasia Marked; Lymphocytes # (A) 1.5 k/uL (1.0-4.8); Lymphocytes % (A) 15 %; MCHC 30.2 g/dL (31.0-37.0); MCV 72.9 fL (80.0-100.0); Mean Platelet Volume 8.9; Microcytosis Moderate; Monocytes # (A) 0.8 k/uL (0-1.0); Monocytes % (A) 9 %; Neutrophils # (A) 7.1 k/uL (1.3-7.7); Neutrophils % (A) 73 %; Platelet Count 529 k/uL (150-450); RBC 5.29 m/uL (4.30-5.90); RDW 19.2 % (11.5-15.5); WBC 9.7 k/uL (3.8-10.6)
[2023-01-14 15:00] LABS: INR 1.1 (<1.2); Partial Thromboplastin Time 30.3 sec (22.0-30.0); Prothrombin Time 11.8 sec (9.0-12.0)
[2023-01-14 15:08] VITALS: RESP 18
[2023-01-14 15:36] LABS: ALT 11 U/L (4-49); AST 37 U/L (17-59); African American GFR (CKD) >90 (>60 ml/min/1.73 sqM); Albumin 4.4 g/dL (3.5-5.0); Alkaline Phosphatase 63 U/L (38-126); Anion Gap 13 mmol/L; Blood Urea Nitrogen 18 mg/dL (9-20); Calcium 9.2 mg/dL (8.4-10.2); Carbon Dioxide 24 mmol/L (22-30); Chloride 101 mmol/L (98-107); Glucose 91 mg/dL (74-99); Non-African American GFR(CKD) >90 (>60 ml/min/1.73 sqM); Potassium 4.5 mmol/L (3.5-5.1); Sodium 138 mmol/L (137-145); Total Bilirubin 0.7 mg/dL (0.2-1.3); Total Protein 7.2 g/dL (6.3-8.2)
[2023-01-14 15:44] LABS: Ovalocytes Present; RBC Fragments Present
[2023-01-14 15:45] LABS: Tear Drop Cells Present
--- NOTE | 2023-01-14 16:52 | CT ---
EXAMINATION TYPE: CT neck chest w con CT DLP: 557.2 mGycm, Automated exposure control for dose reduction was used. DATE OF EXAM: 01/14/2023 4:23 PM COMPARISON: CT cervical spine 09/09/2022. CLINICAL INDICATION:Male, 67 years old with history of Swelling;, swelling to left side of neck post chest sx TECHNIQUE: Standard enhanced CT of the neck and chest. Axial sections with coronal and sagittal refo rmats were obtained. Contrast used:100 mL of Isovue 370 with IV Contrast, (none if empty) Oral contrast used: (none if empty) FINDINGS: Brain: Visualized portions are grossly unremarkable. Orbits: Bilateral aphakia. Sinuses: The mastoid air cells are clear. Likely 1.0 cm right maxillary sinus mucous retention cyst. Spaces of the neck: Large heterogenous hyperdense nonenhancing collection within the left lateral nec k at the level of the hyoid bone extending to the clavicular region. This grossly measures 6.7 x 4.9 x 8.1 cm. There is mass effect upon the surrounding structures. Stimulator lead extends to this colle ction tip terminating adjacent to the left common carotid artery at the level of C4-C5. There is part ial effacement of the left parapharyngeal space at the level of the hyoid bone. No obvious contrast extravasation. There appears to be stones identified within the right seminal gland. Musculoskeletal: No acute osseous pathology. Degenerative disc disease changes of the visualized spin e are present. Lymph nodes: Multiple nonenlarged lymph nodes are seen along both anterior chains of the neck. Vascular structures: Visualized major arteries are patent without evidence of aneurysm. Mild atherosc lerotic calcification of the right carotid bulb. Deviation of the proximal left internal carotid roger ry to the right from surrounding mass effect. Thoracic Inlet/airway: Airway is patent. The lung apices are clear. Thyroid: Thyroid appears unremarkable. Other: none. LUNGS/ PLEURA: No pleural effusion, pneumothorax, focal consolidation. Bibasilar dependent subsegment al atelectasis. AIRWAY: Patent and unremarkable. HEART: Mildly enlarged. No pericardial effusion MEDIASTINUM: No gross evidence of adenopathy. VASCULATURE: Ascending thoracic aortic aneurysm measuring up to 4.3 cm. Descending thoracic aorta me asures up to 2.7 cm. MUSCULOSKELETAL: Mild disc degeneration changes are present throughout the thoracolumbar spine. No ac florencia osseous abnormality. SOFT TISSUES/LYMPH NODES: Left chest wall neurostimulator power pack identified with surrounding cris dusty measuring at least 6.2 x 2.7 cm with several foci of gas. Neurostimulator lead extends superiorl y into the left neck with surrounding tracking gas. UPPER ABDOMEN: Mild splenomegaly measuring 14.0 cm. IMPRESSION 1. Postsurgical changes from left chest wall neurostimulator device placement. There is a moderate-si zed hematoma along the anterior surface of the neurostimulator power pack in the left chest wall. Lar ge heterogenous fluid collection within the left lateral neck at the level of the hyoid bone extendin g to the supraclavicular level most consistent with a hematoma. There is mass effect upon the surroun ding structures. No obvious contrast extravasation. 2. Ascending thoracic aortic aneurysm measuring up to 4.3 cm. 3. Mild splenomegaly.
[2023-01-14] MEDS ORDERED: hydrALAZINE HCL 20 MG/ML 1 ML VIAL IVP STA (17:02)
[2023-01-14 18:25] VITALS: BP 158/81; PULSE 88; TEMP 98
== END 2023-01-14 18:03 | disposition home or self-care (01) ==
LOC: EC 13:33
DX: L76.32 Postprocedural hematoma of skin and subcutaneous tissue following other procedure (principal); I45.10 Unspecified right bundle-branch block; I10 Essential (primary) hypertension; F41.9 Anxiety disorder, unspecified; F32.A Depression, unspecified; M19.90 Unspecified osteoarthritis, unspecified site; F17.200 Nicotine dependence, unspecified, uncomplicated; Z79.82 Long term (current) use of aspirin; Z79.899 Other long term (current) drug therapy
CPT/HCPCS: 36415; 93005; 80053; 85025; 85610; 85730; 70491; 71260; 99285; 96374; 96375; J0360; J1170; Q9967

== ENCOUNTER 2023-01-15 23:05 | Emergency (ER) | payer OTHER ==
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
[2023-01-16 01:25] LABS: Anisocytosis Slight; Basophils # (A) 0.1 k/uL (0-0.2); Basophils % (A) 0 %; Eosinophils # (A) 0.1 k/uL (0-0.7); Eosinophils % (A) 1 %; HCT 37.7 % (39.0-53.0); HGB 11.3 gm/dL (13.0-17.5); Hypochromasia Moderate; Lymphocytes # (A) 1.9 k/uL (1.0-4.8); Lymphocytes % (A) 11 %; MCH 21.3 pg (25.0-35.0); MCHC 29.9 g/dL (31.0-37.0); MCV 71.3 fL (80.0-100.0); Mean Platelet Volume 7.5; Microcytosis Marked; Monocytes # (A) 1.6 k/uL (0-1.0); Monocytes % (A) 9 %; Neutrophils # (A) 13.8 k/uL (1.3-7.7); Neutrophils % (A) 78 %; Platelet Count 670 k/uL (150-450); RBC 5.29 m/uL (4.30-5.90); RDW 19.3 % (11.5-15.5); WBC 17.7 k/uL (3.8-10.6)
[2023-01-16 01:41] LABS: Ovalocytes Present; Poikilocytosis (M) Present; Polychromasia Present; RBC Fragments Present; Target Cells Present; Tear Drop Cells Present
[2023-01-16 01:42] LABS: Large Platelets Present
[2023-01-16] MEDS ORDERED: SODIUM CHLORIDE 0.9% 1,000 ML IV STA ×2 (03:04→05:21)
[2023-01-16] MEDS ORDERED: HYDROmorphone 0.5 MG/0.5 ML SYRINGE IVP STA (03:05)
[2023-01-16 03:10] VITALS: TEMP 98.3
[2023-01-16 03:11] LABS: ALT 11 U/L (4-49); AST 28 U/L (17-59); African American GFR (CKD) 80 (>60 ml/min/1.73 sqM); Albumin 4.3 g/dL (3.5-5.0); Alkaline Phosphatase 52 U/L (38-126); Anion Gap 16 mmol/L; Blood Urea Nitrogen 22 mg/dL (9-20); Calcium 9.3 mg/dL (8.4-10.2); Carbon Dioxide 22 mmol/L (22-30); Chloride 97 mmol/L (98-107); Glucose 108 mg/dL (74-99); Non-African American GFR(CKD) 70 (>60 ml/min/1.73 sqM); Sodium 135 mmol/L (137-145); Total Bilirubin 0.6 mg/dL (0.2-1.3); Total Protein 7.1 g/dL (6.3-8.2)
[2023-01-16] MEDS ORDERED: IPRATROPIUM-ALBUTEROL 3 ML NEB INHALATION STA (04:16)
[2023-01-16] MEDS ORDERED: VANCOMYCIN IV PER PHARMACY 1 EACH MISC MISCELLANE PRN (04:33)
--- NOTE | 2023-01-16 04:49 | CT ---
EXAM: CT Neck With Intravenous Contrast CLINICAL HISTORY: ITS.REASON CT Reason: swelling to neck, cough TECHNIQUE: Axial computed tomography images of the neck with intravenous contrast. CTDI is 6.6 mGy and DLP is 207.1 mGy-cm. This CT exam was performed using one or more of the following dose reduction techniques: automated exposure control, adjustment of the mA and/or kV according to patient size, and/or use of iterative reconstruction technique. COMPARISON: 01/12/2023 FINDINGS: Smaller left neck mass with surrounding vasogenic edema. It measures approximately 5.7 x 4.0 cm, previously 7.2 x 5.2 cm. The trachea is again deviated to the right from this process and its surrounding soft tissue swelling IMPRESSION: Smaller left neck mass with surrounding vasogenic edema. It measures approximately 5.7 x 4.0 cm, previously 7.2 x 5.2 cm. The trachea is again deviated to the right from this process and its surrounding soft tissue swelling. The airway is patent. EXAM: CT Chest With Intravenous Contrast CLINICAL HISTORY: ITS.REASON CT Reason: swelling to neck, cough TECHNIQUE: Axial computed tomography images of the chest with intravenous contrast. CTDI is 6.5 mGy and DLP is 316.2 mGy-cm. This CT exam was performed using one or more of the following dose reduction techniques: automated exposure control, adjustment of the mA and/or kV according to patient size, and/or use of iterative reconstruction technique. COMPARISON: 01/12/2023 FINDINGS: Lungs: No mass. Patchy opacities in the bilateral lower lobes. Mild COPD. Pleural space: No pneumothorax. No effusion. Heart: Normal heart size. No pericardial effusion. Bones/joints: No acute fracture. Soft tissues: Left chest wall soft tissue swelling and hematoma again seen measuring approximately 5.5 cm which is similar to prior. Vasculature: Unremarkable. Ectatic ascending aorta measuring 4.3 cm. Lymph nodes: No enlarged lymph nodes. IMPRESSION: Patchy opacities in the bilateral lower lobes. Correlate with aspiration versus infection. Left chest wall soft tissue swelling and hematoma again seen measuring approximately 5.5 cm which is similar to prior.
[2023-01-16] MEDS ORDERED: DEXAMETHASONE SOD PHOSPHATE 4 MG/ML 1 ML VIAL IVP STA (04:51)
[2023-01-16 04:57] VITALS: PULSE 120
[2023-01-16] MEDS ORDERED: SODIUM CHLORIDE 0.9% 500 ML 500 ML IV STA (05:21)
[2023-01-16 05:28] VITALS: BP 144/94; RESP 22
[2023-01-16] MEDS ORDERED: VANCOMYCIN 1,500 MG in SODIUM CHLORIDE 0.9% 500 ML 500 ML IVPB ONE (05:30)
[2023-01-16] MEDS ORDERED: metroNIDAZOLE 500 MG TAB PO SCH (05:30)
[2023-01-16] MEDS ORDERED: PIPERACILLIN-TAZOBACTAM 3.375 GM in SODIUM CHLORIDE 0.9% 100 ML IVPB SCH (08:00)
[2023-01-16] MEDS ORDERED: VANCOMYCIN 1,500 MG in SODIUM CHLORIDE 0.9% 500 ML 500 ML IVPB SCH (18:00)
== END 2023-01-16 06:45 | disposition other institution (70) ==
LOC: EC 23:05
DX: S10.93XA Contusion of unspecified part of neck, initial encounter (principal); S20.219A Contusion of unspecified front wall of thorax, initial encounter; J69.0 Pneumonitis due to inhalation of food and vomit; M96.89 Other intraoperative and postprocedural complications and disorders of the musculoskeletal system; R00.0 Tachycardia, unspecified; I10 Essential (primary) hypertension; M19.90 Unspecified osteoarthritis, unspecified site; F41.9 Anxiety disorder, unspecified; F32.A Depression, unspecified; F17.200 Nicotine dependence, unspecified, uncomplicated; Z86.73 Personal history of transient ischemic attack (TIA), and cerebral infarction without residual deficits; Z79.82 Long term (current) use of aspirin; Z79.1 Long term (current) use of non-steroidal anti-inflammatories (NSAID); Z79.899 Other long term (current) drug therapy; Z20.822 Contact with and (suspected) exposure to COVID-19; X58.XXXA Exposure to other specified factors, initial encounter
CPT/HCPCS: 36415; 94640; 93005; 80053; 83605; 85025; 87040; 87636 ×2; 70491; 71260; 99291; 96365; 96375 ×2; 96361; J3370; J1100; J1170; Q9967

== ENCOUNTER 2023-04-08 15:40 | Emergency (ER) | payer OTHER ==
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
--- NOTE | 2023-04-08 19:52 | XR ---
EXAMINATION TYPE: XR foot complete LT DATE OF EXAM: 04/08/2023 4:11 PM CLINICAL INDICATION:Male, 67 years old with history of foot pain; [facility] COMPARISON: None. TECHNIQUE: Left foot 3 views were obtained. FINDINGS: Generalized osteopenia. No evidence of fracture or significant malalignment. Mild/moderate osteoarthr itic changes, greatest at the great toe MTP joint. No cortical destruction or periostitis is seen. Un remarkable soft tissues without radiopaque foreign body. IMPRESSION: No acute radiographic abnormality.
[2023-04-08] MEDS ORDERED: DIPH,PERTUS(ACELL)TETVAC-LF 0.5 ML VIAL IM ONE (21:16)
[2023-04-08 21:44] VITALS: BP 156/92; PULSE 79; RESP 16; TEMP 97.6
== END 2023-04-08 21:32 | disposition home or self-care (01) ==
LOC: EC 15:40
DX: M79.675 Pain in left toe(s) (principal); I10 Essential (primary) hypertension; F32.A Depression, unspecified; F41.9 Anxiety disorder, unspecified; M19.90 Unspecified osteoarthritis, unspecified site; F17.200 Nicotine dependence, unspecified, uncomplicated; Z79.82 Long term (current) use of aspirin; Z79.899 Other long term (current) drug therapy; Z23 Encounter for immunization
CPT/HCPCS: 90471; 90715; 99284

== ENCOUNTER 2023-05-27 22:25 | Emergency (ER) | payer OTHER ==
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
[2023-05-27] MEDS: LORazepam 2 MG/ML INJ IV STA (23:35)
[2023-05-27] MEDS: SODIUM CHLORIDE 0.9% 1,000 ML IV STA (23:37)
[2023-05-27 23:40] VITALS: RESP 16; TEMP 97.9
[2023-05-27 23:55] LABS: Anisocytosis Slight; HCT 36.6 % (39.0-53.0); HGB 11.1 gm/dL (13.0-17.5); Hypochromasia Marked; MCH 21.7 pg (25.0-35.0); MCHC 30.4 g/dL (31.0-37.0); MCV 71.6 fL (80.0-100.0); Mean Platelet Volume 8.4; Microcytosis Marked; Platelet Count 559 k/uL (150-450); RBC 5.12 m/uL (4.30-5.90); RDW 19.3 % (11.5-15.5)
[2023-05-28 00:38] LABS: ALT 8 U/L (4-49); AST 21 U/L (17-59); Acetaminophen <10.0 ug/mL; African American GFR (CKD) 66 (>60 ml/min/1.73 sqM); Albumin 3.7 g/dL (3.5-5.0); Alcohol <10 mg/dL; Alkaline Phosphatase 67 U/L (38-126); Anion Gap 5 mmol/L; Blood Urea Nitrogen 28 mg/dL (9-20); Calcium 9.1 mg/dL (8.4-10.2); Carbon Dioxide 30 mmol/L (22-30); Chloride 106 mmol/L (98-107); Glucose 100 mg/dL (74-99); Non-African American GFR(CKD) 57 (>60 ml/min/1.73 sqM); Potassium 4.1 mmol/L (3.5-5.1); Salicylate <1.0 mg/dL; Sodium 141 mmol/L (137-145); Total Bilirubin 0.4 mg/dL (0.2-1.3); Total Protein 6.1 g/dL (6.3-8.2)
[2023-05-28 01:00] LABS: Band Neutrophils % 1 %; Eosinophils # (M) 0.06 k/uL (0-0.7); Monocytes # (M) 0.58 k/uL (0-1.0); Neutrophils % (M) 55 %; Nucleated Red Blood Cells 3 /100 WBC (0-0); Total Cells Counted 200; WBC 6.4 k/uL (3.8-10.6)
[2023-05-28 01:02] LABS: Poikilocytosis (M) Present; Polychromasia Present
[2023-05-28 01:03] LABS: RBC Fragments Present
[2023-05-28 02:04] LABS: Appearance,Urine Clear (Clear); Bilirubin,Urine Negative (Negative); Blood,Urine Negative (Negative); Color,Urine Yellow; Glucose,Urine (UA) Negative (Negative); Ketones,Urine Negative (Negative); Leukocyte Esterase,Urine Negative (Negative); Nitrite,Urine Negative (Negative); PH, Urine 5.5 (5.0-8.0); Protein,Urine Negative (Negative); Specific Gravity,Urine 1.024 (1.001-1.035)
[2023-05-28 02:19] LABS: Amphetamine Screen,Urine Not Detected (NotDetected); Barbiturate Screen,Urine Not Detected (NotDetected); Benzodiazepines Screen,Urine Detected (NotDetected); Cocaine Screen,Urine Not Detected (NotDetected); Methadone Screen, Urine Not Detected (NotDetected); Opiate Screen,Urine Detected (NotDetected); Oxycodone Screen, Urine Not Detected (NotDetected); Phencyclidine Screen,Urine Not Detected (NotDetected); Tricyclic Antidepressant,Urine Not Detected (NotDetected); Urn Cannabinoid Scrn Not Detected (NotDetected)
[2023-05-28 02:29] VITALS: BP 121/77; PULSE 72
== END 2023-05-28 02:14 | disposition home or self-care (01) ==
LOC: EC 22:25
DX: G40.909 Epilepsy, unspecified, not intractable, without status epilepticus (principal); M19.90 Unspecified osteoarthritis, unspecified site; I10 Essential (primary) hypertension; F41.9 Anxiety disorder, unspecified; F32.A Depression, unspecified; F17.200 Nicotine dependence, unspecified, uncomplicated; Z79.1 Long term (current) use of non-steroidal anti-inflammatories (NSAID); Z79.899 Other long term (current) drug therapy; Z79.82 Long term (current) use of aspirin; W01.0XXA Fall on same level from slipping, tripping and stumbling without subsequent striking against object, initial encounter
CPT/HCPCS: 36415; 93005; 80053; 83735; 85025; 81003; 80306; 80143; 80320; 80179; 99285; 96374; 96361; J2060

== ENCOUNTER 2023-06-15 17:24 | Emergency (ER) | payer OTHER ==
[2023-06-15 17:42] LABS: Glucose,Whole Blood 142 mg/dL (70-110)
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
[2023-06-15 18:59] LABS: Anisocytosis Slight; Basophils # (A) 0.1 k/uL (0-0.2); Basophils % (A) 1 %; Eosinophils # (A) 0.1 k/uL (0-0.7); Eosinophils % (A) 1 %; HCT 39.6 % (39.0-53.0); HGB 12.1 gm/dL (13.0-17.5); Hypochromasia Moderate; Lymphocytes % (A) 25 %; MCH 21.6 pg (25.0-35.0); MCHC 30.5 g/dL (31.0-37.0); MCV 70.6 fL (80.0-100.0); Mean Platelet Volume 6.7; Microcytosis Marked; Monocytes # (A) 0.6 k/uL (0-1.0); Monocytes % (A) 7 %; Neutrophils # (A) 4.9 k/uL (1.3-7.7); Neutrophils % (A) 63 %; Platelet Count 441 k/uL (150-450); RBC 5.61 m/uL (4.30-5.90); RDW 18.8 % (11.5-15.5); WBC 7.8 k/uL (3.8-10.6)
[2023-06-15 19:19] LABS: ALT 9 U/L (4-49); AST 25 U/L (17-59); Acetaminophen <10.0 ug/mL; African American GFR (CKD) 80 (>60 ml/min/1.73 sqM); Albumin 4.3 g/dL (3.5-5.0); Alkaline Phosphatase 86 U/L (38-126); Anion Gap 12 mmol/L; Blood Urea Nitrogen 29 mg/dL (9-20); Calcium 9.3 mg/dL (8.4-10.2); Carbon Dioxide 24 mmol/L (22-30); Chloride 104 mmol/L (98-107); Glucose 132 mg/dL (74-99); Magnesium 1.9 mg/dL (1.6-2.3); Non-African American GFR(CKD) 69 (>60 ml/min/1.73 sqM); Poikilocytosis (M) Present; Polychromasia Present; Potassium 3.7 mmol/L (3.5-5.1); RBC Fragments Present; Salicylate 2.3 mg/dL; Sodium 140 mmol/L (137-145); Target Cells Present; Tear Drop Cells Present; Total Bilirubin 0.4 mg/dL (0.2-1.3); Total Protein 7.1 g/dL (6.3-8.2)
[2023-06-15 19:40] VITALS: RESP 18
[2023-06-15 20:10] VITALS: BP 127/71; PULSE 72
== END 2023-06-15 20:42 | disposition home or self-care (01) ==
LOC: EC 17:24 → SUPCPDRO 17:24 → EC 20:42
DX: G40.409 Other generalized epilepsy and epileptic syndromes, not intractable, without status epilepticus (principal); F17.200 Nicotine dependence, unspecified, uncomplicated; Z86.73 Personal history of transient ischemic attack (TIA), and cerebral infarction without residual deficits
CPT/HCPCS: 36415; 80053; 80143; 80179; 83735; 85025; 93005; 99285

== ENCOUNTER 2023-06-17 10:21 | Emergency (ER) | payer OTHER ==
[2023-06-17 10:35] VITALS: TEMP 98.5
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
[2023-06-17] MEDS: SODIUM CHLORIDE 0.9% 1,000 ML IV STA (11:00)
[2023-06-17] MEDS: KETOROLAC 15 MG/ML 1 ML VIAL IVP STA (11:00)
[2023-06-17 11:07] LABS: Anisocytosis Slight; Basophils # (A) 0.1 k/uL (0-0.2); Basophils % (A) 1 %; Eosinophils # (A) 0.1 k/uL (0-0.7); Eosinophils % (A) 2 %; HCT 41.3 % (39.0-53.0); HGB 12.4 gm/dL (13.0-17.5); Hypochromasia Moderate; Lymphocytes # (A) 1.4 k/uL (1.0-4.8); Lymphocytes % (A) 22 %; MCH 21.3 pg (25.0-35.0); MCHC 30.1 g/dL (31.0-37.0); Mean Platelet Volume 6.6; Microcytosis Marked; Monocytes # (A) 0.4 k/uL (0-1.0); Monocytes % (A) 6 %; Neutrophils # (A) 4.3 k/uL (1.3-7.7); Neutrophils % (A) 68 %; Platelet Count 469 k/uL (150-450); RBC 5.82 m/uL (4.30-5.90); WBC 6.3 k/uL (3.8-10.6)
[2023-06-17 11:20] LABS: ALT 9 U/L (4-49); AST 23 U/L (17-59); African American GFR (CKD) 71 (>60 ml/min/1.73 sqM); Albumin 4.3 g/dL (3.5-5.0); Alcohol <10 mg/dL; Alkaline Phosphatase 81 U/L (38-126); Anion Gap 10 mmol/L; Blood Urea Nitrogen 30 mg/dL (9-20); Calcium 9.5 mg/dL (8.4-10.2); Carbon Dioxide 26 mmol/L (22-30); Chloride 105 mmol/L (98-107); Glucose 86 mg/dL (74-99); Magnesium 2.1 mg/dL (1.6-2.3); Non-African American GFR(CKD) 62 (>60 ml/min/1.73 sqM); Potassium 3.9 mmol/L (3.5-5.1); Sodium 141 mmol/L (137-145); Total Bilirubin 0.5 mg/dL (0.2-1.3); Total Protein 7.1 g/dL (6.3-8.2)
[2023-06-17 12:19] LABS: RBC Fragments Present; Tear Drop Cells Present
[2023-06-17 12:24] LABS: Appearance,Urine Clear (Clear); Bilirubin,Urine Negative (Negative); Blood,Urine Negative (Negative); Color,Urine Light Yellow; Glucose,Urine (UA) Negative (Negative); Ketones,Urine 1+ (Negative); Leukocyte Esterase,Urine Negative (Negative); Nitrite,Urine Negative (Negative); PH, Urine 5.5 (5.0-8.0); Protein,Urine Negative (Negative); Specific Gravity,Urine 1.025 (1.001-1.035); Urobilinogen,Urine <2.0 mg/dL (<2.0)
[2023-06-17 12:47] LABS: Amphetamine Screen,Urine Not Detected (NotDetected); Barbiturate Screen,Urine Not Detected (NotDetected); Benzodiazepines Screen,Urine Not Detected (NotDetected); Cocaine Screen,Urine Not Detected (NotDetected); Methadone Screen, Urine Not Detected (NotDetected); Opiate Screen,Urine Not Detected (NotDetected); Oxycodone Screen, Urine Not Detected (NotDetected); Phencyclidine Screen,Urine Not Detected (NotDetected); Tricyclic Antidepressant,Urine Not Detected (NotDetected); Urn Cannabinoid Scrn Not Detected (NotDetected)
[2023-06-17] MEDS: LORazepam 2 MG/ML INJ IV STA (13:07)
[2023-06-17] MEDS: levETIRAcetam IV 500 MG/5 ML VIAL IVP STA (13:44)
[2023-06-17 15:22] VITALS: BP 128/75; PULSE 78; RESP 16
== END 2023-06-17 15:20 | disposition home or self-care (01) ==
LOC: EC 10:21
DX: G40.909 Epilepsy, unspecified, not intractable, without status epilepticus (principal); F17.200 Nicotine dependence, unspecified, uncomplicated
CPT/HCPCS: 99285; 96374; 96375 ×2; 96361; 99406; 36415; 93005; 80164; 80053; 80177; 83605; 83735; 85025; 81003; 80306; 80320; J2060; J1953; J1885

== ENCOUNTER 2024-02-11 19:18 | Emergency (ER) | payer OTHER ==
[2024-02-11 19:25] VITALS: RESP 18; TEMP 97.7
[2024-02-11] MEDS: levETIRAcetam IV 500 MG/5 ML VIAL IVP STA (19:47)
[2024-02-11 19:49] LABS: Anisocytosis Slight; HCT 34.3 % (39.0-53.0); HGB 10.3 gm/dL (13.0-17.5); Hypochromasia Marked; MCH 21.6 pg (25.0-35.0); MCV 71.9 fL (80.0-100.0); Mean Platelet Volume 8.1; Microcytosis Marked; Platelet Count 351 k/uL (150-450); RBC 4.77 m/uL (4.30-5.90); RDW 19.4 % (11.5-15.5)
[2024-02-11] MEDS: SODIUM CHLORIDE 0.9% 1,000 ML IV STA (19:51)
[2024-02-11 20:18] LABS: Neutrophils % (M) 60 %; Nucleated Red Blood Cells 4 /100 WBC (0-0); Total Cells Counted 100
[2024-02-11 20:19] LABS: ALT 8 U/L (4-49); AST 24 U/L (17-59); African American GFR (CKD) 68 (>60 ml/min/1.73 sqM); Alcohol <10 mg/dL; Alkaline Phosphatase 58 U/L (38-126); Anion Gap 7 mmol/L; Blood Urea Nitrogen 20 mg/dL (9-20); Calcium 8.6 mg/dL (8.4-10.2); Carbon Dioxide 24 mmol/L (22-30); Chloride 105 mmol/L (98-107); Eosinophils # (M) 0.05 k/uL (0-0.7); Glucose 86 mg/dL (74-99); Lithium <0.2 mmol/L; Lymphocytes # (M) 1.57 k/uL (1.0-4.8); Magnesium 1.8 mg/dL (1.6-2.3); Monocytes # (M) 0.54 k/uL (0-1.0); Neutrophils # (M) 3.24 k/uL (1.3-7.7); Non-African American GFR(CKD) 59 (>60 ml/min/1.73 sqM); Phenytoin (Dilantin) <3.0 ug/mL; Potassium 3.6 mmol/L (3.5-5.1); Sodium 136 mmol/L (137-145); Total Bilirubin 0.5 mg/dL (0.2-1.3); Total Protein 6.4 g/dL (6.3-8.2); WBC 5.4 k/uL (3.8-10.6)
[2024-02-11 20:20] LABS: Anisocytosis (M) Present; Poikilocytosis (M) Present; Polychromasia Present; Tear Drop Cells Present
[2024-02-11 20:22] LABS: Valproic Acid (Depakene) 89.9 ug/mL
[2024-02-11 20:31] LABS: Appearance,Urine Clear (Clear); Bilirubin,Urine Negative (Negative); Blood,Urine Negative (Negative); Color,Urine Yellow; Glucose,Urine (UA) Negative (Negative); Ketones,Urine Negative (Negative); Leukocyte Esterase,Urine Negative (Negative); Nitrite,Urine Negative (Negative); PH, Urine 6.5 (5.0-8.0); Protein,Urine Negative (Negative)
[2024-02-11 20:40] LABS: Amphetamine Screen,Urine Not Detected (NotDetected); Barbiturate Screen,Urine Not Detected (NotDetected); Benzodiazepines Screen,Urine Not Detected (NotDetected); Cocaine Screen,Urine Not Detected (NotDetected); Methadone Screen, Urine Not Detected (NotDetected); Opiate Screen,Urine Not Detected (NotDetected); Oxycodone Screen, Urine Not Detected (NotDetected); Phencyclidine Screen,Urine Not Detected (NotDetected); Tricyclic Antidepressant,Urine Not Detected (NotDetected); Urn Cannabinoid Scrn Not Detected (NotDetected)
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
[2024-02-11 21:42] VITALS: BP 122/74; PULSE 64
[2024-02-12 03:36] LABS: Carbamazepine (Tegretol) <2.0 UG/ML (4.0-12.0)
== END 2024-02-11 21:42 | disposition home or self-care (01) ==
LOC: EC 19:18
DX: G40.909 Epilepsy, unspecified, not intractable, without status epilepticus (principal); F17.200 Nicotine dependence, unspecified, uncomplicated; Z86.73 Personal history of transient ischemic attack (TIA), and cerebral infarction without residual deficits
CPT/HCPCS: 36415; 93005; 80156; 80164; 80053; 80185; 80178; 83735; 85025; 81003; 80306; 80320; 99285; 96374; 96361; J1953

== ENCOUNTER 2024-06-06 09:26 | Emergency (ER) | payer OTHER ==
[2024-06-06 09:48] VITALS: RESP 22
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
[2024-06-06 10:27] LABS: Influenza A Not Detected (Not Detectd); Influenza B Not Detected (Not Detectd); RSV Not Detected (Not Detectd)
[2024-06-06] MEDS: LIDOCAINE VISCOUS 2% 15 ML CUP PO ONE (10:42)
[2024-06-06] MEDS: DEXAMETHASONE SOD PHOSPHATE 10 MG/ML 1 ML VIAL IM STA (10:42)
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
[2024-06-06 11:24] LABS: Anisocytosis Slight; HCT 36.4 % (39.0-53.0); HGB 10.4 gm/dL (13.0-17.5); Hypochromasia Marked; MCH 20.5 pg (25.0-35.0); MCHC 28.7 g/dL (31.0-37.0); MCV 71.4 fL (80.0-100.0); Mean Platelet Volume 8.4; Microcytosis Marked; Platelet Count 554 k/uL (150-450); RBC 5.09 m/uL (4.30-5.90); RDW 18.8 % (11.5-15.5)
[2024-06-06 11:32] LABS: ALT 9 U/L (4-49); AST 22 U/L (17-59); African American GFR (CKD) 65 (>60 ml/min/1.73 sqM); Albumin 3.8 g/dL (3.5-5.0); Alkaline Phosphatase 68 U/L (38-126); Anion Gap 10 mmol/L; Blood Urea Nitrogen 31 mg/dL (9-20); Calcium 9.2 mg/dL (8.4-10.2); Carbon Dioxide 31 mmol/L (22-30); Chloride 97 mmol/L (98-107); Glucose 81 mg/dL (74-99); Non-African American GFR(CKD) 57 (>60 ml/min/1.73 sqM); Potassium 3.9 mmol/L (3.5-5.1); Sodium 138 mmol/L (137-145); Total Bilirubin 0.7 mg/dL (0.2-1.3); Total Protein 6.6 g/dL (6.3-8.2)
[2024-06-06 12:07] LABS: Band Neutrophils % 2 %; Eosinophils # (M) 0.08 k/uL (0-0.7); Lymphocytes # (M) 0.84 k/uL (1.0-4.8); Metamyelocytes # (M) 0.08 k/uL (0); Metamyelocytes % 1 %; Monocytes # (M) 0.61 k/uL (0-1.0); Myelocytes # (M) 0.08 k/uL (0); Myelocytes % 1 %; Neutrophils % (M) 78 %; Nucleated Red Blood Cells 1 /100 WBC (0-0); Total Cells Counted 200; WBC 7.6 k/uL (3.8-10.6)
[2024-06-06 12:08] LABS: Poikilocytosis (M) Present; Tear Drop Cells Present
[2024-06-06 12:09] LABS: RBC Fragments Present
--- NOTE | 2024-06-06 12:40 | CT ---
EXAMINATION TYPE: CT neck chest w con CT DLP: 506.4 mGycm, Automated exposure control for dose reduction was used. DATE OF EXAM: 06/06/2024 12:00 PM COMPARISON: CT neck chest 01/16/2023, 01/14/2023. CLINICAL INDICATION:Male, 68 years old with history of Dysphagia;, DYSPHAGIA TECHNIQUE: Standard enhanced CT of the neck and chest. Axial sections with coronal and sagittal refo rmats were obtained. Contrast used:100 mL of Isovue 300 with IV Contrast, (none if empty) Oral contrast used: (none if empty) FINDINGS: BRAIN: Visualized portions are grossly unremarkable. ORBITS: Unremarkable SINUSES: Right lateral maxillary wall 9 mm mucous retention cyst. SPACES OF THE NECK: Clear and symmetric. Large stones are redemonstrated within the right submandibul ar gland. MUSCULOSKELETAL: No acute osseous pathology.. Multilevel degenerative disc disease. Mild retrolisthes is of C3 on C4. LYMPH NODES: No pathologically enlarged cervical lymph nodes identified. VASCULAR STRUCTURES: Visualized major arteries are patent without evidence of aneurysm. THORACIC INLET/AIRWAY: Airway is patent. The lung apices are clear. SOFT TISSUES/THYROID: Thyroid is unremarkable. Left neck stimulator lead identified terminating at th e level of the hyoid bone. Previously seen left neck mass/hematoma has resolved. OTHER: none. LUNGS/ PLEURA: No pleural effusion or pneumothorax. Right lower lobe calcified granuloma. Patchy grou ndglass opacities throughout both lower lobes. AIRWAY: Patent and unremarkable. HEART: Size within normal limits.Small anterior pericardial effusion. MEDIASTINUM: No gross evidence of adenopathy. VASCULATURE: Stable ascending thoracic aortic aneurysm measured 4.1 cm. Conventional aortic arch wit h 3 vessels. MUSCULOSKELETAL: No acute osseous abnormalities. Mild multilevel anterior aspect of the SOFT TISSUES/LYMPH NODES: Power pack stimulator device identified within the left anterior chest subc utaneous tissues with leads in coursing superiorly into the neck. LOWER NECK: No significant findings. UPPER ABDOMEN: Mild splenomegaly redemonstrated measuring up to 4.9 cm in CC dimension. Punctate calc ified granuloma within the spleen. IMPRESSION 1. Multifocal bilateral lower lobe airspace opacities. Correlate for aspiration versus infection. 2. Stable ascending thoracic aortic aneurysm measuring up to 4.1 cm. 3. Redemonstration of mild splenomegaly. 4. Redemonstration of right submandibular sialolithiasis. [facility], , 06/06/2024 12:38 PM
[2024-06-06] MEDS: AMOXIC-POT CLAV 875-125MG 1 EACH TAB PO STA (13:14)
[2024-06-06] MEDS: AZITHROMYCIN 500 MG TAB PO STA (13:14)
[2024-06-06 14:42] VITALS: BP 120/80; PULSE 86; TEMP 98
== END 2024-06-06 14:42 | disposition home or self-care (01) ==
LOC: EC 09:26
DX: R13.10 Dysphagia, unspecified (principal); J02.9 Acute pharyngitis, unspecified; J69.0 Pneumonitis due to inhalation of food and vomit; K11.5 Sialolithiasis; F17.200 Nicotine dependence, unspecified, uncomplicated
CPT/HCPCS: 36415; 87651; 80053; 85025; 87636; 71046; 70491; 71260; 99285; 96372; 99406; J1100; Q9967

== ENCOUNTER 2024-07-09 15:08 | Inpatient (IN) | payer OTHER ==
--- NOTE | 2024-07-09 16:10 | XR ---
EXAMINATION TYPE: XR chest 2V DATE OF EXAM: 07/09/2024 CLINICAL INDICATION: Male, 68 years old with history of dysphagia, cough, TECHNIQUE: Frontal and lateral views of the chest are obtained. COMPARISON: Chest x-ray June 06, 2024 FINDINGS: There is mild underlying emphysematous changes with left basilar opacity redemonstrated. R ight lung is clear. The cardiac silhouette size is within normal limits. The osseous structures are intact. IMPRESSION: There is left basilar acute infiltrate and/or atelectasis. [facility], , 07/09/2024 4:07 PM
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
[2024-07-09 17:01] LABS: ALT 10 U/L (4-49); AST 30 U/L (17-59); African American GFR (CKD) 76 (>60 ml/min/1.73 sqM); Albumin 4.1 g/dL (3.5-5.0); Alkaline Phosphatase 60 U/L (38-126); Anion Gap 7 mmol/L; Blood Urea Nitrogen 21 mg/dL (9-20); Calcium 9.6 mg/dL (8.4-10.2); Carbon Dioxide 31 mmol/L (22-30); Chloride 99 mmol/L (98-107); Glucose 79 mg/dL (74-99); Magnesium 1.7 mg/dL (1.6-2.3); Non-African American GFR(CKD) 66 (>60 ml/min/1.73 sqM); Sodium 137 mmol/L (137-145); Total Bilirubin 0.7 mg/dL (0.2-1.3); Total Protein 6.9 g/dL (6.3-8.2)
[2024-07-09 17:09] LABS: Anisocytosis Slight; Basophils % (A) 0 %; Eosinophils # (A) 0.2 k/uL (0-0.7); Eosinophils % (A) 2 %; HCT 34.6 % (39.0-53.0); HGB 9.9 gm/dL (13.0-17.5); Hypochromasia Marked; Lymphocytes # (A) 1.6 k/uL (1.0-4.8); Lymphocytes % (A) 20 %; MCH 20.4 pg (25.0-35.0); MCHC 28.7 g/dL (31.0-37.0); MCV 71.1 fL (80.0-100.0); Mean Platelet Volume 7.4; Microcytosis Marked; Monocytes # (A) 0.6 k/uL (0-1.0); Monocytes % (A) 7 %; Neutrophils # (A) 5.4 k/uL (1.3-7.7); Neutrophils % (A) 69 %; Platelet Count 608 k/uL (150-450); RBC 4.86 m/uL (4.30-5.90); RDW 19.3 % (11.5-15.5); WBC 7.9 k/uL (3.8-10.6)
[2024-07-09] MEDS ORDERED: PNEUMONIA PROTOCOL UTILIZED 1 EACH MISC PO PRN (17:12)
[2024-07-09] MEDS ORDERED: NALOXONE 0.4 MG/ML 1 ML VIAL IV PRN (17:18)
[2024-07-09] MEDS ORDERED: ONDANSETRON 4 MG/2 ML VIAL IVP PRN (17:18)
[2024-07-09] MEDS: SODIUM CHLORIDE 0.9% 1,000 ML IV STA (18:03)
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
[2024-07-09] MEDS: AZITHROMYCIN 500 MG in SODIUM CHLORIDE 0.9% 250 ML IVPB STA (18:51)
[2024-07-09] MEDS ORDERED: ACETAMINOPHEN TAB 325 MG TAB PO PRN (19:50)
[2024-07-09] MEDS ORDERED: metroNIDAZOLE-NS PMX 500 MG in SALINE 1 100ML.BAG IVPB SCH (20:00)
[2024-07-09] MEDS: levETIRAcetam 500 MG TAB PO SCH (20:38)
[2024-07-09] MEDS: HYDROcodone/APAP 5-325MG 1 EACH TAB PO PRN (20:38)
[2024-07-09] MEDS: LACOSAMIDE 50 MG TABLET PO SCH (20:38)
[2024-07-09] MEDS: ATORVASTATIN 20 MG TAB PO SCH (20:38)
--- NOTE | 2024-07-10 07:20 | XR ---
EXAMINATION TYPE: XR chest 2V DATE OF EXAM: 07/10/2024 7:02 AM COMPARISON: 07/09/2024 CLINICAL INDICATION: Male, 68 years old with history of pneumonia, TECHNIQUE: XR chest 2V view(s) obtained. FINDINGS: The heart size is normal. The pulmonary vasculature is normal. Left lower lobe infiltrate is present. Mild silhouetting along the left diaphragm is present Electronic device overlies the left chest. Stimulator lead extends towards the neck. IMPRESSION: 1. Developing left lower lobe infiltrate. Correlate for atelectasis and pneumonia. Follow-up can be p erformed. [facility], , 07/10/2024 7:18 AM
[2024-07-10] MEDS: DIVALPROEX ER 500 MG TAB.ER.24H PO SCH (08:36)
[2024-07-10] MEDS: SERTRALINE 50 MG TAB PO SCH (08:36)
[2024-07-10] MEDS: FOLIC ACID 1 MG TAB PO SCH (08:37)
[2024-07-10] MEDS: amLODIPine 10 MG TAB PO SCH (08:37)
[2024-07-10] MEDS: THIAMINE 100 MG TAB PO SCH (08:37)
[2024-07-10] MEDS: hydroCHLOROthiazide 25 MG TAB PO SCH (08:37)
[2024-07-10] MEDS: TAMSULOSIN 0.4 MG CAP.ER.24H PO SCH (08:37)
[2024-07-10] MEDS: ASPIRIN 325 MG TAB PO SCH (08:37)
[2024-07-10] MEDS: ENOXAPARIN 40 MG/0.4 ML SYRINGE SQ SCH (08:38)
[2024-07-10] MEDS: DIVALPROEX ER 250 MG TAB.ER.24H PO SCH (08:38)
[2024-07-10] MEDS: COLCHICINE 0.6 MG EACH PO SCH (08:39)
[2024-07-10 09:41] LABS: HCT 30.2 % (39.6-50.0); HGB 8.7 g/dL (13.0-17.0); MCH 20.8 pg (27.0-32.0); MCHC 28.8 g/dL (32.0-37.0); MCV 72.2 FL (80.0-97.0); Mean Platelet Volume 9.6 FL (9.5-12.2); NRBC Per 100 WBC 0.06 X 10*3/uL (0.00-0.01); Platelet Count 489 X 10*3/uL (140-440); RBC 4.18 X 10*6/uL (4.40-5.60); RDW 21.1 % (11.5-14.5); WBC 5.46 X 10*3/uL (4.50-10.00)
[2024-07-10 09:48] LABS: Blood Urea Nitrogen 17.5 mg/dL (9.0-27.0); Glucose 62 mg/dL (70-110)
[2024-07-10 09:49] LABS: ALT 8 U/L (10-49); AST 19 U/L (14-35); Albumin 3.3 g/dL (3.8-4.9); Albumin/Globulin Ratio 1.32 Ratio (1.60-3.17); Alkaline Phosphatase 62 U/L (41-126); Calcium 8.9 mg/dL (8.7-10.3); Carbon Dioxide 27.6 mmol/L (21.6-31.8); Chloride 103 mmol/L (96-109); Globulin 2.5 g/dL (1.6-3.3); Sodium 142 mmol/L (135-145); Total Bilirubin 0.2 mg/dL (0.3-1.2); Total Protein 5.8 g/dL (6.2-8.2)
[2024-07-10 10:18] LABS: Basophils # (A) 0.07 X 10*3/uL (0.00-0.10); Basophils % (A) 1.3 %; Elliptocytes 2+ (None Seen); Eosinophils # (A) 0.17 X 10*3/uL (0.04-0.35); Eosinophils % (A) 3.1 %; Lymphocytes # (A) 1.21 X 10*3/uL (0.90-5.00); Lymphocytes % (A) 22.2 %; Microcytosis (M) 2+ (None Seen); Monocytes # (A) 0.43 X 10*3/uL (0.20-1.00); Monocytes % (A) 7.9 %; Neutrophils # (A) 3.48 X 10*3/uL (1.80-7.70); Neutrophils % (A) 63.7 %; Schistocytes 1+ (None Seen); Tear Drop Cells 2+ (None Seen)
--- NOTE | 2024-07-10 10:53 | P.PN ---
Subjective Progress Note Date: 07/10/24 68-year-old man with medical history of stroke, seizure disorder, hypertension, hyperlipidemia presents to the ED after failing an outpatient swallow evaluation. Patient reports dysphagia and odynophagia ongoing for the past 3 weeks. He reports decreased PO intake. Also reports a cough productive of yellow sputum. Recently underwent video swallow which showed aspiration. He has been taking PO antibiotics in the outpatient setting. In the ED he underwent extensive evaluation. BP 106/66, HR 68, T 97.3F, RR 18, 99% on RA. CBC and CMP significant for Hg 9.9, Hct 34.6, MCV 71.1, Plt 608, bicarb 31, BUN 21. Mag 1.7. Patient was admitted for treatment of aspiration PNA and surgery evaluation for PEG/G-tube. 07/10 Patient was seen and examined. Coughing up white sputum. No other complaints. CBC and CMP significant for RBC 4.18, Hg 8.7, Hct 30.2, MCV 72.2, Plt 489, glu 62, T. Bili 0.2, ALT 8, alb 3.3. Urine Legionella neg. CXR shows persistent LLL PNA. Gen: in no apparent distress, resting comfortably in bed Eyes: PERRL, no scleral injection or icterus HENT: normocephalic, atraumatic Resp: good air exchange, breathing comfortably with no accessory muscle use, CTA BL CVS: good distal perfusion x 4, no pitting edema, Normal S1 S2 MSK: no clubbing, no cyanosis, no noted contractures of extremities Skin: no noted rashes, petechiae; temperature of skin is appropriate Neuro: left-sided 3+ out of 5 lower extremity weakness, left-sided numbness to soft touch Psych: cooperative, euthymic mood, insight and judgment intact Based on my assessment of this patient, this patient meets a high complexity level of care. Dysphagia: Surgery consulted for PEG/G-tube evaluation. ST consulted. Aspiration PNA: Rocephin 2g IV QD. Azithromycin 500 mg IV QD. Elevated HOB. Keep NPO. Aspiration precautions. Hypoglycemia: Start D5 NS at 75 cc/hr. Microcytic anemia: Worsened compared to baseline. Obtain iron studies, B12, Folate. Hypertension: Amlodipine 10 mg PO QD. HCTZ 25 mg PO QD. History of CVA with L sided weakness: ASA 325 mg PO QD. Lipitor 20 mg PO QHS. Seizure disorder: [place] 2250 mg PO QD. Vimpat 100 mg PO BID, Keppra 500 mg PO BID. CODE STATUS: FULL CODE. DVT Prophylaxis: Lovenox SQ. GI Prophylaxis: Designated medical POA if patient is not able to make medical decisions for themselves: Daughter I have reviewed the following microsoft dynamics consultant notes: I have reviewed the results of the following tests: CBC, CMP, ULegionella. I have ordered the following tests: Iron studies, B12, Folate. I have discussed the care of this patient with the following independent historian: RN. I have independently interpreted the following test below: CXR I have discussed the management of this patient with the following physician: Objective - Vital Signs Vital signs: Vital Signs Temp 97.7 F 07/10/24 07:11 Pulse 55 L 07/10/24 07:11 Resp 20 07/10/24 07:11 BP 113/71 07/10/24 07:11 Pulse Ox 99 07/10/24 07:11 FiO2 Intake & Output 07/09/24 07/10/24 07/10/24 18:59 06:59 18:59 Output Total 200 125 Balance -200 -125 Weight 77.111 kg 77.111 kg Output: Urine 200 125 Other: # Voids 1 - Labs CBC & Chem 7: 07/10/24 06:02 07/10/24 06:02 Labs: Abnormal Lab Results - Last 24 Hours (Table) 07/09/24 07/09/24 07/10/24 Range/Units 16:27 16:27 06:02 RBC 4.18 L (4.40-5.60) X 10*6/uL Hgb 9.9 L 8.7 L (13.0-17.5) gm/dL Hct 34.6 L 30.2 L (39.0-53.0) % MCV 71.1 L 72.2 L (80.0-100.0) fL MCH 20.4 L 20.8 L (25.0-35.0) pg MCHC 28.7 L 28.8 L (31.0-37.0) g/dL RDW 19.3 H 21.1 H (11.5-15.5) % Plt Count 608 H 489 H (150-450) k/uL Immature Gran # 0.10 H (0.00-0.04) X 10*3/uL NRBC/100 WBC Diff 0.06 H (0.00-0.01) X 10*3/uL Microcytosis (manual) 2+ A (None Seen) Tear Drop Cells 2+ A (None Seen) Elliptocytes 2+ A (None Seen) Schistocytes 1+ A (None Seen) Carbon Dioxide 31 H (22-30) mmol/L BUN 21 H (9-20) mg/dL Glucose (70-110) mg/dL Total Bilirubin (0.3-1.2) mg/dL ALT (10-49) U/L Total Protein (6.2-8.2) g/dL Albumin (3.8-4.9) g/dL Albumin/Globulin Ratio (1.60-3.17) Ratio // Range/Units 06:02 RBC (4.40-5.60) X 10*6/uL Hgb (13.0-17.5) gm/dL Hct (39.0-53.0) % MCV (80.0-100.0) fL MCH (25.0-35.0) pg MCHC (31.0-37.0) g/dL RDW (11.5-15.5) % Plt Count (150-450) k/uL Immature Gran # (0.00-0.04) X 10*3/uL NRBC/100 WBC Diff (0.00-0.01) X 10*3/uL Microcytosis (manual) (None Seen) Tear Drop Cells (None Seen) Elliptocytes (None Seen) Schistocytes (None Seen) Carbon Dioxide (22-30) mmol/L BUN (9-20) mg/dL Glucose 62 L (70-110) mg/dL Total Bilirubin 0.2 L (0.3-1.2) mg/dL ALT 8 L (10-49) U/L Total Protein 5.8 L (6.2-8.2) g/dL Albumin 3.3 L (3.8-4.9) g/dL Albumin/Globulin Ratio 1.32 L (1.60-3.17) Ratio
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
[2024-07-10 13:41] LABS: % Iron Saturation 23.4 (15.00-50.00)
[2024-07-10] MEDS: DEXTROSE 5%-0.9% NACL 1,000 ML IV SCH (17:15)
[2024-07-10] MEDS: AZITHROMYCIN 500 MG in SODIUM CHLORIDE 0.9% 250 ML IVPB SCH (22:26)
--- NOTE | 2024-07-11 09:05 | P.PN ---
Subjective Progress Note Date: 07/11/24 Patient seen and examined at bedside. No acute events. Objective - Vital Signs Vital signs: Vital Signs Temp 97.6 F 07/11/24 07:22 Pulse 45 L 07/11/24 07:22 Resp 18 07/11/24 07:22 BP 102/53 07/11/24 07:22 Pulse Ox 98 07/11/24 07:22 FiO2 Intake & Output 07/10/24 07/11/24 07/11/24 18:59 06:59 18:59 Output Total 125 850 Balance -125 -850 Output: Urine 125 850 Other: Voiding Method Urinal # Bowel Movements 3 - Constitutional General appearance: Present: cooperative - Respiratory Details: No difficulty with respiration - Gastrointestinal General gastrointestinal: Present: soft. Absent: tenderness - Musculoskeletal Musculoskeletal: Present: generalized weakness - Labs CBC & Chem 7: 07/10/24 06:02 07/10/24 06:02 Labs: Abnormal Lab Results - Last 24 Hours (Table) 07/10/24 07/10/24 07/10/24 Range/Units 06:02 06:02 06:02 RBC 4.18 L (4.40-5.60) X 10*6/uL Hgb 8.7 L (13.0-17.0) g/dL Hct 30.2 L (39.6-50.0) % MCV 72.2 L (80.0-97.0) FL MCH 20.8 L (27.0-32.0) pg MCHC 28.8 L (32.0-37.0) g/dL RDW 21.1 H (11.5-14.5) % Plt Count 489 H (140-440) X 10*3/uL Immature Gran # 0.10 H (0.00-0.04) X 10*3/uL NRBC/100 WBC Diff 0.06 H (0.00-0.01) X 10*3/uL Microcytosis (manual) 2+ A (None Seen) Tear Drop Cells 2+ A (None Seen) Elliptocytes 2+ A (None Seen) Schistocytes 1+ A (None Seen) Glucose 62 L (70-110) mg/dL Iron 44 L (65-175) UG/DL TIBC 188 L (228-460) UG/DL Transferrin 134.0 L (204.0-354.0) mg/dL Ferritin 635.0 H (22.0-322.0) ng/mL Total Bilirubin 0.2 L (0.3-1.2) mg/dL ALT 8 L (10-49) U/L Total Protein 5.8 L (6.2-8.2) g/dL Albumin 3.3 L (3.8-4.9) g/dL Albumin/Globulin Ratio 1.32 L (1.60-3.17) Ratio Vitamin B12 955.0 H (200.0-944.0) pg/mL Microbiology - Last 24 Hours (Table) 07/10/24 11:45 Gram Stain - Preliminary Sputum 07/09/24 17:32 Blood Culture - Preliminary Blood Assessment and Plan Plan: Await speech therapy evaluation prior to placing PEG tube. Case was discussed with admitting team. Patient is agreeable to PEG tube should he require this.
--- NOTE | 2024-07-11 10:58 | P.PN ---
Subjective Progress Note Date: 07/11/24 68-year-old man with medical history of stroke, seizure disorder, hypertension, hyperlipidemia presents to the ED after failing an outpatient swallow evaluation. Patient reports dysphagia and odynophagia ongoing for the past 3 weeks. He reports decreased PO intake. Also reports a cough productive of yellow sputum. Recently underwent video swallow which showed aspiration. He has been taking PO antibiotics in the outpatient setting. In the ED he underwent extensive evaluation. BP 106/66, HR 68, T 97.3F, RR 18, 99% on RA. CBC and CMP significant for Hg 9.9, Hct 34.6, MCV 71.1, Plt 608, bicarb 31, BUN 21. Mag 1.7. Patient was admitted for treatment of aspiration PNA and surgery evaluation for PEG/G-tube. 07/11 Patient was seen and examined. Coughing up white sputum. No other complaints. Iron 44, TIBC 188, Ferritin 635, B12 955, Folate 20.3. Gen: in no apparent distress, resting comfortably in bed Eyes: PERRL, no scleral injection or icterus HENT: normocephalic, atraumatic Resp: good air exchange, breathing comfortably with no accessory muscle use, CTA BL CVS: good distal perfusion x 4, no pitting edema, Normal S1 S2 MSK: no clubbing, no cyanosis, no noted contractures of extremities Skin: no noted rashes, petechiae; temperature of skin is appropriate Neuro: left-sided 3+ out of 5 lower extremity weakness, left-sided numbness to soft touch Psych: cooperative, euthymic mood, insight and judgment intact Based on my assessment of this patient, this patient meets a high complexity level of care. Dysphagia: Surgery consulted for PEG/G-tube evaluation. ST consulted for swallow evaluation. Sialolithiasis: Possibly the case for dysphagia and odynophagia. ENT not available this week, will consult in the AM. Aspiration PNA: Rocephin 2g IV QD. Azithromycin 500 mg IV QD. Elevated HOB. Keep NPO. Aspiration precautions. Hypoglycemia: D5 NS at 75 cc/hr. Accuchecks ACHS. Hypoglycemic precautions. Microcytic anemia: Worsened compared to baseline. Iron studies seem to indicate AOCD. Transfuse if Hg < 7. Hypertension: Amlodipine 10 mg PO QD. HCTZ 25 mg PO QD. History of CVA with L sided weakness: ASA 325 mg PO QD. Lipitor 20 mg PO QHS. Seizure disorder: [place] 2250 mg PO QD. Vimpat 100 mg PO BID, Keppra 500 mg PO BID. Case discussed with Dr. Howell. Patient with dysphagia for the last 2-3 weeks along with poor oral intake and weight loss. Concerns for ALS versus stroke. I did not a large submandibular stone on CT neck done in June. Plan to consult ENT in the AM and ST to evaluate. We may be able to avoid PEG if a cause for his dysphagia is identified. Also considering Dubhoff. CODE STATUS: FULL CODE. DVT Prophylaxis: Lovenox SQ. GI Prophylaxis: Designated medical POA if patient is not able to make medical decisions for themselves: Guardian I have reviewed the following as400 consultant notes: Surgery. I have reviewed the results of the following tests: Iron studies, B12, Folate. I have ordered the following tests: I have discussed the care of this patient with the following independent historian: RN. I have independently interpreted the following test below: I have discussed the management of this patient with the following physician: Dr. Howell, Dr. Villatoro. Objective - Vital Signs Vital signs: Vital Signs Temp 97.7 F 07/11/24 01:31 Pulse 66 07/11/24 01:31 Resp 15 07/11/24 01:31 BP 125/82 07/11/24 01:31 Pulse Ox 99 07/11/24 01:31 FiO2 Intake & Output 07/10/24 07/11/24 07/11/24 18:59 06:59 18:59 Output Total 125 850 Balance -125 -850 Output: Urine 125 850 Other: Voiding Method Urinal # Bowel Movements 3 - Labs CBC & Chem 7: 07/10/24 06:02 07/10/24 06:02 Labs: Abnormal Lab Results - Last 24 Hours (Table) 07/10/24 07/10/24 07/10/24 Range/Units 06:02 06:02 06:02 RBC 4.18 L (4.40-5.60) X 10*6/uL Hgb 8.7 L (13.0-17.0) g/dL Hct 30.2 L (39.6-50.0) % MCV 72.2 L (80.0-97.0) FL MCH 20.8 L (27.0-32.0) pg MCHC 28.8 L (32.0-37.0) g/dL RDW 21.1 H (11.5-14.5) % Plt Count 489 H (140-440) X 10*3/uL Immature Gran # 0.10 H (0.00-0.04) X 10*3/uL NRBC/100 WBC Diff 0.06 H (0.00-0.01) X 10*3/uL Microcytosis (manual) 2+ A (None Seen) Tear Drop Cells 2+ A (None Seen) Elliptocytes 2+ A (None Seen) Schistocytes 1+ A (None Seen) Glucose 62 L (70-110) mg/dL Iron 44 L (65-175) UG/DL TIBC 188 L (228-460) UG/DL Transferrin 134.0 L (204.0-354.0) mg/dL Ferritin 635.0 H (22.0-322.0) ng/mL Total Bilirubin 0.2 L (0.3-1.2) mg/dL ALT 8 L (10-49) U/L Total Protein 5.8 L (6.2-8.2) g/dL Albumin 3.3 L (3.8-4.9) g/dL Albumin/Globulin Ratio 1.32 L (1.60-3.17) Ratio Vitamin B12 955.0 H (200.0-944.0) pg/mL Microbiology - Last 24 Hours (Table) 07/10/24 11:45 Gram Stain - Preliminary Sputum 07/09/24 17:32 Blood Culture - Preliminary Blood
[2024-07-11 12:57] LABS: Glucose,Whole Blood 76 mg/dL (70-110)
[2024-07-11 17:29] LABS: Glucose,Whole Blood 78 mg/dL (70-110)
[2024-07-11 20:38] LABS: Glucose,Whole Blood 111 mg/dL (70-110)
[2024-07-12 04:06] LABS: African American GFR (CKD) >90 (>60 ml/min/1.73 sqM); Anion Gap 5 mmol/L; Blood Urea Nitrogen 9 mg/dL (9-20); Calcium 8.9 mg/dL (8.4-10.2); Carbon Dioxide 27 mmol/L (22-30); Chloride 105 mmol/L (98-107); Glucose 75 mg/dL (74-99); Non-African American GFR(CKD) >90 (>60 ml/min/1.73 sqM); Potassium 3.6 mmol/L (3.5-5.1); Sodium 137 mmol/L (137-145)
[2024-07-12 04:08] LABS: Anisocytosis Slight; HCT 30.2 % (39.0-53.0); HGB 8.6 gm/dL (13.0-17.5); Hypochromasia Marked; MCH 20.4 pg (25.0-35.0); MCHC 28.6 g/dL (31.0-37.0); MCV 71.2 fL (80.0-100.0); Mean Platelet Volume 8.6; Microcytosis Marked; Platelet Count 517 k/uL (150-450); RBC 4.24 m/uL (4.30-5.90); RDW 19.2 % (11.5-15.5); WBC 4.3 k/uL (3.8-10.6)
[2024-07-12 04:43] LABS: Poikilocytosis (M) Present
[2024-07-12 06:18] LABS: Glucose,Whole Blood 83 mg/dL (70-110)
[2024-07-12] MEDS: levETIRAcetam IV 500 MG/5 ML VIAL IV SCH (11:25)
[2024-07-12 12:12] LABS: Glucose,Whole Blood 78 mg/dL (70-110)
--- NOTE | 2024-07-12 13:18 | P.PN ---
Subjective Progress Note Date: 07/12/24 SURGICAL PROGRESS NOTE CHIEF COMPLAINT: Dysphagia and aspiration pneumonia HISTORY OF PRESENT ILLNESS: Surgical service is following in regards to possible PEG tube placement. Patient evaluated by speech therapy and failed swallow eval. They recommend n.p.o. vital stable. WBC 4.3 PHYSICAL EXAM: VITAL SIGNS: Reviewed. GENERAL: Well-developed in no acute distress. ABDOMEN: Soft. Nondistended. Nontender. NEUROLOGIC: Alert and alert ASSESSMENT: 1. Dysphagia 2. Aspiration pneumonia 3. Moderate protein calorie malnutrition PLAN: - Patient scheduled for PEG tube placement tomorrow with Dr. Oscar - N.p.o. after midnight Physician Civil Service Clerk note has been reviewed by physician. Signing provider agrees with the documented findings, assessment, and plan of care. Attestation Patient seen and examined at bedside on 07/12/2024. Presented with chief complaint of dysphagia and aspiration pneumonia. Patient was evaluated by speech therapy today and did fail swallow eval. Recommendation is for PEG tube placement. Patient to be n.p.o. after midnight with plan for PEG tube placement. Tami Villatoro DO Objective - Vital Signs Vital signs: Vital Signs Temp 97.6 F 07/12/24 07:15 Pulse 60 07/12/24 07:15 Resp 16 07/12/24 07:15 BP 114/69 07/12/24 07:15 Pulse Ox 100 07/12/24 07:15 FiO2 21 07/11/24 15:58 Intake & Output 07/11/24 07/12/24 07/12/24 18:59 06:59 18:59 Output Total 850 1450 Balance -850 -1450 Output: Urine 850 1450 Other: Voiding Method Urinal Urinal # Voids 3 3 # Bowel Movements 1 - Labs CBC & Chem 7: 07/12/24 03:02 07/12/24 03:02 Labs: Abnormal Lab Results - Last 24 Hours (Table) 07/11/24 07/12/24 Range/Units 20:37 03:02 RBC 4.24 L (4.30-5.90) m/uL Hgb 8.6 L (13.0-17.5) gm/dL Hct 30.2 L (39.0-53.0) % MCV 71.2 L (80.0-100.0) fL MCH 20.4 L (25.0-35.0) pg MCHC 28.6 L (31.0-37.0) g/dL RDW 19.2 H (11.5-15.5) % Plt Count 517 H (150-450) k/uL POC Glucose (mg/dL) 111 H (70-110) mg/dL Microbiology - Last 24 Hours (Table) 07/10/24 11:45 Gram Stain - Preliminary Sputum Sputum Culture - Preliminary 07/09/24 17:32 Blood Culture - Preliminary Blood
--- NOTE | 2024-07-12 13:59 | P.PN ---
Subjective Progress Note Date: 07/12/24 Hospital Course: 68-year-old man with medical history of stroke, seizure disorder, hypertension, hyperlipidemia presents to the ED after failing an outpatient swallow evaluation. Patient reports dysphagia and odynophagia ongoing for the past 3 weeks. He reports decreased PO intake. Also reports a cough productive of yellow sputum. Recently underwent video swallow which showed aspiration. He has been taking PO antibiotics in the outpatient setting. In the ED he underwent extensive evaluation. BP 106/66, HR 68, T 97.3F, RR 18, 99% on RA. CBC and CMP significant for Hg 9.9, Hct 34.6, MCV 71.1, Plt 608, bicarb 31, BUN 21. Mag 1.7. Patient was admitted for treatment of aspiration PNA and surgery evaluation for PEG/G-tube. ENT was consulted, recommends outpatient follow-up, does not believe patient's sialolithiasis is affecting swallowing process, recommended neurology consult. Neurology consulted. Plan for PEG on 08/02 Pertinent Imaging: No new imaging Subjective: Patient was seen and examined at bedside, only complains of swallowing difficulties, productive cough Pertinent positives and negatives as discussed above, a complete review of systems was performed and all other systems are negative. Vitals Signs Reviewed. General: [nontoxic], [no distress], [appears at stated age] Derm: [warm], [dry] Head: [atraumatic], [normocephalic], [symmetric] Eyes: [EOMI], [no lid lag], [anicteric sclera] Mouth: [no lip lesion], [mucus membranes moist] Cardiovascular: [S1S2 reg], [no murmur] Lungs: [CTA bilateral], [no rhonchi, no rales] , [no accessory muscle use] Abdominal: [soft], [ nontender to palpation], [no guarding], [no appreciable organomegaly] Ext: [no gross muscle atrophy], [no edema], [no contractures] Neuro: left-sided 3+ out of 5 lower extremity weakness, left-sided numbness to soft touch Psych: [Alert], [oriented], [appropriate affect] Data Reviewed Today: Pertinent Labs: Normal WBC, hemoglobin 8.6, platelet count 516, unremarkable BMP, glucose in 80s. Assessment and Plan: Dysphagia -Surgery consulted, plan for PEG placement/8 -INSURANCE AGENTS SUPERVISOR following -Neurology consulted Sialolithiasis -Outpatient follow-up with ENT Aspiration pneumonia -Continue ceftriaxone 2 g IV daily, azithromycin 500 mg IV daily, elevated head of bed, continue n.p.o., aspiration precautions Hypoglycemia -Continue D5 NS at 75 cc/h, Accu-Cheks, hypoglycemic precautions Iron deficiency anemia -Will start on ferrous sulfate at discharge Hypertension -Continue home amlodipine 10 mg daily, hydrochlorothiazide 25 mg p.o. daily History of CVA with left-sided weakness: On home aspirin 325 daily, Lipitor 20 mg nightly Seizure disorder: Ordered home medications and IV formulation: Lacosamide 100 mg IV twice daily, Keppra 500 mg IV twice daily, Depacon 2250 mg divided in 4 doses daily DVT ppx: Lovenox Code status: Full code Anticipated discharge place: [facility] Anticipated discharge time: 48 hours Objective - Vital Signs Vital signs: Vital Signs Temp 97.6 F 07/12/24 07:15 Pulse 60 07/12/24 07:15 Resp 16 07/12/24 07:15 BP 114/69 07/12/24 07:15 Pulse Ox 100 07/12/24 07:15 FiO2 21 07/11/24 15:58 Intake & Output 07/11/24 07/12/24 07/12/24 18:59 06:59 18:59 Output Total 850 1450 Balance -850 -1450 Output: Urine 850 1450 Other: Voiding Method Urinal Urinal # Voids 3 3 # Bowel Movements 1 - Labs CBC & Chem 7: 07/12/24 03:02 07/12/24 03:02 Labs: Abnormal Lab Results - Last 24 Hours (Table) 07/11/24 07/12/24 Range/Units 20:37 03:02 RBC 4.24 L (4.30-5.90) m/uL Hgb 8.6 L (13.0-17.5) gm/dL Hct 30.2 L (39.0-53.0) % MCV 71.2 L (80.0-100.0) fL MCH 20.4 L (25.0-35.0) pg MCHC 28.6 L (31.0-37.0) g/dL RDW 19.2 H (11.5-15.5) % Plt Count 517 H (150-450) k/uL POC Glucose (mg/dL) 111 H (70-110) mg/dL Microbiology - Last 24 Hours (Table) 07/10/24 11:45 Gram Stain - Preliminary Sputum Sputum Culture - Preliminary 07/09/24 17:32 Blood Culture - Preliminary Blood
[2024-07-12] MEDS: VALPROATE SODIUM IVPB SCH (14:23)
[2024-07-12] MEDS: MORPHINE SULFATE 2 MG/ML SYRINGE IVP PRN (14:23)
[2024-07-12] MEDS: SODIUM CHLORIDE 0.9% IVPB SCH (14:23)
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
[2024-07-12 16:36] LABS: Glucose,Whole Blood 74 mg/dL (70-110)
[2024-07-12] MEDS: Lacosamide IV (ages 17+ yrs) 200 MG/20 ML ML IVP SCH (20:04)
[2024-07-12 20:09] LABS: Glucose,Whole Blood 78 mg/dL (70-110)
--- NOTE | 2024-07-12 20:48 | CT ---
EXAMINATION TYPE: CT brain cspine wo con DATE OF EXAM: 07/12/2024 COMPARISON: CT brain January 06, 2023. CT neck June 06, 2024 CLINICAL INDICATION: Male, 68 years old with history of dysphagia, dysphagia, headache and neck pain. TECHNIQUE: CT scan of the head and cervical spine are performed without contrast. CT DLP: 1320.2 mGycm. Automated Exposure Control for Dose Reduction was Utilized. FINDINGS: There is no acute intracranial hemorrhage or midline shift identified. [id number] ventricular and sulcal prominence is redemonstrated. Asymmetric right-sided extra-axial dilatation a gain seen. There is caval anomaly again seen. Persistent [id number]-[id number] low-attenuation in the pe riventricular white matter. The calvarium is intact. Bilateral aphakia redemonstrated. Stable 10 mm m ucus retention cyst or polyp in the lateral aspect right maxillary sinus. Cervical spine is visualized in its entirety from C1 through upper thoracic levels and redemonstrates grade 1 retrolisthesis C3 on C4 and levoconvex scoliosis centered in the upper thoracic spine withou t evidence of acute fracture or dislocation. Prevertebral soft tissue appears within normal limits. The C1-C2 articulation is within normal limits on coronal images. Vertebral body heights are maintai candida. Moderate to severe disc space narrowing at C3-C4 level is redemonstrated. Moderate to severe dis c space narrowing at C6-C7 and C7-T1 levels is redemonstrated. Axial images redemonstrate multilevel facet degenerative changes bilaterally causing multilevel bilateral neural foraminal narrowing. A jaylen ear catheter in the left neck soft tissue is redemonstrated. Large right-sided sialolith in the subma ndibular gland region are redemonstrated. Thyroid gland is normal in size. The upper lungs show emphy sematous change without pneumothorax IMPRESSION: 1. There is no acute findings identified in the cervical spine. 2. No acute intracranial hemorrhage or midline shift is seen. [facility], , 07/12/2024 8:46 PM
[2024-07-13 06:22] LABS: Glucose,Whole Blood 78 mg/dL (70-110)
[2024-07-13 11:31] LABS: Glucose,Whole Blood 71 mg/dL (70-110)
--- NOTE | 2024-07-13 11:35 | P.PN ---
Subjective Progress Note Date: 07/13/24 Hospital Course: 68-year-old man with medical history of stroke, seizure disorder, hypertension, hyperlipidemia presents to the ED after failing an outpatient swallow evaluation. Patient reports dysphagia and odynophagia ongoing for the past 3 weeks. He reports decreased PO intake. Also reports a cough productive of yellow sputum. Recently underwent video swallow which showed aspiration. He has been ta anurag PO antibiotics in the outpatient setting. In the ED he underwent extensive evaluation. BP 106/66, HR 68, T 97.3F, RR 18, 99% on RA. CBC and CMP significant for Hg 9.9, Hct 34.6, MCV 71.1, Plt 608, bicarb 31, BUN 21. Mag 1.7. Patient was admitted for treatment of aspiration PNA and surgery evaluation for PEG/G-tube. ENT was consulted, recommends outpatient follow-up, does not believe patient's sialolithiasis is affecting swallowing process, recommended neurology consult. Neurology consulted, CT head and neck was ordered and did not show any acute abnormalities, acetylcholine receptor antibody pending, patient was recommended to follow-up as outpatient with neuromuscular specialist within 2 to 3 weeks to complete EMG with NCS of upper and lower extremities as well as some cranial nerve to rule out motor neuron disease, MRI brain/cervical and thoracic spine without contrast as outpatient as well, PT OT consulted. . Plan for PEG on 07/13 TSH came back normal Pertinent Imaging: CT head and neck as above Subjective: Patient was seen and examined at bedside, only complains of swallowing difficulties, waiting for his procedure, h Pertinent positives and negatives as discussed above, a complete review of systems was performed and all other systems are negative. Vitals Signs Reviewed. General: [nontoxic], [no distress], [appears at stated age] Derm: [warm], [dry] Head: [atraumatic], [normocephalic], [symmetric] Eyes: [EOMI], [no lid lag], [anicteric sclera] Mouth: [no lip lesion], [mucus membranes moist] Cardiovascular: [S1S2 reg], [no murmur] Lungs: [CTA bilateral], [no rhonchi, no rales] , [no accessory muscle use] Abdominal: [soft], [ nontender to palpation], [no guarding], [no appreciable organomegaly] Ext: [no gross muscle atrophy], [no edema], [no contractures] Neuro: left-sided 3+ out of 5 lower extremity weakness, left-sided numbness to soft touch Psych: [Alert], [oriented], [appropriate affect] Data Reviewed Today: Pertinent Labs: Normal WBC, hemoglobin 8.6, platelet count 516, unremarkable BMP, glucose in 80s. Assessment and Plan: Dysphagia Muscle atrophy, fasciculation, concern for motor neuron disease -Surgery consulted, plan for PEG placement/8 -INSURANCE MARKETING SPECIALIST following -Neurology consulted, ct head and neck as above, will need outpatient work up -PT OT Sialolithiasis -Outpatient follow-up with ENT Aspiration pneumonia -Completed IV ceftriaxone and azithromycin elevated head of bed, continue n.p.o., aspiration precautions Hypoglycemia -Continue D5 NS at 75 cc/h, Accu-Cheks, hypoglycemic precautions Iron deficiency anemia -Will start on ferrous sulfate at discharge Hypertension -Continue home amlodipine 10 mg daily, hydrochlorothiazide 25 mg p.o. daily History of CVA with left-sided weakness: On home aspirin 325 daily, Lipitor 20 mg nightly Seizure disorder: Ordered home medications and IV formulation: Lacosamide 100 mg IV twice daily, Keppra 500 mg IV twice daily, Depacon 2250 mg divided in 4 doses daily DVT ppx: Lovenox Code status: Full code Anticipated discharge place: [facility] Anticipated discharge time: 24-48 hours Objective - Vital Signs Vital signs: Vital Signs Temp 98.9 F 07/13/24 07:15 Pulse 54 L 07/13/24 07:15 Resp 16 07/13/24 07:15 BP 123/65 07/13/24 07:15 Pulse Ox 99 07/13/24 07:15 FiO2 21 07/11/24 15:58 Intake & Output 07/12/24 07/13/24 07/13/24 18:59 06:59 18:59 Intake Total 950 Output Total 475 Balance 950 -475 Intake: Intake, IV Titration 950 Amount Dextrose 5%-0.9% NaCl 1, 900 000 ml @ 75 mls/hr IV . [id number] KELLY Rx#:[id number] Valproate Sodium 550 mg 50 In Sodium Chloride 0.9% 50 ml @ 50 mls/hr IVPB Q6H KELLY Rx#:[id number] Output: Urine 475 Other: Voiding Method Urinal # Voids 2 3 - Labs CBC & Chem 7: 07/12/24 03:02 07/12/24 03:02 Labs: Microbiology - Last 24 Hours (Table) 07/10/24 11:45 Gram Stain - Final Sputum Sputum Culture - Final 07/09/24 17:32 Blood Culture - Preliminary Blood
--- NOTE | 2024-07-13 13:39 | P.PN ---
Subjective Progress Note Date: 07/13/24 I am following-up with patient and feels about the same. Denies any new neurological issues. Objective - Vital Signs Vital signs: Vital Signs Temp 98.6 F 07/13/24 13:26 Pulse 63 07/13/24 13:26 Resp 17 07/13/24 13:26 BP 148/73 07/13/24 13:26 Pulse Ox 99 07/13/24 13:26 FiO2 21 07/11/24 15:58 Intake & Output 07/12/24 07/13/24 07/13/24 18:59 06:59 18:59 Intake Total 950 Output Total 475 Balance 950 -475 Intake: Intake, IV Titration 950 Amount Dextrose 5%-0.9% NaCl 1, 900 000 ml @ 75 mls/hr IV . [id number] KELLY Rx#:[id number] Valproate Sodium 550 mg 50 In Sodium Chloride 0.9% 50 ml @ 50 mls/hr IVPB Q6H KELLY Rx#:[id number] Output: Urine 475 Other: Voiding Method Urinal # Voids 2 3 - Exam General: Sitting up in bed and is not in acute distress. Neuro: The patient is awake alert oriented to self place. He is following simple commands but there is some delay sometimes and following the commands. No aphasia. No neglect. The pupils are round about 4 mm and reactive to light. Visual estrella are full to conversation. Extraocular movements is intact no nystagmus. Normal facial sensation to touch. Patient has left nasolabial flattening. Patient does have moderate dysarthria. Tongue is midline move [id number] with any difficulty. Appears has tongue a trophy with fasciculation. Motor: It is difficult to assess individual muscle strength because of his cooperation but left upper extremity appears 4-4+ right upper appears 4+ to 5 -. Normal handgrip bilaterally. Bilateral lower extremity proximal is about a 4-4 bilaterally, knee extension is about a 4+ to 5 - on the left is about a 4+. On the left ankle plantarflexion is about 2 while the right is about a 4. Ankle dorsiflexion bilaterally is about a 4+. Patient has atrophy of the deltoids, biceps, upper thighs and there is fasciculation noted over the deltoid biceps region Sensation is normal to touch throughout Reflexes (R/L): Tricep bilaterally there is 3+ at the biceps 2+ bilaterally, brachioradialis 1/1-2, patellar 2/2, ankles are 0. Plantars are mute. Some of the work-up during this hospital visit consisted of: B12: 955 Serum Folate: 20.3 TSH: 2.01 CT cervical spine: There is no acute findings identified in the cervical spine. CT head: No acute intracranial hemorrhage or midline shift is seen. - Labs CBC & Chem 7: 07/12/24 03:02 07/12/24 03:02 Labs: Microbiology - Last 24 Hours (Table) 07/10/24 11:45 Gram Stain - Final Sputum Sputum Culture - Final 07/09/24 17:32 Blood Culture - Preliminary Blood Assessment and Plan Assessment: This is a 68-year-old gentleman who presents emergency department because of dysphagia and PEG tube placement. Patient is a poor historian and unsure of the timeframe of his dysphagia he thinks is 3 weeks. On examination patient has atrophy and fasciculation of the muscle as well as tongue. Dysphagia with atrophy of muscles and fasciculation: I am concerned about motor neuron disease. History of strokes X3 History of seizures Plan: Ordered CK level Pending acetylcholine receptor antibody which I think myasthenia gravis is low on differential. Recommend EMG with NCS of upper and lowers extremities as well some cranial nerves as outpatient to rule out motor neuron disease. Recommend MRI Brain/Cervical and thoracic spine without as outpatient. PT, OT and STRADDLE BUG OPERATOR are consulted Recommend the patient to follow-up with Neuromuscular specialist as outpatient within 2-3 weeks. The plan is discussed with patient and primary team. Time with Patient: Less than 30
[2024-07-13] MEDS ORDERED: LIDOCAINE 1% INJ 10MG/ML (20 ML MDV) ONE (13:53)
[2024-07-13] MEDS ORDERED: PROPOFOL 10 MG/ML 20 ML VIAL IV ONE (13:53)
[2024-07-13] MEDS: IV FLUID CONTINUATION 900 ML IV ONE (13:54)
[2024-07-13] MEDS: SODIUM CHLORIDE 0.9% 500 ML 500 ML IV ONE (13:57)
[2024-07-13 16:19] LABS: Glucose,Whole Blood 73 mg/dL (70-110)
[2024-07-13 20:04] LABS: Glucose,Whole Blood 67 mg/dL (70-110)
[2024-07-13] MEDS ORDERED: DEXTROSE 50% SYRINGE 50 ML IVP PRN ×2 (20:54)
--- NOTE | 2024-07-13 22:11 | P.PN ---
Progress Note - Text Okay to use the PEG tube for meds today and start tube feeds tomorrow on July 14 and advance to goal
--- NOTE | 2024-07-13 22:11 | P.OP ---
Date of Procedure: 07/13/24 Preoperative Diagnosis: Failure to thrive Postoperative Diagnosis: Failure to thrive Procedure(s) Performed: PEG tube insertion Implants: PEG tube Anesthesia: GETA Pathology: none sent Condition: stable Disposition: PACU Indications for Procedure: Failure to thrive Description of Procedure: Patient was brought to the endoscopy suite where a timeout was performed and everyone agreed with the information was cited once the patient was anesthetized and adult size EGD scope was used to gain access to the stomach stomach was insufflated and an 18-gauge introducer needle was then used to gain access to the stomach from a transabdominal approach a guidewire was coming through and snared this guidewire was then attached to the PEG tube and placed through the mouth stomach and through the skin this was secured with the bumper and the patient tolerated procedure well and was transported to PACU in stable condition
[2024-07-14 06:17] LABS: Glucose,Whole Blood 90 mg/dL (70-110)
[2024-07-14 06:48] LABS: Levetiracetam (Keppra) 21.7 ug/mL (3.0-60.0)
[2024-07-14 11:23] LABS: Glucose,Whole Blood 82 mg/dL (70-110)
[2024-07-14] MEDS ORDERED: ACETAMINOPHEN TAB 325 MG TAB PEG/G-TUBE PRN (11:28)
--- NOTE | 2024-07-14 12:54 | P.PN ---
Subjective Progress Note Date: 07/14/24 Hospital Course: 68-year-old man with medical history of stroke, seizure disorder, hypertension, hyperlipidemia presents to the ED after failing an outpatient swallow evaluation. Patient reports dysphagia and odynophagia ongoing for the past 3 weeks. He reports decreased PO intake. Also reports a cough productive of yellow sputum. Recently underwent video swallow which showed aspiration. He has been taking PO antibiotics in the outpatient setting. In the ED he underwent extensive evaluation. BP 106/66, HR 68, T 97.3F, RR 18, 99% on RA. CBC and CMP significant for Hg 9.9, Hct 34.6, MCV 71.1, Plt 608, bicarb 31, BUN 21. Mag 1.7. Patient was admitted for treatment of aspiration PNA and surgery evaluation for PEG/G-tube. ENT was consulted, recommends outpatient follow-up, does not believe patient's sialolithiasis is affecting swallowing process, recommended neurology consult. Neurology consulted, CT head and neck was ordered and did not show any acute abnormalities, acetylcholine receptor antibody pending, patient was recommended to follow-up as outpatient with neuromuscular specialist within 2 to 3 weeks to complete EMG with NCS of upper and lower extremities as well as some cranial nerve to rule out motor neuron disease, MRI brain/cervical and thoracic spine without contrast as outpatient as well, PT OT consulted. Plan to d/c home once tube feeding is established, likely 07/15 PEG on 07/13 TSH came back normal 07/14: PEG tube in place, plan to start tube feeding in the afternoon, okay to give pills. Discussed with neurology, patient's seizure medications including Keppra, Vimpat, Depakote cannot be given through PEG tube, formulations need to be changed, discussed with pharmacy, Vimpat and Keppra available in solutions, Depakote formulation has to be changed, awaiting further recommendations from neurology Pertinent Imaging: no new Imaging Subjective: Patient was seen and examined at bedside, mild abdominal pain in the postop area Pertinent positives and negatives as discussed above, a complete review of systems was performed and all other systems are negative. Vitals Signs Reviewed. General: [nontoxic], [no distress], [appears at stated age] Derm: [warm], [dry] Head: [atraumatic], [normocephalic], [symmetric] Eyes: [EOMI], [no lid lag], [anicteric sclera] Mouth: [no lip lesion], [mucus membranes moist] Cardiovascular: [S1S2 reg], [no murmur] Lungs: [CTA bilateral], [no rhonchi, no rales] , [no accessory muscle use] Abdominal: [soft], [ nontender to palpation], [no guarding], [no appreciable organomegaly], PEG tube in place, dressing is clean and dry with some dried blood Ext: [no gross muscle atrophy], [no edema], [no contractures] Neuro: left-sided 3+ out of 5 lower extremity weakness, left-sided numbness to soft touch Psych: [Alert], [oriented], [appropriate affect] Data Reviewed Today: Pertinent Labs: Blood glucose in 80s Assessment and Plan: Dysphagia status post PEG tube placement 07/13 Muscle atrophy, fasciculation, concern for motor neuron disease -Surgery consulted -Plan to start tube feeding 07/14 afternoon -CUT ORDER HAND following -Neurology consulted, ct head and neck as above, will need outpatient work up -PT OT-d/c home Sialolithiasis -Outpatient follow-up with ENT Aspiration pneumonia -Completed IV ceftriaxone and azithromycin elevated head of bed, continue n.p.o., aspiration precautions Hypoglycemia -Continue D5 NS at 75 cc/h, Accu-Cheks, hypoglycemic precautions Iron deficiency anemia -Will start on ferrous sulfate at discharge Hypertension -Continue home amlodipine 10 mg daily, hydrochlorothiazide 25 mg p.o. daily History of CVA with left-sided weakness: On home aspirin 325 daily, Lipitor 20 mg nightly Seizure disorder: Ordered home medications and IV formulation: Lacosamide 100 mg IV twice daily, Keppra 500 mg IV twice daily, Depacon 2250 mg divided in 4 doses daily -asked neurology to adjust medications in preparation for discharge, awaiting for recommendations? DVT ppx: Lovenox Code status: Full code Anticipated discharge place: home Anticipated discharge time: 24 hr Objective - Vital Signs Vital signs: Vital Signs Temp 98.0 F 07/14/24 07:23 Pulse 72 07/14/24 07:23 Resp 16 07/14/24 07:23 BP 144/76 07/14/24 07:23 Pulse Ox 97 07/14/24 07:23 FiO2 21 07/11/24 15:58 Intake & Output 04/11/2907/14/24 07/14/24 18:59 06:59 18:59 Intake Total 200 0 Balance 200 0 Intake: IV 200 Oral 0 Other: # Voids 6 2 - Labs CBC & Chem 7: 07/12/24 03:02 07/12/24 03:02 Labs: Abnormal Lab Results - Last 24 Hours (Table) 07/13/24 Range/Units 20:03 POC Glucose (mg/dL) 67 L (70-110) mg/dL
--- NOTE | 2024-07-14 13:08 | P.PN ---
Subjective Progress Note Date: 07/14/24 I am following-up with patient and he received PEG tube. Objective - Vital Signs Vital signs: Vital Signs Temp 98.0 F 07/14/24 07:23 Pulse 72 07/14/24 07:23 Resp 16 07/14/24 07:23 BP 144/76 07/14/24 07:23 Pulse Ox 97 07/14/24 07:23 FiO2 21 07/11/24 15:58 Intake & Output 07/13/24 07/14/24 07/14/24 18:59 06:59 18:59 Intake Total 200 0 Balance 200 0 Intake: IV 200 Oral 0 Other: # Voids 6 2 - Exam General: Sitting up in bed and is not in acute distress. Neuro: The patient is awake alert oriented to self place. He is following simple commands but there is some delay sometimes and following the commands. No aphasia. No neglect. The pupils are round about 4 mm and reactive to light. Visual estrella are full to conversation. Extraocular movements is intact no nystagmus. Normal facial sensation to touch. Patient has left nasolabial flattening. Patient does have moderate dysarthria. Tongue is midline move [id number] with any difficulty. Appears has tongue atrophy with fasciculation. Motor: It is difficult to assess individual muscle strength because of his cooperation but left upper extremity appears 4-4+ right upper appears 4+ to 5 -. Normal handgrip bilaterally. Bilateral lower extremity proximal is about a 4-4 bilaterally, knee extension is about a 4+ to 5 - on the left is about a 4+. On the left ankle plantarflexion is about 2 while the right is about a 4. Ankle dorsiflexion bilaterally is about a 4+. Patient has atrophy of the deltoids, biceps, upper thighs and there is fasciculation noted over the deltoid biceps region Sensation is normal to touch throughout Reflexes (R/L): Tricep bilaterally there is 3+ at the biceps 2+ bilaterally, brachioradialis 1/1-2, patellar 2/2, ankles are 0. Plantars are mute. Some of the work-up during this hospital visit consisted of: B12: 955 Serum Folate: 20.3 TSH: 2.[address] cervical spine: There is no acute findings identified in the cervical spine. CT head: No acute intracranial hemorrhage or midline shift is seen. - Labs CBC & Chem 7: 07/12/24 03:02 07/12/24 03:02 Labs: Abnormal Lab Results - Last 24 Hours (Table) 07/13/24 Range/Units 20:03 POC Glucose (mg/dL) 67 L (70-110) mg/dL Assessment and Plan Assessment: This is a 68-year-old gentleman who presents emergency department because of dysphagia and PEG tube placement. Patient is a poor historian and unsure of the timeframe of his dysphagia he thinks is 3 weeks. On examination patient has atrophy and fasciculation of the muscle as well as tongue. Dysphagia with atrophy of muscles and fasciculation: I am concerned about motor neuron disease. Dysphagia s/p PEG tube on 07/13/2024 History of strokes X3 History of seizures Plan: Pending acetylcholine receptor antibody which I think myasthenia gravis is low on differential. Recommend EMG with NCS of upper and lowers extremities as well some cranial nerves as outpatient to rule out motor neuron disease. Recommend MRI Brain/Cervical and thoracic spine without as outpatient. PT, OT and WELDING SYSTEMS AND EQUIPMENT REPAIRER are consulted Recommend the patient to follow-up with Neuromuscular specialist as outpatient within 2-3 weeks. The plan is discussed with patient and primary team. Time with Patient: Less than 30
[2024-07-14 13:16] VITALS: BMI 25.1
--- NOTE | 2024-07-14 14:19 | P.PN ---
Subjective Progress Note Date: 07/14/24 SURGICAL PROGRESS NOTE CHIEF COMPLAINT: Dysphagia and aspiration pneumonia HISTORY OF PRESENT ILLNESS: Patient status post PEG tube placement. Pain is controlled. Denies any nausea or vomiting. Afebrile. PHYSICAL EXAM: VITAL SIGNS: Reviewed. GENERAL: Well-developed in no acute distress. ABDOMEN: Soft. Nondistended. Mild tenderness at PEG tube site. PEG tube site clean dry and intact. Small amount of old, dried blood around PEG tube NEUROLOGIC: Alert and alert ASSESSMENT: 1. Dysphagia 2. Aspiration pneumonia 3. Moderate protein calorie malnutrition PLAN: -Consult dietitian to initiate trickle feeds through peg tube and advance as tolerated Physician Community Health Outreach Worker note has been reviewed by physician. Signing provider agrees with the documented findings, assessment, and plan of care. Objective - Vital Signs Vital signs: Vital Signs Temp 98.4 F 07/14/24 13:14 Pulse 77 07/14/24 13:14 Resp 17 07/14/24 13:14 BP 120/77 07/14/24 13:14 Pulse Ox 94 L 07/14/24 13:14 FiO2 21 07/11/24 15:58 Intake & Output 07/13/24 07/14/24 07/14/24 18:59 06:59 18:59 Intake Total 200 0 Balance 200 0 Weight 77.111 kg Intake: IV 200 Oral 0 Other: # Voids 6 2 - Labs CBC & Chem 7: 07/12/24 03:02 07/12/24 03:02 Labs: Abnormal Lab Results - Last 24 Hours (Table) 07/13/24 Range/Units 20:03 POC Glucose (mg/dL) 67 L (70-110) mg/dL
[2024-07-14 16:09] LABS: Glucose,Whole Blood 98 mg/dL (70-110)
[2024-07-14] MEDS: VALPROIC ACID ORAL SOLN 250 MG/5 ML CUP PO SCH (16:32)
[2024-07-14] MEDS: ATORVASTATIN 20 MG TAB PEG/G-TUBE SCH (21:21)
[2024-07-14 21:32] LABS: Glucose,Whole Blood 86 mg/dL (70-110)
[2024-07-15 00:48] LABS: Glucose,Whole Blood 103 mg/dL (70-110)
[2024-07-15] MEDS: HYDROcodone/APAP 5-325MG 1 EACH TAB PEG/G-TUBE PRN (03:59)
[2024-07-15 06:01] LABS: Glucose,Whole Blood 109 mg/dL (70-110)
[2024-07-15 08:39] LABS: Basophils # (A) 0.04 X 10*3/uL (0.00-0.10); Basophils % (A) 0.6 %; Eosinophils # (A) 0.01 X 10*3/uL (0.04-0.35); Eosinophils % (A) 0.2 %; HCT 27.7 % (39.6-50.0); HGB 8.2 g/dL (13.0-17.0); Lymphocytes # (A) 0.98 X 10*3/uL (0.90-5.00); MCH 21.1 pg (27.0-32.0); MCHC 29.6 g/dL (32.0-37.0); MCV 71.4 FL (80.0-97.0); Monocytes # (A) 0.66 X 10*3/uL (0.20-1.00); Monocytes % (A) 10.1 %; NRBC Per 100 WBC 0.03 X 10*3/uL (0.00-0.01); Neutrophils # (A) 4.82 X 10*3/uL (1.80-7.70); Neutrophils % (A) 73.6 %; Platelet Count 455 X 10*3/uL (140-440); RBC 3.88 X 10*6/uL (4.40-5.60); RDW 20.9 % (11.5-14.5); WBC 6.54 X 10*3/uL (4.50-10.00)
[2024-07-15 08:57] LABS: BUN/Creat Ratio 8.38 Ratio (12.00-20.00); Blood Urea Nitrogen 6.7 mg/dL (9.0-27.0); Calcium 8.2 mg/dL (8.7-10.3); Carbon Dioxide 27.4 mmol/L (21.6-31.8); Chloride 110 mmol/L (96-109); Glucose 93 mg/dL (70-110); Potassium 3.8 mmol/L (3.5-5.5); Sodium 143 mmol/L (135-145)
[2024-07-15] MEDS: FOLIC ACID 1 MG TAB PEG/G-TUBE SCH (09:59)
[2024-07-15] MEDS: amLODIPine 10 MG TAB PEG/G-TUBE SCH (10:00)
[2024-07-15] MEDS: LACOSAMIDE 50 MG TABLET PEG/G-TUBE SCH (10:00)
[2024-07-15] MEDS: SERTRALINE 50 MG TAB PEG/G-TUBE SCH (10:00)
[2024-07-15] MEDS: hydroCHLOROthiazide 25 MG TAB PEG/G-TUBE SCH (10:01)
[2024-07-15] MEDS: THIAMINE 100 MG TAB PEG/G-TUBE SCH (10:01)
[2024-07-15] MEDS: ASPIRIN 325 MG TAB PEG/G-TUBE SCH (10:01)
[2024-07-15] MEDS: COLCHICINE 0.6 MG EACH PEG/G-TUBE SCH (10:02)
[2024-07-15] MEDS: levETIRAcetam ORAL SOLN 500 MG/5 ML CUP PEG/G-TUBE SCH (10:30)
[2024-07-15 12:12] LABS: Glucose,Whole Blood 88 mg/dL (70-110)
--- NOTE | 2024-07-15 15:21 | P.PN ---
Subjective Progress Note Date: 07/15/24 SURGICAL PROGRESS NOTE CHIEF COMPLAINT: Dysphagia and aspiration pneumonia HISTORY OF PRESENT ILLNESS: Patient status post PEG tube placement. Pain is controlled. Denies any nausea or vomiting. Patient's tube feeds are at 30 mL/h. No residual reported per nursing staff. Afebrile. WBC 6.54 PHYSICAL EXAM: VITAL SIGNS: Reviewed. GENERAL: Well-developed in no acute distress. ABDOMEN: Soft. Nondistended. Mild tenderness at PEG tube site. PEG tube site clean dry and intact. NEUROLOGIC: Alert and alert ASSESSMENT: 1. Dysphagia 2. Aspiration pneumonia 3. Moderate protein calorie malnutrition PLAN: -Continue to titrate tube feeds per dietitian recommendations -Patient can be discharged from surgical standpoint -Surgical service will sign off. Please call with any questions or concerns Physician Piece Goods Clerk note has been reviewed by physician. Signing provider agrees with the documented findings, assessment, and plan of care. Attestation Patient seen and examined at bedside on 07/15/2024. Status post PEG tube placement. Tolerating the PEG tube feeding. Titrate to goal per dietitian. Surgically stable for discharge. Please call surgery team for any reevaluation. Tami Villatoro DO Objective - Vital Signs Vital signs: Vital Signs Temp 97.6 F 07/15/24 13:53 Pulse 54 L 07/15/24 13:53 Resp 16 07/15/24 13:53 BP 121/75 07/15/24 13:53 Pulse Ox 98 07/15/24 13:53 FiO2 21 07/11/24 15:58 Intake & Output 07/14/24 07/15/24 07/15/24 18:59 06:59 18:59 Intake Total 17 Balance 17 Weight 77.111 kg Intake: Tube Feeding 17 Other: Voiding Method Urinal # Voids 1 # Bowel Movements 1 - Labs CBC & Chem 7: 07/15/24 05:16 07/15/24 05:16 Labs: Abnormal Lab Results - Last 24 Hours (Table) 07/15/24 07/15/24 Range/Units 05:16 05:16 RBC 3.88 L (4.40-5.60) X 10*6/uL Hgb 8.2 L (13.0-17.0) g/dL Hct 27.7 L (39.6-50.0) % MCV 71.4 L (80.0-97.0) FL MCH 21.1 L (27.0-32.0) pg MCHC 29.6 L (32.0-37.0) g/dL RDW 20.9 H (11.5-14.5) % Plt Count 455 H (140-440) X 10*3/uL Eosinophils # 0.01 L (0.04-0.35) X 10*3/uL NRBC/100 WBC Diff 0.03 H (0.00-0.01) X 10*3/uL Chloride 110 H (96-109) mmol/L BUN 6.7 L (9.0-27.0) mg/dL BUN/Creatinine Ratio 8.38 L (12.00-20.00) Ratio Calcium 8.2 L (8.7-10.3) mg/dL Microbiology - Last 24 Hours (Table) 07/09/24 17:32 Blood Culture - Final Blood
--- NOTE | 2024-07-15 16:08 | P.PN ---
Subjective Progress Note Date: 07/15/24 Hospital Course: 68-year-old man with medical history of stroke, seizure disorder, hypertension, hyperlipidemia presents to the ED after failing an outpatient swallow evaluation. Patient reports dysphagia and odynophagia ongoing for the past 3 weeks. He reports decreased PO intake. Also reports a cough productive of yellow sputum. Recently underwent video swallow which showed aspiration. He has been taking PO antibiotics in the outpatient setting. In the ED he underwent extensive evaluation. BP 106/66, HR 68, T 97.3F, RR 18, 99% on RA. CBC and CMP significant for Hg 9.9, Hct 34.6, MCV 71.1, Plt 608, bicarb 31, BUN 21. Mag 1.7. Patient was admitted for treatment of aspiration PNA and surgery evaluation for PEG/G-tube. ENT was consulted, recommends outpatient follow-up, does not believe patient's sialolithiasis is affecting swallowing process, recommended neurology consult. Neurology consulted, CT head and neck was ordered and did not show any acute abnormalities, acetylcholine receptor antibody pending, patient was recommended to follow-up as outpatient with neuromuscular specialist within 2 to 3 weeks to complete EMG with NCS of upper and lower extremities as well as some cranial nerve to rule out motor neuron disease, MRI brain/cervical and thoracic spine without contrast as outpatient as well, PT OT consulted. Plan to d/c home once tube feeding is established, likely 07/15 PEG on 07/13 TSH came back normal 07/14: PEG tube in place, plan to start tube feeding in the afternoon, okay to give pills. Discussed with neurology, patient's seizure medications including Keppra, Vimpat, Depakote cannot be given through PEG tube, formulations need to be changed, discussed with pharmacy, Vimpat and Keppra available in solutions, Depakote formulation has to be changed, awaiting further recommendations from neurology 07/15: Tolerating tube feed, adjusting to goal, cleared for discharge by surgical team, pending insurance for possible rehab placement Pertinent Imaging: no new Imaging Subjective: Patient was seen and examined at bedside, mild abdominal pain in the postop area Pertinent positives and negatives as discussed above, a complete review of systems was performed and all other systems are negative. Vitals Signs Reviewed. General: [nontoxic], [no distress], [appears at stated age] Derm: [warm], [dry] Head: [atraumatic], [normocephalic], [symmetric] Eyes: [EOMI], [no lid lag], [anicteric sclera] Mouth: [no lip lesion], [mucus membranes moist] Cardiovascular: [S1S2 reg], [no murmur] Lungs: [CTA bilateral], [no rhonchi, no rales] , [no accessory muscle use] Abdominal: [soft], [ nontender to palpation], [no guarding], [no appreciable organomegaly], PEG tube in place, dressing is clean and dry with some dried blood Ext: [no gross muscle atrophy], [no edema], [no contractures] Neuro: left-sided 3+ out of 5 lower extremity weakness, left-sided numbness to soft touch Psych: [Alert], [oriented], [appropriate affect] Data Reviewed Today: Pertinent Labs: Blood glucose in 80s Assessment and Plan: Dysphagia status post PEG tube placement 07/13 Muscle atrophy, fasciculation, concern for motor neuron disease -Surgery consulted -Continue tube feeding, titrate to goal, surgery cleared for discharge on 07/15 -CONCESSION ATTENDANT following -Neurology consulted, ct head and neck as above, will need outpatient work up -PT OT -Discussed with surgery, RN, case management Sialolithiasis -Outpatient follow-up with ENT Aspiration pneumonia -Completed IV ceftriaxone and azithromycin elevated head of bed, continue n.p.o., aspiration precautions Hypoglycemia Discontinue D5 NS at 75 cc/h, Accu-Cheks, hypoglycemic precautions Iron deficiency anemia -Will start on ferrous sulfate at discharge Hypertension -Continue home amlodipine 10 mg daily, hydrochlorothiazide 25 mg p.o. daily History of CVA with left-sided weakness: On home aspirin 325 daily, Lipitor 20 mg nightly Seizure disorder: Keppra solution 500 mg twice daily, valproic acid solution 750 p.. 3 times daily, Vimpat 100 mg twice daily DVT ppx: Lovenox Code status: Full code Anticipated discharge place: home vs rehab, pending insurance Anticipated discharge time: 24 hr Objective - Vital Signs Vital signs: Vital Signs Temp 97.6 F 07/15/24 13:53 Pulse 54 L 07/15/24 13:53 Resp 16 07/15/24 13:53 BP 121/75 07/15/24 13:53 Pulse Ox 98 07/15/24 13:53 FiO2 21 07/11/24 15:58 Intake & Output 07/14/24 07/15/24 07/15/24 18:59 06:59 18:59 Intake Total 17 Balance 17 Weight 77.111 kg Intake: Tube Feeding 17 Other: Voiding Method Urinal # Voids 1 # Bowel Movements 1 - Labs CBC & Chem 7: 07/15/24 05:16 07/15/24 05:16 Labs: Abnormal Lab Results - Last 24 Hours (Table) 07/15/24 07/15/24 Range/Units 05:16 05:16 RBC 3.88 L (4.40-5.60) X 10*6/uL Hgb 8.2 L (13.0-17.0) g/dL Hct 27.7 L (39.6-50.0) % MCV 71.4 L (80.0-97.0) FL MCH 21.1 L (27.0-32.0) pg MCHC 29.6 L (32.0-37.0) g/dL RDW 20.9 H (11.5-14.5) % Plt Count 455 H (140-440) X 10*3/uL Eosinophils # 0.01 L (0.04-0.35) X 10*3/uL NRBC/100 WBC Diff 0.03 H (0.00-0.01) X 10*3/uL Chloride 110 H (96-109) mmol/L BUN 6.7 L (9.0-27.0) mg/dL BUN/Creatinine Ratio 8.38 L (12.00-20.00) Ratio Calcium 8.2 L (8.7-10.3) mg/dL Microbiology - Last 24 Hours (Table) 07/09/24 17:32 Blood Culture - Final Blood
[2024-07-15 18:40] LABS: Glucose,Whole Blood 82 mg/dL (70-110)
[2024-07-16 02:15] VITALS: RESP 16
[2024-07-16 02:38] LABS: Glucose,Whole Blood 101 mg/dL (70-110)
[2024-07-16 06:23] LABS: Glucose,Whole Blood 108 mg/dL (70-110)
[2024-07-16 08:20] VITALS: BP 129/71; PULSE 58; TEMP 98.1
--- NOTE | 2024-07-16 11:02 | P.DS ---
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 Patient reports dysphagia and odynophagia ongoing for the past 3 weeks. He reports decreased PO intake. Also reports a cough productive of yellow sputum. Recently underwent video swallow which showed aspiration. He has been t aking PO antibiotics in the outpatient setting. In the ED he underwent extensive evaluation. BP 106/66, HR 68, T 97.3F, RR 18, 99% on RA. CBC and CMP significant for Hg 9.9, Hct 34.6, MCV 71.1, Plt 608, bicarb 31, BUN 21. Mag 1.7. Patient was admitted for treatment of aspiration PNA and surgery evaluation for PEG/G-tube. ENT was consulted, recommends outpatient follow-up, does not believe patient's sialolithiasis is affecting swallowing process, recommended neurology consult. Neurology consulted, CT head and neck was ordered and did not show any acute abnormalities, acetylcholine receptor antibody pending, patient was recommended to follow-up as outpatient with neuromuscular specialist within 2 to 3 weeks to complete EMG with NCS of upper and lower extremities as well as some cranial nerve to rule out motor neuron disease, MRI brain/cervical and thoracic spine without contrast as outpatient as well, PT OT consulted PEG on 07/13 TSH came back normal 07/14: PEG tube in place discussed with pharmacy, Vimpat 100 mg twice daily and Keppra 500 mg twice daily, valproic acid 750 3 times daily-all in solutions 07/15: Tolerating tube feed, adjusting to goal, cleared for discharge by surgical team, 07/16, tube feeding at goal, stable for discharge to [facility] Patient seen and examined at bedside. Vital signs reviewed and stable. General: [nontoxic], [no distress], [appears at stated age] Derm: [warm], [dry] Head: [atraumatic], [normocephalic], [symmetric] Eyes: [EOMI], [no lid lag], [anicteric sclera] Mouth: [no lip lesion], [mucus membranes moist] Cardiovascular: [S1S2 reg], [no murmur] Lungs: [CTA bilateral], [no rhonchi, no rales] , [no accessory muscle use] Abdominal: [soft], [ nontender to palpation], [no guarding], [no appreciable organomegaly], PEG tube in place, dressing is clean and dry with some dried blood Ext: [no gross muscle atrophy], [no edema], [no contractures] Neuro: left-sided 3+ out of 5 lower extremity weakness, left-sided numbness to soft touch Psych: [Alert], [oriented], [appropriate affect] A total of [40minutes of time were spent preparing this complex discharge summary. Patient was discharged on 07/16/24 Patient Condition at Discharge: Stable Plan - Discharge Summary Discharge Rx Participant: No New Discharge Prescriptions: New Valproic Acid Oral Soln [Depakene Syrup] 750 mg PO TID 30 Days #1350 ml levETIRAcetam ORAL SOLN [Keppra Oral Soln] 500 mg PEG/G-TUBE BID 30 Days #300 ml Lacosamide [Vimpat Oral Soln] 100 mg PO BID 30 Days #600 ml Ferrous Sulfate [Iron] 325 mg PEG/G-TUBE DAILY #30 tablet Continue Biofreeze 10% Cream 1 applic TOPICAL BID PRN PRN Reason: pain, left hip buprenorphine HCL [Subutex] 1 mg SL BID Lidocaine/Gabapentin/Diclofenac Cream 5%/5%/5% 1 applic TOPICAL BID PRN PRN Reason: Pain Albuterol Inhaler [Ventolin Hfa Inhaler] 1 puff INHALATION RT-Q4H PRN PRN Reason: Shortness Of Breath Cholecalciferol (Vitamin D3) [Vitamin D3 (5000 Iu)] 125 mcg PO DAILY Phenol 1.4% [place] [Sore Throat [place] (Chloraseptic)] 1 spray PO DIRECTED PRN PRN Reason: Sore Throat Benzocaine 20% [place] 1 spray PO QID PRN PRN Reason: Pain Nicotine 14Mg/24Hr Patch [Habitrol] 1 patch TRANSDERM DAILY Changed Colchicine 0.6 mg PEG/G-TUBE DAILY #30 Tamsulosin [Flomax] 0.4 mg PEG/G-TUBE DAILY #30 hydroCHLOROthiazide [Hydrodiuril] 25 mg PEG/G-TUBE DAILY #30 polyethylene glycoL 3350 [Miralax] 17 gm PEG/G-TUBE DAILY PRN #30 PRN Reason: Constipation Acetaminophen [Tylenol Arthritis] 1,300 mg PEG/G-TUBE Q8H PRN #30 PRN Reason: Pain Aspirin EC [Ecotrin] 325 mg PEG/G-TUBE DAILY #30 Folic Acid 0.8 mg PEG/G-TUBE DAILY #30 Loperamide HCl [Imodium A-D] 2 mg PEG/G-TUBE QID PRN #30 MDD 8mg PRN Reason: Diarrhea Atorvastatin [Lipitor] 20 mg PEG/G-TUBE HS #30 Mirabegron [Mirabegron ER] 25 mg PEG/G-TUBE DAILY #30 Multivitamins, Thera [Multivitamin (formulary)] 1 tab PEG/G-TUBE DAILY #30 tablet amLODIPine [Norvasc] 10 mg PEG/G-TUBE DAILY #30 Thiamine [Vitamin B-1] 100 mg PEG/G-TUBE DAILY #30 tab Sertraline [Zoloft] 150 mg PEG/G-TUBE DAILY #30 Discontinued Divalproex ER [Depakote ER] 2,000 mg PO DAILY Divalproex ER [Depakote ER] 250 mg PO DAILY Lacosamide [Vimpat] 100 mg PO BID levETIRAcetam [Keppra Xr] 500 mg PO BID Lidocaine Viscous [Xylocaine Viscous 2%] 5 - 10 ml PO Q4-6H PRN #100 ml PRN Reason: Sore Throat [place] Heartburn 1,650-1,000mg Effervescent 2 tab PO TID PRN PRN Reason: Heartburn Discharge Medication List Cholecalciferol (Vitamin D3) [Vitamin D3 (5000 Iu)] 125 mcg PO DAILY 07/03/20 [History] Biofreeze 10% Cream 1 applic TOPICAL BID PRN 02/11/24 [History] Lidocaine/Gabapentin/Diclofenac Cream 5%/5%/5% 1 applic TOPICAL BID PRN 02/11/24 [History] Phenol 1.4% [place] [Sore Throat [place] (Chloraseptic)] 1 spray PO DIRECTED PRN 02/11/24 [History] buprenorphine HCL [Subutex] 1 mg SL BID 02/11/24 [History] Albuterol Inhaler [Ventolin Hfa Inhaler] 1 puff INHALATION RT-Q4H PRN 07/09/24 [History] Benzocaine 20% [place] 1 spray PO QID PRN 07/09/24 [History] Nicotine 14Mg/24Hr Patch [Habitrol] 1 patch TRANSDERM DAILY 07/09/24 [History] Acetaminophen [Tylenol Arthritis] 1,300 mg PEG/G-TUBE Q8H PRN #30 07/15/24 [Rx] Aspirin EC [Ecotrin] 325 mg PEG/G-TUBE DAILY #30 07/15/24 [Rx] Atorvastatin [Lipitor] 20 mg PEG/G-TUBE HS #30 07/15/24 [Rx] Colchicine 0.6 mg PEG/G-TUBE DAILY #30 07/15/24 [Rx] Ferrous Sulfate [Iron] 325 mg PEG/G-TUBE DAILY #30 tablet 07/15/24 [Rx] Folic Acid 0.8 mg PEG/G-TUBE DAILY #30 07/15/24 [Rx] Lacosamide [Vimpat Oral Soln] 100 mg PO BID 30 Days #600 ml 07/15/24 [Rx] Loperamide HCl [Imodium A-D] 2 mg PEG/G-TUBE QID PRN #30 MDD 8mg 07/15/24 [Rx] Mirabegron [Mirabegron ER] 25 mg PEG/G-TUBE DAILY #30 07/15/24 [Rx] Multivitamins, Thera [Multivitamin (formulary)] 1 tab PEG/G-TUBE DAILY #30 tablet 07/15/24 [Rx] Sertraline [Zoloft] 150 mg PEG/G-TUBE DAILY #30 07/15/24 [Rx] Tamsulosin [Flomax] 0.4 mg PEG/G-TUBE DAILY #30 07/15/24 [Rx] Thiamine [Vitamin B-1] 100 mg PEG/G-TUBE DAILY #30 tab 07/15/24 [Rx] Valproic Acid Oral Soln [Depakene Syrup] 750 mg PO TID 30 Days #1350 ml 07/15/24 [Rx] amLODIPine [Norvasc] 10 mg PEG/G-TUBE DAILY #30 07/15/24 [Rx] hydroCHLOROthiazide [Hydrodiuril] 25 mg PEG/G-TUBE DAILY #30 07/15/24 [Rx] levETIRAcetam ORAL SOLN [Keppra Oral Soln] 500 mg PEG/G-TUBE BID 30 Days #300 ml 07/15/24 [Rx] polyethylene glycoL 3350 [Miralax] 17 gm PEG/G-TUBE DAILY PRN #30 07/15/24 [Rx] Follow up Appointment(s)/Referral(s): Abelino Howell MD [Primary Care Provider] - 1-2 days Activity/Diet/Wound Care/Special Instructions: Neuromuscular neurologist follow up in 2-3 weeks for end EMG, MRI Brain/Cervical and thoracic spine without as outpatient.
[2024-07-16 11:42] LABS: Glucose,Whole Blood 107 mg/dL (70-110)
[2024-07-16] MEDS: Phenol 1.4% Sore Throat Spray Bottle MUCOUS MEM PRN (14:03)
== END 2024-07-16 14:30 | DRG 178 ==
LOC: EC 15:08 → 4SSUR 17:18 → OBSVTOIN 17:19 → 4SSUR 17:45
PROVIDERS: ADMIT Family Medicine; ATTEND Family Medicine
PROC: 0DH63UZ Insertion of Feeding Device into Stomach, Percutaneous Approach (ICD-10-PCS; principal; 2024-07-13 07:30)
DX: J69.0 Pneumonitis due to inhalation of food and vomit (principal); E44.0 Moderate protein-calorie malnutrition; G12.20 Motor neuron disease, unspecified; R47.01 Aphasia; I69.354 Hemiplegia and hemiparesis following cerebral infarction affecting left non-dominant side; G40.909 Epilepsy, unspecified, not intractable, without status epilepticus; I10 Essential (primary) hypertension; F32.A Depression, unspecified; D50.9 Iron deficiency anemia, unspecified; R62.7 Adult failure to thrive; R13.10 Dysphagia, unspecified; G89.29 Other chronic pain; E16.2 Hypoglycemia, unspecified; Z68.21 Body mass index [BMI] 21.0-21.9, adult; K11.5 Sialolithiasis; E78.5 Hyperlipidemia, unspecified; F41.9 Anxiety disorder, unspecified; Z79.82 Long term (current) use of aspirin; Z79.899 Other long term (current) drug therapy; Z87.891 Personal history of nicotine dependence
CPT/HCPCS: 36415; 43246; 70450; 71046; 72125; 80048; 80053; 80165; 80177; 80235; 82550; 82607; 82728; 82746; 83540; 83550; 83735; 84443; 85025; 85027; 86041; 87040; 87070; 87205; 87449; 94760; 96361; 96365; 96368; 99285

== ENCOUNTER → 2024-07-09 | Outpatient (CLI) | payer OTHER ==
--- NOTE | 2024-07-09 14:37 | FL ---
EXAMINATION TYPE: FL barium swallow w video DATE OF EXAM: 07/09/2024 MODIFIED SWALLOW / DEGLUTITION STUDY CLINICAL HISTORY: Dysphagia. TECHNIQUE: Deglutition study is performed utilizing thin liquid barium, honey and nectar thick liqui d barium, barium thick applesauce, and barium coated cracker. Total dose area product (DAP) in uGy*m ?, mGy*cm? (or similar): COMPARISON: None. FINDINGS: There is delayed oral pharyngeal phase. There is accumulation noted with debris in the piri form sinuses. There is also aspiration of thin liquid barium and barium coated cracker. IMPRESSION: Aspiration as noted above. [facility], , 07/09/2024 2:35 PM
== END | disposition home or self-care (01) ==
LOC: RADFLMAIN 11:57
PROVIDERS: ATTEND Internal Medicine Hospice and Palliative Medicine
DX: K11.20 Sialoadenitis, unspecified (principal); R13.10 Dysphagia, unspecified
CPT/HCPCS: 74230

== ENCOUNTER 2024-07-26 05:48 | Inpatient (IN) | payer OTHER ==
--- NOTE | 2024-07-26 06:44 | ED ---
General Adult HPI - General Chief complaint: Seizure Stated complaint: SAUL Time Seen by Provider: 07/26/24 06:01 Source: patient, EMS, RN notes reviewed Mode of arrival: EMS Limitations: altered mental status - History of Present Illness Initial comments: 68-year-old male presents emergency department from [facility] via EMS with chief complaint of reported seizure, dyspnea. Patient has been at [facility] for pneumonia. Reports information of very limited patient had a reported seizure with known history of. Patient also had increasing dyspnea unsure if patient had fever on 9 provide if he has any complaints of chest pain. Patient noted to have PEG tube. Patient unable to provide any significant information. - Related Data Home Medications Medication Instructions Recorded Confirmed Cholecalciferol (Vitamin D3) 125 mcg PO DAILY 07/03/20 07/09/24 [Vitamin D3 (5000 Iu)] Biofreeze 10% Cream 1 applic TOPICAL BID PRN 02/11/24 07/09/24 Lidocaine/Gabapentin/Diclofenac 1 applic TOPICAL BID PRN 02/11/24 07/09/24 Cream 5%/5%/5% Phenol 1.4% [place] [Sore Throat 1 spray PO DIRECTED PRN 02/11/24 07/09/24 [place] (Chloraseptic)] buprenorphine HCL [Subutex] 1 mg SL BID 02/11/24 07/09/24 Albuterol Inhaler [Ventolin Hfa 1 puff INHALATION RT-Q4H PRN 07/09/24 07/09/24 Inhaler] Benzocaine 20% [place] 1 spray PO QID PRN 07/09/24 07/09/24 Nicotine 14Mg/24Hr Patch [Habitrol] 1 patch TRANSDERM DAILY 07/09/24 07/09/24 Previous Rx's Medication Instructions Recorded Acetaminophen [Tylenol Arthritis] 1,300 mg PEG/G-TUBE Q8H PRN #30 07/15/24 Aspirin EC [Ecotrin] 325 mg PEG/G-TUBE DAILY #30 07/15/24 Atorvastatin [Lipitor] 20 mg PEG/G-TUBE HS #30 07/15/24 Colchicine 0.6 mg PEG/G-TUBE DAILY #30 07/15/24 Ferrous Sulfate [Iron] 325 mg PEG/G-TUBE DAILY #30 tablet 07/15/24 Folic Acid 0.8 mg PEG/G-TUBE DAILY #30 07/15/24 Loperamide HCl [Imodium A-D] 2 mg PEG/G-TUBE QID PRN #30 MDD 07/15/24 8mg Mirabegron [Mirabegron ER] 25 mg PEG/G-TUBE DAILY #30 07/15/24 Multivitamins, Thera [Multivitamin 1 tab PEG/G-TUBE DAILY #30 tablet 07/15/24 (formulary)] Sertraline [Zoloft] 150 mg PEG/G-TUBE DAILY #30 07/15/24 Tamsulosin [Flomax] 0.4 mg PEG/G-TUBE DAILY #30 07/15/24 Thiamine [Vitamin B-1] 100 mg PEG/G-TUBE DAILY #30 tab 07/15/24 Valproic Acid Oral Soln [Depakene 750 mg PO TID 30 Days #1350 ml 07/15/24 Syrup] amLODIPine [Norvasc] 10 mg PEG/G-TUBE DAILY #30 07/15/24 hydroCHLOROthiazide [Hydrodiuril] 25 mg PEG/G-TUBE DAILY #30 07/15/24 levETIRAcetam ORAL SOLN [Keppra 500 mg PEG/G-TUBE BID 30 Days #300 07/15/24 Oral Soln] ml polyethylene glycoL 3350 [Miralax] 17 gm PEG/G-TUBE DAILY PRN #30 07/15/24 Lacosamide [Vimpat Oral Soln] 100 mg PO BID 3 Days #60 ml 07/16/24 Allergies Allergy/AdvReac Type Severity Reaction Status Date / Time No Known Allergies Allergy Verified 07/09/24 16:34 Review of Systems ROS Statement: Those systems with pertinent positive or pertinent negative responses have been documented in the HPI. ROS Other: All systems not noted in ROS Statement are negative. 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 History of Any Multi-Drug Resistant Organisms: None Reported Past Surgical History: Orthopedic Surgery Additional Past Surgical History / Comment(s): R ankle ORIF with plate/pins, s tab wound age 20 yrs with surgery to abdomina/R shoulder, L cataract removal, colonoscopy. Past Anesthesia/Blood Transfusion Reactions: No Reported Reaction Additional Past Anesthesia/Blood Transfusion Reaction / Comment(s): no history of blood transfusion Past Psychological History: Anxiety, Depression Smoking Status: Former smoker Past Alcohol Use History: None Reported Past Drug Use History: None Reported - Past Family History Father Family Medical History: No Reported History Additional Family Medical History / Comment(s): Pt does not know father's medical hx but knows he is . Mother Family Medical History: Diabetes Mellitus Additional Family Medical History / Comment(s): Mother is living General Exam Limitations: altered mental status General appearance: alert, in no apparent distress Head exam: Present: atraumatic, normocephalic, normal inspection Neck exam: Present: normal inspection, full ROM. Absent: tenderness, meningismus, lymphadenopathy Respiratory exam: Present: rales, rhonchi. Absent: normal lung sounds bilaterally, respiratory distress, wheezes, stridor Cardiovascular Exam: Present: regular rate, normal rhythm, normal heart sounds. Absent: systolic murmur, diastolic murmur, rubs, gallop, clicks GI/Abdominal exam: Present: soft, normal bowel sounds. Absent: distended, tenderness, guarding, rebound, rigid Back exam: Absent: CVA tenderness (R), CVA tenderness (L) Neurological exam: Present: alert, oriented X3 Skin exam: Present: warm, dry, intact, normal color. Absent: rash Course Vital Signs 07/26/24 07/26/24 07/26/24 06:00 07:58 08:06 Pulse Rate 95 84 86 Respiratory 24 Rate Blood Pressure 125/78 O2 Sat by Pulse 92 L Oximetry EKG Findings - EKG Comments: EKG Findings:: EKG performed at 6: 01 sinus tachycardia rate of 104 AK 127 QRS 92 QT/QTc 307/367 - EKG Results: EKG: interpreted by MIREYAD Medical Decision Making - Medical Decision Making Was pt. sent in by a medical professional or institution (, PA, CLINICAL ADMISSIONS MANAGER, urgent care, hospital, or snf...) When possible be specific @ -[place] Did you speak to anyone other than the patient for history (EMS, parent, family, police, friend...)? What history was obtained from this source @ -No Did you review nursing and triage notes (agree or disagree)? Why? @ -I reviewed and agree with nursing and triage notes Were old charts reviewed (outside hosp., previous admission, EMS record, old EKG, old radiological studies, urgent care reports/EKG's, snf records)? Report findings @ -No old charts were reviewed Differential Diagnosis (chest pain, altered mental status, abdominal pain women, abdominal pain men, vaginal bleeding, weakness, fever, dyspnea, syncope, headache, dizziness, GI bleed, back pain, seizure, CVA, palpatations, mental health, musculoskeletal)? @ -Differential Dyspnea: Coronary syndrome, arrhythmia, tamponade, asthma, COPD, pulmonary embolism, pneumonia, pneumothorax, pulmonary effusion, anaphylaxis, diabetic ketoacidosis, flailed chest, pulmonary contusion, diaphragmatic rupture, anemia, neuromuscular, this is not meant to be an all-inclusive list. EKG interpreted by me (3pts min.). @ -As above X-rays interpreted by me (1pt min.). @ -Chest x-ray shows worsening pneumonia CT interpreted by me (1pt min.). @ -None done U/S interpreted by me (1pt. min.). @ -None done What testing was considered but not performed or refused? (CT, X-rays, U/S, labs)? Why? @ -None What meds were considered but not given or refused? Why? @ -None Did you discuss the management of the patient with other professionals (professionals i.e. , PA, CLINICAL ADMISSIONS MANAGER, lab, RT, psych nurse, social insurance specialist, pit laborer, teacher, investigation officer, medical case worker)? Give summary @ -Dr. Mccurdy for admission Was smoking cessation discussed for >3mins.? @ -No Was critical care preformed (if so, how long)? @ -No Were there social determinants of health that impacted care today? How? (Homelessness, low income, unemployed, alcoholism, drug addiction, transportation, low edu. Level, literacy, decrease access to med. care, care home, rehab)? @ -No Was there de-escalation of care discussed even if they declined (Discuss DNR or withdrawal of care, Hospice)? DNR status @ -No What co-morbidities impacted this encounter? (DM, HTN, Smoking, COPD, CAD, Cancer, CVA, ARF, Chemo, Hep., AIDS, mental health diagnosis, sleep apnea, morbid obesity)? @ -seizure history, CVA Was patient admitted / discharged? Hospital course, mention meds given and route, prescriptions, significant lab abnormalities, going to OR and other per tinent info. @ -Admitted patient presented from snf for increasing dyspnea. Patient has worsening pneumonia on x-ray. Patient was started on Zosyn, azithromycin given recent admission to the hospital, placement setting. Patient with blood cultures drawn and patient will consult to pulmonology. Patient does have a history of seizures with known seizure this morning. Patient back at baseline. Undiagnosed new problem with uncertain prognosis? @ -No Drug Therapy requiring intensive monitoring for toxicity (Heparin, Nitro, Insulin, Cardizem)? @ -No Were any procedures done? @ -No Diagnosis/symptom? @ -Seizure, pneumonia] Acute, or Chronic, or Acute on Chronic? @ -Acute Uncomplicated (without systemic symptoms) or Complicated (systemic symptoms)? @ -Complicated Side effects of treatment? @ -No Exacerbation, Progression, or Severe Exacerbation? @ -No Poses a threat to life or bodily function? How? (Chest pain, USA, MD, pneumonia, PE, COPD, DKA, ARF, appy, cholecystitis, CVA, Diverticulitis, Homicidal, Suicidal, threat to staff... and all critical care pts) @ -Yes pneumonia, risk of pulmonary function - Lab Data Result diagrams: 07/26/24 07:01 07/26/24 07:01 Lab Results 07/26/24 07/26/24 07/26/24 Range/Units 07:01 07:01 07:01 WBC 9.28 (4.50-10.00) 10*3/uL RBC 4.98 (4.40-5.60) 10*6/uL Hgb 10.5 L (13.0-17.0) g/dL Hct 34.1 L (39.6-50.0) % MCV 68.5 L (80.0-97.0) fL MCH 21.1 L (27.0-32.0) pg MCHC 30.8 L (32.0-37.0) g/dL Plt Count 745 H (140-440) 10*3/uL MPV 9.7 (9.5-12.2) fL Immature Gran % (Auto) 0.4 % Neutrophils % 82.2 % Lymphocytes % 6.7 % Monocytes % 9.8 % Eosinophils % 0.5 % Basophils % 0.4 % Immature Gran # 0.04 (0.00-0.04) 10*3/uL Neutrophils # 7.62 (1.80-7.70) 10*3/uL Lymphocytes # 0.62 L (0.90-5.00) 10*3/uL Monocytes # 0.91 (0.20-1.00) 10*3/uL Eosinophils # 0.05 (0.04-0.35) 10*3/uL Basophils # 0.04 (0.00-0.10) 10*3/uL Immature Plt Fraction 2.6 (1.1-6.1) % Sodium 125 L (137-145) mmol/L Potassium 4.6 (3.5-5.1) mmol/L Chloride 85 L (98-107) mmol/L Carbon Dioxide 32 H (22-30) mmol/L Anion Gap 8 mmol/L BUN 24 H (9-20) mg/dL Creatinine 0.74 (0.66-1.25) mg/dL Est GFR (CKD-EPI)AfAm >90 (>60 ml/min/1.73 sqM) Est GFR (CKD-EPI)NonAf >90 (>60 ml/min/1.73 sqM) Glucose 93 (74-99) mg/dL Plasma Lactic Acid Jaron (0.7-2.0) mmol/L Calcium 8.9 (8.4-10.2) mg/dL Magnesium 1.5 L (1.6-2.3) mg/dL Total Bilirubin 0.7 (0.2-1.3) mg/dL AST 30 (17-59) U/L ALT 16 (4-49) U/L Alkaline Phosphatase 66 (38-126) U/L Troponin I (0.000-0.034) ng/mL NT-Pro-B Natriuret Pep 434 pg/mL Total Protein 6.9 (6.3-8.2) g/dL Albumin 4.0 (3.5-5.0) g/dL Influenza Type A (PCR) Not Detected (Not Detectd) Influenza Type B (PCR) Not Detected (Not Detectd) RSV (PCR) Not Detected (Not Detectd) SARS-CoV-2 (PCR) Not Detected (Not Detectd) 07/26/24 07/26/24 Range/Units 07:01 07:01 WBC (4.50-10.00) 10*3/uL RBC (4.40-5.60) 10*6/uL Hgb (13.0-17.0) g/dL Hct (39.6-50.0) % MCV (80.0-97.0) fL MCH (27.0-32.0) pg MCHC (32.0-37.0) g/dL Plt Count (140-440) 10*3/uL MPV (9.5-12.2) fL Immature Gran % (Auto) % Neutrophils % % Lymphocytes % % Monocytes % % Eosinophils % % Basophils % % Immature Gran # (0.00-0.04) 10*3/uL Neutrophils # (1.80-7.70) 10*3/uL Lymphocytes # (0.90-5.00) 10*3/uL Monocytes # (0.20-1.00) 10*3/uL Eosinophils # (0.04-0.35) 10*3/uL Basophils # (0.00-0.10) 10*3/uL Immature Plt Fraction (1.1-6.1) % Sodium (137-145) mmol/L Potassium (3.5-5.1) mmol/L Chloride (98-107) mmol/L Carbon Dioxide (22-30) mmol/L Anion Gap mmol/L BUN (9-20) mg/dL Creatinine (0.66-1.25) mg/dL Est GFR (CKD-EPI)AfAm (>60 ml/min/1.73 sqM) Est GFR (CKD-EPI)NonAf (>60 ml/min/1.73 sqM) Glucose (74-99) mg/dL Plasma Lactic Acid Jaron 1.3 (0.7-2.0) mmol/L Calcium (8.4-10.2) mg/dL Magnesium (1.6-2.3) mg/dL Total Bilirubin (0.2-1.3) mg/dL AST (17-59) U/L ALT (4-49) U/L Alkaline Phosphatase (38-126) U/L Troponin I <0.012 (0.000-0.034) ng/mL NT-Pro-B Natriuret Pep pg/mL Total Protein (6.3-8.2) g/dL Albumin (3.5-5.0) g/dL Influenza Type A (PCR) (Not Detectd) Influenza Type B (PCR) (Not Detectd) RSV (PCR) (Not Detectd) SARS-CoV-2 (PCR) (Not Detectd) Disposition Clinical Impression: Epileptic seizure, generalized, Pneumonia Disposition: ADMITTED IP TO THIS HOSP Condition: Poor Referrals: Abelino Howell MD [Primary Care Provider] - 1-2 days Time of Disposition: 08:29
[2024-07-26 07:18] LABS: Basophils # (A) 0.04 10*3/uL (0.00-0.10); Basophils % (A) 0.4 %; Eosinophils # (A) 0.05 10*3/uL (0.04-0.35); Eosinophils % (A) 0.5 %; HCT 34.1 % (39.6-50.0); HGB 10.5 g/dL (13.0-17.0); Immature Platelet Fraction 2.6 % (1.1-6.1); Lymphocytes # (A) 0.62 10*3/uL (0.90-5.00); Lymphocytes % (A) 6.7 %; MCH 21.1 pg (27.0-32.0); MCHC 30.8 g/dL (32.0-37.0); MCV 68.5 fL (80.0-97.0); Mean Platelet Volume 9.7 fL (9.5-12.2); Monocytes # (A) 0.91 10*3/uL (0.20-1.00); Monocytes % (A) 9.8 %; Neutrophils # (A) 7.62 10*3/uL (1.80-7.70); Neutrophils % (A) 82.2 %; Platelet Count 745 10*3/uL (140-440); RBC 4.98 10*6/uL (4.40-5.60); RDW 20.4 % (11.5-14.5); WBC 9.28 10*3/uL (4.50-10.00)
[2024-07-26 07:22] LABS: ALT 16 U/L (4-49); AST 30 U/L (17-59); African American GFR (CKD) >90 (>60 ml/min/1.73 sqM); Alkaline Phosphatase 66 U/L (38-126); Anion Gap 8 mmol/L; Blood Urea Nitrogen 24 mg/dL (9-20); Calcium 8.9 mg/dL (8.4-10.2); Carbon Dioxide 32 mmol/L (22-30); Chloride 85 mmol/L (98-107); Glucose 93 mg/dL (74-99); Magnesium 1.5 mg/dL (1.6-2.3); Non-African American GFR(CKD) >90 (>60 ml/min/1.73 sqM); Potassium 4.6 mmol/L (3.5-5.1); Sodium 125 mmol/L (137-145); Total Bilirubin 0.7 mg/dL (0.2-1.3); Total Protein 6.9 g/dL (6.3-8.2)
--- NOTE | 2024-07-26 07:30 | XR ---
EXAMINATION TYPE: XR chest 2V DATE OF EXAM: 07/26/2024 7:21 AM COMPARISON: Chest radiographs from 07/10/2024 TECHNIQUE: XR chest 2V Frontal and lateral views of the chest. CLINICAL INDICATION:Male, 68 years old with history of sob; FINDINGS: Lungs/Pleura: Left basilar patchy airspace opacities. Blunting of the left costophrenic angle. No pne umothorax. Pulmonary vascularity: Unremarkable. Heart/mediastinum: Cardiomediastinal silhouette is unremarkable. Musculoskeletal: Multiple level degenerative disc disease changes seen throughout the spine. Other findings: Anterior left chest wall stimulator device identified with leads extending into the l eft neck. IMPRESSION: Small left pleural effusion with left basilar airspace opacification may represent atelectasis versus infiltrates. [facility], , 07/26/2024 7:27 AM
[2024-07-26 07:31] LABS: NT-Pro-B-Type Natriuretic Pept 434 pg/mL
[2024-07-26 07:44] LABS: Influenza A Not Detected (Not Detectd); Influenza B Not Detected (Not Detectd); RSV Not Detected (Not Detectd)
[2024-07-26] MEDS: IPRATROPIUM-ALBUTEROL 3 ML NEB INHALATION STA (07:57)
[2024-07-26] MEDS ORDERED: PNEUMONIA PROTOCOL UTILIZED 1 EACH MISC PO PRN (08:27)
[2024-07-26] MEDS: PIPERACILLIN-TAZOBACTAM 3.375 GM in SODIUM CHLORIDE 0.9% 100 ML IVPB STA (09:15)
[2024-07-26] MEDS ORDERED: DEXTROSE 50% SYRINGE 50 ML IVP PRN ×2 (09:43)
[2024-07-26] MEDS: AZITHROMYCIN 500 MG in SODIUM CHLORIDE 0.9% 250 ML IVPB STA (09:44)
[2024-07-26] MEDS ORDERED: Magnesium Replacement Protocol 1 EACH MISC MISCELLANE PRN (09:44)
[2024-07-26] MEDS: MAGNESIUM SULFATE-D5W PMX 1 GM in DEXTROSE/WATER 1 100ML.BAG IVPB SCH (11:41)
[2024-07-26] MEDS: SODIUM CHLORIDE 0.9% 1,000 ML IV SCH (11:41)
[2024-07-26 12:09] LABS: Glucose,Whole Blood 101 mg/dL (70-110)
[2024-07-26] MEDS ORDERED: polyethylene glycoL 3350 17 GM POWD.PACK PEG/G-TUBE PRN (12:16)
[2024-07-26] MEDS ORDERED: MENTHOL 5% TOPICAL PRN (12:16)
[2024-07-26] MEDS ORDERED: ALBUTEROL NEBULIZED 2.5 MG/3 ML INHALATION PRN (12:16)
[2024-07-26] MEDS ORDERED: LOPERAMIDE 2 MG CAP PEG/G-TUBE PRN (12:16)
[2024-07-26] MEDS: PIPERACILLIN-TAZOBACTAM 3.375 GM in SODIUM CHLORIDE 0.9% 100 ML IVPB SCH (12:57)
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
[2024-07-26 15:02] LABS: African American GFR (CKD) >90 (>60 ml/min/1.73 sqM); Anion Gap 9 mmol/L; Blood Urea Nitrogen 22 mg/dL (9-20); Calcium 8.9 mg/dL (8.4-10.2); Carbon Dioxide 30 mmol/L (22-30); Chloride 87 mmol/L (98-107); Glucose 84 mg/dL (74-99); Non-African American GFR(CKD) >90 (>60 ml/min/1.73 sqM); Potassium 5.1 mmol/L (3.5-5.1); Sodium 126 mmol/L (137-145)
[2024-07-26] MEDS: VALPROIC ACID ORAL SOLN 250 MG/5 ML CUP PEG/G-TUBE SCH (15:29)
[2024-07-26] MEDS: GLYCOPYRROLATE 1 MG TAB PEG/G-TUBE SCH (15:29)
[2024-07-26 15:47] VITALS: BMI 21.8
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
[2024-07-26 18:04] LABS: Glucose,Whole Blood 87 mg/dL (70-110)
--- NOTE | 2024-07-26 18:05 | P.PN ---
Progress Note - Text Progress Note Date: 07/26/24 Neurology is consulted for breakthrough seizure. According to the nurse patient is fatigued, lethargic but he is and answering questions appropriately and no further seizures. Upon reviewing the labs the sodium is 97 which likely can provoke seizure. I will defer correction of sodium to primary team. I ordered CT head. Will evaluate the patient tomorrow and place official consultation note.
--- NOTE | 2024-07-26 19:25 | CT ---
EXAMINATION TYPE: CT brain wo con DATE OF EXAM: 07/26/2024 6:41 PM COMPARISON: 07/12/2024. CLINICAL INDICATION: Male, 68 years old with history of confusion, Confusion. TECHNIQUE: Brain: Axial CT images of the brain were obtained with coronal and sagittal reformats created and rev iewed. Contrast used: None. Oral contrast used: None. CT DLP: 1150.5 mGycm, Automated exposure control for dose reduction was used. FINDINGS: Brain: Extra-axial spaces: No abnormal extra-axial fluid collections. Ventricular system: There is asymmetrically increased with dilation of the right lateral ventricle wh ich is not significantly changed from priors. Dilatation in proportion to cerebral atrophy. Cerebral parenchyma: Cerebral atrophy. No acute intraparenchymal hemorrhage or mass effect. The miller -white junction is well differentiated. Scattered hypoattenuating areas are seen within the white mat ter. Cerebellum: Unremarkable. Mass effect: No evidence of midline shift. Intracranial vasculature: Atherosclerotic calcifications of the intracranial vessels. Soft tissues: Normal. Calvarium/osseous structures: No depressed skull fracture. Paranasal sinuses and mastoid air cells: Mild scattered paranasal sinus disease. Visualized orbits: Bilateral aphakia IMPRESSION: 1. No acute intracranial process. 2. Similar dilation of the right lateral ventricle. Nonspecific white matter changes, likely secondar y to chronic small vessel ischemic disease. [facility], , 07/26/2024 7:23 PM
[2024-07-26] MEDS: DOXAZOSIN 4 MG TAB PEG/G-TUBE SCH (21:35)
[2024-07-26] MEDS: ATORVASTATIN 20 MG TAB PEG/G-TUBE SCH (21:35)
[2024-07-26] MEDS: LACOSAMIDE 50 MG TABLET PEG/G-TUBE SCH (21:35)
[2024-07-26] MEDS: levETIRAcetam ORAL SOLN 500 MG/5 ML CUP PEG/G-TUBE SCH (21:37)
[2024-07-26] MEDS: NON FORMULARY DRUG (Buprenorphine Hcl [Subutex] 2 MG Tab.Subl) SUBLINGUAL SCH (21:37)
[2024-07-27 00:04] LABS: Glucose,Whole Blood 121 mg/dL (70-110)
[2024-07-27 04:43] LABS: Levetiracetam (Keppra) 8.9 ug/mL (3.0-60.0)
[2024-07-27 06:06] LABS: Glucose,Whole Blood 114 mg/dL (70-110)
[2024-07-27 09:31] LABS: Basophils # (A) 0.04 10*3/uL (0.00-0.10); Basophils % (A) 0.3 %; Eosinophils # (A) 0.02 10*3/uL (0.04-0.35); Eosinophils % (A) 0.2 %; HCT 31.5 % (39.6-50.0); HGB 9.5 g/dL (13.0-17.0); Lymphocytes % (A) 5.7 %; MCHC 30.2 g/dL (32.0-37.0); MCV 69.5 fL (80.0-97.0); Monocytes # (A) 1.13 10*3/uL (0.20-1.00); Monocytes % (A) 9.1 %; Neutrophils # (A) 10.39 10*3/uL (1.80-7.70); Neutrophils % (A) 84.1 %; Platelet Count 480 10*3/uL (140-440); RBC 4.53 10*6/uL (4.40-5.60); RDW 20.6 % (11.5-14.5); WBC 12.35 10*3/uL (4.50-10.00)
[2024-07-27 09:32] LABS: African American GFR (CKD) >90 (>60 ml/min/1.73 sqM); Anion Gap 10 mmol/L; Blood Urea Nitrogen 18 mg/dL (9-20); Calcium 8.5 mg/dL (8.4-10.2); Carbon Dioxide 29 mmol/L (22-30); Chloride 92 mmol/L (98-107); Glucose 104 mg/dL (74-99); Non-African American GFR(CKD) >90 (>60 ml/min/1.73 sqM); Sodium 131 mmol/L (137-145)
--- NOTE | 2024-07-27 09:37 | XR ---
EXAMINATION TYPE: XR chest 2V DATE OF EXAM: 07/27/2024 8:30 AM COMPARISON: Chest radiograph from one day prior. CLINICAL INDICATION: Male, 68 years old with history of pneumonia; [facility] TECHNIQUE: XR chest 2V Frontal and lateral views of the chest. FINDINGS: Lungs/Pleura: Left basilar airspace opacities are not significantly changed. Blunting of the left cos tophrenic angle. There is no evidence of right pleural effusion, focal consolidation, or pneumothora x Pulmonary vascularity: Unremarkable. Heart/mediastinum: Cardiomediastinal silhouette is unremarkable. Musculoskeletal: No acute osseous pathology. Other findings: Electronic device with leads extending up the neck. IMPRESSION: 1. Left basilar airspace opacities not significantly changed from prior. 2. Small left pleural effusion. [facility], , 07/27/2024 9:35 AM
[2024-07-27 09:38] LABS: Potassium 4.7 mmol/L (3.5-5.1)
[2024-07-27] MEDS: SERTRALINE 100 MG TAB PEG/G-TUBE SCH (09:41)
[2024-07-27] MEDS: THIAMINE 100 MG TAB PEG/G-TUBE SCH (09:41)
[2024-07-27] MEDS: ASPIRIN 325 MG TAB PEG/G-TUBE SCH (09:41)
[2024-07-27] MEDS: FOLIC ACID 1 MG TAB PEG/G-TUBE SCH (09:41)
[2024-07-27] MEDS: CHOLECALCIFEROL 125 MCG (5000 IU) TABLET PO SCH (09:41)
[2024-07-27] MEDS: hydroCHLOROthiazide 25 MG TAB PEG/G-TUBE SCH (09:41)
[2024-07-27] MEDS: amLODIPine 10 MG TAB PEG/G-TUBE SCH (09:41)
[2024-07-27] MEDS: COLCHICINE 0.6 MG EACH PEG/G-TUBE SCH (09:42)
[2024-07-27] MEDS: AZITHROMYCIN 500 MG in SODIUM CHLORIDE 0.9% 250 ML IVPB SCH (09:42)
[2024-07-27] MEDS: MIRABEGRON 25 MG PEG/G-TUBE SCH (09:43)
--- NOTE | 2024-07-27 10:45 | P.PN ---
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 Patient is very tired during my evaluation, he was able to tell me that he has been feeling short of breath over the past couple days and thinks that he developed pneumonia again. He also states that he had a seizure at [facility]. No fevers, chills, chest pain reported. He did not have anything by mouth, all medications were provided at the facility through PEG tube as prescribed. On admission he was afebrile, heart rate in 80s, SpO2 92% on room air, was placed on nasal cannula. BP 124/72. Lab work significant for normal WBC, hemoglobin 10.5, improved from 8.2 at discharge, platelet count elevated 745, sodium level low 125, normal potassium 4.6, bicarb 32, normal creatinine, glucose 93, magnesium 1.5, lactic acid level 1.3, BNP 434, EKG showed sinus tachycardia, nonspecific T wave abnormalities, QTc 367. Chest x-ray reviewed personally, compared to this admission, there is 1 more left basilar opacities present, possible pleural effusion. Patient was started on azithromycin and Zosyn, pulmonology consulted Spoke with JG. Patient did have neurologist at [facility] who ordered EMG and MRI that is PACE left message for [facility] neurologist that patient is currently admitted, awaiting for further recommendations. Appears that yesterday patient was found to be shaking with SpO2 dropping to 70s, facility staff could not describe better patient's body movements. JG states that patient is usually very good at notifying staff that he is about to have a seizure. 07/27: Spoke with jg again, patient was seen by Dr.Ximena Emanuel at [facility] therefore possible motor neuron disease evaluation, she was notified on his current admission and recommended to be transferred for further workup of ALS. [facility] transfer center was called, spoke with internal medicine and neurology teams, neurology did not recommend transfer for neurological evaluation as the workup needs to be completed as outpatient, IM team believes that patient can receive treatment for his current aspiration pneumonia with acute hypoxic respiratory failure at our institution, thus, transfer process was canceled, pace notified. Patient overall improved, he was sitting on the edge of the bed, stated that his breathing feels significantly better, he is awake, alert, participates in conversation fully. He is on 4 L nasal cannula. Chest x-ray was repeated and showed no significant changes from before, reviewed independently. CT brain ordered by neurology, no acute intracranial process, similar dilation of the right lateral ventricle but nonspecific white matter changes likely secondary to chronic small vessel ischemic disease. Procalcitonin positive. Vitals Signs Reviewed. General: Ill-appearing, no distress, appears at stated age Derm: warm, dry Head: atraumatic, normocephalic, symmetric Eyes: EOMI, no lid lag, anicteric sclera, pupils equal round reactive to light ENT: Nose and ears atraumatic Neck: No thyromegaly, supple Mouth: no lip lesion, mucus membranes moist Cardiovascular: S1S2 reg, no murmur, no edema Lungs: Coarse rhonchi bilaterally all lung estrella Abdominal: soft, nontender to palpation, no guarding, no appreciable organomegaly Neuro: Neuro: left-sided 3+ out of 5 lower extremity weakness, left-sided numbness to soft touch Psych: Alert, oriented, appropriate affect] Assessment and Plan: Acute hypoxic respiratory failure secondary to possible ongoing aspiration versus HCAP Leukocytosis secondary to above Thrombocytosis, likely reactive due to acute inflammation -Continue Zosyn 375 every 8 hours, azithromycin 500 mg IV daily SOT 07/26 -Pulmonology consulted, appreciate recommendations -Follow-up on blood cultures, sputum cultures -Follow-up on Legionella urine, procalcitonin elevated, MRSA swab ordered -elevated head of bed, continue n.p.o., aspiration precautions Seizure disorder: Reported breakthrough seizure Keppra solution 500 mg twice daily, valproic acid solution 750 p.. 3 times daily, Vimpat 100 mg twice daily Keppra, valproic acid, Vimpat levels ordered. Keppra level 8.9, therapeutic. Neurology consulted, appreciate recommendations EEG ordered and pending, CT head with no acute abnormality Dysphagia status post PEG tube placement 07/13 Muscle atrophy, fasciculation, concern for motor neuron disease Sialolithiasis -RD consulted for tube feeding -Outpatient follow-up with ENT and [facility], neurology Acute hypotonic hyponatremia, likely due to dehydration Hypomagnesemia - Sodium 125, start normal saline 100 cc/h, improved to 131 - Check urine sodium, osmolality, serum osmolality: Urine sodium 54 and osmolality 327, serum osmolality 262 -Follow-up BMP daily - Magnesium improved, follow-up levels in the morning Iron deficiency anemia -on ferrous sulfate 325 Hypertension -Continue home amlodipine 10 mg daily, hydrochlorothiazide 25 mg p.o. daily History of CVA with left-sided weakness: On home aspirin 325 daily, Lipitor 20 mg nightly I have reviewed the following notes: Pulmonology, neurology I have reviewed the results of the following tests: As above I have ordered the following tests: Daily CBC to monitor for leukocytosis, BMP, magnesium I have discussed the care of this patient with the following independent historian: Patient, Damian brown I have independently interpreted the following test below: Chest x-ray, CBC, BMP urine lites, Keppra levels, procalcitonin I have discussed the management of this patient with the following physician:, Ruslan Arauz internal medicine and neurology teams Surrogate decision-maker: Daughter CODE STATUS: Full code DVT prophylaxis: Lovenox Anticipated discharge date: TBD Anticipated discharge place: TBD Objective - Vital Signs Vital signs: Vital Signs Temp 98.4 F 07/27/24 07:00 Pulse 81 07/27/24 07:00 Resp 18 07/27/24 07:00 BP 106/64 07/27/24 07:00 Pulse Ox 97 07/27/24 07:35 FiO2 Intake & Output 07/26/24 07/27/24 07/27/24 18:59 06:59 18:59 Output Total 100 Balance -100 Weight 67 kg Output: Urine 100 Other: # Voids 3 # Bowel Movements 1 - Labs CBC & Chem 7: 07/27/24 09:01 07/27/24 09:01 Labs: Abnormal Lab Results - Last 24 Hours (Table) 07/26/24 07/26/24 07/26/24 Range/Units 07:01 07:01 13:22 WBC (4.50-10.00) 10*3/uL Hgb (13.0-17.0) g/dL Hct (39.6-50.0) % MCV (80.0-97.0) fL MCH (27.0-32.0) pg MCHC (32.0-37.0) g/dL RDW (11.5-14.5) % Plt Count (140-440) 10*3/uL Immature Gran # (0.00-0.04) 10*3/uL Neutrophils # (1.80-7.70) 10*3/uL Lymphocytes # (0.90-5.00) 10*3/uL Monocytes # (0.20-1.00) 10*3/uL Eosinophils # (0.04-0.35) 10*3/uL Sodium 97 L* (137-145) mmol/L Chloride (98-107) mmol/L BUN (9-20) mg/dL Glucose (74-99) mg/dL POC Glucose (mg/dL) (70-110) mg/dL Osmolality 262 L (275-295) mOsm/kg Procalcitonin 2.30 H (0.02-0.50) ng/mL Urine Osmolality (400-1100) mOsm/kg 07/26/24 07/26/24 07/27/24 Range/Units 13:45 14:37 00:01 WBC (4.50-10.00) 10*3/uL Hgb (13.0-17.0) g/dL Hct (39.6-50.0) % MCV (80.0-97.0) fL MCH (27.0-32.0) pg MCHC (32.0-37.0) g/dL RDW (11.5-14.5) % Plt Count (140-440) 10*3/uL Immature Gran # (0.00-0.04) 10*3/uL Neutrophils # (1.80-7.70) 10*3/uL Lymphocytes # (0.90-5.00) 10*3/uL Monocytes # (0.20-1.00) 10*3/uL Eosinophils # (0.04-0.35) 10*3/uL Sodium 126 L (137-145) mmol/L Chloride 87 L (98-107) mmol/L BUN 22 H (9-20) mg/dL Glucose (74-99) mg/dL POC Glucose (mg/dL) 121 H (70-110) mg/dL Osmolality (275-295) mOsm/kg Procalcitonin (0.02-0.50) ng/mL Urine Osmolality 327 L (400-1100) mOsm/kg 07/27/24 07/27/24 07/27/24 Range/Units 06:04 09:01 09:01 WBC 12.35 H (4.50-10.00) 10*3/uL Hgb 9.5 L (13.0-17.0) g/dL Hct 31.5 L (39.6-50.0) % MCV 69.5 L (80.0-97.0) fL MCH 21.0 L (27.0-32.0) pg MCHC 30.2 L (32.0-37.0) g/dL RDW 20.6 H (11.5-14.5) % Plt Count 480 H (140-440) 10*3/uL Immature Gran # 0.07 H (0.00-0.04) 10*3/uL Neutrophils # 10.39 H (1.80-7.70) 10*3/uL Lymphocytes # 0.70 L (0.90-5.00) 10*3/uL Monocytes # 1.13 H (0.20-1.00) 10*3/uL Eosinophils # 0.02 L (0.04-0.35) 10*3/uL Sodium 131 L (137-145) mmol/L Chloride 92 L (98-107) mmol/L BUN (9-20) mg/dL Glucose 104 H (74-99) mg/dL POC Glucose (mg/dL) 114 H (70-110) mg/dL Osmolality (275-295) mOsm/kg Procalcitonin (0.02-0.50) ng/mL Urine Osmolality (400-1100) mOsm/kg
[2024-07-27 11:57] LABS: Glucose,Whole Blood 113 mg/dL (70-110)
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
--- NOTE | 2024-07-27 16:30 | P.PN ---
Subjective Progress Note Date: 07/27/24 07/27/2024, the patient is being seen for a follow-up. Doing well. Continues to produce thick and copious amounts of respiratory secretions. Repeat chest x-ray from today shows a limited left basilar infiltrate and airspace disease along with possibility of a small left-sided pleural effusion. Remains on enteral feeding for nutrition support through her PEG tube. Remains on Zosyn and Zithromax. The white cell count of 12.3 with a hemoglobin 9.5, electrolytes are all stable within normal renal function. He is currently on 4 L of oxygen by nasal cannula with a pulse ox of 99%. Remains extremely debilitated. Objective - Vital Signs Vital signs: Vital Signs Temp 98.3 F 07/27/24 12:36 Pulse 90 07/27/24 12:36 Resp 18 07/27/24 12:36 BP 107/70 07/27/24 12:36 Pulse Ox 99 07/27/24 12:36 FiO2 Intake & Output 07/26/24 07/27/24 07/27/24 18:59 06:59 18:59 Output Total 100 Balance -100 Weight 67 kg Output: Urine 100 Other: Voiding Method Diaper # Voids 3 2 # Bowel Movements 1 - Exam The patient appeared ill looking the patient is chronically debilitated, weak, cachectic with a BMI of 21.8, no signs of any significant respiratory distress Head exam is unremarkable. No scleral icterus or corneal arcus noted. Neck is without jugular venous distension, thyromegaly, or carotid bruits. Carotid upstrokes are brisk bilaterally. Lungs are clear to auscultation and percussion. Breath sounds are diminished in lung bases, scattered rhonchi Cardiac exam reveals the PMI to be normally sized and situated. Rhythm is regular. First and second heart sounds normal. No murmurs, rubs or gallops. Abdominal exam reveals normal bowel sounds, no masses, no organomegaly and no aortic enlargement. PEG tube site is dry clean and intact Extremities are nonedematous and both femoral and pedal pulses are normal. Examination of the skin revealed no evidence of significant rashes, suspicious appearing nevi or other concerning lesions. Neurologically, the patient is awake, poor historian cranial nerves are essentially intact. Generalized motor weakness in all 4 extremities - Labs CBC & Chem 7: 07/27/24 09:01 07/27/24 09:01 Labs: Abnormal Lab Results - Last 24 Hours (Table) 07/26/24 07/26/24 07/27/24 Range/Units 07:01 13:45 00:01 WBC (4.50-10.00) 10*3/uL Hgb (13.0-17.0) g/dL Hct (39.6-50.0) % MCV (80.0-97.0) fL MCH (27.0-32.0) pg MCHC (32.0-37.0) g/dL RDW (11.5-14.5) % Plt Count (140-440) 10*3/uL Immature Gran # (0.00-0.04) 10*3/uL Neutrophils # (1.80-7.70) 10*3/uL Lymphocytes # (0.90-5.00) 10*3/uL Monocytes # (0.20-1.00) 10*3/uL Eosinophils # (0.04-0.35) 10*3/uL Sodium (137-145) mmol/L Chloride (98-107) mmol/L Glucose (74-99) mg/dL POC Glucose (mg/dL) 121 H (70-110) mg/dL Osmolality 262 L (275-295) mOsm/kg Urine Osmolality 327 L (400-1100) mOsm/kg 07/27/24 07/27/24 07/27/24 Range/Units 06:04 09:01 09:01 WBC 12.35 H (4.50-10.00) 10*3/uL Hgb 9.5 L (13.0-17.0) g/dL Hct 31.5 L (39.6-50.0) % MCV 69.5 L (80.0-97.0) fL MCH 21.0 L (27.0-32.0) pg MCHC 30.2 L (32.0-37.0) g/dL RDW 20.6 H (11.5-14.5) % Plt Count 480 H (140-440) 10*3/uL Immature Gran # 0.07 H (0.00-0.04) 10*3/uL Neutrophils # 10.39 H (1.80-7.70) 10*3/uL Lymphocytes # 0.70 L (0.90-5.00) 10*3/uL Monocytes # 1.13 H (0.20-1.00) 10*3/uL Eosinophils # 0.02 L (0.04-0.35) 10*3/uL Sodium 131 L (137-145) mmol/L Chloride 92 L (98-107) mmol/L Glucose 104 H (74-99) mg/dL POC Glucose (mg/dL) 114 H (70-110) mg/dL Osmolality (275-295) mOsm/kg Urine Osmolality (400-1100) mOsm/kg 07/27/24 Range/Units 11:56 WBC (4.50-10.00) 10*3/uL Hgb (13.0-17.0) g/dL Hct (39.6-50.0) % MCV (80.0-97.0) fL MCH (27.0-32.0) pg MCHC (32.0-37.0) g/dL RDW (11.5-14.5) % Plt Count (140-440) 10*3/uL Immature Gran # (0.00-0.04) 10*3/uL Neutrophils # (1.80-7.70) 10*3/uL Lymphocytes # (0.90-5.00) 10*3/uL Monocytes # (0.20-1.00) 10*3/uL Eosinophils # (0.04-0.35) 10*3/uL Sodium (137-145) mmol/L Chloride (98-107) mmol/L Glucose (74-99) mg/dL POC Glucose (mg/dL) 113 H (70-110) mg/dL Osmolality (275-295) mOsm/kg Urine Osmolality (400-1100) mOsm/kg Assessment and Plan Plan: Acute left lower lobe pneumonia. Consider aspiration pneumonia post seizure. Also, aspiration is possible as the patient receiving enteral feeding for nutrition support via PEG tube. Repeat chest x-ray shows a left lower lobe consolidation and a small left-sided pleural effusion. Remains on Zosyn and Zithromax Acute hypoxic respiratory failure currently on 4 L of oxygen by nasal cannula Mild leukocytosis History of CVA with ongoing generalized weakness/motor weakness in all 4 extremities specially left upper extremity Seizure disorder, the patient had a seizure at the senior care. 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 Could be related to intravascular volume depletion. He does have also a mild component of metabolic alkalosis. Plan Patient is currently on 4 L of oxygen by nasal cannula Keep the patient n.p.o. Continue enteral feeding for nutritional support Aspiration precautions Continue current antibiotic coverage including combination of Zithromax and Zosyn. Zithromax can be discontinued at a later stage. Continue normal saline at rate of 100 cc an hour Continue Norvasc for blood pressure control in combination with hydrochlorothiazide. Patient is also on Cardura. Continue Lipitor Continue antiepileptics which include a combination of Vimpat, Keppra and valproic acid. Levels will be checked and neurology consultation will be placed regarding breakthrough seizures.
[2024-07-27] MEDS: levETIRAcetam ORAL SOLN 500 MG/5 ML CUP PEG/G-TUBE SCH (16:38)
[2024-07-27 17:12] LABS: Glucose,Whole Blood 108 mg/dL (70-110)
[2024-07-28 00:22] LABS: Glucose,Whole Blood 126 mg/dL (70-110)
[2024-07-28 06:29] LABS: Glucose,Whole Blood 97 mg/dL (70-110)
[2024-07-28 07:34] LABS: African American GFR (CKD) >90 (>60 ml/min/1.73 sqM); Anion Gap 11 mmol/L; Blood Urea Nitrogen 19 mg/dL (9-20); Calcium 8.9 mg/dL (8.4-10.2); Carbon Dioxide 28 mmol/L (22-30); Chloride 97 mmol/L (98-107); Glucose 104 mg/dL (74-99); Magnesium 2.1 mg/dL (1.6-2.3); Non-African American GFR(CKD) >90 (>60 ml/min/1.73 sqM); Potassium 4.8 mmol/L (3.5-5.1); Sodium 136 mmol/L (137-145)
[2024-07-28 09:50] LABS: Basophils # (A) 0.04 10*3/uL (0.00-0.10); Basophils % (A) 0.4 %; Eosinophils # (A) 0.07 10*3/uL (0.04-0.35); Eosinophils % (A) 0.7 %; HCT 26.1 % (39.6-50.0); Lymphocytes % (A) 9.9 %; MCH 21.2 pg (27.0-32.0); MCHC 29.9 g/dL (32.0-37.0); MCV 70.9 fL (80.0-97.0); Mean Platelet Volume 9.2 fL (9.5-12.2); Monocytes % (A) 7.9 %; Neutrophils # (A) 8.16 10*3/uL (1.80-7.70); Neutrophils % (A) 80.6 %; Platelet Count 468 10*3/uL (140-440); RBC 3.68 10*6/uL (4.40-5.60); RDW 20.4 % (11.5-14.5); WBC 10.12 10*3/uL (4.50-10.00)
[2024-07-28 09:55] LABS: HGB 7.8 g/dL (13.0-17.0)
--- NOTE | 2024-07-28 11:10 | P.PN ---
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 Patient is very tired during my evaluation, he was able to tell me that he has been feeling short of breath over the past couple days and thinks that he developed pneumonia again. He also states that he had a seizure at [facility]. No fevers, chills, chest pain reported. He did not have anything by mouth, all medications were provided at the facility through PEG tube as prescribed. On admission he was afebrile, heart rate in 80s, SpO2 92% on room air, was placed on nasal cannula. BP 124/72. Lab work significant for normal WBC, hemoglobin 10.5, improved from 8.2 at discharge, platelet count elevated 745, sodium level low 125, normal potassium 4.6, bicarb 32, normal creatinine, glucose 93, magnesium 1.5, lactic acid level 1.3, BNP 434, EKG showed sinus tachycardia, nonspecific T wave abnormalities, QTc 367. Chest x-ray reviewed personally, compared to this admission, there is 1 more left basilar opacities present, possible pleural effusion. Patient was started on azithromycin and Zosyn, pulmonology consulted Spoke with JG. Patient did have neurologist at [facility] who ordered EMG and MRI that is [facility] left message for [facility] neurologist that patient is currently admitted, awaiting for further recommendations. Appears that yesterday patient was found to be shaking with SpO2 dropping to 70s, facility staff could not describe better patient's body movements. JG states that patient is usually very good at notifying staff that he is about to have a seizure. 07/27: Spoke with jg again, patient was seen by Dr.Ximena Emanuel at [facility] therefore possible motor neuron disease evaluation, she was notified on his current admission and recommended to be transferred for further workup of ALS. [facility] transfer center was called, spoke with internal medicine and neurology teams, neurology did not recommend transfer for neurological evaluation as the workup needs to be completed as outpatient, IM team believes that patient can receive treatment for his current aspiration pneumonia with acute hypoxic respiratory failure at our institution, thus, transfer process was canceled, pace notified. Patient overall improved, he was sitting on the edge of the bed, stated that his breathing feels significantly better, he is awake, alert, participates in conversation fully. He is on 4 L nasal cannula. Chest x-ray was repeated and showed no significant changes from before, reviewed independently. CT brain ordered by neurology, no acute intracranial process, similar dilation of the right lateral ventricle but nonspecific white matter changes likely secondary to chronic small vessel ischemic disease. Procalcitonin positive. 07/28: Seen and examined at bedside, patient is more fatigued today, feels breathing is improving. Spoke with jg, who contacted patient's neurologist, plan for outpatient ALS workup. Neurology increased Keppra to 1 g twice daily. Has been afebrile, leukocytosis improving. Oxygen requirement improving, now on 3 L nasal cannula finishing azithromycin, Vitals Signs Reviewed. General: Ill-appearing, no distress, appears at stated age Derm: warm, dry Head: atraumatic, normocephalic, symmetric Eyes: EOMI, no lid lag, anicteric sclera, pupils equal round reactive to light ENT: Nose and ears atraumatic Neck: No thyromegaly, supple Mouth: no lip lesion, mucus membranes moist Cardiovascular: S1S2 reg, no murmur, no edema Lungs: Coarse rhonchi bilaterally all lung estrella Abdominal: soft, nontender to palpation, no guarding, no appreciable organomegaly Neuro: Neuro: left-sided 3+ out of 5 lower extremity weakness, left-sided numbness to soft touch Psych: Alert, oriented, appropriate affect] Assessment and Plan: Acute hypoxic respiratory failure secondary to possible ongoing aspiration versus HCAP, left lower lobe Leukocytosis secondary to above Thrombocytosis, likely reactive due to acute inflammation -Continue Zosyn 375 every 8 hours, finished azithromycin azithromycin 500 mg IV daily SOT 07/26 -Pulmonology consulted, appreciate recommendations -Follow-up on blood cultures, sputum cultures negative to date -Follow-up on Legionella urine-negative, procalcitonin elevated, MRSA swab ordered, negative -elevated head of bed, continue n.p.o., aspiration precautions Seizure disorder: Reported breakthrough seizure 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 3 times daily, Vimpat 100 mg twice daily Keppra, valproic acid, Vimpat levels ordered. Keppra level 8.9, therapeutic. Neurology consulted, appreciate recommendations No need for EEG per neuro,, CT head with no acute abnormality Dysphagia status post PEG tube placement 07/13 Muscle atrophy, fasciculation, concern for motor neuron disease Sialolithiasis -RD consulted for tube feeding, continue Jevity 1.5 at 60 cc/h, at goal, free water flushes 100 cc every 4 hour -Outpatient follow-up with ENT and [facility], neurology - Follow-up with neurology as outpatient for ALS workup Acute hypotonic hyponatremia, likely due to dehydration Hypomagnesemia - Sodium 125, decrease normal saline to 50 cc/h, improved to 136 - Check urine sodium, osmolality, serum osmolality: Urine sodium 54 and osmolality 327, serum osmolality 262 -Follow-up BMP daily - Magnesium normal Iron deficiency anemia -on ferrous sulfate 325 Hypertension -Continue home amlodipine 10 mg daily, hydrochlorothiazide 25 mg p.o. daily History of CVA with left-sided weakness: On home aspirin 325 daily, Lipitor 20 mg nightly I have reviewed the following notes: Pulmonology, neurology I have reviewed the results of the following tests: As above I have ordered the following tests: Daily CBC to monitor for leukocytosis, BMP I have discussed the care of this patient with the following independent historian: Sury Hall, patient to f/u with neurology as outpatient I have independently interpreted the following test below: I have discussed the management of this patient with the following physician: Surrogate decision-maker: Daughter CODE STATUS: Full code DVT prophylaxis: Lovenox Anticipated discharge date: TBD Anticipated discharge place: TBD Objective - Vital Signs Vital signs: Vital Signs Temp 97.6 F 07/28/24 07:08 Pulse 83 07/28/24 07:08 Resp 20 07/28/24 07:08 BP 123/65 07/28/24 07:08 Pulse Ox 100 07/28/24 09:11 FiO2 Intake & Output 07/27/24 07/28/24 07/28/24 18:59 06:59 18:59 Other: Voiding Method Diaper Diaper # Voids 2 - Labs CBC & Chem 7: 07/28/24 09:39 07/28/24 06:00 Labs: Abnormal Lab Results - Last 24 Hours (Table) 07/27/24 07/28/24 07/28/24 Range/Units 11:56 00:05 06:00 WBC (4.50-10.00) 10*3/uL RBC (4.40-5.60) 10*6/uL Hgb (13.0-17.0) g/dL Hct (39.6-50.0) % MCV (80.0-97.0) fL MCH (27.0-32.0) pg MCHC (32.0-37.0) g/dL RDW (11.5-14.5) % Plt Count (140-440) 10*3/uL MPV (9.5-12.2) fL Immature Gran # (0.00-0.04) 10*3/uL Neutrophils # (1.80-7.70) 10*3/uL Sodium 136 L (137-145) mmol/L Chloride 97 L (98-107) mmol/L Glucose 104 H (74-99) mg/dL POC Glucose (mg/dL) 113 H 126 H (70-110) mg/dL 07/28/24 Range/Units 09:39 WBC 10.12 H (4.50-10.00) 10*3/uL RBC 3.68 L (4.40-5.60) 10*6/uL Hgb 7.8 L D (13.0-17.0) g/dL Hct 26.1 L (39.6-50.0) % MCV 70.9 L (80.0-97.0) fL MCH 21.2 L (27.0-32.0) pg MCHC 29.9 L (32.0-37.0) g/dL RDW 20.4 H (11.5-14.5) % Plt Count 468 H (140-440) 10*3/uL MPV 9.2 L (9.5-12.2) fL Immature Gran # 0.05 H (0.00-0.04) 10*3/uL Neutrophils # 8.16 H (1.80-7.70) 10*3/uL Sodium (137-145) mmol/L Chloride (98-107) mmol/L Glucose (74-99) mg/dL POC Glucose (mg/dL) (70-110) mg/dL Microbiology - Last 24 Hours (Table) 07/26/24 11:15 Nasal Screen MRSA/MSSA - Final Nasal Swab 07/26/24 09:10 Blood Culture - Preliminary Blood
[2024-07-28 12:07] LABS: Glucose,Whole Blood 124 mg/dL (70-110)
--- NOTE | 2024-07-28 14:27 | P.PN ---
Subjective Progress Note Date: 07/28/24 I am following-up with the patient and he is about the same. No complaints or hospitalist, she stated that his PCP from the [facility] team reached out to his outpatient neurologist and they recommended to follow-up with them as an outpatient and to obtain the workup as an outpatient. Objective - Vital Signs Vital signs: Vital Signs Temp 97.5 F L 07/28/24 11:51 Pulse 83 07/28/24 11:51 Resp 18 07/28/24 11:51 BP 103/66 07/28/24 11:51 Pulse Ox 98 07/28/24 11:51 FiO2 Intake & Output 07/27/24 07/28/24 07/28/24 18:59 06:59 18:59 Other: Voiding Method Diaper Diaper Urinal Diaper Incontinent # Voids 2 - Exam General: Lying in bed and does not appear in acute distress. Lung: Mildly coarse without ausculation throughout. Neuro: Somewhat limited. Is mildly drowsy but is awakeable to voice. Is oriented to self, place and time. Is following simple commands. No aphasia. Has ptosis of the left eye. Pupils are round, 3mm and reactive to light. Has left homonymous hemianposia. EOM intact an no nystamgus. No facial weakness. Has mild dysarthria to moderate dysarthria. Motor: Left upper extremity is 4+. Lowers are 4. Has atrophy of extremities. Cerebellar: Normal finger to nose bilaterally. Some of the work-up during this hospital visit consisted of: Sodium is 125 but ?97 one time same day and that seems error and next one in that same day is 126-->136 Valproic acid is 88 and free <4. Keppra level is 8.9 (normal is 3-60). CT head: no acute intracranial process. I personally reviewed CT Patient has old finding of exvacou on the right posterior horn occipital lateral ventricle - Labs CBC & Chem 7: 07/28/24 09:39 07/28/24 06:00 Labs: Abnormal Lab Results - Last 24 Hours (Table) 07/26/24 07/28/24 07/28/24 Range/Units 13:22 00:05 06:00 WBC (4.50-10.00) 10*3/uL RBC (4.40-5.60) 10*6/uL Hgb (13.0-17.0) g/dL Hct (39.6-50.0) % MCV (80.0-97.0) fL MCH (27.0-32.0) pg MCHC (32.0-37.0) g/dL RDW (11.5-14.5) % Plt Count (140-440) 10*3/uL MPV (9.5-12.2) fL Immature Gran # (0.00-0.04) 10*3/uL Neutrophils # (1.80-7.70) 10*3/uL Sodium 136 L (137-145) mmol/L Chloride 97 L (98-107) mmol/L Glucose 104 H (74-99) mg/dL POC Glucose (mg/dL) 126 H (70-110) mg/dL Free Valproic Acid <4.0 L (4.8-17.3) mg/L 07/28/24 07/28/24 Range/Units 09:39 12:06 WBC 10.12 H (4.50-10.00) 10*3/uL RBC 3.68 L (4.40-5.60) 10*6/uL Hgb 7.8 L D (13.0-17.0) g/dL Hct 26.1 L (39.6-50.0) % MCV 70.9 L (80.0-97.0) fL MCH 21.2 L (27.0-32.0) pg MCHC 29.9 L (32.0-37.0) g/dL RDW 20.4 H (11.5-14.5) % Plt Count 468 H (140-440) 10*3/uL MPV 9.2 L (9.5-12.2) fL Immature Gran # 0.05 H (0.00-0.04) 10*3/uL Neutrophils # 8.16 H (1.80-7.70) 10*3/uL Sodium (137-145) mmol/L Chloride (98-107) mmol/L Glucose (74-99) mg/dL POC Glucose (mg/dL) 124 H (70-110) mg/dL Free Valproic Acid (4.8-17.3) mg/L Microbiology - Last 24 Hours (Table) 07/26/24 10:51 Gram Stain - Preliminary Sputum Sputum Culture - Preliminary Enterobacter aerogenes 07/26/24 11:15 Nasal Screen MRSA/MSSA - Final Nasal Swab 07/26/24 09:10 Blood Culture - Preliminary Blood Assessment and Plan Assessment: Breakthrough seizure likely provoked due to acute pneumonia. Moderate hyponatremia (125) and I doubt that is significant enough to provoke seizure--currently no further seizures. Acute pneumonia Acute hyponatremia History of seizure and patient has multiple seizures on prolonged EEG/status epilepticus on begining 09/2022 in which he had numerous partial electrographic seizures with epileptiform focus involving the right posterior temporal parietal region. Is on Keppra 500mg bid, Vimpat 100mg bid, Depakote 750mg tid Dysphagia with atrophy of muscles and fasciculation: Rule out motor neuron disea se. Dysphagia s/p PEG tube on 07/13/2024 History of stroke (has ex-vacou over the right occipital horn of lateral ventricle). 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 Continue Keppra 1000mg bid, Vimpat 100mg bid, Depakote 750mg tid. Seizure precaution and pads. Pending Vipmat level. I started the patient on Scopolamine patch every 72 hours for excessive sialorrhea. Patient is being evaluated by outpatient neurologist over at [facility] and pending outpatient MRI as well as EMGs. Pulmonary is on board. Will defer the rest of medical management to primary team and other specialist. The plan is discussed with patient and primary team. Will follow-up sporadically. Time with Patient: Less than 30
[2024-07-28] MEDS: SCOPOLAMINE 1 MG/72 HR PATCH TRANSDERM SCH (16:10)
--- NOTE | 2024-07-28 16:49 | P.PN ---
Subjective Progress Note Date: 07/28/24 07/27/2024, the patient is being seen for a follow-up. Doing well. Continues to produce thick and copious amounts of respiratory secretions. Repeat chest x-ray from today shows a limited left basilar infiltrate and airspace disease along with possibility of a small left-sided pleural effusion. Remains on enteral feeding for nutrition support through her PEG tube. Remains on Zosyn and Zithromax. The white cell count of 12.3 with a hemoglobin 9.5, electrolytes are all stable within normal renal function. He is currently on 4 L of oxygen by nasal cannula with a pulse ox of 99%. Remains extremely debilitated. On 07/28/2024, the patient is being seen for a follow-up. The patient has no specific complaints. His condition remains stable. He is being seen by neurology and the medical group in addition. In regards to his chronic dysphagia, the patient remains on enteral feeding for nutritional support. No interval worsening in the respiratory status. No interval worsening in his oxygenation. The patient remains on 3 L of oxygen by nasal cannula. Meanwhile, his sputum sample was positive for Enterobacter erogenous and the patient remains on broad-spectrum antibiotics and the patient remains on IV Zosyn and Zithromax has been discontinued. Normal saline is running at rate of 50 cc an hour. The white cell count today is at 10.1 with a heme of 7.8 and a platelet count of 468. Electrolytes all within normal limits. BUN is 19 with a creatinine of 0.8. Neurologically, unchanged. Remains on Keppra and Vimpat and Depakote. No seizure activity has been noted. Antiepileptic medications have been adjusted by neurology and the patient was started also on scopolamine patch. Objective - Vital Signs Vital signs: Vital Signs Temp 97.6 F 07/28/24 07:08 Pulse 83 07/28/24 07:08 Resp 20 07/28/24 07:08 BP 123/65 07/28/24 07:08 Pulse Ox 100 07/28/24 09:11 FiO2 Intake & Output 07/27/24 07/28/24 07/28/24 18:59 06:59 18:59 Other: Voiding Method Diaper Diaper Urinal Diaper Incontinent # Voids 2 - Labs CBC & Chem 7: 07/28/24 09:39 07/28/24 06:00 Labs: Abnormal Lab Results - Last 24 Hours (Table) 07/27/24 07/28/24 07/28/24 Range/Units 11:56 00:05 06:00 WBC (4.50-10.00) 10*3/uL RBC (4.40-5.60) 10*6/uL Hgb (13.0-17.0) g/dL Hct (39.6-50.0) % MCV (80.0-97.0) fL MCH (27.0-32.0) pg MCHC (32.0-37.0) g/dL RDW (11.5-14.5) % Plt Count (140-440) 10*3/uL MPV (9.5-12.2) fL Immature Gran # (0.00-0.04) 10*3/uL Neutrophils # (1.80-7.70) 10*3/uL Sodium 136 L (137-145) mmol/L Chloride 97 L (98-107) mmol/L Glucose 104 H (74-99) mg/dL POC Glucose (mg/dL) 113 H 126 H (70-110) mg/dL 07/28/24 Range/Units 09:39 WBC 10.12 H (4.50-10.00) 10*3/uL RBC 3.68 L (4.40-5.60) 10*6/uL Hgb 7.8 L D (13.0-17.0) g/dL Hct 26.1 L (39.6-50.0) % MCV 70.9 L (80.0-97.0) fL MCH 21.2 L (27.0-32.0) pg MCHC 29.9 L (32.0-37.0) g/dL RDW 20.4 H (11.5-14.5) % Plt Count 468 H (140-440) 10*3/uL MPV 9.2 L (9.5-12.2) fL Immature Gran # 0.05 H (0.00-0.04) 10*3/uL Neutrophils # 8.16 H (1.80-7.70) 10*3/uL Sodium (137-145) mmol/L Chloride (98-107) mmol/L Glucose (74-99) mg/dL POC Glucose (mg/dL) (70-110) mg/dL Microbiology - Last 24 Hours (Table) 07/26/24 11:15 Nasal Screen MRSA/MSSA - Final Nasal Swab 07/26/24 09:10 Blood Culture - Preliminary Blood Assessment and Plan Plan: Acute left lower lobe pneumonia. Consider aspiration pneumonia post seizure. Also, aspiration is possible as the patient receiving enteral feeding for nutrition support via PEG tube. Repeat chest x-ray shows a left lower lobe consolidation and a small left-sided pleural effusion. Cultures are showing Enterobacter and the patient remains on IV Zosyn. Zithromax has been discontinued. Acute hypoxic respiratory failure currently on 3 L of oxygen by nasal cannula Mild leukocytosis, improving , History of CVA with ongoing generalized weakness/motor weakness in all 4 extremities specially left upper extremity Seizure disorder, the patient had a seizure at the skilled nursing. 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 Could be related to intravascular volume depletion. Sodium level is improved Plan Patient is currently on 3 L of oxygen by nasal cannula, wean FiO2 further to maintain saturation above 90% Keep the patient n.p.o. Continue enteral feeding for nutritional support Aspiration precautions Continue IV Zosyn Continue normal saline at rate of 50 cc an hour, sodium levels improved Continue Norvasc for blood pressure control in combination with hydrochlorothiazide. Patient is also on Cardura. Continue Lipitor Continue antiepileptics which include a combination of Vimpat, Keppra and valproic acid. Levels will be checked and neurology consultation will be placed regarding breakthrough seizures. Will continue to follow. Follow-up chest x-ray within next 24 to 48 hours.
[2024-07-28 17:47] LABS: Glucose,Whole Blood 99 mg/dL (70-110)
[2024-07-28] MEDS: ACETAMINOPHEN TAB 500 MG TAB PEG/G-TUBE PRN (21:30)
[2024-07-28 23:57] LABS: Glucose,Whole Blood 109 mg/dL (70-110)
[2024-07-29 05:30] LABS: Glucose,Whole Blood 125 mg/dL (70-110)
[2024-07-29 08:33] LABS: Basophils # (A) 0.04 X 10*3/uL (0.00-0.10); Basophils % (A) 0.5 %; Eosinophils # (A) 0.14 X 10*3/uL (0.04-0.35); Eosinophils % (A) 1.9 %; HCT 25.2 % (39.6-50.0); HGB 7.3 g/dL (13.0-17.0); Lymphocytes # (A) 1.04 X 10*3/uL (0.90-5.00); Lymphocytes % (A) 14.2 %; MCH 20.8 pg (27.0-32.0); MCV 71.8 FL (80.0-97.0); Mean Platelet Volume 11.3 FL (9.5-12.2); Monocytes % (A) 8.2 %; NRBC Per 100 WBC 0.04 X 10*3/uL (0.00-0.01); Neutrophils # (A) 5.48 X 10*3/uL (1.80-7.70); Neutrophils % (A) 74.7 %; Platelet Count 568 X 10*3/uL (140-440); RBC 3.51 X 10*6/uL (4.40-5.60); WBC 7.34 X 10*3/uL (4.50-10.00)
[2024-07-29 09:06] LABS: BUN/Creat Ratio 22.62 Ratio (12.00-20.00); Blood Urea Nitrogen 18.1 mg/dL (9.0-27.0); Calcium 8.8 mg/dL (8.7-10.3); Carbon Dioxide 29.7 mmol/L (21.6-31.8); Chloride 100 mmol/L (96-109); Glucose 84 mg/dL (70-110); Potassium 4.8 mmol/L (3.5-5.5); Sodium 138 mmol/L (135-145)
[2024-07-29] MEDS: MAGNESIUM SULFATE-D5W PMX 1 GM in DEXTROSE/WATER 1 100ML.BAG IVPB ONE (11:46)
[2024-07-29 12:04] LABS: Glucose,Whole Blood 117 mg/dL (70-110)
[2024-07-29] MEDS ORDERED: Phenol 1.4% Sore Throat Spray Bottle MUCOUS MEM PRN (12:29)
--- NOTE | 2024-07-29 12:29 | P.PN ---
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 Patient is very tired during my evaluation, he was able to tell me that he has been feeling short of breath over the past couple days and thinks that he developed pneumonia again. He also states that he had a seizure at [facility]. No fevers, chills, chest pain reported. He did not have anything by mouth, all medications were provided at the facility through PEG tube as prescribed. On admission he was afebrile, heart rate in 80s, SpO2 92% on room air, was placed on nasal cannula. BP 124/72. Lab work significant for normal WBC, hemoglobin 10.5, improved from 8.2 at discharge, platelet count elevated 745, sodium level low 125, normal potassium 4.6, bicarb 32, normal creatinine, glucose 93, magnesium 1.5, lactic acid level 1.3, BNP 434, EKG showed sinus tachycardia, nonspecific T wave abnormalities, QTc 367. Chest x-ray reviewed personally, compared to this admission, there is 1 more left basilar opacities present, possible pleural effusion. Patient was started on azithromycin and Zosyn, pulmonology consulted Spoke with JG. Patient did have neurologist at [facility] who ordered EMG and MRI that is PACE left message for [facility] neurologist that patient is currently admitted, awaiting for further recommendations. Appears that yesterday patient was found to be shaking with SpO2 dropping to 70s, facility staff could not describe better patient's body movements. JG states that patient is usually very good at notifying staff that he is about to have a seizure. 07/27: Spoke with jg again, patient was seen by Dr.Ximena Emanuel at [facility] therefore possible motor neuron disease evaluation, she was notified on his current admission and recommended to be transferred for further workup of ALS. [facility] transfer center was called, spoke with internal medicine and neurology teams, neurology did not recommend transfer for neurological evaluation as the workup needs to be completed as outpatient, IM team believes that patient can receive treatment for his current aspiration pneumonia with acute hypoxic respiratory failure at our institution, thus, transfer process was canceled, pace notified. Patient overall improved, he was sitting on the edge of the bed, stated that his breathing feels significantly better, he is awake, alert, participates in conversation fully. He is on 4 L nasal cannula. Chest x-ray was repeated and showed no significant changes from before, reviewed independently. CT brain ordered by neurology, no acute intracranial process, similar dilation of the right lateral ventricle but nonspecific white matter changes likely secondary to chronic small vessel ischemic disease. Procalcitonin positive. 07/28: Seen and examined at bedside, patient is more fatigued today, feels breathing is improving. Spoke with jg, who contacted patient's neurologist, plan for outpatient ALS workup. Neurology increased Keppra to 1 g twice daily. Has been afebrile, leukocytosis improving. Oxygen requirement improving, now on 3 L nasal cannula finishing azithromycin, 07/29: Seen and examined at bedside, feeling better, had a bowel movement. On room air today. Blood work is stable. Sputum cultures growing Enterobacter aerogenous, resistant to amoxicillin, ampicillin sulbactam, cefazolin, sensitive to ceftriaxone, Zosyn, trimethoprim/sulfamethoxazole. Zosyn discontinued, switched to ceftriaxone 2 g daily while inpatient, patient will complete 5 days of IV antibiotics on 07/30. He is on room air, afebrile, WBC count normal, no antibiotics plan to discharge. Vitals Signs Reviewed. General: Ill-appearing, no distress, appears at stated age Derm: warm, dry Head: atraumatic, normocephalic, symmetric Eyes: EOMI, no lid lag, anicteric sclera, pupils equal round reactive to light ENT: Nose and ears atraumatic Neck: No thyromegaly, supple Mouth: no lip lesion, mucus membranes moist Cardiovascular: S1S2 reg, no murmur, no edema Lungs: Coarse rhonchi bilaterally all lung estrella Abdominal: soft, nontender to palpation, no guarding, no appreciable organomegaly Neuro: Neuro: left-sided 3+ out of 5 lower extremity weakness, left-sided numbness to soft touch Psych: Alert, oriented, appropriate affect] Assessment and Plan: Acute hypoxic respiratory failure secondary to possible ongoing aspiration versus HCAP, left lower lobe Leukocytosis secondary to above Thrombocytosis, likely reactive due to acute inflammation -Sputum cultures growing Enterobacter aerogenous, resistant to amoxicillin, ampicillin sulbactam, cefazolin, sensitive to ceftriaxone, Zosyn, trimethoprim/sulfamethoxazole. Zosyn discontinued, switched to ceftriaxone 2 g daily while inpatient, patient will complete 5 days of IV antibiotics on 07/30. He is on room air, afebrile, WBC count normal, no antibiotics plan to discharge. 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 3 times daily, Vimpat 100 mg twice daily Keppra, valproic acid, Vimpat levels ordered. Keppra level 8.9, therapeutic. Neurology consulted, appreciate recommendations No need for EEG per neuro,, CT head with no acute abnormality Dysphagia status post PEG tube placement 07/13 Muscle atrophy, fasciculation, concern for motor neuron disease Sialolithiasis -RD consulted for tube feeding, continue Jevity 1.5 at 60 cc/h, at goal, free water flushes 100 cc every 4 hour -Outpatient follow-up with ENT and [employer], neurology - Follow-up with neurology as outpatient for ALS workup Acute hypotonic hyponatremia, likely due to dehydration Hypomagnesemia - Sodium 125, , improved to 138, discontinue IV fluids - Check urine sodium, osmolality, serum osmolality: Urine sodium 54 and osmolality 327, serum osmolality 262 -Follow-up BMP daily - Magnesium normal Iron deficiency anemia -on ferrous sulfate 325 Hypertension -Continue home amlodipine 10 mg daily, hydrochlorothiazide 25 mg p.o. daily History of CVA with left-sided weakness: On home aspirin 325 daily, Lipitor 20 mg nightly I have reviewed the following notes: Pulmonology, neurology I have reviewed the results of the following tests: As above I have ordered the following tests: Daily CBC to monitor for leukocytosis, BMP I have discussed the care of this patient with the following independent historian: RN, discussed discharge plan, patient is on room air, had a bowel movement today I have independently interpreted the following test below: I have discussed the management of this patient with the following physician: Surrogate decision-maker: Daughter CODE STATUS: Full code DVT prophylaxis: Lovenox Anticipated discharge date: 07/[address]: [facility] Objective - Vital Signs Vital signs: Vital Signs Temp 98.2 F 07/29/24 07:48 Pulse 71 07/29/24 07:48 Resp 18 07/29/24 00:25 BP 126/81 07/29/24 07:48 Pulse Ox 99 07/29/24 00:25 FiO2 Intake & Output 07/28/24 07/29/24 07/29/24 18:59 06:59 18:59 Intake Total 1720 Balance 1720 Weight 67 kg Intake: Intake, IV Titration 700 Amount Azithromycin 500 mg In 250 Sodium Chloride 0.9% 250 ml @ 250 mls/hr IVPB DAILY KELLY Rx#:[id number] Piperacillin-Tazobactam 3 100 .375 gm In Sodium Chloride 0.9% 100 ml @ 25 mls/hr IVPB Q8H KELLY Rx#: [id number] Sodium Chloride 0.9% 1, 350 000 ml @ 50 mls/hr IV . Q20H KELLY Rx#:[id number] Tube Feeding 720 Other 300 Other: Voiding Method Urinal Urinal Urinal Diaper Diaper Diaper Incontinent Incontinent Incontinent # Voids 4 2 1 # Bowel Movements 0 1 - Labs CBC & Chem 7: 07/29/24 03:37 07/29/24 03:37 Labs: Abnormal Lab Results - Last 24 Hours (Table) 07/26/24 07/29/24 07/29/24 Range/Units 13:22 03:37 03:37 RBC 3.51 L (4.40-5.60) X 10*6/uL Hgb 7.3 L (13.0-17.0) g/dL Hct 25.2 L (39.6-50.0) % MCV 71.8 L (80.0-97.0) FL MCH 20.8 L (27.0-32.0) pg MCHC 29.0 L (32.0-37.0) g/dL RDW 21.0 H (11.5-14.5) % Plt Count 568 H (140-440) X 10*3/uL NRBC/100 WBC Diff 0.04 H (0.00-0.01) X 10*3/uL BUN/Creatinine Ratio 22.62 H (12.00-20.00) Ratio POC Glucose (mg/dL) (70-110) mg/dL Free Valproic Acid <4.0 L (4.8-17.3) mg/L 07/29/24 07/29/24 Range/Units 05:20 12:03 RBC (4.40-5.60) X 10*6/uL Hgb (13.0-17.0) g/dL Hct (39.6-50.0) % MCV (80.0-97.0) FL MCH (27.0-32.0) pg MCHC (32.0-37.0) g/dL RDW (11.5-14.5) % Plt Count (140-440) X 10*3/uL NRBC/100 WBC Diff (0.00-0.01) X 10*3/uL BUN/Creatinine Ratio (12.00-20.00) Ratio POC Glucose (mg/dL) 125 H 117 H (70-110) mg/dL Free Valproic Acid (4.8-17.3) mg/L Microbiology - Last 24 Hours (Table) 07/26/24 10:51 Gram Stain - Final Sputum Sputum Culture - Final Enterobacter aerogenes 07/26/24 09:10 Blood Culture - Preliminary Blood
[2024-07-29] MEDS: guaiFENesin 600 MG TABLET.ER PO SCH (13:00)
[2024-07-29] MEDS: cefTRIAXone 2 GM in DEXTROSE 5% IN WATER 50 ML IVPB SCH (13:00)
--- NOTE | 2024-07-29 14:46 | P.PN ---
Subjective Progress Note Date: 07/29/24 07/27/2024, the patient is being seen for a follow-up. Doing well. Continues to produce thick and copious amounts of respiratory secretions. Repeat chest x-ray from today shows a limited left basilar infiltrate and airspace disease along with possibility of a small left-sided pleural effusion. Remains on enteral feeding for nutrition support through her PEG tube. Remains on Zosyn and Zithromax. The white cell count of 12.3 with a hemoglobin 9.5, electrolytes are all stable within normal renal function. He is currently on 4 L of oxygen by nasal cannula with a pulse ox of 99%. Remains extremely debilitated. On 07/28/2024, the patient is being seen for a follow-up. The patient has no specific complaints. His condition remains stable. He is being seen by neurology and the medical group in addition. In regards to his chronic dysphagia, the patient remains on enteral feeding for nutritional support. No interval worsening in the respiratory status. No interval worsening in his oxygenation. The patient remains on 3 L of oxygen by nasal cannula. Meanwhile, his sputum sample was positive for Enterobacter erogenous and the patient remains on broad-spectrum antibiotics and the patient remains on IV Zosyn and Zithromax has been discontinued. Normal saline is running at rate of 50 cc an hour. The white cell count today is at 10.1 with a heme of 7.8 and a platelet count of 468. Electrolytes all within normal limits. BUN is 19 with a creatinine of 0.8. Neurologically, unchanged. Remains on Keppra and Vimpat and Depakote. No seizure activity has been noted. Antiepileptic medications have been adjusted by neurology and the patient was started also on scopolamine patch. patient is an 80 on 07/29/2024, the patient continues to have copious oral and throat secretions and is having difficulties in bringing up those thick material. He was given a scopolamine patch which has not impacted his respiratory secretions. He remains on IV Rocephin. Robinul was also added to h is regimen. Remains on Ventolin nebulized treatments [id number]. Remains on enteral feeding for nutritional support. Rest of the medications are unchanged. The white cell count 7.3 with a heme of 7.3 and a platelet count of 568. Electrolytes are all within normal limits. Earlier sputum sample was positive for Enterobacter and antibiotic modification was done and the patient was placed on IV Rocephin. He is currently on room air oxygen. He is able to converse. Neurologically, he remains quite weak and continues to have difficulties with cough and and doing appropriate pulmonary toileting. Objective - Vital Signs Vital signs: Vital Signs Temp 98.4 F 07/29/24 13:10 Pulse 70 07/29/24 13:10 Resp 15 07/29/24 13:10 BP 119/70 07/29/24 13:10 Pulse Ox 99 07/29/24 00:25 FiO2 Intake & Output 07/28/24 07/29/24 07/29/24 18:59 06:59 18:59 Intake Total 1720 Balance 1720 Weight 67 kg Intake: Intake, IV Titration 700 Amount Azithromycin 500 mg In 250 Sodium Chloride 0.9% 250 ml @ 250 mls/hr IVPB DAILY KELLY Rx#:[id number] Piperacillin-Tazobactam 3 100 .375 gm In Sodium Chloride 0.9% 100 ml @ 25 mls/hr IVPB Q8H KELLY Rx#: [id number] Sodium Chloride 0.9% 1, 350 000 ml @ 50 mls/hr IV . Q20H KELLY Rx#:[id number] Tube Feeding 720 Other 300 Other: Voiding Method Urinal Urinal Bedside Commode Diaper Diaper Urinal Incontinent Incontinent Diaper # Voids 4 2 1 # Bowel Movements 0 1 - Exam The patient appeared ill looking the patient is chronically debilitated, weak, cachectic with a BMI of 21.8, no signs of any significant respiratory distress Head exam is unremarkable. No scleral icterus or corneal arcus noted. Neck is without jugular venous distension, thyromegaly, or carotid bruits. Carot id upstrokes are brisk bilaterally. Lungs are clear to auscultation and percussion. Breath sounds are diminished in lung bases, scattered rhonchi Cardiac exam reveals the PMI to be normally sized and situated. Rhythm is regular. First and second heart sounds normal. No murmurs, rubs or gallops. Abdominal exam reveals normal bowel sounds, no masses, no organomegaly and no aortic enlargement. PEG tube site is dry clean and intact Extremities are nonedematous and both femoral and pedal pulses are normal. Examination of the skin revealed no evidence of significant rashes, suspicious appearing nevi or other concerning lesions. Neurologically, the patient is awake, poor historian cranial nerves are essentially intact. Generalized motor weakness in all 4 extremities - Labs CBC & Chem 7: 07/29/24 03:37 07/29/24 03:37 Labs: Abnormal Lab Results - Last 24 Hours (Table) 07/29/24 07/29/24 07/29/24 Range/Units 03:37 03:37 05:20 RBC 3.51 L (4.40-5.60) X 10*6/uL Hgb 7.3 L (13.0-17.0) g/dL Hct 25.2 L (39.6-50.0) % MCV 71.8 L (80.0-97.0) FL MCH 20.8 L (27.0-32.0) pg MCHC 29.0 L (32.0-37.0) g/dL RDW 21.0 H (11.5-14.5) % Plt Count 568 H (140-440) X 10*3/uL NRBC/100 WBC Diff 0.04 H (0.00-0.01) X 10*3/uL BUN/Creatinine Ratio 22.62 H (12.00-20.00) Ratio POC Glucose (mg/dL) 125 H (70-110) mg/dL 07/29/24 Range/Units 12:03 RBC (4.40-5.60) X 10*6/uL Hgb (13.0-17.0) g/dL Hct (39.6-50.0) % MCV (80.0-97.0) FL MCH (27.0-32.0) pg MCHC (32.0-37.0) g/dL RDW (11.5-14.5) % Plt Count (140-440) X 10*3/uL NRBC/100 WBC Diff (0.00-0.01) X 10*3/uL BUN/Creatinine Ratio (12.00-20.00) Ratio POC Glucose (mg/dL) 117 H (70-110) mg/dL Microbiology - Last 24 Hours (Table) 07/26/24 10:51 Gram Stain - Final Sputum Sputum Culture - Final Enterobacter aerogenes 07/26/24 09:10 Blood Culture - Preliminary Blood Assessment and Plan Plan: Acute left lower lobe pneumonia. Consider aspiration pneumonia post seizure. Also, aspiration is possible as the patient receiving enteral feeding for nutrition support via PEG tube. chest x-ray shows a left lower lobe consolidation and a small left-sided pleural effusion. Patient continues to have difficulties with cough and excessive respiratory secretions and his cough and mechanism is weak related to his underlying ongoing neurologic disorder. ALS is being considered. Patient is currently on room air oxygen. Acute hypoxic respiratory failure currently on room air oxygen Mild leukocytosis, i improved History of CVA with ongoing generalized weakness/motor weakness in all 4 extremities specially left upper extremity Seizure disorder, the patient had a seizure at the skilled nursing. 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 Could be related to intravascular volume depletion. Sodium level is improved Plan Patient is currently on room air oxygen Concern of excessive respiratory secretions or mucous plugging May consider bronchoscopy next 2 to 4 hours to offer this patient therapeutic airway suctioning and improving his airway clearance and patency Repeat chest x-ray in the morning Continue enteral feeding for nutritional support, hold after midnight Aspiration precautions Continue IV Rocephin Continue normal saline at rate of 50 cc an hour, sodium levels improved Continue Norvasc for blood pressure control in combination with hydrochlorothiazide. Patient is also on Cardura. Continue Lipitor Continue antiepileptics which include a combination of Vimpat, Keppra and valproic acid. Levels will be checked and neurology consultation will be placed regarding breakthrough seizures. Will continue to follow.
[2024-07-29 18:10] LABS: Glucose,Whole Blood 106 mg/dL (70-110)
[2024-07-30 00:23] LABS: Glucose,Whole Blood 84 mg/dL (70-110)
[2024-07-30 06:06] LABS: Glucose,Whole Blood 81 mg/dL (70-110)
--- NOTE | 2024-07-30 07:34 | XR ---
EXAMINATION TYPE: XR chest 2V DATE OF EXAM: 07/30/2024 6:59 AM COMPARISON: 07/27/2024 CLINICAL INDICATION: Male, 68 years old with history of f/u LLL infiltrate, TECHNIQUE: XR chest 2V view(s) obtained. FINDINGS: The heart size is normal. Pacemaker overlies left chest The pulmonary vasculature is normal. There is persistent left lower lobe infiltrate. Small effusion is likely present.. IMPRESSION: 1. Persistent left lower lobe infiltrate. Correlate for pneumonia. Continued follow-up is recommended [facility], Workstation: [facility], 07/30/2024 7:31 AM
[2024-07-30 08:03] LABS: Basophils # (A) 0.08 X 10*3/uL (0.00-0.10); Basophils % (A) 1.1 %; Eosinophils # (A) 0.14 X 10*3/uL (0.04-0.35); Eosinophils % (A) 1.9 %; HCT 31.4 % (39.6-50.0); Lymphocytes % (A) 13.9 %; MCH 20.7 pg (27.0-32.0); MCHC 28.7 g/dL (32.0-37.0); MCV 72.2 FL (80.0-97.0); Mean Platelet Volume 9.8 FL (9.5-12.2); Monocytes # (A) 0.61 X 10*3/uL (0.20-1.00); Monocytes % (A) 8.5 %; NRBC Per 100 WBC 0.04 X 10*3/uL (0.00-0.01); Neutrophils # (A) 5.29 X 10*3/uL (1.80-7.70); Neutrophils % (A) 73.6 %; Platelet Count 652 X 10*3/uL (140-440); RBC 4.35 X 10*6/uL (4.40-5.60); WBC 7.19 X 10*3/uL (4.50-10.00)
[2024-07-30 08:35] LABS: Blood Urea Nitrogen 16.8 mg/dL (9.0-27.0); Calcium 9.7 mg/dL (8.7-10.3); Chloride 99 mmol/L (96-109); Glucose 81 mg/dL (70-110); Magnesium 1.8 mg/dL (1.5-2.4); Potassium 4.9 mmol/L (3.5-5.5); Sodium 137 mmol/L (135-145)
[2024-07-30 12:11] LABS: Glucose,Whole Blood 87 mg/dL (70-110)
--- NOTE | 2024-07-30 13:36 | P.PN ---
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 Patient is very tired during my evaluation, he was able to tell me that he has been feeling short of breath over the past couple days and thinks that he developed pneumonia again. He also states that he had a seizure at [facility]. No fevers, chills, chest pain reported. He did not have anything by mouth, all medications were provided at the facility through PEG tube as prescribed. On admission he was afebrile, heart rate in 80s, SpO2 92% on room air, was placed on nasal cannula. BP 124/72. Lab work significant for normal WBC, hemoglobin 10.5, improved from 8.2 at discharge, platelet count elevated 745, sodium level low 125, normal potassium 4.6, bicarb 32, normal creatinine, glucose 93, magnesium 1.5, lactic acid level 1.3, BNP 434, EKG showed sinus tachycardia, nonspecific T wave abnormalities, QTc 367. Chest x-ray reviewed personally, compared to this admission, there is 1 more left basilar opacities present, possible pleural effusion. Patient was started on azithromycin and Zosyn, pulmonology consulted Spoke with JG. Patient did have neurologist at [facility] who ordered EMG and MRI that is PACE left message for [facility] neurologist that patient is currently admitted, awaiting for further recommendations. Appears that yesterday patient was found to be shaking with SpO2 dropping to 70s, facility staff could not describe better patient's body movements. JG states that patient is usually very good at notifying staff that he is about to have a seizure. 07/27: Spoke with jg again, patient was seen by Dr.Ximena Emanuel at [facility] therefore possible motor neuron disease evaluation, she was notified on his current admission and recommended to be transferred for further workup of ALS. [facility] transfer center was called, spoke with internal medicine and neurology teams, neurology did not recommend transfer for neurological evaluation as the workup needs to be completed as outpatient, IM team believes that patient can receive treatment for his current aspiration pneumonia with acute hypoxic respiratory failure at our institution, thus, transfer process was canceled, pace notified. Patient overall improved, he was sitting on the edge of the bed, stated that his breathing feels significantly better, he is awake, alert, participates in conversation fully. He is on 4 L nasal cannula. Chest x-ray was repeated and showed no significant changes from before, reviewed independently. CT brain ordered by neurology, no acute intracranial process, similar dilation of the right lateral ventricle but nonspecific white matter changes likely secondary to chronic small vessel ischemic disease. Procalcitonin positive. 07/28: Seen and examined at bedside, patient is more fatigued today, feels breathing is improving. Spoke with jg, who contacted patient's neurologist, plan for outpatient ALS workup. Neurology increased Keppra to 1 g twice daily. Has been afebrile, leukocytosis improving. Oxygen requirement improving, now on 3 L nasal cannula finishing azithromycin, 07/29: Seen and examined at bedside, feeling better, had a bowel movement. On room air today. Blood work is stable. Sputum cultures growing Enterobacter aerogenous, resistant to amoxicillin, ampicillin sulbactam, cefazolin, sensitive to ceftriaxone, Zosyn, trimethoprim/sulfamethoxazole. Zosyn discontinued, switched to ceftriaxone 2 g daily while inpatient 07/30: States shortness of breath is improving, mild abdominal discomfort at the site of PEG tube insertion, lots of secretions. He is afebrile and on room air, discussed with Dr. Funk, plan for bronchoscopy today. Repeat chest x-ray this morning showed persistent left lower lobe opacity Vitals Signs Reviewed. General: Ill-appearing, no distress, appears at stated age Derm: warm, dry Head: atraumatic, normocephalic, symmetric Eyes: EOMI, no lid lag, anicteric sclera, pupils equal round reactive to light ENT: Nose and ears atraumatic Neck: No thyromegaly, supple Mouth: no lip lesion, mucus membranes moist Cardiovascular: S1S2 reg, no murmur, no edema Lungs: Coarse rhonchi bilaterally all lung estrella Abdominal: soft, nontender to palpation, no guarding, no appreciable organomegaly Neuro: Neuro: left-sided 3+ out of 5 lower extremity weakness, left-sided numbness to soft touch Psych: Alert, oriented, appropriate affect] Assessment and Plan: Acute hypoxic respiratory failure secondary to possible ongoing aspiration versus HCAP, left lower lobe Leukocytosis secondary to above Thrombocytosis, likely reactive due to acute inflammation -Sputum cultures growing Enterobacter aerogenous, resistant to amoxicillin, ampicillin sulbactam, cefazolin, sensitive to ceftriaxone, Zosyn, trimethoprim/s ulfamethoxazole. Zosyn discontinued, switched to ceftriaxone 2 g daily while inpatient, patient will complete 5 days of IV antibiotics on 07/30. He is on room air, afebrile, WBC count normal, no antibiotics plan to discharge. 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 3 times daily, Vimpat 100 mg twice daily Keppra, valproic acid, Vimpat levels ordered. Keppra level 8.9, therapeutic. Neurology consulted, appreciate recommendations No need for EEG per neuro,, CT head with no acute abnormality Dysphagia status post PEG tube placement 07/13 Muscle atrophy, fasciculation, concern for motor neuron disease Sialolithiasis -RD consulted for tube feeding, continue Jevity 1.5 at 60 cc/h, at goal, free water flushes 100 cc every 4 hour -Outpatient follow-up with ENT and [facility], neurology - Follow-up with neurology as outpatient for ALS workup Acute hypotonic hyponatremia, likely due to dehydration Hypomagnesemia - Sodium 125, , improved to 138, discontinue IV fluids - Check urine sodium, osmolality, serum osmolality: Urine sodium 54 and osmolality 327, serum osmolality 262 -Follow-up BMP daily - Magnesium normal Iron deficiency anemia -on ferrous sulfate 325 Hypertension -Continue home amlodipine 10 mg daily, hydrochlorothiazide 25 mg p.o. daily History of CVA with left-sided weakness: On home aspirin 325 daily, Lipitor 20 mg nightly I have reviewed the following notes: Pulmonology, I have reviewed the results of the following tests: As above I have ordered the following tests: Daily CBC to monitor for leukocytosis, BMP I have discussed the care of this patient with the following independent historian: RN, jg Ga, Dr Hammonds, plan for bronchoscopy I have independently interpreted the following test below: I have discussed the management of this patient with the following physician: Surrogate decision-maker: Daughter CODE STATUS: Full code DVT prophylaxis: Lovenox Anticipated discharge date: 07/[address]: [facility] Objective - Vital Signs Vital signs: Vital Signs Temp 97.8 F 07/30/24 13:13 Pulse 60 07/30/24 13:13 Resp 16 07/30/24 13:13 BP 125/74 07/30/24 13:13 Pulse Ox 98 07/30/24 13:13 FiO2 Intake & Output 07/29/24 07/30/24 07/30/24 18:59 06:59 18:59 Intake Total 1270 425 Output Total 250 Balance 1270 175 Weight 67 kg 66.5 kg Intake: Intake, IV Titration 250 Amount Magnesium Sulfate-D5w Pmx 100 1 gm In Dextrose/Water 1 100ml.bag @ 100 mls/hr IVPB ONCE ONE Rx#: [id number] Piperacillin-Tazobactam 3 100 .375 gm In Sodium Chloride 0.9% 100 ml @ 25 mls/hr IVPB Q8H [facility] Rx#: [id number] cefTRIAXone 2 gm In 50 Dextrose 5% in Water 50 ml @ 100 mls/hr IVPB Q24H [facility] Rx#:[id number] Tube Feeding 720 300 Other 300 125 Output: Urine 250 Other: Voiding Method Bedside Commode Bedside Commode Bedpan Urinal Urinal Diaper Diaper Diaper # Voids 1 1 1 # Bowel Movements 1 1 - Labs CBC & Chem 7: 07/30/24 05:25 07/30/24 05:25 Labs: Abnormal Lab Results - Last 24 Hours (Table) 07/30/24 07/30/24 Range/Units 05:25 05:25 RBC 4.35 L (4.40-5.60) X 10*6/uL Hgb 9.0 L (13.0-17.0) g/dL Hct 31.4 L (39.6-50.0) % MCV 72.2 L (80.0-97.0) FL MCH 20.7 L (27.0-32.0) pg MCHC 28.7 L (32.0-37.0) g/dL RDW 21.0 H (11.5-14.5) % Plt Count 652 H (140-440) X 10*3/uL Immature Gran # 0.07 H (0.00-0.04) X 10*3/uL NRBC/100 WBC Diff 0.04 H (0.00-0.01) X 10*3/uL BUN/Creatinine Ratio 24.00 H (12.00-20.00) Ratio Microbiology - Last 24 Hours (Table) 07/26/24 09:10 Blood Culture - Preliminary Blood
[2024-07-30] MEDS ORDERED: MIDAZOLAM 2 MG/2 ML VIAL ONE (15:07)
[2024-07-30] MEDS ORDERED: PROPOFOL 10 MG/ML 20 ML VIAL IV ONE (15:07)
[2024-07-30] MEDS ORDERED: KETAMINE HCL IN 0.9 % NACL 50 MG/5 ML SYRINGE ONE (15:07)
[2024-07-30] MEDS: RACEPINEPHRINE 2.25% NEB 0.5 ML NEBU INHALATION STA (15:41)
[2024-07-30] MEDS: SODIUM CHLORIDE 0.9% 500 ML 500 ML IV ONE (15:44)
[2024-07-30] MEDS: SODIUM CHLORIDE 0.9% NEBULIZ 3 ML INHALATION STA (15:44)
--- NOTE | 2024-07-30 16:36 | P.PN ---
Subjective Progress Note Date: 07/30/24 07/27/2024, the patient is being seen for a follow-up. Doing well. Continues to produce thick and copious amounts of respiratory secretions. Repeat chest x-ray from today shows a limited left basilar infiltrate and airspace disease along with possibility of a small left-sided pleural effusion. Remains on enteral feeding for nutrition support through her PEG tube. Remains on Zosyn and Zithromax. The white cell count of 12.3 with a hemoglobin 9.5, electrolytes are all stable within normal renal function. He is currently on 4 L of oxygen by nasal cannula with a pulse ox of 99%. Remains extremely debilitated. On 07/28/2024, the patient is being seen for a follow-up. The patient has no specific complaints. His condition remains stable. He is being seen by neurology and the medical group in addition. In regards to his chronic dysphagia, the patient remains on enteral feeding for nutritional support. No interval worsening in the respiratory status. No interval worsening in his oxygenation. The patient remains on 3 L of oxygen by nasal cannula. Meanwhile, his sputum sample was positive for Enterobacter erogenous and the patient remains on broad-spectrum antibiotics and the patient remains on IV Zosyn and Zithromax has been discontinued. Normal saline is running at rate of 50 cc an hour. The white cell count today is at 10.1 with a heme of 7.8 and a platelet count of 468. Electrolytes all within normal limits. BUN is 19 with a creatinine of 0.8. Neurologically, unchanged. Remains on Keppra and Vimpat and Depakote. No seizure activity has been noted. Antiepileptic medications have been adjusted by neurology and the patient was started also on scopolamine patch. patient is an 80 on 07/29/2024, the patient continues to have copious oral and throat secretions and is having difficulties in bringing up those thick material. He was given a scopolamine patch which has not impacted his respiratory secretions. He remains on IV Rocephin. Robinul was also added to h is regimen. Remains on Ventolin nebulized treatments [id number]. Remains on enteral feeding for nutritional support. Rest of the medications are unchanged. The white cell count 7.3 with a heme of 7.3 and a platelet count of 568. Electrolytes are all within normal limits. Earlier sputum sample was positive for Enterobacter and antibiotic modification was done and the patient was placed on IV Rocephin. He is currently on room air oxygen. He is able to converse. Neurologically, he remains quite weak and continues to have difficulties with cough and and doing appropriate pulmonary toileting. On 07/30/2024, the patient continues to struggle in bringing up his respiratory secretions. There is no stridor. His cough remains extremely weak. Overall condition is quite debilitated the patient is significantly weak in all 4 extremities. As mentioned, the patient was also having dysphagia and he was offered a PEG tube and he was receiving enteral feeding for nutritional support. Repeat chest x-ray shows a persistent left lower lobe pulmonary infiltrate and the patient sputum sample was positive for Enterobacter and the patient was kept on IV Rocephin. Blood work shows a white cell count of 7.1, hemoglobin of 9 and platelet count of 652. Sodium is at 137, potassium is at 4.9 with a chloride of 99 and bicarb of 27. The plan is to do a therapeutic bronchoscopy and suctio corazon of the respiratory secretions and upper and lower airway inspection. Objective - Vital Signs Vital signs: Vital Signs Temp 97.8 F 07/30/24 13:13 Pulse 93 07/30/24 16:30 Resp 21 07/30/24 16:30 BP 136/80 07/30/24 16:30 Pulse Ox 100 07/30/24 16:30 FiO2 40 07/30/24 16:30 Intake & Output 07/29/24 07/30/24 07/30/24 18:59 06:59 18:59 Intake Total 1270 425 0 Output Total 250 Balance 1270 175 0 Weight 67 kg 66.5 kg Intake: IV 0 Intake, IV Titration 250 Amount Magnesium Sulfate-D5w Pmx 100 1 gm In Dextrose/Water 1 100ml.bag @ 100 mls/hr IVPB ONCE ONE Rx#: [id number] Piperacillin-Tazobactam 3 100 .375 gm In Sodium Chloride 0.9% 100 ml @ 25 mls/hr IVPB Q8H [facility] Rx#: [id number] cefTRIAXone 2 gm In 50 Dextrose 5% in Water 50 ml @ 100 mls/hr IVPB Q24H [facility] Rx#:[id number] Tube Feeding 720 300 Other 300 125 Output: Urine 250 Other: Voiding Method Bedside Commode Bedside Commode Bedpan Urinal Urinal Diaper Diaper Diaper # Voids 1 1 1 # Bowel Movements 1 1 2 - Exam The patient appeared ill looking the patient is chronically debilitated, weak, cachectic with a BMI of 21.8, no signs of any significant respiratory distress, extremely weak cough, muffled voice, motor weakness in all 4 extremities and looks quite debilitated and chronically ill. He is currently on room air o xygen. Head exam is unremarkable. No scleral icterus or corneal arcus noted. Neck is without jugular venous distension, thyromegaly, or carotid bruits. Carotid upstrokes are brisk bilaterally. Lungs are clear to auscultation and percussion. Breath sounds are diminished in lung bases, scattered rhonchi Cardiac exam reveals the PMI to be normally sized and situated. Rhythm is regular. First and second heart sounds normal. No murmurs, rubs or gallops. Abdominal exam reveals normal bowel sounds, no masses, no organomegaly and no aortic enlargement. PEG tube site is dry clean and intact Extremities are nonedematous and both femoral and pedal pulses are normal. Examination of the skin revealed no evidence of significant rashes, suspicious appearing nevi or other concerning lesions. Neurologically, the patient is awake, poor historian cranial nerves are essentially intact. Generalized motor weakness in all 4 extremities - Labs CBC & Chem 7: 07/30/24 05:25 07/30/24 05:25 Labs: Abnormal Lab Results - Last 24 Hours (Table) 07/30/24 07/30/24 Range/Units 05:25 05:25 RBC 4.35 L (4.40-5.60) X 10*6/uL Hgb 9.0 L (13.0-17.0) g/dL Hct 31.4 L (39.6-50.0) % MCV 72.2 L (80.0-97.0) FL MCH 20.7 L (27.0-32.0) pg MCHC 28.7 L (32.0-37.0) g/dL RDW 21.0 H (11.5-14.5) % Plt Count 652 H (140-440) X 10*3/uL Immature Gran # 0.07 H (0.00-0.04) X 10*3/uL NRBC/100 WBC Diff 0.04 H (0.00-0.01) X 10*3/uL BUN/Creatinine Ratio 24.00 H (12.00-20.00) Ratio Microbiology - Last 24 Hours (Table) 07/26/24 09:10 Blood Culture - Preliminary Blood Assessment and Plan Plan: Acute left lower lobe pneumonia. Consider aspiration pneumonia post seizure. Also, aspiration is possible as the patient receiving enteral feeding for nutrition support via PEG tube. chest x-ray shows a left lower lobe consolidation and a small left-sided pleural effusion. Patient continues to have difficulties with cough and excessive respiratory secretions and his cough and mechanism is weak related to his underlying ongoing neurologic disorder. ALS is being considered. Patient is currently on room air oxygen. Acute hypoxic respiratory failure currently on room air oxygen Mild leukocytosis, i improved History of CVA with ongoing generalized weakness/motor weakness in all 4 extremities specially left upper extremity Seizure disorder, the patient had a seizure at the group home. 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 Could be related to intravascular volume depletion. Sodium level is improved Plan Patient is currently on room air oxygen Ongoing difficulties with respiratory secretions and difficulties with coughing and clearing respiratory secretions Persistent infiltration of the left lower lobe related to pneumonia, culture positive for Enterobacter and the patient remains on IV Rocephin Concern of excessive respiratory secretions or mucous plugging Bronchoscopy scheduled for this afternoon Repeat chest x-ray in the morning was noted Patient is currently n.p.o. Aspiration precautions Continue IV Rocephin Continue normal saline at rate of 50 cc an hour, sodium levels improved Continue Norvasc for blood pressure control in combination with hydrochlorothiazide. Patient is also on Cardura. Continue Lipitor Continue antiepileptics which include a combination of Vimpat, Keppra and valproic acid. Levels will be checked and neurology consultation will be placed regarding breakthrough seizures. Will continue to follow.
--- NOTE | 2024-07-30 16:42 | P.PCN ---
Date of Procedure: 07/30/24 Preoperative Diagnosis: Left lower lobe pneumonia Postoperative Diagnosis: Extremely weak cough due to underlying progressive motor neuron disease, unspecified Copious upper and lower airway respiratory secretions, post therapeutic airway suctioning Vocal cord dysfunction No evidence of any endobronchial tumors Post bronchoscopy stridor Procedure(s) Performed: Flexor bronchoscopy, lavage of the left lower lobe Anesthesia: MAC Surgeon: Franklin Ricks Estimated Blood Loss (ml): 0 Pathology: other Condition: critical Disposition: PACU Operative Findings: This procedure was done in the endoscopy suite. A consent was obtained and a timeout was done. Recurrence of the procedure is to do an upper and lower airway inspection and with therapeutic airway suctioning the patient was having copious amount of respiratory secretions, and the patient has an underlying progressive motor neuron disease causing ongoing respiratory insufficiency, difficulty with speech, difficulties with swallow and difficulty in doing appropriate pulmonary toileting. The patient also has a left lower lobe pneumonia. The flexible bronchoscopy was done in the endoscopy suite. The reflexive bronchoscope was easily inserted to the left nostril and was advanced into the posterior pharynx and later on to the larynx. There was copious amount of loose and liquid respiratory secretions retained throughout the upper airways and those were suctioned out without any major difficulties. The epiglottis was slightly swollen. The vocal cord function was suboptimal. The vocal cords were somewhat abducted and the vocal cord opening and functionality was obviously compromised. In addition, the patient had a very weak cough that was noted throughout the procedure. A total of 2 cc of 1% lidocaine was applied to the vocal cord and following that, the bronchoscope was advanced into the lower trachea. A complete airway inspection was done. Excessive amount of respiratory secretions were retained throughout the airway and respiratory secretions seem to be more abundant in the left lower lobe. Those were slimy, thick, and purulence. Therapeutic airway suctioning was done and a total of 20 to 25 cc of purulent material was aspirated. Inspection was completed. Visualized airways include the trachea, bilateral mainstem bronchi, right upper lobe bronchus right middle lobe bronchus and right lower lobe bronchus and the basilar segments of the right, in addition to the left upper lobe bronchus and the left lower lobe bronchus and the basilar segments of the left. A limited bronchoalveolar lavage of the left lower lobe was done. A total of 40 cc of fluid was infused in the form of saline and 10 cc was suctioned back. Therapeutic airway suctioning was done. The bronchoscope was removed After completing the procedure, the patient had a delayed recovery from sedation. He remained quite lethargic and sleepy. At the same time, he seemed to have some ongoing respiratory difficulties and inspiratory stridor. At that point, the patient was given racemic epinephrine and placed on the BiPAP for further monitoring in the PACU. In my opinion, the patient has an ongoing neurologic disorder, probably a progressively worsening motor neuron disease that remains unspecified. Patient has difficulties with speech, difficulties in performing care with pulmonary toileting and handling his respiratory secretions, and difficulties with swallow. He already has a PEG tube. He may ultimately benefit from a tracheostomy tube insertion. This will be discussed with family, power of digital forensic examiner at the medical group. I already contacted her hospitalist and informed her of those findings. The patient is currently in PACU. May need to go to the ICU on a BiPAP continues to have stridor and respiratory difficulties. Further recommendations are to follow.
[2024-07-30 17:34] LABS: Glucose,Whole Blood 81 mg/dL (70-110)
--- NOTE | 2024-07-30 19:49 | CDI ---
Documentation Clarification Form Date: 07/30/2024 07:46:27 PM From: Phyllis Guerin RN, CCDS Phone: [phone] Admit Date: 07/26/2024 08:16:00 AM Patient Name: Nitin Yo Visit Number: [id number] Discharge Date: ATTENTION: The Clinical Documentation Specialists (CDI) and [facility] Coding Staff appreciate your assistance in clarifying documentation. Please respond to the clarification below the line at the bottom and electronically sign. The CDI & [facility] Coding staff will review the response and follow-up if needed. Please note: Queries are made part of the Legal Health Record. If you have any questions, please contact the author of this message via ITS. Doctor. Loretta Croft Aspiration pneumonia versus HCAP is documented in the H/P and subsequent progress notes. Additional clarification regarding the type of pneumonia is requested. History/Risk Factors: CVA with left-sided weakness, seizure disorder, hypertension, hyperlipidemia, Dysphagia post PEG tube 07/13/24 Clinical Indicators: 68-year-old male resent admission for aspiration pneumonia reported had a seizure at [facility]. 07/26 WBC 9.28 VS 125/78 95 24 92% RA 07/26 pulmonary consult: Acute left lower lobe pneumonia. Consider aspiration pneumonia post seizure. Also, aspiration is possible as the patient receiving enteral feeding for nutrition support via PEG tube. 07/26 Chest X-ray: Small left pleural effusion with left basilar airspace opacification may represent atelectasis versus infiltrates. Lung/Breathing assessment . Sputum Culture (gram stain) Final Enterobacter aerogenes Treatment: Zosyn 375 IVPB Q 8 HRS 07/26-07/29 Azyithromycin 500MG IV DAILY 07/27-07/28 Rocephin 2GM IVPB Q 24 HRS Ventolin Nebulized per orders, Please clarify the type of pneumonia, if known: [x ] Aspiration Pneumonia, Due to food or vomitus [ x] Bacterial Pneumonia, specify causal organism (Enterobacter aerogenes) [ ] Other, please specify [ ] Unable to determine (Template Last Revised: June 2020) MTDD
[2024-07-30 23:58] LABS: Glucose,Whole Blood 109 mg/dL (70-110)
[2024-07-31 06:04] LABS: Glucose,Whole Blood 123 mg/dL (70-110)
[2024-07-31 09:44] LABS: Basophils # (A) 0.08 X 10*3/uL (0.00-0.10); Eosinophils # (A) 0.19 X 10*3/uL (0.04-0.35); Eosinophils % (A) 2.3 %; HGB 8.2 g/dL (13.0-17.0); Lymphocytes # (A) 1.24 X 10*3/uL (0.90-5.00); Lymphocytes % (A) 15.2 %; MCHC 29.3 g/dL (32.0-37.0); MCV 71.6 FL (80.0-97.0); Monocytes # (A) 0.62 X 10*3/uL (0.20-1.00); Monocytes % (A) 7.6 %; NRBC Per 100 WBC 0.04 X 10*3/uL (0.00-0.01); Neutrophils # (A) 5.89 X 10*3/uL (1.80-7.70); Neutrophils % (A) 72.4 %; Platelet Count 620 X 10*3/uL (140-440); RBC 3.91 X 10*6/uL (4.40-5.60); RDW 20.8 % (11.5-14.5); WBC 8.14 X 10*3/uL (4.50-10.00)
[2024-07-31 11:16] LABS: BUN/Creat Ratio 21.43 Ratio (12.00-20.00); Calcium 9.2 mg/dL (8.7-10.3); Carbon Dioxide 25.1 mmol/L (21.6-31.8); Chloride 97 mmol/L (96-109); Glucose 100 mg/dL (70-110); Potassium 4.9 mmol/L (3.5-5.5); Sodium 134 mmol/L (135-145)
[2024-07-31 12:06] LABS: Glucose,Whole Blood 133 mg/dL (70-110)
[2024-07-31] MEDS: MORPHINE SULFATE 2 MG/ML SYRINGE IVP PRN (14:03)
--- NOTE | 2024-07-31 14:39 | P.PN ---
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 In the ED he underwent extensive workup. BP 125/78, HR 95, RR 24, T 98.9F, 92% on RA. CBC, CMP significant for Hg 10.5, Hct 34.1, MCV 68.5, Plt 745, Na 125, Cl 85, bicarb 32, BUN 24. Procal 2.3. Trop < 0.012. 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 Lactic acid 1.3. Osm 262. UOsm 327. Chaenlle 54. Valproic acid < 4. Keppra level 8.9. Vimpat level 3.9. COVID, RSV, Flu neg. EKG sinus tachycardia, nonspecific T wave abnormalities, QTc 367. Chest x- ray showed left basilar opacities with possible pleural effusion. Patient was started on Zosyn and admitted for further evaluation. Neurology consulted, CT brain no acute process, Keppra increased. Pulmonary consulted, slow to progress, underwent bronchoscopy with BAL showing purulent secretions. Sputum Cx growing Enterobacter aerogenes. BAL Cx growing Corynebacterium striatum. ' 07/31 Patient was seen and examined. He reports pain at the site of PEG. Currently on Jevity 1.5 at 60 cc/hr. Antibiotics include Rocephin 2g IV QD. CBC and BMP significant for RBC 4.35, Hg 9, Hct 31.4 MCV 72.2, Plt 652, BUN/Cr 24. Mag 1.8. General: non toxic, no distress, appears at stated age Derm: warm, dry Head: atraumatic, normocephalic, symmetric Mouth: no lip lesion, mucus membranes moist Cardiovascular: S1 S2 reg. No murmur. Lungs: Coarse BS bilaterally, no accessory muscle use Abd: + PEG Ext: no gross muscle atrophy, no edema, no contractures Neuro: No focal neurologic deficits. Psych: Alert and oriented. Acute hypoxic respiratory failure secondary to aspiration PNA: Continue Rocephin 2g IV QD. Discussed with Dr. Ricks, recommending trach, will discuss with PCP. Albuterol neb Q4H PRN SOB/wheezing. Glycopyrrolate 1 mg PEG TID. Robitussin 600 mg PO BID. Tylenol 1000 mg PEG PRN. Supplemental O2 to maintain O2 sat > 92%. Elevated HOB. Pulmonary on board. Seizure disorder with breakthrough seizure: Vimpat 100 mg PEG BID. Keppra 100 mg PEG BID. Valproic acid 750 mg PEG TID. Seizure and Fall precautions. Neurology on board. Microcytic anemia with Thombocytosis: Likely iron def. anemia. Obtain iron studies. Transfuse if Hg < 7. Dysphagia status post PEG tube placement 07/13: Dietitian consulted for TF recommendations. 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 Sialolithiasis: Outpatient ENT. Hypertension: Amlodipine 10 mg PEG QD. HCTZ 25 mg PEG QD. History of CVA with L weakness: ASA 325 mg PEG QD. Lipitor 20 mg PEG QD. Gout: Colchicine 0.6 mg PEG QD. BPH: Doxazosin 2 mg PEG QHS. Depression: Sertraline 150 mg PEG QD. Resolved: Hyponatremia, Hypomagnesemia CODE STATUS: FULL CODE DVT Prophylaxis: Lovenox SQ GI Prophylaxis: Designated medical POA if patient is not able to make medical decisions for themselves: I have reviewed the following splunk consultant notes: I have reviewed the results of the following tests: CBC, BMP, Mag. I have ordered the following tests: CBC and BMP in the AM. Iron studies. I have discussed the care of this patient with the following independent historian: I have independently interpreted the following test below: I have discussed the management of this patient with the following physician: Dr. Howell regarding the need for trach in the near future. Objective - Vital Signs Vital signs: Vital Signs Temp 98.5 F 07/31/24 07:18 Pulse 75 07/31/24 07:18 Resp 18 07/31/24 07:18 BP 120/74 07/31/24 07:18 Pulse Ox 94 L 07/31/24 07:18 FiO2 40 07/30/24 16:45 Intake & Output 07/30/24 07/31/24 07/31/24 18:59 06:59 18:59 Intake Total 150 810 Balance 150 810 Intake: IV 150 Tube Feeding 720 Other 90 Other: Voiding Method Bedpan Bedpan Diaper Diaper # Voids 1 3 # Bowel Movements 2 - Labs CBC & Chem 7: 07/31/24 03:12 07/31/24 03:12 Labs: Abnormal Lab Results - Last 24 Hours (Table) 07/31/24 07/31/24 07/31/24 Range/Units 03:12 03:12 06:02 RBC 3.91 L (4.40-5.60) X 10*6/uL Hgb 8.2 L (13.0-17.0) g/dL Hct 28.0 L (39.6-50.0) % MCV 71.6 L (80.0-97.0) FL MCH 21.0 L (27.0-32.0) pg MCHC 29.3 L (32.0-37.0) g/dL RDW 20.8 H (11.5-14.5) % Plt Count 620 H (140-440) X 10*3/uL Immature Gran # 0.12 H (0.00-0.04) X 10*3/uL NRBC/100 WBC Diff 0.04 H (0.00-0.01) X 10*3/uL Sodium 134 L (135-145) mmol/L BUN/Creatinine Ratio 21.43 H (12.00-20.00) Ratio POC Glucose (mg/dL) 123 H (70-110) mg/dL Microbiology - Last 24 Hours (Table) 07/30/24 15:30 Gram Stain - Preliminary Bronchoalviolar Lavage - Left
--- NOTE | 2024-07-31 14:46 | P.PN ---
Subjective Progress Note Date: 07/31/24 07/27/2024, the patient is being seen for a follow-up. Doing well. Continues to produce thick and copious amounts of respiratory secretions. Repeat chest x-ray from today shows a limited left basilar infiltrate and airspace disease along with possibility of a small left-sided pleural effusion. Remains on enteral feeding for nutrition support through her PEG tube. Remains on Zosyn and Zithromax. The white cell count of 12.3 with a hemoglobin 9.5, electrolytes are all stable within normal renal function. He is currently on 4 L of oxygen by nasal cannula with a pulse ox of 99%. Remains extremely debilitated. On 07/28/2024, the patient is being seen for a follow-up. The patient has no specific complaints. His condition remains stable. He is being seen by neurology and the medical group in addition. In regards to his chronic dysphagia, the patient remains on enteral feeding for nutritional support. No interval worsening in the respiratory status. No interval worsening in his oxygenation. The patient remains on 3 L of oxygen by nasal cannula. Meanwhile, his sputum sample was positive for Enterobacter erogenous and the patient remains on broad-spectrum antibiotics and the patient remains on IV Zosyn and Zithromax has been discontinued. Normal saline is running at rate of 50 cc an hour. The white cell count today is at 10.1 with a heme of 7.8 and a platelet count of 468. Electrolytes all within normal limits. BUN is 19 with a creatinine of 0.8. Neurologically, unchanged. Remains on Keppra and Vimpat and Depakote. No seizure activity has been noted. Antiepileptic medications have been adjusted by neurology and the patient was started also on scopolamine patch. patient is an 80 on 07/29/2024, the patient continues to have copious oral and throat secretions and is having difficulties in bringing up those thick material. He was given a scopolamine patch which has not impacted his respiratory secretions. He remains on IV Rocephin. Robinul was also added to h is regimen. Remains on Ventolin nebulized treatments [id number]. Remains on enteral feeding for nutritional support. Rest of the medications are unchanged. The white cell count 7.3 with a heme of 7.3 and a platelet count of 568. Electrolytes are all within normal limits. Earlier sputum sample was positive for Enterobacter and antibiotic modification was done and the patient was placed on IV Rocephin. He is currently on room air oxygen. He is able to converse. Neurologically, he remains quite weak and continues to have difficulties with cough and and doing appropriate pulmonary toileting. On 07/30/2024, the patient continues to struggle in bringing up his respiratory secretions. There is no stridor. His cough remains extremely weak. Overall condition is quite debilitated the patient is significantly weak in all 4 extremities. As mentioned, the patient was also having dysphagia and he was offered a PEG tube and he was receiving enteral feeding for nutritional support. Repeat chest x-ray shows a persistent left lower lobe pulmonary infiltrate and the patient sputum sample was positive for Enterobacter and the patient was kept on IV Rocephin. Blood work shows a white cell count of 7.1, hemoglobin of 9 and platelet count of 652. Sodium is at 137, potassium is at 4.9 with a chloride of 99 and bicarb of 27. The plan is to do a therapeutic bronchoscopy and suctio corazon of the respiratory secretions and upper and lower airway inspection. On 07/31/2024, the patient remains on room air oxygen. Bronchoscopy was done and post bronchoscopy, the patient encountered some increased stridor which ultimately resolved. Currently, he still having difficulty with respiratory secretions. He is able to cough. The bronchioloalveolar lavage that was collected earlier was positive for moderate growth of corynebacterium group. The patient remains on IV Rocephin. He was started on Robinul and he was also given scopolamine patch. He continues to receive enteral feeding for nutritional support. I am still convinced that the patient may not be able to clear his respiratory secretions in the future. Considering tracheostomy tube insertion. Objective - Vital Signs Vital signs: Vital Signs Temp 98.5 F 07/31/24 07:18 Pulse 75 07/31/24 07:18 Resp 18 07/31/24 07:18 BP 120/74 07/31/24 07:18 Pulse Ox 94 L 07/31/24 07:18 FiO2 40 07/30/24 16:45 Intake & Output 07/30/24 07/31/24 07/31/24 18:59 06:59 18:59 Intake Total 150 810 Balance 150 810 Intake: IV 150 Tube Feeding 720 Other 90 Other: Voiding Method Bedpan Bedpan Diaper Diaper # Voids 1 3 # Bowel Movements 2 - Exam The patient appeared ill looking the patient is chronically debilitated, weak, cachectic with a BMI of 21.8, no signs of any significant respiratory distress, extremely weak cough, muffled voice, motor weakness in all 4 extremities and looks quite debilitated and chronically ill. He is currently on room air oxygen. Head exam is unremarkable. No scleral icterus or corneal arcus noted. Neck is without jugular venous distension, thyromegaly, or carotid bruits. Carotid upstrokes are brisk bilaterally. Lungs are clear to auscultation and percussion. Breath sounds are diminished in lung bases, scattered rhonchi Cardiac exam reveals the PMI to be normally sized and situated. Rhythm is regular. First and second heart sounds normal. No murmurs, rubs or gallops. Abdominal exam reveals normal bowel sounds, no masses, no organomegaly and no aortic enlargement. PEG tube site is dry clean and intact Extremities are nonedematous and both femoral and pedal pulses are normal. Examination of the skin revealed no evidence of significant rashes, suspicious appearing nevi or other concerning lesions. Neurologically, the patient is awake, poor historian cranial nerves are essentially intact. Generalized motor weakness in all 4 extremities - Labs CBC & Chem 7: 07/31/24 03:12 07/31/24 03:12 Labs: Abnormal Lab Results - Last 24 Hours (Table) 07/31/24 07/31/24 07/31/24 Range/Units 03:12 03:12 06:02 RBC 3.91 L (4.40-5.60) X 10*6/uL Hgb 8.2 L (13.0-17.0) g/dL Hct 28.0 L (39.6-50.0) % MCV 71.6 L (80.0-97.0) FL MCH 21.0 L (27.0-32.0) pg MCHC 29.3 L (32.0-37.0) g/dL RDW 20.8 H (11.5-14.5) % Plt Count 620 H (140-440) X 10*3/uL Immature Gran # 0.12 H (0.00-0.04) X 10*3/uL NRBC/100 WBC Diff 0.04 H (0.00-0.01) X 10*3/uL Sodium 134 L (135-145) mmol/L BUN/Creatinine Ratio 21.43 H (12.00-20.00) Ratio POC Glucose (mg/dL) 123 H (70-110) mg/dL Microbiology - Last 24 Hours (Table) 07/30/24 15:30 Gram Stain - Preliminary Bronchoalviolar Lavage - Left Assessment and Plan Plan: Acute left lower lobe pneumonia. Consider aspiration pneumonia post seizure. Also, aspiration is possible as the patient receiving enteral feeding for nutrition support via PEG tube. chest x-ray shows a left lower lobe consolidation and a small left-sided pleural effusion. Patient continues to have difficulties with cough and excessive respiratory secretions and his cough and mechanism is weak related to his underlying ongoing neurologic disorder. ALS is being considered. Patient is currently on room air oxygen. Patient is post bronchoscopy. Copious amounts of respiratory secretions were removed during a bronchoscopy done on 07/30/2024. Post bronchoscopy, the patient encountered stridor which ultimately recovered. Continues to have copious respiratory secretions despite being on a combination of scopolamine and Robinul. Having difficulty with airway clearance. Cough is adequate for now. No stridor. Acute hypoxic respiratory failure currently on room air oxygen Mild leukocytosis, i improved History of CVA with ongoing generalized weakness/motor weakness in all 4 extremities specially left upper extremity Seizure disorder, the patient had a seizure at the residential. 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 Could be related to intravascular volume de pletion. Sodium level is improved Plan Patient is currently on room air oxygen Ongoing difficulties with respiratory secretions and difficulties with coughing and clearing respiratory secretions. Bronchoscopy was done and the bronchial cultures were positive for corynebacterium species and the patient remains on IV Rocephin. Persistent infiltration of the left lower lobe related to pneumonia, culture positive for Enterobacter and the patient remains on IV Rocephin Concern of excessive respiratory secretions or mucous plugging Bronchoscopy was completed on 07/30/2024. Concern for airway clearance and pulmonary toileting. Strongly considering a tracheostomy tube insertion as patient is ongoing neurologic decline and motor weakness. Continues to have dysphagia on enteral feeding for nutritional support. Repeat chest x-ray in the morning was noted Patient is currently n.p.o. Aspiration precautions Continue IV Rocephin Continue normal saline at rate of 50 cc an hour, sodium levels improved Continue Norvasc for blood pressure control in combination with hydrochlorothiazide. Patient is also on Cardura. Continue Lipitor Continue antiepileptics which include a combination of Vimpat, Keppra and valproic acid. Levels will be checked and neurology consultation will be placed regarding breakthrough seizures. Will continue to follow.
[2024-07-31 17:08] LABS: Glucose,Whole Blood 87 mg/dL (70-110)
[2024-08-01 00:10] LABS: Glucose,Whole Blood 119 mg/dL (70-110)
[2024-08-01 05:55] LABS: Glucose,Whole Blood 130 mg/dL (70-110)
[2024-08-01] MEDS: ENOXAPARIN 40 MG/0.4 ML SYRINGE SQ SCH (08:44)
[2024-08-01] MEDS: BENZOCAINE SPRAY 1 EACH MUCOUS MEM PRN (09:12)
[2024-08-01 11:10] LABS: % Iron Saturation 20.57 (15.00-50.00)
--- NOTE | 2024-08-01 11:45 | P.PN ---
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 In the ED he underwent extensive workup. BP 125/78, HR 95, RR 24, T 98.9F, 92% on RA. CBC, CMP significant for Hg 10.5, Hct 34.1, MCV 68.5, Plt 745, Na 125, Cl 85, bicarb 32, BUN 24. Procal 2.3. Trop < 0.012. 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 Lactic acid 1.3. Osm 262. UOsm 327. Chanelle 54. Valproic acid < 4. Keppra level 8.9. Vimpat level 3.9. COVID, RSV, Flu neg. EKG sinus tachycardia, nonspecific T wave abnormalities, QTc 367. Chest x- ray showed left basilar opacities with possible pleural effusion. Patient was started on Zosyn and admitted for further evaluation. Neurology consulted, CT brain no acute process, Keppra increased. Pulmonary consulted, slow to progress, underwent bronchoscopy with BAL showing purulent secretions. Sputum Cx growing Enterobacter aerogenes. BAL Cx growing Corynebacterium striatum. 07/31 Patient was seen and examined. He reports pain at the site of PEG. Currently on Jevity 1.5 at 60 cc/hr. Antibiotics include Rocephin 2g IV QD. CBC and BMP significant for RBC 4.35, Hg 9, Hct 31.4 MCV 72.2, Plt 652, BUN/Cr 24. Mag 1.8. 08/01 Patient was seen and examined. Iron studies shows Fe 43, Ferritin 612. Currently on Jevity 1.5 at 60 cc/hr. Antibiotics include Rocephin 2g IV QD (D4). Discussed with Dr. Howell regarding need for trach in the near future which he will discuss with the POA. Plans for [facility] on Friday if he remains stable. General: non toxic, no distress, appears at stated age Derm: warm, dry Head: atraumatic, normocephalic, symmetric Mouth: no lip lesion, mucus membranes moist Cardiovascular: S1 S2 reg. No murmur. Lungs: Coarse BS bilaterally, no accessory muscle use Abd: + PEG Ext: no gross muscle atrophy, no edema, no contractures Neuro: No focal neurologic deficits. Psych: Alert and oriented. Acute hypoxic respiratory failure secondary to aspiration PNA: Continue Rocephin 2g IV QD (D4). Received Zosyn and Azithromycin (3D). Discussed with Dr. Howell, regarding need for trach in the near future which he will discuss with the POA. Albuterol neb Q4H PRN SOB/wheezing. Glycopyrrolate 1 mg PEG TID. Robitussin 600 mg PO BID. Tylenol 1000 mg PEG PRN. Supplemental O2 to maintain O2 sat > 92%. Elevated HOB and Aspiration precautions. Pulmonary on board. Seizure disorder with breakthrough seizure: Vimpat 100 mg PEG BID. Keppra 100 mg PEG BID. Valproic acid 750 mg PEG TID. Seizure and Fall precautions. Neurology on board. Microcytic anemia with Thombocytosis: Iron studies shows Fe 43, Ferritin 612 pointing towards AOCD. Transfuse if Hg < 7. Dysphagia status post PEG tube placement 07/13: Dietitian consulted for TF ulises mmendations. 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 Sialolithiasis: Outpatient ENT. Hypertension: Amlodipine 10 mg PEG QD. HCTZ 25 mg PEG QD. History of CVA with L weakness: ASA 325 mg PEG QD. Lipitor 20 mg PEG QD. Gout: Colchicine 0.6 mg PEG QD. BPH: Doxazosin 2 mg PEG QHS. Depression: Sertraline 150 mg PEG QD. Resolved: Hyponatremia, Hypomagnesemia CODE STATUS: FULL CODE DVT Prophylaxis: Lovenox SQ GI Prophylaxis: Designated medical POA if patient is not able to make medical decisions for themselves: I have reviewed the following ux consultant notes: I have reviewed the results of the following tests: Iron studies. I have ordered the following tests: CBC and BMP in the AM. I have discussed the care of this patient with the following independent historian: I have independently interpreted the following test below: I have discussed the management of this patient with the following physician: Objective - Vital Signs Vital signs: Vital Signs Temp 98.4 F 08/01/24 07:04 Pulse 67 08/01/24 07:04 Resp 16 08/01/24 07:04 BP 113/64 08/01/24 07:04 Pulse Ox 99 08/01/24 07:04 FiO2 40 07/30/24 16:45 Intake & Output 07/31/24 08/01/24 08/01/24 18:59 06:59 18:59 Intake Total 810 Balance 810 Intake: Tube Feeding 720 Other 90 Other: Voiding Method Bedpan Bedpan Diaper Diaper # Voids 3 2 - Labs CBC & Chem 7: 07/31/24 03:12 07/31/24 03:12 Labs: Abnormal Lab Results - Last 24 Hours (Table) 07/31/24 07/31/24 07/31/24 Range/Units 03:12 03:12 12:05 RBC 3.91 L (4.40-5.60) X 10*6/uL Hgb 8.2 L (13.0-17.0) g/dL Hct 28.0 L (39.6-50.0) % MCV 71.6 L (80.0-97.0) FL MCH 21.0 L (27.0-32.0) pg MCHC 29.3 L (32.0-37.0) g/dL RDW 20.8 H (11.5-14.5) % Plt Count 620 H (140-440) X 10*3/uL Immature Gran # 0.12 H (0.00-0.04) X 10*3/uL NRBC/100 WBC Diff 0.04 H (0.00-0.01) X 10*3/uL Sodium 134 L (135-145) mmol/L BUN/Creatinine Ratio 21.43 H (12.00-20.00) Ratio POC Glucose (mg/dL) 133 H (70-110) mg/dL 08/01/24 08/01/24 Range/Units 00:04 05:40 RBC (4.40-5.60) X 10*6/uL Hgb (13.0-17.0) g/dL Hct (39.6-50.0) % MCV (80.0-97.0) FL MCH (27.0-32.0) pg MCHC (32.0-37.0) g/dL RDW (11.5-14.5) % Plt Count (140-440) X 10*3/uL Immature Gran # (0.00-0.04) X 10*3/uL NRBC/100 WBC Diff (0.00-0.01) X 10*3/uL Sodium (135-145) mmol/L BUN/Creatinine Ratio (12.00-20.00) Ratio POC Glucose (mg/dL) 119 H 130 H (70-110) mg/dL Microbiology - Last 24 Hours (Table) 07/30/24 15:30 Gram Stain - Final Bronchoalviolar Lavage - Left Bronchial Washings Culture - Final Corynebacterium striatum group 07/26/24 09:10 Blood Culture - Final Blood
[2024-08-01 12:12] LABS: Glucose,Whole Blood 124 mg/dL (70-110)
[2024-08-01 16:51] LABS: Glucose,Whole Blood 110 mg/dL (70-110)
--- NOTE | 2024-08-01 20:10 | P.PN ---
Subjective Progress Note Date: 08/01/24 07/27/2024, the patient is being seen for a follow-up. Doing well. Continues to produce thick and copious amounts of respiratory secretions. Repeat chest x-ray from today shows a limited left basilar infiltrate and airspace disease along with possibility of a small left-sided pleural effusion. Remains on enteral feeding for nutrition support through her PEG tube. Remains on Zosyn and Zithromax. The white cell count of 12.3 with a hemoglobin 9.5, electrolytes are all stable within normal renal function. He is currently on 4 L of oxygen by nasal cannula with a pulse ox of 99%. Remains extremely debilitated. On 07/28/2024, the patient is being seen for a follow-up. The patient has no specific complaints. His condition remains stable. He is being seen by neurology and the medical group in addition. In regards to his chronic dysphagia, the patient remains on enteral feeding for nutritional support. No interval worsening in the respiratory status. No interval worsening in his oxygenation. The patient remains on 3 L of oxygen by nasal cannula. Meanwhile, his sputum sample was positive for Enterobacter erogenous and the patient remains on broad-spectrum antibiotics and the patient remains on IV Zosyn and Zithromax has been discontinued. Normal saline is running at rate of 50 cc an hour. The white cell count today is at 10.1 with a heme of 7.8 and a platelet count of 468. Electrolytes all within normal limits. BUN is 19 with a creatinine of 0.8. Neurologically, unchanged. Remains on Keppra and Vimpat and Depakote. No seizure activity has been noted. Antiepileptic medications have been adjusted by neurology and the patient was started also on scopolamine patch. patient is an 80 on 07/29/2024, the patient continues to have copious oral and throat secretions and is having difficulties in bringing up those thick material. He was given a scopolamine patch which has not impacted his respiratory secretions. He remains on IV Rocephin. Robinul was also added to h is regimen. Remains on Ventolin nebulized treatments [id number]. Remains on enteral feeding for nutritional support. Rest of the medications are unchanged. The white cell count 7.3 with a heme of 7.3 and a platelet count of 568. Electrolytes are all within normal limits. Earlier sputum sample was positive for Enterobacter and antibiotic modification was done and the patient was placed on IV Rocephin. He is currently on room air oxygen. He is able to converse. Neurologically, he remains quite weak and continues to have difficulties with cough and and doing appropriate pulmonary toileting. On 07/30/2024, the patient continues to struggle in bringing up his respiratory secretions. There is no stridor. His cough remains extremely weak. Overall condition is quite debilitated the patient is significantly weak in all 4 extremities. As mentioned, the patient was also having dysphagia and he was offered a PEG tube and he was receiving enteral feeding for nutritional support. Repeat chest x-ray shows a persistent left lower lobe pulmonary infiltrate and the patient sputum sample was positive for Enterobacter and the patient was kept on IV Rocephin. Blood work shows a white cell count of 7.1, hemoglobin of 9 and platelet count of 652. Sodium is at 137, potassium is at 4.9 with a chloride of 99 and bicarb of 27. The plan is to do a therapeutic bronchoscopy and suctio corazon of the respiratory secretions and upper and lower airway inspection. On 07/31/2024, the patient remains on room air oxygen. Bronchoscopy was done and post bronchoscopy, the patient encountered some increased stridor which ultimately resolved. Currently, he still having difficulty with respiratory secretions. He is able to cough. The bronchioloalveolar lavage that was collected earlier was positive for moderate growth of corynebacterium group. The patient remains on IV Rocephin. He was started on Robinul and he was also given scopolamine patch. He continues to receive enteral feeding for nutritional support. I am still convinced that the patient may not be able to clear his respiratory secretions in the future. Considering tracheostomy tube insertion. On 08/01/2024, clinically unchanged, bedridden, very much debilitated, continues to have significant respiratory secretions, maintained on IV Rocephin. Maintained on Jevity 1.5 with a rate of 60 cc an hour. Does have a component of iron deficiency. Maintains on scopolamine patch and glycopyrrolate. Favor doing a tracheostomy tube for the reasons mentioned earlier in my dictations. Objective - Vital Signs Vital signs: Vital Signs Temp 98.4 F 08/01/24 07:04 Pulse 67 08/01/24 07:04 Resp 16 08/01/24 07:04 BP 113/64 08/01/24 07:04 Pulse Ox 99 08/01/24 07:04 FiO2 40 07/30/24 16:45 Intake & Output 07/31/24 08/01/24 08/01/24 18:59 06:59 18:59 Intake Total 810 Balance 810 Intake: Tube Feeding 720 Other 90 Other: Voiding Method Bedpan Bedpan Bedpan Diaper Diaper Diaper # Voids 3 2 - Exam The patient appeared ill looking the patient is chronically debilitated, weak, cachectic with a BMI of 21.8, no signs of any significant respiratory distress, extremely weak cough, muffled voice, motor weakness in all 4 extremities and looks quite debilitated and chronically ill. He is currently on room air oxygen. Head exam is unremarkable. No scleral icterus or corneal arcus noted. Neck is without jugular venous distension, thyromegaly, or carotid bruits. Carotid upstrokes are brisk bilaterally. Lungs are clear to auscultation and percussion. Breath sounds are diminished in lung bases, scattered rhonchi Cardiac exam reveals the PMI to be normally sized and situated. Rhythm is regular. First and second heart sounds normal. No murmurs, rubs or gallops. Abdominal exam reveals normal bowel sounds, no masses, no organomegaly and no aortic enlargement. PEG tube site is dry clean and intact Extremities are nonedematous and both femoral and pedal pulses are normal. Examination of the skin revealed no evidence of significant rashes, suspicious appearing nevi or other concerning lesions. Neurologically, the patient is awake, poor historian cranial nerves are essentially intact. Generalized motor weakness in all 4 extremities - Labs CBC & Chem 7: 07/31/24 03:12 07/31/24 03:12 Labs: Abnormal Lab Results - Last 24 Hours (Table) 07/31/24 08/01/24 08/01/24 Range/Units 12:05 00:04 05:40 POC Glucose (mg/dL) 133 H 119 H 130 H (70-110) mg/dL Iron (65-175) UG/DL TIBC (228-460) UG/DL Transferrin (204.0-354.0) mg/dL Ferritin (22.0-322.0) ng/mL 08/01/24 Range/Units 06:07 POC Glucose (mg/dL) (70-110) mg/dL Iron 43 L (65-175) UG/DL TIBC 209 L (228-460) UG/DL Transferrin 149.0 L (204.0-354.0) mg/dL Ferritin 612.0 H (22.0-322.0) ng/mL Microbiology - Last 24 Hours (Table) 07/30/24 15:30 Gram Stain - Final Bronchoalviolar Lavage - Left Bronchial Washings Culture - Final Corynebacterium striatum group 07/26/24 09:10 Blood Culture - Final Blood Assessment and Plan Plan: Acute left lower lobe pneumonia. Consider aspiration pneumonia post seizure. Also, aspiration is possible as the patient receiving enteral feeding for nutrition support via PEG tube. chest x-ray shows a left lower lobe consoli dation and a small left-sided pleural effusion. Patient continues to have difficulties with cough and excessive respiratory secretions and his cough and mechanism is weak related to his underlying ongoing neurologic disorder. ALS is being considered. Patient is currently on room air oxygen. Patient is post bronchoscopy. Copious amounts of respiratory secretions were removed during a bronchoscopy done on 07/30/2024. Post bronchoscopy, the patient encountered stridor which ultimately recovered. Continues to have copious respiratory secretions despite being on a combination of scopolamine and Robinul. Having difficulty with airway clearance. Cough is adequate for now. No stridor. Acute hypoxic respiratory failure currently on room air oxygen Mild leukocytosis, i improved History of CVA with ongoing generalized weakness/motor weakness in all 4 extremities specially left upper extremity Seizure disorder, the patient had a seizure at the senior care. 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 Could be related to intravascular volume depletion. Sodium level is improved Plan Overall clinical condition is unchanged over the past 24 hours Patient is currently on room air oxygen Ongoing difficulties with respiratory secretions and difficulties with coughing and clearing respiratory secretions. Bronchoscopy was done and the bronchial cultures were positive for corynebacterium species and the patient remains on IV Rocephin. Persistent infiltration of the left lower lobe related to pneumonia, culture positive for Enterobacter and the patient remains on IV Rocephin Concern of excessive respiratory secretions or mucous plugging Bronchoscopy was completed on 07/30/2024. Concern for airway clearance and pulmonary toileting. Recommend considering a tracheostomy tube insertion as patient is ongoing neurologic decline and motor weakness. Continues to have dysphagia on enteral f eeding for nutritional support. Repeat chest x-ray in the morning was noted Patient is currently n.p.o. Aspiration precautions Continue IV Rocephin Continue normal saline at rate of 50 cc an hour, sodium levels improved Continue Norvasc for blood pressure control in combination with hydrochlorothiaz solange. Patient is also on Cardura. Continue Lipitor Continue antiepileptics which include a combination of Vimpat, Keppra and valproic acid. Levels will be checked and neurology consultation will be placed regarding breakthrough seizures. Will continue to follow.
[2024-08-01] MEDS: ZOLPIDEM 5 MG TAB PO PRN (21:42)
[2024-08-02 00:16] LABS: Glucose,Whole Blood 117 mg/dL (70-110)
[2024-08-02 06:05] LABS: Glucose,Whole Blood 124 mg/dL (70-110)
[2024-08-02 12:38] LABS: Glucose,Whole Blood 104 mg/dL (70-110)
[2024-08-02 12:47] VITALS: BP 100/68; PULSE 75; RESP 16; TEMP 98.1
--- NOTE | 2024-08-02 14:13 | P.DS ---
Providers Date of admission: 07/26/24 08:16 Expected date of discharge: 08/02/24 Attending physician: Kait Mccurdy MD Consults: 07/26/24 08:27 Consult Physician Routine Consulting Provider: Franklin Ricks Consult Reason/Comments: Pneumonia Do you want consulting provider notified?: Yes 07/26/24 12:17 Consult Physician Routine Consulting Provider: Toby Paulino Consult Reason/Comments: breakthrough seizure Do you want consulting provider notified?: Yes Primary care physician: Abelino Howell MD Hospital Course: 68-year-old male with PMH of CVA with residual left-sided weakness, seizure disorder, hypertension, hyperlipidemia, dysphagia status post PEG tube placement 07/13/24, sialolithiasis, 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 In the ED he underwent extensive workup. BP 125/78, HR 95, RR 24, T 98.9F, 92% on RA. CBC, CMP significant for Hg 10.5, Hct 34.1, MCV 68.5, Plt 745, Na 125, Cl 85, bicarb 32, BUN 24. Procal 2.3. Trop < 0.012. [employer] 434. Lactic acid 1.3. Osm 262. UOsm 327. Chanelle 54. Valproic acid < 4. Keppra level 8.9. Vimpat level 3.9. COVID, RSV, Flu neg. EKG sinus tachycardia, nonspecific T wave abnormalities, QTc 367. Chest x- ray showed left basilar opacities with possible pleural effusion. Patient was started on Zosyn and admitted for further evaluation. Neurology consulted, CT brain no acute process, Keppra increased. Pulmonary consulted, slow to progress, underwent bronchoscopy with BAL showing purulent secretions. Sputum Cx growing Enterobacter aerogenes. BAL Cx growing Corynebacterium striatum. Discussed with Dr. Howell regarding need for trach in the near future which he will discuss with the POA. 08/02 Patient was seen and examined. No acute events overnight. 96% on RA. No new labs done today. Discharge Plans: He has completed 3 days of Zosyn and 5 days of Rocephin, plans for no antibiotics on discharge. New prescriptions include Scopolamine patch, Keppra 1000 mg PEG BID (increased dose) and Mucinex. Patient should remain NPO. He is currently in the process of seeing a neurologist for concerns for neuromuscular disease. Discussed with Dr. Howell regarding need for trach in the near future which he will discuss with the POA. Follow up with PCP within 1-2 days of discharge. General: non toxic, no distress, appears at stated age Derm: warm, dry Head: atraumatic, normocephalic, symmetric Mouth: no lip lesion, mucus membranes moist Cardiovascular: S1 S2 reg. No murmur. Lungs: Coarse BS bilaterally, no accessory muscle use Abd: + PEG Ext: no gross muscle atrophy, no edema, no contractures Neuro: No focal neurologic deficits. Psych: Alert and oriented. Discharge Diagnosis: Acute hypoxic respiratory failure secondary to aspiration PNA Seizure disorder with breakthrough seizure Microcytic anemia with Thombocytosis Dysphagia status post PEG tube placement 4/8 Muscle atrophy, fasciculation, concern for motor neuron disease Sialolithiasis Hypertension History of CVA with L weakness Gout BPH Depression Resolved: Hyponatremia, Hypomagnesemia This complex discharge took 35 minutes to complete and coordinate. Patient Condition at Discharge: Stable Plan - Discharge Summary New Discharge Prescriptions: New guaiFENesin [Mucinex] 600 mg PO Q12HR #60 tab levETIRAcetam ORAL SOLN [Keppra Oral Soln] 1,000 mg PEG/G-TUBE BID #600 ml Scopolamine 1 mg/72 Hr Patch [TransDerm Scop] 1 patch TRANSDERM Q72H #10 patch Continue buprenorphine HCL [Subutex] 1 mg SL BID Lidocaine/Gabapentin/Diclofenac Cream 5%/5%/5% 1 applic TOPICAL BID PRN PRN Reason: Pain Albuterol Inhaler [Ventolin Hfa Inhaler] 1 puff INHALATION RT-Q4H PRN PRN Reason: Shortness Of Breath Colchicine 0.6 mg PEG/G-TUBE DAILY #30 hydroCHLOROthiazide [Hydrodiuril] 25 mg PEG/G-TUBE DAILY #30 polyethylene glycoL 3350 [Miralax] 17 gm PEG/G-TUBE DAILY PRN #30 PRN Reason: Constipation Naloxone HCl [Narcan] 4 mg NASAL DIRECTED PRN PRN Reason: OVERDOSE Diazepam 5mg/Ml Inj 5 mg IM Q24H PRN PRN Reason: Seizures Glycopyrrolate 1 mg PEG/G-TUBE TID@0800,1300,2100 Jevity 1.5 Karlos Liquid 1,600 ml PEG/G-TUBE DIRECTED Ferrous Sulfate [Iron] 325 mg PEG/G-TUBE HS Cholecalciferol (Vitamin D3) [Vitamin D3 (5000 Iu)] 125 mcg PO DAILY Phenol 1.4% [place] [Sore Throat [place] (Chloraseptic)] 1 spray PO Q4H PRN PRN Reason: Sore Throat Benzocaine 20% [place] 1 spray PO QID PRN PRN Reason: Pain Nicotine 14Mg/24Hr Patch [Habitrol] 1 patch TRANSDERM DAILY Aspirin EC [Ecotrin] 325 mg PEG/G-TUBE DAILY #30 Folic Acid 0.8 mg PEG/G-TUBE DAILY #30 Loperamide HCl [Imodium A-D] 2 mg PEG/G-TUBE QID PRN #30 MDD 8mg PRN Reason: Diarrhea Atorvastatin [Lipitor] 20 mg PEG/G-TUBE HS #30 Mirabegron [Mirabegron ER] 25 mg PEG/G-TUBE DAILY #30 Multivitamins, Thera [Multivitamin (formulary)] 1 tab PEG/G-TUBE DAILY #30 tablet amLODIPine [Norvasc] 10 mg PEG/G-TUBE DAILY #30 Thiamine [Vitamin B-1] 100 mg PEG/G-TUBE DAILY #30 tab Sertraline [Zoloft] 150 mg PEG/G-TUBE DAILY #30 Biofreeze Professional Gel 5% 1 applic TOPICAL Q12H PRN PRN Reason: HIP PAIN Acetaminophen Tab [Tylenol] 1,000 mg PEG/G-TUBE Q8H PRN PRN Reason: Pain Valproic Acid Oral Soln [Depakene Syrup] 750 mg PEG/G-TUBE TID Lacosamide [Vimpat Oral Soln] 100 mg PEG/G-TUBE BID Terazosin [Hytrin] 2 mg PEG/G-TUBE HS Discontinued levETIRAcetam ORAL SOLN [Keppra Oral Soln] 500 mg PEG/G-TUBE BID 30 Days #300 ml Discharge Medication List Cholecalciferol (Vitamin D3) [Vitamin D3 (5000 Iu)] 125 mcg PO DAILY 07/03/20 [History] Lidocaine/Gabapentin/Diclofenac Cream 5%/5%/5% 1 applic TOPICAL BID PRN 11/06/24 [History] Phenol 1.4% [place] [Sore Throat [place] (Chloraseptic)] 1 spray PO Q4H PRN 02/11/24 [History] buprenorphine HCL [Subutex] 1 mg SL BID 02/11/24 [History] Albuterol Inhaler [Ventolin Hfa Inhaler] 1 puff INHALATION RT-Q4H PRN 07/09/24 [History] Benzocaine 20% [place] 1 spray PO QID PRN 07/09/24 [History] Nicotine 14Mg/24Hr Patch [Habitrol] 1 patch TRANSDERM DAILY 07/09/24 [History] Aspirin EC [Ecotrin] 325 mg PEG/G-TUBE DAILY #30 07/15/24 [Rx] Atorvastatin [Lipitor] 20 mg PEG/G-TUBE HS #30 07/15/24 [Rx] Colchicine 0.6 mg PEG/G-TUBE DAILY #30 07/15/24 [Rx] Folic Acid 0.8 mg PEG/G-TUBE DAILY #30 07/15/24 [Rx] Loperamide HCl [Imodium A-D] 2 mg PEG/G-TUBE QID PRN #30 MDD 8mg 07/15/24 [Rx] Mirabegron [Mirabegron ER] 25 mg PEG/G-TUBE DAILY #30 07/15/24 [Rx] Multivitamins, Thera [Multivitamin (formulary)] 1 tab PEG/G-TUBE DAILY #30 tablet 07/15/24 [Rx] Sertraline [Zoloft] 150 mg PEG/G-TUBE DAILY #30 07/15/24 [Rx] Thiamine [Vitamin B-1] 100 mg PEG/G-TUBE DAILY #30 tab 07/15/24 [Rx] amLODIPine [Norvasc] 10 mg PEG/G-TUBE DAILY #30 07/15/24 [Rx] hydroCHLOROthiazide [Hydrodiuril] 25 mg PEG/G-TUBE DAILY #30 07/15/24 [Rx] polyethylene glycoL 3350 [Miralax] 17 gm PEG/G-TUBE DAILY PRN #30 07/15/24 [Rx] Acetaminophen Tab [Tylenol] 1,000 mg PEG/G-TUBE Q8H PRN 07/26/24 [History] Biofreeze Professional Gel 5% 1 applic TOPICAL Q12H PRN 07/26/24 [History] Diazepam 5mg/Ml Inj 5 mg IM Q24H PRN 07/26/24 [History] Ferrous Sulfate [Iron] 325 mg PEG/G-TUBE HS 07/26/24 [History] Glycopyrrolate 1 mg PEG/G-TUBE TID@0800,1300,2100 07/26/24 [History] Jevity 1.5 Karlos Liquid 1,600 ml PEG/G-TUBE DIRECTED 07/26/24 [History] Lacosamide [Vimpat Oral Soln] 100 mg PEG/G-TUBE BID 07/26/24 [History] Naloxone HCl [Narcan] 4 mg NASAL DIRECTED PRN 07/26/24 [History] Terazosin [Hytrin] 2 mg PEG/G-TUBE HS 07/26/24 [History] Valproic Acid Oral Soln [Depakene Syrup] 750 mg PEG/G-TUBE TID 07/26/24 [History] Scopolamine 1 mg/72 Hr Patch [TransDerm Scop] 1 patch TRANSDERM Q72H #10 patch 08/02/24 [Rx] guaiFENesin [Mucinex] 600 mg PO Q12HR #60 tab 08/02/24 [Rx] levETIRAcetam ORAL SOLN [Keppra Oral Soln] 1,000 mg PEG/G-TUBE BID #600 ml 08/02/24 [Rx] Follow up Appointment(s)/Referral(s): Abelino Howell MD [Primary Care Provider] - 1-2 days Patient Instructions/Handouts: Seizure/Epilepsy Discharge Instructions & Follow-Up Activity/Diet/Wound Care/Special Instructions: Diet: NPO Discharge Disposition: TRANSFER TO SNF/ECF
--- NOTE | 2024-08-02 14:54 | P.PN ---
Subjective Progress Note Date: 08/02/24 07/27/2024, the patient is being seen for a follow-up. Doing well. Continues to produce thick and copious amounts of respiratory secretions. Repeat chest x-ray from today shows a limited left basilar infiltrate and airspace disease along with possibility of a small left-sided pleural effusion. Remains on enteral feeding for nutrition support through her PEG tube. Remains on Zosyn and Zithromax. The white cell count of 12.3 with a hemoglobin 9.5, electrolytes are all stable within normal renal function. He is currently on 4 L of oxygen by nasal cannula with a pulse ox of 99%. Remains extremely debilitated. On 07/28/2024, the patient is being seen for a follow-up. The patient has no specific complaints. His condition remains stable. He is being seen by neurology and the medical group in addition. In regards to his chronic dysphagia, the patient remains on enteral feeding for nutritional support. No interval worsening in the respiratory status. No interval worsening in his oxygenation. The patient remains on 3 L of oxygen by nasal cannula. Meanwhile, his sputum sample was positive for Enterobacter erogenous and the patient remains on broad-spectrum antibiotics and the patient remains on IV Zosyn and Zithromax has been discontinued. Normal saline is running at rate of 50 cc an hour. The white cell count today is at 10.1 with a heme of 7.8 and a platelet count of 468. Electrolytes all within normal limits. BUN is 19 with a creatinine of 0.8. Neurologically, unchanged. Remains on Keppra and Vimpat and Depakote. No seizure activity has been noted. Antiepileptic medications have been adjusted by neurology and the patient was started also on scopolamine patch. patient is an 80 on 07/29/2024, the patient continues to have copious oral and throat secretions and is having difficulties in bringing up those thick material. He was given a scopolamine patch which has not impacted his respiratory secretions. He remains on IV Rocephin. Robinul was also added to h is regimen. Remains on Ventolin nebulized treatments [id number]. Remains on enteral feeding for nutritional support. Rest of the medications are unchanged. The white cell count 7.3 with a heme of 7.3 and a platelet count of 568. Electrolytes are all within normal limits. Earlier sputum sample was positive for Enterobacter and antibiotic modification was done and the patient was placed on IV Rocephin. He is currently on room air oxygen. He is able to converse. Neurologically, he remains quite weak and continues to have difficulties with cough and and doing appropriate pulmonary toileting. On 07/30/2024, the patient continues to struggle in bringing up his respiratory secretions. There is no stridor. His cough remains extremely weak. Overall condition is quite debilitated the patient is significantly weak in all 4 extremities. As mentioned, the patient was also having dysphagia and he was offered a PEG tube and he was receiving enteral feeding for nutritional support. Repeat chest x-ray shows a persistent left lower lobe pulmonary infiltrate and the patient sputum sample was positive for Enterobacter and the patient was kept on IV Rocephin. Blood work shows a white cell count of 7.1, hemoglobin of 9 and platelet count of 652. Sodium is at 137, potassium is at 4.9 with a chloride of 99 and bicarb of 27. The plan is to do a therapeutic bronchoscopy and suctio corazon of the respiratory secretions and upper and lower airway inspection. On 07/31/2024, the patient remains on room air oxygen. Bronchoscopy was done and post bronchoscopy, the patient encountered some increased stridor which ultimately resolved. Currently, he still having difficulty with respiratory secretions. He is able to cough. The bronchioloalveolar lavage that was collected earlier was positive for moderate growth of corynebacterium group. The patient remains on IV Rocephin. He was started on Robinul and he was also given scopolamine patch. He continues to receive enteral feeding for nutritional support. I am still convinced that the patient may not be able to clear his respiratory secretions in the future. Considering tracheostomy tube insertion. On 08/01/2024, clinically unchanged, bedridden, very much debilitated, continues to have significant respiratory secretions, maintained on IV Rocephin. Maintained on Jevity 1.5 with a rate of 60 cc an hour. Does have a component of iron deficiency. Maintains on scopolamine patch and glycopyrrolate. Favor doing a tracheostomy tube for the reasons mentioned earlier in my dictations. The patient is seen today August 02, 2024 in follow-up on the regular medical floor. He is currently resting in bed. Awake and alert in no acute distress. He is maintaining O2 saturations in the 90s on room air. He is receiving Jevity tube feedings at 60 mL/h. Glucose 104. He remains on ceftriaxone. Lovenox for DVT prophylaxis. Scopolamine patch in place. No further seizure activity. He remains on Keppra and Vimpat. Objective - Vital Signs Vital signs: Vital Signs Temp 98.1 F 08/02/24 12:46 Pulse 75 08/02/24 12:46 Resp 16 08/02/24 12:46 BP 100/68 08/02/24 12:46 Pulse Ox 96 08/02/24 12:46 FiO2 40 07/30/24 16:45 Intake & Output 08/01/24 08/02/24 08/02/24 18:59 06:59 18:59 Intake Total 720 Balance 720 Intake: Tube Feeding 720 Other: Voiding Method Bedpan Bedpan Urinal Diaper Diaper Diaper # Voids 5 2 - Exam A 68-year-old male patient appears ill looking, chronically debilitated, weak, cachectic with a BMI of 21.8, no signs of any significant respiratory distress, extremely weak cough, muffled voice, motor weakness in all 4 extremities and lo oks quite debilitated and chronically ill. He is currently on room air oxygen. Head exam is unremarkable. No scleral icterus or corneal arcus noted. Neck is without jugular venous distension, thyromegaly, or carotid bruits. Carotid upstrokes are brisk bilaterally. Lungs are clear to auscultation and percussion. Breath sounds are diminished in lung bases, scattered rhonchi Cardiac exam reveals the PMI to be normally sized and situated. Rhythm is regular. First and second heart sounds normal. No murmurs, rubs or gallops. Abdominal exam reveals normal bowel sounds, no masses, no organomegaly and no aortic enlargement. PEG tube site is dry clean and intact Extremities are nonedematous and both femoral and pedal pulses are normal. Examination of the skin revealed no evidence of significant rashes, suspicious appearing nevi or other concerning lesions. Neurologically, the patient is awake, poor historian cranial nerves are essentially intact. Generalized motor weakness in all 4 extremities - Labs CBC & Chem 7: 07/31/24 03:12 07/31/24 03:12 Labs: Abnormal Lab Results - Last 24 Hours (Table) 08/02/24 08/02/24 Range/Units 00:11 06:00 POC Glucose (mg/dL) 117 H 124 H (70-110) mg/dL Assessment and Plan Assessment: Acute left lower lobe pneumonia. Consider aspiration pneumonia post seizure. Also, aspiration is possible as the patient receiving enteral feeding for nutrition support via PEG tube. Chest x-ray shows a left lower lobe consolidation and a small left-sided pleural effusion. Patient continues to have difficulties with cough and excessive respiratory secretions and his cough and mechanism is weak related to his underlying ongoing neurologic disorder. ALS is being considered. Patient is currently on room air oxygen. Patient is post bronchoscopy. Copious amounts of respiratory secretions were removed during a bronchoscopy done on 07/30/2024. Post bronchoscopy, the patient encountered stridor which ultimately recovered. Continues to have copious respiratory secretions despite being on a combination of scopolamine and Robinul. Having difficulty with airway clearance. Cough is adequate for now. No stridor. 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 Could be related to intravascular volume depletion. Sodium level is improved Plan: The patient was seen and evaluated Labs and medications reviewed Continue the current treatment plan PACE RN plans to meet with the guardian and the patient post discharge They will plan to discuss whether or not to move forward with a tracheostomy tube placement Patient is to return to [facility] at discharge I have personally seen and examined the patient, performed the documentation and the assessment and plan as written. Number of minutes spent on the visit: 10 Dictation was produced using [email or web address] dictation software. Please excuse any grammatical, word or spelling errors.
== END 2024-08-02 15:15 | DRG 177 ==
LOC: EC 05:48 → 5NMEDONC 08:15 → OBSVTOIN 08:16 → 5NMEDONC 09:19
PROVIDERS: ADMIT Internal Medicine; ATTEND Internal Medicine
PROC: 5A09557 Assistance with Respiratory Ventilation, Greater than 96 Consecutive Hours, Continuous Positive Airway Pressure (ICD-10-PCS; 2024-07-30)
PROC: 0B9J8ZX Drainage of Left Lower Lung Lobe, Via Natural or Artificial Opening Endoscopic, Diagnostic (ICD-10-PCS; principal; 2024-07-30 07:45)
DX: J15.69 Pneumonia due to other Gram-negative bacteria (principal); J96.01 Acute respiratory failure with hypoxia; G12.20 Motor neuron disease, unspecified; E87.1 Hypo-osmolality and hyponatremia; D63.8 Anemia in other chronic diseases classified elsewhere; G40.409 Other generalized epilepsy and epileptic syndromes, not intractable, without status epilepticus; J90 Pleural effusion, not elsewhere classified; I69.354 Hemiplegia and hemiparesis following cerebral infarction affecting left non-dominant side; J44.0 Chronic obstructive pulmonary disease with (acute) lower respiratory infection; F32.A Depression, unspecified; I10 Essential (primary) hypertension; J69.0 Pneumonitis due to inhalation of food and vomit; E86.0 Dehydration; R13.10 Dysphagia, unspecified; D50.9 Iron deficiency anemia, unspecified; E78.5 Hyperlipidemia, unspecified; E83.42 Hypomagnesemia; Y95 Nosocomial condition; D75.839 Thrombocytosis, unspecified; E87.8 Other disorders of electrolyte and fluid balance, not elsewhere classified; F41.9 Anxiety disorder, unspecified; G89.29 Other chronic pain; J38.3 Other diseases of vocal cords; K11.5 Sialolithiasis; K21.9 Gastro-esophageal reflux disease without esophagitis; M10.9 Gout, unspecified; M19.90 Unspecified osteoarthritis, unspecified site; N40.0 Benign prostatic hyperplasia without lower urinary tract symptoms; R00.0 Tachycardia, unspecified; Z74.01 Bed confinement status; Z79.82 Long term (current) use of aspirin; Z79.899 Other long term (current) drug therapy; Z87.891 Personal history of nicotine dependence; Z95.0 Presence of cardiac pacemaker; Z98.42 Cataract extraction status, left eye
CPT/HCPCS: 31624; 36415; 70450; 71046; 80048; 80053; 80164; 80165; 80177; 80235; 82728; 83540; 83550; 83605; 83735; 83880; 83930; 83935; 84145; 84295; 84300; 84484; 85025; 87040; 87070; 87077; 87186; 87205; 87449; 87636; 93005; 94640; 94660; 94760; 96365; 96375; 99285